=== PATIENT | male | born 1955 | race Caucasian/White ===

== ENCOUNTER 2022-02-17 10:23 | Outpatient (REF) | payer MEDICARE, MEDICAID, SELFPAY ==
[2022-02-17 15:24] LABS: MANUAL DIFF FLAG NO
[2022-02-17 15:28] LABS: Basophils Percent Auto 0.4 % (0-2); Eosinophils Percent Auto 0.4 % (0-4); Hematocrit 49.7 % (42.0-52.0); Hemoglobin 16.4 g/dl (14.0-18.0); Imm Gran Abs Auto 0.03 X10*3/uL (0.00-0.03); Imm Gran Pct Auto 0.3 % (0.0-0.4); Lymphocytes Absolute Auto 1.9 X10*3/uL (1.2-4.9); Lymphocytes Percent Auto 18.3 % (20-40); Mean Corpuscular Hemoglobin 30.4 pg (27.0-33.0); Mean Platelet Volume 10.6 fL (9.4-12.4); Monocytes Absolute Auto 0.6 X10*3/uL (0.1-1.2); Monocytes Percent Auto 5.9 % (2-11); Neutrophils Absolute Auto 7.9 x10*3/uL (2.0-8.3); Neutrophils Percent Auto 74.7 % (45-73); Platelet Count 329 X10*3/uL (160-400); Red Cell Distribution Width 13.2 % (11.0-16.0); White Blood Count 10.6 X10*3/uL (4.8-10.8)
[2022-02-17 15:39] LABS: Alanine Aminotransferase 29 U/L (0-40); Albumin Level 4.4 g/dL (3.5-5.0); Alkaline Phosphatase 87 U/L (39-117); Anion Gap 15 (12-20); Aspartate Amino Transferase 14 U/L (5-37); Bilirubin Total 0.6 mg/dL (0.0-1.0); Blood Urea Nitrogen 23 mg/dL (9-16); Calcium 10.1 mg/dL (8.4-10.2); Carbon Dioxide 23 mmol/L (22-29); Chloride 105 mmol/L (96-108); Cholesterol 212 mg/dL; Estimated Glomerular Filt Rate > 60; Glucose Fasting 103 mg/dL (60-99); HDL Cholesterol 40 mg/dL; LDL Cholesterol Calculated 149 mg/dl; Potassium 4.7 mmol/L (3.3-5.1); Sodium 138 mmol/L (135-145); Total Protein 7.7 g/dL (6.5-8.0); Triglycerides 116 mg/dL
[2022-02-17 16:15] LABS: TSH reflex Free T4 0.78 uIU/mL (0.32-4.0); Vitamin D 25-OH Total 54.1 ng/mL (>30)
[2022-02-17 17:00] LABS: Prostate Specific Antigen Scr 13.66 ng/mL (<0.05-4.0)
== END 2022-02-17 10:24 | disposition home or self-care (01) ==
LOC: HO.WFDLDS 10:23
PROVIDERS: Visit Provider Family Medicine
DX: Z00.00 Encounter for general adult medical examination without abnormal findings (principal); Z12.5 Encounter for screening for malignant neoplasm of prostate; E55.9 Vitamin D deficiency, unspecified
CPT/HCPCS: 36415; 80053; 80061; 82306; 84153; 84443; 85025

== ENCOUNTER 2023-05-01 15:45 | Outpatient (AMB) | payer MEDICARE, SELFPAY ==
--- NOTE | 2023-05-01 15:49 | MHC.PC.OV ---
Vital Signs 05/01/23 15:51 Height 5 ft 8 in Weight 175 lb BMI 26.6 BP 142/84 H Blood Pressure Location Lt brachial Position Sitting Pulse 90 Pulse Source Pulse Oximeter Pulse Oximetry (%) 95 Oxygen Delivery Method Room Air Intake Visit Reasons: CPE Intake Note: Patient is here for his physical today, needs a new placard form. Allergies No Known Allergies Allergy (Verified 05/01/23 15:55) Medication List - Last Reconciled 05/01/23 by Easton Jorge MD amlodipine 5 mg PO DAILY amoxicillin 500 mg PO Q12H 10 days cholecalciferol (vitamin D3) 125 mcg PO DAILY diclofenac sodium 1% 2 grams topical QID 30 days dutasteride 0.5 mg PO DAILY lisinopril 10 mg PO DAILY 30 days metoprolol succinate ER 25 mg PO DAILY 90 days omeprazole 40 mg PO DAILY 90 days policosanol mg PO selenium 50 mcg PO DAILY tamsulosin 0.4 mg PO DAILY trazodone 25 mg (1/2 x 50 mg) PO BEDTIME PRN 30 days Tobacco use date assessed: 05/01/23 Fall risk assessment: 2 + Falls in past year Last assessed Fall Risk: 05/01/23 Dental Screening Dental Screen Date: 05/01/23 Did you have a dental visit in the last 12 months?: Yes Did you have a dental problem in the last 6 months where you did not have access to dental care?: No Was dental information given to patient?: No HPI CPE HPI Details 67 y/o male presents for a CPE with f/u labs and health maintenance. No recent labs to review. Blood pressure today is 142/84. He is on amlodipine 5mg, lisinopril 10mg and metoprolol 25mg daily. Pt reports unsteady gait. Daughter reports that he had almost fallen. They also report anxiety and daughter notes he has been feeling more frustrated lately. They report GERD. [facility] Surgical History No pertinent past surgical history Social History Housing: House Patient Tobacco Use Status: Former Tobacco user Tobacco use type: Cigarette and Cigar e-Cigarette/Vaping Use: Never Used Second Hand Smoke Exposure: No service: No Current occupational status: retired Current occupational exposures/hazards: No Cognitive needs: No Hearing needs: No Vision needs: No Questionnaire PHQ-9 Over the last 2 weeks, how often have you been bothered by any of the following problems? 1. Little interest or pleasure in doing things: several days 2. Feeling down, depressed, or hopeless: not at all 3. Trouble falling or staying asleep, or sleeping too much: nearly every day 4. Feeling tired or having little energy: several days 5. Poor appetite or overeating: several days 6. Feeling bad about yourself - or that you are a failure or have let yourself or your family down: not at all 7. Trouble concentrating on things, such as reading the newspaper or watching television: not at all 8. Moving or speaking so slowly that other people could have noticed. Or the opposite - being so fidgety or restless that you have been moving around a lot more than usual: not at all 9. Thoughts that you would be better off or of hurting yourself in some way: not at all Total score: 6 Source: Developed by Drs. Conrad Palomino, Joan Shipman, Juan David Alcantara and colleagues, with an educational daly from [employer]. ITZEL-7 AMB Questionnaire ITZEL-7 Date ITZEL - 7 assessed: 04/03/22 Feeling nervous, anxious, or on edge: 3 = Nearly every day Not being able to stop or control worryin = Nearly every day Worrying too much about different things: 3 = Nearly every day Trouble relaxin = Nearly every day Being so restless that it is hard to sit still: 0 = Not at all Becoming easily annoyed or irritable: 3 = Nearly every day Feeling afraid as if something awful might happen: 0 = Not at all Total ITZEL-7 score (0-4 normal; 5-9 mild; 10-14 moderate; 15-21 severe): 15 Source: Developed by Drs. Conrad Palomino, Joan Shipman, Juan David Alcantara and colleagues, with an educational daly from [employer]. Review of Systems Const Denies chills, Denies fatigue, Denies fever(s), Denies headache(s) and Denies weakness Eyes Denies change in vision ENT Denies dizziness, Denies headache(s), Denies hearing loss, Denies nasal congestion, Denies sinus pain, Denies sinus pressure and Denies sore throat Card Denies chest pain, Denies lightheadedness, Denies dyspnea and Denies other (palpitations) Resp Denies cough, Denies dyspnea and Denies wheezing GI Denies abdominal pain, Denies melena, Denies hematochezia, Denies change in bowel habits, Denies dyspepsia and Denies nausea Denies hematuria and Denies dysuria Musc Denies abnormal gait, Denies myalgias, Denies arthralgias, Denies numbness and Denies tingling Skin/Breast Denies rash, Denies unusual bruising and Denies wounds Neuro Denies abnormal gait, Denies dizziness, Denies headache(s), Denies memory loss, Denies numbness, Denies Sensory deficit (Neuro), Denies tingling and Denies weakness Psych Denies anxiety, Denies depression and Denies memory loss Endo Denies cold intolerance, Denies fatigue, Denies heat intolerance, Denies polydipsia and Denies polyuria Eze/Lymph Denies easy bleeding and Denies easy bruising Aller/Immun Denies wheezing Physical exam (Primary Care) Vital Signs: Last Vital Signs Pulse 90 05/01/23 15:51 BP 142/84 H 05/01/23 15:51 Pulse Ox 95 05/01/23 15:51 Oxygen Delivery Method Room Air 05/01/23 15:51 BMI result Body Mass Index 26.6 Tobacco/Smoking Status: Tobacco use Status Tobacco use date assessed 05/01/23 05/01/23 16:04 Patient Tobacco Use Status Former Tobacco user 05/01/23 16:04 Tobacco use type Cigarette,Cigar 05/01/23 16:04 e-Cigarette/Vaping Use Never Used 05/01/23 16:04 PHQ-9: PHQ-9 Score PHQ-9: Total score 6 05/01/23 16:37 Const General: no acute distress, well developed, alert and awake Nutritional Appearance: well nourished Orientation/consciousness: patient oriented x3 HENMT Head: Yes normocephalic and Yes atraumatic Ears: hearing grossly normal bilaterally and TM's normal bilaterally General nose exam: Normal external nose present and Normal nares present Mouth: Normal oral and palatal mucosa present and moist mucous membranes Teeth and gingiva: dentition normal Throat: Yes posterior oropharynx normal Eyes General: appearance normal, both eyes and all related structures Pupils: Equal, round and reactive pupils present and Pupil accommodation reflex normal EOM: EOMs intact bilaterally Neck Neck: Yes normal visual inspection, Yes no lymphadenopathy and Yes trachea midline Thyroid: Thyroid normal Carotids: no bruits Lymphatic: no lymphadenopathy noted Chest Chest palpation & inspection: normal inspection of the chest Resp Effort & Inspection: normal respiratory effort Auscultation: clear to auscultation bilaterally Cardio Rate: regular rate Rhythm: regular rhythm Heart sounds: S1 normal heart sound present, S2 normal heart sound present, no gallops, no murmurs and no rubs Bruits: no abdominal aortic bruits and no carotid bruits GI Palpation (GI): No Abdominal aortic bruit present, Soft to palpation, nontender, No hepatosplenomegaly present and No Rebound tenderness present Auscultation: normal bowel sounds General: Yes no CVA tenderness Back/Spine/Pelvis Back: no CVA tenderness Cervical Spine: cervical ROM normal and No Cervical spine tenderness Thoracic/Lumbar Spine: thoraco-lumbar ROM normal, No pain with thoraco-lumbar ROM, No thoracic spinal tenderness and No lumbar spinal tenderness Skin Lesions: no lesions Rashes: no rashes Trauma: no lacerations or abrasions Wounds: no wounds Nails: normal Neuro General: patient oriented x3 Cranial nerves: Yes Equal, round and reactive pupils present Cognition (Neuro): normal cognition Gait exam (Neuro): gait abnormal Motor exam (neuro): 5/5 motor strength present throughout Sensory Exam: No Sensory deficit (Neuro) Deep tendon reflexes (DTR's): Right patellar reflex intensity grade: 2+ and Left patellar reflex intensity grade: 2+ Extrem General: Yes normal to inspection and No edema Psych Appearance: grossly normal Affect: Anxious affect present Attitude: cooperative Thought process: Normal thought process present Assessment and Plan Assessment & Plan (1) Adult general medical exam: Code(s): Z00.00 - Encounter for general adult medical examination without abnormal findings Plan: 67-year-old male presents for complete physical exam (2) Unsteady gait: Code(s): R26.81 - Unsteadiness on feet Plan: Unsteady gait which is likely due to multiple factors including bilateral hip and knee arthritis and injuries. Also patient has this some Behavioral Health and mental status changes which may be related to neurological changes. Will check MRI May need referral to neurology Resume physical therapy (3) Hip pain, bilateral: Code(s): M25.551 - Pain in right hip; M25.552 - Pain in left hip Plan: Using a cane and I am recommending a walker Needs physical therapy (4) Screening for prostate cancer: Code(s): Z12.5 - Encounter for screening for malignant neoplasm of prostate Plan: Check labs (5) GERD (gastroesophageal reflux disease): Code(s): K21.9 - Gastro-esophageal reflux disease without esophagitis Plan: Declines medication. His daughter says she has Pepcid at home and he can use this if he is willing (6) Screening for colon cancer: Code(s): Z12.11 - Encounter for screening for malignant neoplasm of colon Plan: Deferred - we can readdress this at a subsequent visit (7) Anxiety: Code(s): F41.9 - Anxiety disorder, unspecified Plan: Patient is irritable and gets angry easily. Also has apparent panic attacks Trial quetiapine Trial lorazepam Advised he only use these with family supervision (8) Lower extremity weakness: Code(s): R29.898 - Other symptoms and signs involving the musculoskeletal system Plan: Likely secondary to arthritis and injuries but also neurologic component. Checking MRI Brain (9) Altered mental status: Code(s): R41.82 - Altered mental status, unspecified Plan: As above check MRI of brain Trial medications as mentioned above and close family supervision (10) Imbalance: Code(s): R26.89 - Other abnormalities of gait and mobility Plan: As above Orders: Orders Comprehensive [place]. Panel Fast Today Z00.00 - Encounter for general adult medical examination without abnormal findings Lipid Panel Today Z00.00 - Encounter for general adult medical examination without abnormal findings Prostate Specific Antigen Scr Today Z12.5 - Encounter for screening for malignant neoplasm of prostate TSH reflex Free T4 Today Z00.00 - Encounter for general adult medical examination without abnormal findings Microalbumin, Random (w Creat) Today I10 - Essential (primary) hypertension Complete Blood Count Auto Diff Today Z00.00 - Encounter for general adult medical examination without abnormal findings UA and rflx microscopic Today Z00.00 - Encounter for general adult medical examination without abnormal findings MR head/brain wo/w con Today R26.89 - Other abnormalities of gait and mobility, R41.82 - Altered mental status, unspecified PT Evaluation and Treatment Today R26.81 - Unsteadiness on feet Referrals [facility] Referral R26.81 - Unsteadiness on feet, R29.898 - Other symptoms and signs involving the musculoskeletal system, R41.82 - Altered mental status, unspecified Medications: New walker (Ultra-Light Rollator misc) Daily As directed, 999 days 1 ea 0RF M25.551 - Pain in right hip, M25.552 - Pain in left hip, M25.561 - Pain in right knee, M25.562 - Pain in left knee, R26.81 - Unsteadiness on feet, R29.898 - Other symptoms and signs involving the musculoskeletal system quetiapine (Seroquel) 25 mg PO BEDTIME 30 days 30 tabs 1RF lorazepam [employer] verified. Partial refill upon request. 0.25 mg (1/2 x 0.5 mg) PO DAILY 30 days PRN 10 tabs 0RF anxiety walker (Ultra-Light Rollator misc) Daily As directed, 999 days 1 ea 0RF M25.551 - Pain in right hip, M25.552 - Pain in left hip, M25.561 - Pain in right knee, M25.562 - Pain in left knee, R26.81 - Unsteadiness on feet, R29.898 - Other symptoms and signs involving the musculoskeletal system Coding Level of Care Code Est Pt Level 4 (42810) Est Pt Prev Care >65y(97255) Diagnoses Adult general medical exam Z00.00 Unsteady gait R26.81 Hip pain, bilateral M25.551; M25.552 Screening for prostate cancer Z12.5 GERD (gastroesophageal reflux disease) K21.9 Screening for colon cancer Z12.11 Anxiety F41.9 Lower extremity weakness R29.898 Altered mental status R41.82 Imbalance R26.89
[2023-05-01 15:51] VITALS: BP 142/84; PULSE 90; O2SAT 95; BMI 26.6
== END 2023-05-01 17:15 | disposition home or self-care (01) ==
PROVIDERS: PCP Family Medicine; Visit Provider Family Medicine
DX: Z00.00 Encounter for general adult medical examination without abnormal findings (principal); K21.9 Gastro-esophageal reflux disease without esophagitis; F41.9 Anxiety disorder, unspecified; M25.552 Pain in left hip; R26.81 Unsteadiness on feet; M25.551 Pain in right hip; R29.898 Other symptoms and signs involving the musculoskeletal system; R41.82 Altered mental status, unspecified; R26.89 Other abnormalities of gait and mobility
CPT/HCPCS: 99397

== ENCOUNTER 2023-06-26 15:40 | Outpatient (AMB) | payer MEDICARE, SELFPAY ==
[2023-06-26 15:46] VITALS: BP 140/78; PULSE 113; O2SAT 94
--- NOTE | 2023-06-26 15:46 | A.OFFPC_ITS ---
Vital Signs 06/26/23 15:46 Height 5 ft 8 in BMI Reason not done Patient refused/unable BP 140/78 H Blood Pressure Location Lt brachial Position Sitting Pulse 113 H Pulse Source Pulse Oximeter Pulse Oximetry (%) 94 Oxygen Delivery Method Room Air Intake Visit Reasons: f/u unsteady gait/imbalance Intake Note: Patient is here for unsteady gait, and imbalance. Allergies No Known Allergies Allergy (Verified 06/26/23 15:50) Tobacco use date assessed: 06/26/23 Fall risk assessment: 2 + Falls in past year Last assessed Fall Risk: 06/26/23 Dental Screening Dental Screen Date: 06/26/23 Did you have a dental visit in the last 12 months?: Yes Did you have a dental problem in the last 6 months where you did not have access to dental care?: No Was dental information given to patient?: Patient has dentist HPI f/u unsteady gait/imbalance HPI Details 67 y/o male presents to f/u unsteady gai t and imbalance. Had resumed physical therapy for him. Blood pressure today 140/78, 113p. He is on lisinopril 10mg, amlodipine 5mg and metoprolol 25mg daily. They report motivation issues along with anxiety/depression. They report ongoing back pain. [facility] Surgical History No pertinent past surgical history Social History Housing: House Patient Tobacco Use Status: Former Tobacco user Tobacco use type: Cigarette and Cigar e-Cigarette/Vaping Use: Never Used Second Hand Smoke Exposure: No service: No Current occupational status: retired Current occupational exposures/hazards: No Cognitive needs: No Hearing needs: No Vision needs: No Questionnaire ITZEL-7 AMB Questionnaire ITZEL-7 Date ITZEL - 7 assessed: 04/03/22 Source: Developed by Drs. Conrad Palomino, Joan Shipman, Juan David Alcantara and colleagues, with an educational daly from [employer]. Review of Systems Const Denies chills, Denies fatigue, Denies fever(s), Denies headache(s) and Denies weakness ENT Denies dizziness and Denies headache(s) Card Denies chest pain, Denies lightheadedness, Denies dyspnea and Denies other (Palpitations) Resp Denies cough, Denies dyspnea, Denies wheezing and Denies other ( shortness of breath) Musc Denies numbness and Denies tingling Neuro Denies dizziness, Denies headache(s), Denies numbness, Denies tingling, Denies paresthesias and Denies weakness Psych Denies anxiety and Denies depression Endo Denies fatigue Aller/Immun Denies wheezing Physical exam (Primary Care) Vital Signs: Last Vital Signs Pulse 113 H 06/26/23 15:46 BP 140/78 H 06/26/23 15:46 Pulse Ox 94 06/26/23 15:46 Oxygen Delivery Method Room Air 06/26/23 15:46 Tobacco/Smoking Status: Tobacco use Status Tobacco use date assessed 06/26/23 06/26/23 15:58 Patient Tobacco Use Status Former Tobacco user 06/26/23 15:58 Tobacco use type Cigarette,Cigar 06/26/23 15:58 e-Cigarette/Vaping Use Never Used 06/26/23 15:58 Const General: no acute distress and well developed Nutritional Appearance: well nourished Orientation/consciousness: patient oriented x3 HENMT Head: Yes normocephalic and Yes atraumatic Eyes General: appearance normal, both eyes and all related structures Pupils: Equal, round and reactive pupils present EOM: EOMs intact bilaterally Resp Effort & Inspection: normal respiratory effort Auscultation: clear to auscultation bilaterally Cardio Rate: regular rate Rhythm: regular rhythm Heart sounds: S1 normal heart sound present, S2 normal heart sound present, no gallops, no murmurs and no rubs Neuro Other: LE weakness 4/5 strength on RLE, 3/5 strength LLE General: patient oriented x3 and No gait normal Cranial nerves: Yes Equal, round and reactive pupils present Gait exam (Neuro): gait abnormal and Assisted gait required Gait assisted method: wheelchair bound Psych Affect: normal affect Assessment and Plan Assessment & Plan (1) Unsteady gait: Code(s): R26.81 - Unsteadiness on feet Plan: Significantly?unsteady?gait.??Unclear?if?causes?due?to?low?back?injury? or?a?central?nervous?lesion/brain?lesion. He?is?had?changes?in?personality?as?well?as?a?shuffling?gait.??MRI?is?ordered?an d?I?have?given?the?phone?number?for?MRI?to?his?granddaughter?to?call?and?make? an?appointment?for?this He?is?had?several?falls?and?I?think?at?this?point?it?is?time?for?him?to?use?a?wh eelchair.??Printed?script?for?wheelchair. (2) Lower extremity weakness: Code(s): R29.898 - Other symptoms and signs involving the musculoskeletal system Plan: As?above (3) Hypertension: Code(s): I10 - Essential (primary) hypertension Plan: Increase?lisinopril?and?continue?amlodipine (4) Anxiety: Code(s): F41.9 - Anxiety disorder, unspecified Plan: Currently?does?not?seem?compliant?with?his?medications. Will?get?him?referred?to?[facility]?to?help?with?medication?compliance?and?organization . (5) Low back pain: Code(s): M54.50 - Low back pain, unspecified Plan: History?of?falls?and?compression?fractures. Ongoing?back?pain.??Checking?lumbar?spine?x-rays. Can?use?meloxicam?as?well?as?diclofenac?gel. (6) Cognitive decline: Code(s): R41.89 - Other symptoms and signs involving cognitive functions and awareness Plan: Cognitive?decline?as?well?as?worsening?mood?disorder. Unclear?if?mood?disorder?is?causing?cognitive?decline?or?otherwise. As?above,?an?MRI?is?ordered. Also?referring?him?to?Neurology?for?cognitive?decline?with?worsening?weakness?an d?unsteady?gait. Orders: Orders XR lumbar spine 2-3V Today M54.50 - Low back pain, unspecified Referrals Neurology Referral R26.81 - Unsteadiness on feet, R29.898 - Other symptoms and signs involving the musculoskeletal system, R41.89 - Other symptoms and signs involving cognitive functions and awareness Medications: New miscellaneous medical supply Wheelchair. Daily?As directed, 999 days 1 ea 0RF R26.81 - Unsteadiness on feet, R29.898 - Other symptoms and signs involving the musculoskeletal system, S32.009A - Unspecified fracture of unspecified lumbar vertebra, initial encounter for closed fracture meloxicam 15 mg PO DAILY 30 days 30 tabs 2RF Changed From lisinopril 10 mg PO DAILY 30 days 30 tabs 2RF To lisinopril 20 mg (2 x 10 mg) PO DAILY 30 days 60 tabs 2RF Refilled diclofenac sodium 1% 2 grams topical QID 30 days 100 grams 2RF M25.561 - Pain in right knee Coding Level of Care Code Est Pt Level 4 (06996) Diagnoses Unsteady gait R26.81 Lower extremity weakness R29.898 Hypertension I10 Anxiety F41.9 Low back pain M54.50 Cognitive decline R41.89
== END 2023-06-26 16:51 | disposition home or self-care (01) ==
PROVIDERS: PCP Family Medicine; Visit Provider Family Medicine
DX: R26.81 Unsteadiness on feet (principal); R29.898 Other symptoms and signs involving the musculoskeletal system; I10 Essential (primary) hypertension; F41.9 Anxiety disorder, unspecified; M54.50 Low back pain, unspecified; R41.89 Other symptoms and signs involving cognitive functions and awareness
CPT/HCPCS: 99214

== ENCOUNTER 2023-11-28 08:16 | Emergency (ER) | payer MEDICARE, OTHER, SELFPAY ==
[2023-11-28 08:27] VITALS: BP 142/84; BP 161/91; PULSE 62; PULSE 65; RESP 16; TEMP 36.8; O2SAT 96; O2SAT 98; BMI 27.0
--- NOTE | 2023-11-28 09:19 | ED.MALEGU ---
HPI - Male Genitourinary General Chief complaint: Urogenital-Male Stated complaint: ABD PAIN BLOOD IN CATHETER Source: patient and EMS Mode of arrival: EMS Limitations: no limitations History of Present Illness HPI Narrative: Patient presents for bloody catheter yesterday, today he states that it is clearing up. no pain no fever, no abdominal distention Onset (ago): day(s) Duration: intermittent Related Data Home Medications Medication Instructions Recorded Confirmed cholecalciferol (vitamin D3) 125 125 mcg PO DAILY 02/09/22 05/01/23 mcg (5,000 unit) capsule policosanol 10 mg tablet mg PO 02/09/22 05/01/23 selenium 50 mcg tablet 50 mcg PO DAILY 02/09/22 05/01/23 tamsulosin 0.4 mg capsule 0.4 mg PO DAILY 02/09/22 05/01/23 dutasteride 0.5 mg capsule 0.5 mg PO DAILY 02/17/22 05/01/23 Previous Rx's Medication Instructions Recorded metoprolol succinate 25 mg 25 mg PO DAILY 90 days #90 tabs 02/10/22 tablet,extended release 24 hr omeprazole 40 mg capsule,delayed 40 mg PO DAILY 90 days #90 caps 02/10/22 release trazodone 50 mg tablet 25 mg (1/2 x 50 mg) PO BEDTIME PRN 01/22/23 sleep 30 days #20 tabs lorazepam 0.5 mg tablet 0.25 mg (1/2 x 0.5 mg) PO DAILY 05/01/23 PRN anxiety 30 days #10 tabs quetiapine 25 mg tablet (Seroquel) 25 mg PO BEDTIME 30 days #30 tabs 05/01/23 walker (Ultra-Light Rollator misc) #1 ea 05/02/23 amlodipine 5 mg tablet 5 mg PO DAILY 90 days #90 tabs 05/22/23 diclofenac sodium 1 % topical gel 2 g topical QID 30 days #100 grams 06/26/23 lisinopril 10 mg tablet 20 mg (2 x 10 mg) PO DAILY 30 days 06/26/23 #60 tabs meloxicam 15 mg tablet 15 mg PO DAILY 30 days #30 tabs 06/26/23 miscellaneous medical supply #1 ea 06/26/23 Allergies Allergy/AdvReac Type Severity Reaction Status Date / Time No Known Allergies Allergy Verified 06/26/23 15:50 Review of Systems Review of Systems: Yes all other systems are reviewed and are negative Neurologic: Denies Sensory deficit (Neuro) [facility] Past Medical History Surgical History No pertinent past surgical history Social History Social History Housing: House Patient Tobacco Use Status: Former Tobacco user Tobacco use type: Cigarette and Cigar e-Cigarette/Vaping Use: Never Used Second Hand Smoke Exposure: No Advance Directives: No Advance Directives Information Provided: Yes service: No Current occupational status: retired Current occupational exposures/hazards: No Cognitive needs: No Hearing needs: No Vision needs: No Physical Exam Vital Signs: Vital Signs: Last Vital Signs Temp 98.2 F 11/28/23 08:27 Pulse 65 11/28/23 08:27 Resp 16 11/28/23 08:27 BP 161/91 H 11/28/23 08:27 Pulse Ox 96 11/28/23 08:27 O2 Del Method Room Air 11/28/23 08:27 BMI result Body Mass Index 27.0 Const: Other: frail elderly male looking chronically ill Nutritional Appearance: thin Orientation/consciousness: oriented to person and patient oriented x3 Limitations: no limitations HEENT: Head: Yes normal to inspection Ears: external ears normal General nose exam: Normal external nose present Mouth: Normal oral and palatal mucosa present and oropharynx normal Throat: Yes posterior oropharynx normal Eyes: General: appearance normal, both eyes and all related structures Neck: Other: supple Neck: Yes normal visual inspection Chest: Chest palpation & inspection: normal inspection of the chest Resp: Auscultation: clear to auscultation bilaterally Cardio: Jugular venous distension: no JVD Rate: regular rate Rhythm: regular rhythm Heart sounds: S1 normal heart sound present and S2 normal heart sound present GI: Inspection: Yes normal to inspection Palpation (GI): Soft to palpation, nontender and No hepatosplenomegaly present Auscultation: normal bowel sounds : Other: catheter in penis, no bleeding Skin: General skin exam: no rashes or lesions noted Neuro: General: oriented to person and patient oriented x3 Cranial nerves: Yes CN's II-XII intact bilaterally Motor exam (neuro): 5/5 motor strength present throughout Sensory Exam: No Sensory deficit (Neuro) Extrem: General: Yes normal to inspection Psych: Appearance: grossly normal Course Reevaluation(s) Reevaluation #1: bedside US show livingston balloon in good place with empty bladder Time: 09:31 Medical Decision Making Differential Diagnosis Differential Diagnoses: The differential diagnosis associated with the presentation includes (dislodged livingston, prostate bleeding, bladder bleeding) Admission/Observation Consideration of admission/observation: Escalation of care including admission/observation considered (upon arrival patient was considered for admission) Independent Interpretation Interpretation: Bedside US show livingston in good position Tests considered The following testing was considered but not selected: Official Us considered but bedside performed by [place] Discharge Plan Discharge Clinical Impression: Chronic indwelling Livingston catheter Patient Disposition: Home, Self-Care Prescriptions: No Action (DME) Ultra-Light Rollator Misc See Rx Instructions .Route Qty: 1 0RF Rx Instructions: Daily As directed, 999 days amlodipine 5 mg tablet 5 mg PO DAILY 90 Days Qty: 90 3RF dutasteride 0.5 mg capsule 0.5 mg PO DAILY trazodone 50 mg tablet 25 mg PO BEDTIME PRN (Reason: sleep) 30 Days Qty: 20 0RF quetiapine [Seroquel] 25 mg tablet 25 mg PO BEDTIME 30 Days Qty: 30 1RF lorazepam 0.5 mg tablet 0.25 mg PO DAILY PRN (Reason: anxiety) 30 Days Qty: 10 0RF Rx Instructions: [facility] verified. Partial refill upon request. (DME) miscellaneous medical supply Misc See Rx Instructions .ROUTE .MEDSUPPLY Qty: 1 0RF Rx Instructions: Wheelchair. Daily?As directed, 999 days lisinopril 10 mg tablet 20 mg PO DAILY 30 Days Qty: 60 2RF meloxicam 15 mg tablet 15 mg PO DAILY 30 Days Qty: 30 2RF diclofenac sodium 1 % gel 2 g topical QID 30 Days Qty: 100 2RF tamsulosin 0.4 mg capsule 0.4 mg PO DAILY cholecalciferol (vitamin D3) 125 mcg (5,000 unit) capsule 125 mcg PO DAILY selenium 50 mcg tablet 50 mcg PO DAILY policosanol 10 mg tablet PO metoprolol succinate 25 mg tablet extended release 24 hr 25 mg PO DAILY 90 Days Qty: 90 1RF omeprazole 40 mg capsule,delayed release(DR/EC) 40 mg PO DAILY 90 Days Qty: 90 2RF Referrals: Saman Pierre MD [Physician] - 1 week
--- NOTE | 2023-11-28 10:35 | MHC.EDTECH ---
Patient had small bowel movement. Patient is clean and dry at this time, emptied Zuniga bag, 900ml.
--- NOTE | 2023-11-28 12:46 | MHC.CM.ED ---
Received case management consult from Dr Burch. Patient came to the ER from [facility] via BLS d/t abd pain and blood in urinary catheter. Work up was negative and Dr Burch was going to transfer patient back to [facility]. Patient stated he didn't feel safe there. T/W spoke with Sheila of [facility]. Patient has not had any complains while at the facility. He does have moments of confusion but never complained. T/w attempted to speak with patient daughter/HCP, Nanci. Left a voicemail requesting a return call. Met with patient. Patient states he feels he can safely return to [facility]. [facility] booked by ER principal secretary. Continue to monitor for d/c needs.
== END 2023-11-28 10:42 | disposition home or self-care (01) ==
PROVIDERS: Emergency Provider Emergency Medicine; PCP Family Medicine
DX: Z46.6 Encounter for fitting and adjustment of urinary device (principal)
CPT/HCPCS: 99281

== ENCOUNTER 2024-05-01 13:47 | Inpatient (IN) | payer MEDICARE, SELFPAY ==
[2024-05-01] VITALS (13 sets, daily range): BP systolic 82–147; BP diastolic 6–88; PULSE 57–118; RESP 16–24; TEMP 36.9–40; O2SAT 91–99; BMI 24.7
--- NOTE | ~2024-05-01 | CT_ITS ---
EXAMINATION: CT HEAD WITHOUT CONTRAST CLINICAL INFORMATION: Altered mental status COMPARISON: None available. TECHNIQUE: Contiguous axial imaging was performed from the skull base to vertex without intravenous administration of contrast. This CT examination was performed using dose optimization techniques as appropriate, variously including the following: *Automated exposure control *Adjustment of mA and/or kV according to patient size (this includes techniques or standardized protocols for targeted exams where dose is matched to indication/reason for exam; i.e. extremities or head) *Use of iterative reconstruction technique DLP: 650 mGy-cm FINDINGS: There is no evidence of acute intracranial hemorrhage or edematous territorial infarction. Diffuse volume loss with prominence of the ventricles and cortical sulci. The ventricles are slightly out of proportion of the cortical sulci. No obstructive hydrocephalus. Patchy and confluent hypodensities within the periventricular and deep white matter likely representing moderate chronic microangiopathy. No mass effect or midline shift. No acute extra-axial collection. Multifocal regions of calvarial thinning along the parietal bones at the vertex with no acute osseous or soft tissue abnormality. The paranasal sinuses and mastoids are well-aerated. CT/CT head/brain wo IV con IMPRESSION: No acute intracranial pathology. Diffuse volume loss. Moderate chronic microangiopathy. The ventricles are slightly out of proportion to the cortical sulci. An underlying component of normal pressure hydrocephalus is not excluded. Clinical correlation is recommended.
--- NOTE | ~2024-05-01 | CT_ITS ---
EXAMINATION: CTA CHEST PE STUDY, CT ABDOMEN AND PELVIS CLINICAL INFORMATION: Hypoxic COMPARISON: No pertinent prior studies are available for comparison. TECHNIQUE: Prior to contrast administration, noncontrast localization images were obtained. After the administration of 85 mL of Omnipaque nonionic IV contrast, contiguous thin slice helical images were obtained through the thorax. Following this the examination was continued through the abdomen and then pelvis. Reformatted MIP images in the coronal and sagittal planes as well as thin slice reformatted images of coronal and sagittal planes were obtained at the acquisition workstation. This CT examination was performed using dose optimization techniques as appropriate, variously including the following: *Automated exposure control *Adjustment of mA and/or kV according to patient size (this includes techniques or standardized protocols for targeted exams where dose is matched to indication/reason for exam; i.e. extremities or head) *Use of iterative reconstruction technique DLP: 250 mGy-cm. FINDINGS: CHEST: The bolus timing on this study was acceptable for visualization of the pulmonary arterial tree. There are no intraluminal pulmonary arterial filling defects present to suggest pulmonary embolism. Bilateral dependent atelectasis. No abnormal pulmonary nodules or masses are appreciated. No significant hilar or mediastinal adenopathy. There is no evidence of pleural effusion or pneumothorax. The heart is normal in size. No evidence of ventricular septal bowing or right heart strain. The mediastinum and great vessels are normal. There is no pericardial effusion or pericardial thickening. ABDOMEN/PELVIS: Liver, Gallbladder and Biliary Tree: The liver is normal in size, shape, and attenuation. No focal hepatic lesion or biliary ductal dilatation is present. The gallbladder is unremarkable with no evidence of radiopaque gallstones, gallbladder wall thickening, or obvious pericholecystic inflammatory changes. Pancreas: Unremarkable. Spleen: Unremarkable. Adrenal Glands: Unremarkable. Kidneys and Ureters: The kidneys are normal in size, shape, and attenuation. Low-attenuation 2.5 cm cyst in the posterior upper pole of the right kidney No hydronephrosis, hydroureter, or calculi seen. No perinephric stranding. Bladder: Although decompressed there is concentric bladder wall thickening and underlying cystitis cannot be excluded. Clinical correlation with urinalysis would be helpful. There appears to be a bladder catheter with the tip ending in the region of the prostatic urethra and the balloon in the bulbous urethra. Gastrointestinal Tract: Few scattered colonic diverticula. No colonic wall thickening or pericolonic inflammatory change to suggest diverticulitis. Visualized small bowel unremarkable Abdominal Wall: No significant hernia is appreciated. Lymphovascular Structures: Mild vascular calcification within the aorta iliac system. No bulky adenopathy Pelvic Viscera: Prostate is markedly enlarged Osseous Structures: Multilevel degenerative changes in the spine with compression deformities more so at L3-L4 with mild compression deformities of L5, L2, and T12 CT/CT abdomen pelvis w IV con IMPRESSION: 1. No evidence for pulmonary emboli. Dependent airspace changes more likely due to atelectasis. 2. No acute abnormality within the abdomen or pelvis. 3. There is a bladder catheter with the tip ending in the region of the prostatic urethra and the balloon in the bulbous urethra. This can be repositioned. 4. Concentric bladder wall thickening likely reflects component of cystitis. Correlation with urinalysis recommended. 5. VTE: Negative. This critical result was discussed with Osiris Stevens MD at 05/01/2024 9:21 PM and it was ascertained that the content and urgency of the report was understood at the time of direct communication.
--- NOTE | ~2024-05-01 | XR_ITS ---
EXAMINATION: XR CHEST CLINICAL INFORMATION: Fever. COMPARISON: No prior images restored to the system at the time of this dictation. TECHNIQUE: AP upright portable view of the chest was obtained. FINDINGS: EKG leads overlie the chest. The cardiomediastinal silhouette is enlarged. Calcification and tortuosity of the aorta is seen. Low lung volumes are seen with mild bibasilar linear atelectasis. No focal dense consolidation, effusion or pneumothorax. No pulmonary edema. No acute bone findings. XR/XR chest 1V IMPRESSION: Low lung volumes with mild bibasilar subsegmental atelectasis. No focal pneumonia.
--- NOTE | 2024-05-01 14:24 | PC.NURSE ---
Pt. on awake overnight monitor at this time.
--- NOTE | 2024-05-01 14:52 | ED.GENADULT ---
HPI - General Adult General Chief complaint: Altered Mental Status Stated complaint: AMS Time Seen by Provider: 05/01/24 14:51 History of Present Illness ED Provider: Dr. 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 Patient is a poor historian at baseline but denies any complaints. He denies: abdominal pain, nausea/vomiting, diarrhea, chest pain, SOB, cough/congestion. Patient's daughter at bedside agrees patient has been in his usual state of health until today. She states when he did not call her she became concerned that something was wrong. Related Data Home Medications ?Medication ?Instructions ?Recorded ?Confirmed cholecalciferol (vitamin D3) 125 125 mcg PO DAILY 02/09/22 05/01/23 mcg (5,000 unit) capsule policosanol 10 mg tablet mg PO 02/09/22 05/01/23 selenium 50 mcg tablet 50 mcg PO DAILY 02/09/22 05/01/23 tamsulosin 0.4 mg capsule 0.4 mg PO DAILY 02/09/22 05/01/23 dutasteride 0.5 mg capsule 0.5 mg PO DAILY 02/17/22 05/01/23 Previous Rx's ?Medication ?Instructions ?Recorded metoprolol succinate 25 mg 25 mg PO DAILY 90 days #90 tabs 02/10/22 tablet,extended release 24 hr omeprazole 40 mg capsule,delayed 40 mg PO DAILY 90 days #90 caps 02/10/22 release trazodone 50 mg tablet 25 mg (1/2 x 50 mg) PO BEDTIME PRN 01/22/23 sleep 30 days #20 tabs lorazepam 0.5 mg tablet 0.25 mg (1/2 x 0.5 mg) PO DAILY 05/01/23 PRN anxiety 30 days #10 tabs quetiapine 25 mg tablet (Seroquel) 25 mg PO BEDTIME 30 days #30 tabs 05/01/23 walker (Ultra-Light Rollator misc) #1 ea 05/02/23 amlodipine 5 mg tablet 5 mg PO DAILY 90 days #90 tabs 05/22/23 diclofenac sodium 1 % topical gel 2 g topical QID 30 days #100 grams 06/26/23 lisinopril 10 mg tablet 20 mg (2 x 10 mg) PO DAILY 30 days 06/26/23 #60 tabs meloxicam 15 mg tablet 15 mg PO DAILY 30 days #30 tabs 06/26/23 miscellaneous medical supply #1 ea 06/26/23 Allergies Allergy/AdvReac Type Severity Reaction Status Date / Time No Known Allergies Allergy Verified 05/01/24 14:09 Review of Systems Review of Systems: Yes all other systems are reviewed and are negative Neurologic: Denies Abnormal speech present and Denies Sensory deficit (Neuro) [facility] Past Medical History Attestation statement: The following information was validated with the patient. Source: old records reviewed Surgical History No pertinent past surgical history Social History Social History Housing: House Patient Tobacco Use Status: Former Tobacco user Tobacco use type: Cigarette and Cigar e-Cigarette/Vaping Use: Never Used Second Hand Smoke Exposure: No Advance Directives: Yes Advance Directives on File: Yes Advance Directives Date on File: 12/19/23 service: No Current occupational status: retired Current occupational exposures/hazards: No Cognitive needs: No Hearing needs: No Vision needs: No Physical Exam ED Vital Signs: Vital Signs - 24 hr 05/01/24 14:07 05/01/24 16:00 05/01/24 17:22 Temperature 104 F H 99.9 F Pulse Rate 111 H 94 83 Respiratory Rate 24 H 20 19 Blood Pressure 147/88 H 114/70 114/70 Pulse Oximetry 94 96 94 Oxygen Delivery Method Nasal Cannula Nasal Cannula Room Air Oxygen Flow Rate 3 05/01/24 17:59 05/01/24 18:00 05/01/24 18:03 Temperature Pulse Rate 72 78 75 Respiratory Rate 19 19 20 Blood Pressure 92/55 L 92/55 L 88/56 L Pulse Oximetry 95 95 95 Oxygen Delivery Method Nasal Cannula Nasal Cannula Nasal Cannula Oxygen Flow Rate 3 3 3 05/01/24 18:07 05/01/24 18:43 05/01/24 18:44 Temperature 100.0 F 98.4 F Pulse Rate 74 71 71 Respiratory Rate 19 18 18 Blood Pressure 91/54 L 117/63 121/65 Pulse Oximetry 95 96 95 Oxygen Delivery Method Nasal Cannula Nasal Cannula Nasal Cannula Oxygen Flow Rate 3 2 2 05/01/24 19:41 Temperature 98.4 F Pulse Rate 57 Respiratory Rate 16 Blood Pressure 92/53 L Pulse Oximetry 96 Oxygen Delivery Method Nasal Cannula Oxygen Flow Rate 3 BMI result Body Mass Index 24.7 Patient is febrile, tachycardic, and mildly hypertensive. Const General: ill appearing Orientation/consciousness: patient oriented x3 HENMT Head: Yes normal to inspection and Yes atraumatic Eyes General: appearance normal, both eyes and all related structures Pupils: Equal, round and reactive pupils present EOM: EOMs intact bilaterally Neck Neck: Yes normal visual inspection, Yes full ROM, Yes supple and No tender Chest Chest palpation & inspection: normal inspection of the chest and normal palpation of entire chest wall Resp Effort & Inspection: normal respiratory effort, able to speak in complete sentences, no cough and no respiratory distress Auscultation: clear to auscultation bilaterally Cardio Rate: tachycardic Rhythm: regular rhythm Peripheral pulses: Peripheral pulses 2+ throughout GI Inspection: Yes normal to inspection, No Abdominal wall edema and No distended Palpation (GI): Soft to palpation, not firm, nontender, no guarding and not rigid Auscultation: normal bowel sounds Other: In-dwelling livingston in place Back/Spine/Pelvis Back: No back tenderness Neuro Other: General: patient oriented x3 Cranial nerves: Yes Equal, round and reactive pupils present Cognition (Neuro): normal cognition Speech: No Abnormal speech present Motor exam (neuro): 5/5 motor strength present throughout Sensory Exam: No Sensory deficit (Neuro) Course Course Course Narrative: Patient is febrile, tachycardic, and mildly hypertensive. Ordered for CXR, EKG, UA, and infectious labs. Ordered for COVID swab. Providing 1L IVF. Providing empiric Cefepime and Vancomycin for sepsis without known source. Labs reviewed. Leukocytosis noted 17. Bandemia 26%. TSH 0.24. COVID/Flu/RSV negative. CXR unremarkable. Reevaluation(s) Reevaluation #1: Called to patient's bedside at 1800 due to hypotension. Providing total 30cc/kg fluid bolus with improvement in low blood pressures. UA with evidence of infection. CT notable for chronic indwelling livingston with balloon in urethra. Plan for livingston removal and replacement. Otherwise CT scan with evidence of cystitis. Plan: Admit to hospitalist Condition: Stable Medications Administered Discontinued Medications Generic Name Dose Route Start Last Admin Trade Name Bennett PRN Reason Stop Dose Admin Acetaminophen 975 mg 05/01/24 16:22 05/01/24 16:36 Acetaminophen 325 Mg Tablet PO 05/01/24 16:23 975 mg ONCE ONE Administration Sodium Chloride 1,000 mls @ 999 mls/hr 05/01/24 15:00 05/01/24 17:37 Ns IV 05/01/24 16:00 Infused .Q1H1M GO Infusion Cefepime HCl 2 gm/ Sodium 50 mls @ 100 mls/hr 05/01/24 16:43 05/01/24 17:35 Chloride IV 05/01/24 17:12 Infused ONCE ONE Infusion Vancomycin HCl 1,000 mg/ 535 mls @ 267.5 mls/hr 05/01/24 18:00 05/01/24 20:42 Vancomycin HCl 750 mg/ Sodium IV 05/01/24 19:59 Infused Chloride ONCE ONE Infusion Iohexol 100 ml 05/01/24 19:02 05/01/24 19:02 Iohexol 350 Mg/Ml 100 Ml Infus..Btl IV 05/01/24 19:03 85 ml ONCE ONE Administration Medical Decision Making Lab Data 05/01/24 16:10 05/01/24 16:10 Labs: Lab Results 05/01/24 05/01/24 05/01/24 Range/Units 16:10 16:23 16:34 WBC 17.0 H (4.8-10.8) X10*3/uL RBC 4.53 L (4.60-5.80) X10*6/uL Hgb 14.0 (14.0-18.0) g/dl Hct 41.7 L (42.0-52.0) % MCV 92.1 (80.0-98.0) fL MCH 30.9 (27.0-33.0) pg MCHC 33.6 (31.0-36.0) g/dl RDW 13.6 (11.0-16.0) % Plt Count 281 (160-400) X10*3/uL MPV 9.4 (9.4-12.4) fL Immature Gran % (Auto) Cancelled Neut % (Auto) Cancelled Lymph % (Auto) Cancelled [place] % (Auto) Cancelled Eos % (Auto) Cancelled Baso % (Auto) Cancelled Lymph # (Auto) Cancelled [place] # (Auto) Cancelled Eos # (Auto) Cancelled Baso # (Auto) Cancelled Abs Immat Gran (auto) Cancelled Absolute Neuts (auto) Cancelled Absolute Nucleated RBC 0.000 (0.0-0.012) X10*3/uL Nucleated RBC % (auto) 0.0 (0.0-0.2) /100WBC Neutrophils % (Manual) 68 (45-73) % Band Neutrophils % 26 H (3-5) % Lymphocytes % (Manual) 1 L (20-40) % Monocytes % (Manual) 4 (2-11) % Metamyelocytes % 1 % Abs Neuts (Manual) 16.0 H (2.0-8.3) X10*3/uL Lymphocytes # (Manual) 0.2 L (1.2-4.9) X10*3/uL Monocytes # (Manual) 0.7 (0.1-1.2) X10*3/uL Metamyelocytes # 0.2 X10*3/uL Platelet Estimate NORMAL (NORMAL) Plt Morphology Comment NORMAL RBC Morphology NORMAL Smear Tech's Comments MANUAL DIFF VBG pH 7.45 H (7.32-7.43) VBG pCO2 35 mmHg VBG pO2 56 mmHg VBG HCO3 25 (22-26) mmol/L VBG O2 Saturation 87.0 % VBG Base Excess 1.5 mmol/L Sodium 141 (135-145) mmol/L Potassium 3.5 (3.3-5.1) mmol/L Chloride 107 (96-108) mmol/L Carbon Dioxide 25 (22-29) mmol/L Anion Gap 13 (12-20) BUN 10 (9-16) mg/dL Creatinine 0.67 (0.5-1.4) mg/dL Estim Creat Clear Calc 95.9 Estimated GFR > 60 Random Glucose 121 H (60-115) mg/dL Lactic Acid 1.4 (0.5-2.0) mmol/L Calcium 9.3 D (8.4-10.2) mg/dL Total Bilirubin 0.6 (0.0-1.0) mg/dL Direct Bilirubin 0.3 (0.0-0.5) mg/dL AST 11 (5-37) U/L ALT 9 (0-40) U/L Alkaline Phosphatase 105 (39-117) U/L Troponin I High Sens 3.0 (<3.5-35.0) ng/L Total Protein 7.1 (6.5-8.0) g/dL Albumin 3.7 (3.5-5.0) g/dL Lipase 19 (8-78) U/L TSH 0.24 L (0.32-4.0) uIU/mL Urine Color Urine Appearance Urine pH (5.0-9.0) Ur Specific [place] (1.005-1.025) Urine Protein (Neg-Trace) mg/dL Urine Glucose (UA) (Negative) mg/dL Urine Ketones (Negative) mg/dL Urine Blood (Negative) Urine Nitrite (Negative) Ur Leukocyte Esterase (Negative) Urine RBC (0-2) /HPF Urine WBC (0-5) /HPF Ur Squamous Epith Cells (0-2) /HPF Urine Bacteria (None Seen) Hyaline Casts (0-2) /LPF Influenza Type A (PCR) NEGATIVE (Negative) Influenza Type B (PCR) NEGATIVE (Negative) RSV RNA Qual (PCR) NEGATIVE (Negative) SARS-CoV-2 RNA (RT-PCR) NEGATIVE (Negative) 05/01/24 Range/Units 20:58 WBC (4.8-10.8) X10*3/uL RBC (4.60-5.80) X10*6/uL Hgb (14.0-18.0) g/dl Hct (42.0-52.0) % MCV (80.0-98.0) fL MCH (27.0-33.0) pg MCHC (31.0-36.0) g/dl RDW (11.0-16.0) % Plt Count (160-400) X10*3/uL MPV (9.4-12.4) fL Immature Gran % (Auto) Neut % (Auto) Lymph % (Auto) [place] % (Auto) Eos % (Auto) Baso % (Auto) Lymph # (Auto) [place] # (Auto) Eos # (Auto) Baso # (Auto) Abs Immat Gran (auto) Absolute Neuts (auto) Absolute Nucleated RBC (0.0-0.012) X10*3/uL Nucleated RBC % (auto) (0.0-0.2) /100WBC Neutrophils % (Manual) (45-73) % Band Neutrophils % (3-5) % Lymphocytes % (Manual) (20-40) % Monocytes % (Manual) (2-11) % Metamyelocytes % % Abs Neuts (Manual) (2.0-8.3) X10*3/uL Lymphocytes # (Manual) (1.2-4.9) X10*3/uL Monocytes # (Manual) (0.1-1.2) X10*3/uL Metamyelocytes # X10*3/uL Platelet Estimate (NORMAL) Plt Morphology Comment RBC Morphology Smear Tech's Comments VBG pH (7.32-7.43) VBG pCO2 mmHg VBG pO2 mmHg VBG HCO3 (22-26) mmol/L VBG O2 Saturation % VBG Base Excess mmol/L Sodium (135-145) mmol/L Potassium (3.3-5.1) mmol/L Chloride (96-108) mmol/L Carbon Dioxide (22-29) mmol/L Anion Gap (12-20) BUN (9-16) mg/dL Creatinine (0.5-1.4) mg/dL Estim Creat Clear Calc Estimated GFR Random Glucose (60-115) mg/dL Lactic Acid (0.5-2.0) mmol/L Calcium (8.4-10.2) mg/dL Total Bilirubin (0.0-1.0) mg/dL Direct Bilirubin (0.0-0.5) mg/dL AST (5-37) U/L ALT (0-40) U/L Alkaline Phosphatase (39-117) U/L Troponin I High Sens (<3.5-35.0) ng/L Total Protein (6.5-8.0) g/dL Albumin (3.5-5.0) g/dL Lipase (8-78) U/L TSH (0.32-4.0) uIU/mL Urine Color Yellow Urine Appearance Turbid Urine pH 7.5 (5.0-9.0) Ur Specific [place] 1.015 (1.005-1.025) Urine Protein 30 (1+) H (Neg-Trace) mg/dL Urine Glucose (UA) Negative (Negative) mg/dL Urine Ketones Negative (Negative) mg/dL Urine Blood Large (3+) H (Negative) Urine Nitrite Positive H (Negative) Ur Leukocyte Esterase Large (3+) H (Negative) Urine RBC 6-10 H (0-2) /HPF Urine WBC 21-50 (0-5) /HPF Ur Squamous Epith Cells 0-2 (0-2) /HPF Urine Bacteria 3+ (None Seen) Hyaline Casts 3-5 (0-2) /LPF Influenza Type A (PCR) (Negative) Influenza Type B (PCR) (Negative) RSV RNA Qual (PCR) (Negative) SARS-CoV-2 RNA (RT-PCR) (Negative) Radiology Impression Discussion of test interpretation with radiology: I have reviewed the radiologist's reading. Radiologist Impression: EXAMINATION: XR CHEST CLINICAL INFORMATION: Fever. COMPARISON: No prior images restored to the system at the time of this dictation. TECHNIQUE: AP upright portable view of the chest was obtained. FINDINGS: EKG leads overlie the chest. The cardiomediastinal silhouette is enlarged. Calcification and tortuosity of the aorta is seen. Low lung volumes are seen with mild bibasilar linear atelectasis. No focal dense consolidation, effusion or pneumothorax. No pulmonary edema. No acute bone findings. XR/XR chest 1V IMPRESSION: Low lung volumes with mild bibasilar subsegmental atelectasis. No focal pneumonia. EXAMINATION: CT HEAD WITHOUT CONTRAST CLINICAL INFORMATION: Altered mental status COMPARISON: None available. TECHNIQUE: Contiguous axial imaging was performed from the skull base to vertex without intravenous administration of contrast. This CT examination was performed using dose optimization techniques as appropriate, variously including the following: *Automated exposure control *Adjustment of mA and/or kV according to patient size (this includes techniques or standardized protocols for targeted exams where dose is matched to indication/reason for exam; i.e. extremities or head) *Use of iterative reconstruction technique DLP: 650 mGy-cm FINDINGS: There is no evidence of acute intracranial hemorrhage or edematous territorial infarction. Diffuse volume loss with prominence of the ventricles and cortical sulci. The ventricles are slightly out of proportion of the cortical sulci. No obstructive hydrocephalus. Patchy and confluent hypodensities within the periventricular and deep white matter likely representing moderate chronic microangiopathy. No mass effect or midline shift. No acute extra-axial collection. Multifocal regions of calvarial thinning along the parietal bones at the vertex with no acute osseous or soft tissue abnormality. The paranasal sinuses and mastoids are well-aerated. CT/CT head/brain wo IV con IMPRESSION: No acute intracranial pathology. Diffuse volume loss. Moderate chronic microangiopathy. The ventricles are slightly out of proportion to the cortical sulci. An underlying component of normal pressure hydrocephalus is not excluded. Clinical correlation is recommended. EXAMINATION: CTA CHEST PE STUDY, CT ABDOMEN AND PELVIS CLINICAL INFORMATION: Hypoxic COMPARISON: No pertinent prior studies are available for comparison. TECHNIQUE: Prior to contrast administration, noncontrast localization images were obtained. After the administration of 85 mL of Omnipaque nonionic IV contrast, contiguous thin slice helical images were obtained through the thorax. Following this the examination was continued through the abdomen and then pelvis. Reformatted MIP images in the coronal and sagittal planes as well as thin slice reformatted images of coronal and sagittal planes were obtained at the acquisition workstation. This CT examination was performed using dose optimization techniques as appropriate, variously including the following: *Automated exposure control *Adjustment of mA and/or kV according to patient size (this includes techniques or standardized protocols for targeted exams where dose is matched to indication/reason for exam; i.e. extremities or head) *Use of iterative reconstruction technique DLP: 250 mGy-cm. FINDINGS: CHEST: The bolus timing on this study was acceptable for visualization of the pulmonary arterial tree. There are no intraluminal pulmonary arterial filling defects present to suggest pulmonary embolism. Bilateral dependent atelectasis. No abnormal pulmonary nodules or masses are appreciated. No significant hilar or mediastinal adenopathy. There is no evidence of pleural effusion or pneumothorax. The heart is normal in size. No evidence of ventricular septal bowing or right heart strain. The mediastinum and great vessels are normal. There is no pericardial effusion or pericardial thickening. ABDOMEN/PELVIS: Liver, Gallbladder and Biliary Tree: The liver is normal in size, shape, and attenuation. No focal hepatic lesion or biliary ductal dilatation is present. The gallbladder is unremarkable with no evidence of radiopaque gallstones, gallbladder wall thickening, or obvious pericholecystic inflammatory changes. Pancreas: Unremarkable. Spleen: Unremarkable. Adrenal Glands: Unremarkable. Kidneys and Ureters: The kidneys are normal in size, shape, and attenuation. Low-attenuation 2.5 cm cyst in the posterior upper pole of the right kidney No hydronephrosis, hydroureter, or calculi seen. No perinephric stranding. Bladder: Although decompressed there is concentric bladder wall thickening and underlying cystitis cannot be excluded. Clinical correlation with urinalysis would be helpful. There appears to be a bladder catheter with the tip ending in the region of the prostatic urethra and the balloon in the bulbous urethra. Gastrointestinal Tract: Few scattered colonic diverticula. No colonic wall thickening or pericolonic inflammatory change to suggest diverticulitis. Visualized small bowel unremarkable Abdominal Wall: No significant hernia is appreciated. Lymphovascular Structures: Mild vascular calcification within the aorta iliac system. No bulky adenopathy Pelvic Viscera: Prostate is markedly enlarged Osseous Structures: Multilevel degenerative changes in the spine with compression deformities more so at L3-L4 with mild compression deformities of L5, L2, and T12 CT/CT angio chest PE protocol IMPRESSION: 1. No evidence for pulmonary emboli. Dependent airspace changes more likely due to atelectasis. 2. No acute abnormality within the abdomen or pelvis. 3. There is a bladder catheter with the tip ending in the region of the prostatic urethra and the balloon in the bulbous urethra. This can be repositioned. 4. Concentric bladder wall thickening likely reflects component of cystitis. Correlation with urinalysis recommended. 5. VTE: Negative. This critical result was discussed with Osiris Stevens MD at 05/01/2024 9:21 PM and it was ascertained that the content and urgency of the report was understood at the time of direct communication. Critical Care Time Critical Care Time Critical Care Time: Yes Total Critical Care Time: 35 Attestation: Due to a high probability of clinically significant, life threatening deterioration, the patient required my highest level of preparedness to intervene emergently and I personally spent this critical care time directly and personally managing the patient. This critical care time included obtaining a history; examining the patient; pulse oximetry; ordering and review of studies; arranging urgent treatment with development of a management plan; evaluation of patient's response to treatment; frequent reassessment; and, discussions with other providers (admission to hospitalist). This critical care time was performed to assess and manage the high probability of imminent, life-threatening deterioration that could result in multi-organ failure. It was exclusive of separately billable procedures and treating other patients and teaching time. Discharge Plan Discharge Prescriptions: No Action (DME) Ultra-Light Rollator [facility] See Rx Instructions .Route Qty: 1 0RF Rx Instructions: Daily As directed, 999 days amlodipine 5 mg tablet 5 mg PO DAILY 90 Days Qty: 90 3RF dutasteride 0.5 mg capsule 0.5 mg PO DAILY trazodone 50 mg tablet 25 mg PO BEDTIME PRN (Reason: sleep) 30 Days Qty: 20 0RF quetiapine [Seroquel] 25 mg tablet 25 mg PO BEDTIME 30 Days Qty: 30 1RF lorazepam 0.5 mg tablet 0.25 mg PO DAILY PRN (Reason: anxiety) 30 Days Qty: 10 0RF Rx Instructions: [employer] verified. Partial refill upon request. (DME) miscellaneous medical supply [facility] See Rx Instructions .ROUTE .MEDSUPPLY Qty: 1 0RF Rx Instructions: Wheelchair. Daily?As directed, 999 days lisinopril 10 mg tablet 20 mg PO DAILY 30 Days Qty: 60 2RF meloxicam 15 mg tablet 15 mg PO DAILY 30 Days Qty: 30 2RF diclofenac sodium 1 % gel 2 g topical QID 30 Days Qty: 100 2RF tamsulosin 0.4 mg capsule 0.4 mg PO DAILY cholecalciferol (vitamin D3) 125 mcg (5,000 unit) capsule 125 mcg PO DAILY selenium 50 mcg tablet 50 mcg PO DAILY policosanol 10 mg tablet PO metoprolol succinate 25 mg tablet extended release 24 hr 25 mg PO DAILY 90 Days Qty: 90 1RF omeprazole 40 mg capsule,delayed release(DR/EC) 40 mg PO DAILY 90 Days Qty: 90 2RF Print Language: Lithuanian
--- NOTE | 2024-05-01 14:54 | ECG_ITS ---
Test Reason : ams Blood Pressure : / mmHG Vent. Rate : 098 BPM Atrial Rate : 098 BPM P-R Int : 172 ms QRS Dur : 056 ms QT Int : 322 ms P-R-T Axes : 030 -23 -06 degrees QTc Int : 411 ms Poor data quality Normal sinus rhythm Minimal voltage criteria for LVH, may be normal variant ( R in aVL ) No previous ECGs available Repeat EKG Referred By: Osiris Stevens Electronically Signed By:ALLISON VIVAR MD
[2024-05-01] MEDS: 0.9 % Sodium Chloride 1,000 ML 999 ML IV (16:36)
[2024-05-01] MEDS: Acetaminophen 325 MG TABLET 975 MG PO (16:36)
[2024-05-01 16:37] LABS: Hematocrit 41.7 % (42.0-52.0); Mean Corpuscular HGB Conc 33.6 g/dl (31.0-36.0); Mean Corpuscular Hemoglobin 30.9 pg (27.0-33.0); Mean Corpuscular Volume 92.1 fL (80.0-98.0); Mean Platelet Volume 9.4 fL (9.4-12.4); Platelet Count 281 X10*3/uL (160-400); Red Blood Count 4.53 X10*6/uL (4.60-5.80); Red Cell Distribution Width 13.6 % (11.0-16.0)
[2024-05-01 16:40] LABS: VBG Base Excess 1.5 mmol/L; VBG HCO3 25 mmol/L (22-26); VBG pCO2 35 mmHg; VBG pH 7.45 (7.32-7.43); VBG pO2 56 mmHg
[2024-05-01 16:40] LABS: Venous Blood Gas Refer to POC result
[2024-05-01 16:48] LABS: Lactic Acid 1.4 mmol/L (0.5-2.0)
[2024-05-01] MEDS: cefEPime HCl 2 GM in 0.9 % Sodium Chloride 50 ML IV (16:54)
[2024-05-01 16:58] LABS: SLIDE REVIEW MANUAL DIFF
[2024-05-01 17:00] LABS: Alanine Aminotransferase 9 U/L (0-40); Albumin Level 3.7 g/dL (3.5-5.0); Alkaline Phosphatase 105 U/L (39-117); Anion Gap 13 (12-20); Aspartate Amino Transferase 11 U/L (5-37); Bilirubin Direct 0.3 mg/dL (0.0-0.5); Bilirubin Total 0.6 mg/dL (0.0-1.0); Blood Urea Nitrogen 10 mg/dL (9-16); Calcium 9.3 mg/dL (8.4-10.2); Carbon Dioxide 25 mmol/L (22-29); Chloride 107 mmol/L (96-108); Creatinine Clr Calc Pharmacy 95.9; Estimated Glomerular Filt Rate > 60; Glucose Random 121 mg/dL (60-115); Lipase 19 U/L (8-78); Potassium 3.5 mmol/L (3.3-5.1); Sodium 141 mmol/L (135-145); Total Protein 7.1 g/dL (6.5-8.0)
[2024-05-01 17:06] LABS: Neutrophils Percent Manual 68 % (45-73)
[2024-05-01 17:13] LABS: Band Neutrophils Percent 26 % (3-5); Lymphocytes Absolute Manual 0.2 X10*3/uL (1.2-4.9); Lymphocytes Percent Manual 1 % (20-40); Metamyelocytes Absolute 0.2 X10*3/uL; Metamyelocytes Percent 1 %; Monocytes Absolute Manual 0.7 X10*3/uL (0.1-1.2); Monocytes Percent Manual 4 % (2-11)
[2024-05-01 17:15] LABS: Influenza A PCR NEGATIVE (Negative); Influenza B PCR NEGATIVE (Negative); Resp Syncy Virus RNA Qual PCR NEGATIVE (Negative); SARS COV2 PCR INHOUSE NEGATIVE (Negative)
[2024-05-01 17:15] LABS: Platelet Estimate NORMAL (NORMAL); Platelet Morphology Comment NORMAL; RBC Morphology NORMAL; Thyroid Stimulating Hormone 0.24 uIU/mL (0.32-4.0)
--- NOTE | 2024-05-01 17:20 | ECG_ITS ---
Test Reason : ams Blood Pressure : / mmHG Vent. Rate : 077 BPM Atrial Rate : 077 BPM P-R Int : 174 ms QRS Dur : 074 ms QT Int : 390 ms P-R-T Axes : 036 -18 008 degrees QTc Int : 441 ms Normal sinus rhythm Minimal voltage criteria for LVH, may be normal variant ( R in aVL ) Borderline ECG When compared with ECG of 01-MAY-2024 16:15, ST no longer depressed in Anterior leads Referred By: Osiris Stevnes Electronically Signed By:ALLISON VIVAR MD
--- NOTE | 2024-05-01 18:03 | PC.NURSE ---
Pt.'s BP suddenly dropping, Rodney SPENCER notified
[2024-05-01] MEDS: vancomycin HCL 1,000 MG, vancomycin HCL 750 MG in 0.9 % Sodium Chloride 500 ML 267.5 MG IV (18:04)
--- NOTE | 2024-05-01 18:07 | PC.NURSE ---
Rodney SPENCER - wants additional fluids if two consecutive MAPs < 65
--- NOTE | 2024-05-01 18:15 | PC.NURSE ---
Reduction of temperature from 104.0F to 100.0F
[2024-05-01] MEDS: iohexoL 350 MG/ML 100 ML INFUS..BTL IV (19:02)
--- NOTE | 2024-05-01 19:46 | PC.NURSE ---
provider ordered 1 liter normal saline for MAP x2 <65. at this time patient has not met the criteria so fluids have been held. will continue to monitor.
[2024-05-01 21:04] LABS: Appearance Urine Turbid; Color Urine Yellow; Glucose Urine UA Negative (Negative); Leukocyte Esterase Urine Large (3+) (Negative); Nitrite Urine Positive (Negative); PH 7.5 (5.0-9.0); Specific Gravity - Urine 1.015 (1.005-1.025); UMIC TRIGGER UACC YES; Urine Blood Large (3+) (Negative); Urine Ketones Negative (Negative); Urine Protein 30 (1+) mg/dL (Neg-Trace)
[2024-05-01 21:15] LABS: Bacteria Urine 3+ (None Seen); Squamous Epithelial Cell Urine 0-2 /HPF (0-2); UACC Culture Trigger YES; WBC Urine 21-50 /HPF (0-5)
--- NOTE | 2024-05-01 21:58 | P.HPHOSP_ITS ---
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 [facility]. on day of presentation noted to be confused, lethargic, brought to ED. found to be septic with positive UA. given vanc zosyn and 30cc per kg. Review of Systems 2 Review of Systems: Yes all other systems are reviewed and are negative PMFSH Surgical History No pertinent past surgical history Social History Housing: House Patient Tobacco Use Status: Former Tobacco user Tobacco use type: Cigarette and Cigar e-Cigarette/Vaping Use: Never Used Second Hand Smoke Exposure: No Advance Directives: Yes Advance Directives on File: Yes Advance Directives Date on File: 12/19/23 service: No Current occupational status: retired Current occupational exposures/hazards: No Cognitive needs: No Hearing needs: No Vision needs: No Meds Allergies Allergy/AdvReac Type Severity Reaction Status Date / Time No Known Allergies Allergy Verified 05/01/24 14:09 Active Medications: Current Medications Acetaminophen (Acetaminophen 325 Mg Tablet) 650 mg PO Q6H PRN PRN Reason: Pain, Mild (Pain Scale 1-3), fever or headache Calcium Carbonate (Calcium Carbonate 750 Mg Tab.Chew) 750 mg PO Q4H PRN PRN Reason: Heartburn Enoxaparin Sodium (Enoxaparin Sodium 40 Mg/0.4 Ml Syringe) 40 mg SUBCUT Q24H GO Hydromorphone HCl (Hydromorphone Hcl 0.5 Mg/0.5 Ml Syringe) 0.5 mg IVPUSH Q3H PRN; Protocol PRN Reason: severe pain Lactated Ringer's (Lr) 1,000 mls @ 80 mls/hr IVCONT .[id number] GO Sodium Chloride (Ns) 1,000 mls @ 75 mls/hr IVCONT .[id number] GO Ceftriaxone Sodium 1 gm/ (Sodium Chloride) 50 mls @ 100 mls/hr IV Q24H [facility] Magnesium Hydroxide (Milk Of Magnesia 30 Ml Oral.Susp) 30 ml PO DAILY PRN PRN Reason: Constipation Melatonin (Melatonin 3 Mg Tablet) 6 mg PO BEDTIME PRN PRN Reason: Insomnia Sodium Chloride (0.9 % Sodium Chloride Flush 3 Ml Syringe) 3 ml IVFLUSH QSHIFT [facility] Home Medications ?Medication ?Instructions ?Recorded ?Confirmed ?Last Taken ?Type acetaminophen 325 mg capsule 975 mg PO Q8H 05/01/24 05/01/24 Unknown History acetaminophen 650 [address] Q4H PRN Fever Or Pain 05/01/24 05/01/24 Unknown History suppository apixaban 5 mg tablet (Eliquis) 5 mg PO BID 05/01/24 05/01/24 Unknown History bacitracin zinc 500 unit/gram 1 appl topical TID 05/01/24 05/01/24 Unknown History topical ointment bisacodyl 10 mg rectal suppository [address] DAILY PRN Constipation 05/01/24 05/01/24 Unknown History calcium carbonate 500 mg PO Q4H PRN Dyspepsia 05/01/24 05/01/24 Unknown History finasteride 5 mg tablet 5 mg PO DAILY 05/01/24 05/01/24 Unknown History gabapentin 300 mg capsule 300 mg PO TID 05/01/24 05/01/24 Unknown History lidocaine-prilocaine 2.5 %-2.5 % 1 appl topical Q8H PRN mild pain 05/01/24 05/01/24 Unknown History topical cream loperamide 2 mg tablet 2 mg PO Q4H PRN Loose Stool 05/01/24 05/01/24 Unknown History loperamide 2 mg tablet 4 mg PO DAILY PRN Loose Stool 05/01/24 05/01/24 Unknown History magnesium hydroxide 400 mg/5 mL 30 ml PO BEDTIME PRN Constipation 05/01/24 05/01/24 Unknown History oral suspension (Milk of Magnesia) melatonin 3 mg tablet 3 mg PO BEDTIME 05/01/24 05/01/24 Unknown History metoprolol succinate 25 mg 75 mg PO BID 05/01/24 05/01/24 Unknown History tablet,extended release 24 hr naloxone 4 mg/actuation nasal 4 mg intranasal Q3M PRN Opioid 05/01/24 05/01/24 Unknown History spray (Narcan) Overdose octreotide acetate 50 mcg/mL (1 50 mcg subcut BID 05/01/24 05/01/24 Unknown History mL) injection syringe omeprazole 20 mg capsule,delayed 20 mg PO DAILY@0630 05/01/24 05/01/24 Unknown History release simethicone 80 mg chewable tablet 80 mg PO Q8H PRN Gastric Reflux 05/01/24 05/01/24 Unknown History sodium phosphates 19 gram-[address] DAILY PRN Constipation 05/01/24 05/01/24 Unknown History gram/118 mL enema (Fleet Enema) Physical Exam 2 Vital Signs and Narrative: Vital Signs: Last Vital Signs Temp 98.4 F 05/01/24 19:41 Pulse 57 05/01/24 19:41 Resp 16 05/01/24 19:41 BP 92/53 L 05/01/24 19:41 Pulse Ox 96 05/01/24 19:41 O2 Del Method Nasal Cannula 05/01/24 19:41 O2 Flow Rate 3 05/01/24 19:41 Oxygen Flow Rate 3 05/01/24 14:07 BMI result Body Mass Index 24.7 General: lethargic O X 3, no acute distress, ill appearing Resp: diminished bilateral, no accessory muscles used CVS: S1,S2,RRR GI: soft, non tender, non distended Psych: appropriate affect, appropriate insight Results Labs 05/01/24 16:10 05/01/24 16:10 Labs: Laboratory Results - last 24 hr 05/01/24 05/01/24 05/01/24 16:10 16:23 16:34 MCV 92.1 MCH 30.9 MCHC 33.6 RDW 13.6 Plt Count 281 MPV 9.4 Immature Gran % (Auto) Cancelled Neut % (Auto) Cancelled Lymph % (Auto) Cancelled [place] % (Auto) Cancelled Eos % (Auto) Cancelled Baso % (Auto) Cancelled Lymph # (Auto) Cancelled [place] # (Auto) Cancelled Eos # (Auto) Cancelled Baso # (Auto) Cancelled Abs Immat Gran (auto) Cancelled Absolute Neuts (auto) Cancelled Absolute Nucleated RBC 0.000 Nucleated RBC % (auto) 0.0 Neutrophils % (Manual) 68 Band Neutrophils % 26 H Lymphocytes % (Manual) 1 L Monocytes % (Manual) 4 Metamyelocytes % 1 Abs Neuts (Manual) 16.0 H Lymphocytes # (Manual) 0.2 L Monocytes # (Manual) 0.7 Metamyelocytes # 0.2 Platelet Estimate NORMAL Plt Morphology Comment NORMAL RBC Morphology NORMAL Smear Tech's Comments MANUAL DIFF VBG pH 7.45 H VBG pCO2 35 VBG pO2 56 VBG HCO3 25 VBG O2 Saturation 87.0 VBG Base Excess 1.5 Anion Gap 13 Estim Creat Clear Calc 95.9 Estimated GFR > 60 Random Glucose 121 H Lactic Acid 1.4 Calcium 9.3 D Total Bilirubin 0.6 Direct Bilirubin 0.3 AST 11 ALT 9 Alkaline Phosphatase 105 Troponin I High Sens 3.0 Total Protein 7.1 Albumin 3.7 Lipase 19 TSH 0.24 L Urine Color Urine Appearance Urine pH Ur Specific [place] Urine Protein Urine Glucose (UA) Urine Ketones Urine Blood Urine Nitrite Ur Leukocyte Esterase Urine RBC Urine WBC Ur Squamous Epith Cells Urine Bacteria Hyaline Casts Influenza Type A (PCR) NEGATIVE Influenza Type B (PCR) NEGATIVE RSV RNA Qual (PCR) NEGATIVE SARS-CoV-2 RNA (RT-PCR) NEGATIVE 05/01/24 20:58 MCV MCH MCHC RDW Plt Count MPV Immature Gran % (Auto) Neut % (Auto) Lymph % (Auto) [place] % (Auto) Eos % (Auto) Baso % (Auto) Lymph # (Auto) [place] # (Auto) Eos # (Auto) Baso # (Auto) Abs Immat Gran (auto) Absolute Neuts (auto) Absolute Nucleated RBC Nucleated RBC % (auto) Neutrophils % (Manual) Band Neutrophils % Lymphocytes % (Manual) Monocytes % (Manual) Metamyelocytes % Abs Neuts (Manual) Lymphocytes # (Manual) Monocytes # (Manual) Metamyelocytes # Platelet Estimate Plt Morphology Comment RBC Morphology Smear Tech's Comments VBG pH VBG pCO2 VBG pO2 VBG HCO3 VBG O2 Saturation VBG Base Excess Anion Gap Estim Creat Clear Calc Estimated GFR Random Glucose Lactic Acid Calcium Total Bilirubin Direct Bilirubin AST ALT Alkaline Phosphatase Troponin I High Sens Total Protein Albumin Lipase TSH Urine Color Yellow Urine Appearance Turbid Urine pH 7.5 Ur Specific [place] 1.015 Urine Protein 30 (1+) H Urine Glucose (UA) Negative Urine Ketones Negative Urine Blood Large (3+) H Urine Nitrite Positive H Ur Leukocyte Esterase Large (3+) H Urine RBC 6-10 H Urine WBC 21-50 Ur Squamous Epith Cells 0-2 Urine Bacteria 3+ Hyaline Casts 3-5 Influenza Type A (PCR) Influenza Type B (PCR) RSV RNA Qual (PCR) SARS-CoV-2 RNA (RT-PCR) Imaging Radiologist's Impressions: Impressions Chest X-Ray 05/01/24 15:30 IMPRESSION: Low lung volumes with mild bibasilar subsegmental atelectasis. No focal pneumonia. Abdomen/Pelvis CT 05/01/24 19:00 IMPRESSION: 1. No evidence for pulmonary emboli. Dependent airspace changes more likely due to atelectasis. 2. No acute abnormality within the abdomen or pelvis. 3. There is a bladder catheter with the tip ending in the region of the prostatic urethra and the balloon in the bulbous urethra. This can be repositioned. 4. Concentric bladder wall thickening likely reflects component of cystitis. Correlation with urinalysis recommended. 5. VTE: Negative. This critical result was discussed with Osiris Stevens MD at 05/01/2024 9:21 PM and it was ascertained that the content and urgency of the report was understood at the time of direct communication. Chest CTA 05/01/24 19:01 IMPRESSION: 1. No evidence for pulmonary emboli. Dependent airspace changes more likely due to atelectasis. 2. No acute abnormality within the abdomen or pelvis. 3. There is a bladder catheter with the tip ending in the region of the prostatic urethra and the balloon in the bulbous urethra. This can be repositioned. 4. Concentric bladder wall thickening likely reflects component of cystitis. Correlation with urinalysis recommended. 5. VTE: Negative. This critical result was discussed with Osiris Stevens MD at 05/01/2024 9:21 PM and it was ascertained that the content and urgency of the report was understood at the time of direct communication. Head CT 05/01/24 19:01 IMPRESSION: No acute intracranial pathology. Diffuse volume loss. Moderate chronic microangiopathy. The ventricles are slightly out of proportion to the cortical sulci. An underlying component of normal pressure hydrocephalus is not excluded. Clinical correlation is recommended. 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, bph with chornic indwelling [place] and recurrent utis, history of cdif, ?pafib, unspecified dementia (minimally ambulatory, assistance in most ADLs, but oriented with decent insight), htn, presented with ams Severe sepsis and acute metabolic encephalopathy due to complicated urinary tract infection due to chronic indwelling [place] catheter from BPH IV ceftriaxone, follow-up cultures Neuroendocrine tumor Continue octreotide Hypertension BP meds held for hypotension in sepsis Unspecified dementia CT head mentioned the possibility of NPH, can follow up outpatient Acute hypoxic respiratory failure Likely increased demand from sepsis CT unremarkable, wean O2 as tolerated ?pafib in sinus, on toprol and eliquis at SNF, family unaware, cannot find reason in chart, suspect possible history of pafib will continue eliquis toprol on hold for hypotension DVT prophylaxis with eliquis DNR/DNI Patient with severe sepsis requiring at least 2 midnights inpatient Quality Stroke Does the patient have a stroke diagnosis?: No VTE Prior VTE?: No VTE Risk Level:: Medical - moderate - high VTE Device Contraindication: Treatment Not Indicated VTE Drug Contraindication: N/A - Med Ordered
[2024-05-01] MEDS: 0.9 % Sodium Chloride 1,000 ML 75 ML IVCONT (22:14)
[2024-05-01] MEDS: Octreotide Acetate 100 MCG/ML AMPUL 50 MCG SUBCUT (22:14)
--- NOTE | 2024-05-01 22:39 | PHA.MEDREC ---
Addendum entered by Yoko Rasmussen RPh 05/01/24 22:52: reviewed by [facility]. Original Note: Pharmacy Consult ? Medication Reconciliation Pharmacy has completed the medication reconciliation. Utilized list from [facility] to confirm med list.
[2024-05-01] MEDS: 0.9 % Sodium Chloride Flush 3 ML SYRINGE IVFLUSH (23:25)
[2024-05-01] MEDS: Albumin Human 25 % 100 ML IV (23:28)
[2024-05-02] VITALS (8 sets, daily range): BP systolic 81–144; BP diastolic 36–79; PULSE 48–79; RESP 14–17; TEMP 36.1–37.1; O2SAT 93–99
[2024-05-02] MEDS: Albumin Human 25 % 100 ML IV (00:03)
[2024-05-02 05:51] LABS: Hematocrit 30.7 % (42.0-52.0); Hemoglobin 10.1 g/dl (14.0-18.0); Mean Corpuscular HGB Conc 32.9 g/dl (31.0-36.0); Mean Corpuscular Hemoglobin 30.9 pg (27.0-33.0); Mean Corpuscular Volume 93.9 fL (80.0-98.0); Mean Platelet Volume 9.5 fL (9.4-12.4); Platelet Count 243 X10*3/uL (160-400); Red Blood Count 3.27 X10*6/uL (4.60-5.80); White Blood Count 15.5 X10*3/uL (4.8-10.8)
[2024-05-02 06:13] LABS: Anion Gap 11 (12-20); Blood Urea Nitrogen 9 mg/dL (9-16); Calcium 8.9 mg/dL (8.4-10.2); Carbon Dioxide 24 mmol/L (22-29); Chloride 111 mmol/L (96-108); Creatinine Clr Calc Pharmacy 112.7; Estimated Glomerular Filt Rate > 60; Glucose Fasting 120 mg/dL (60-99); Magnesium 1.8 mg/dL (1.6-2.6); Potassium 4.1 mmol/L (3.3-5.1); Sodium 142 mmol/L (135-145)
[2024-05-02] MEDS: Omeprazole 20 MG CAPSULE.DR PO (06:26)
[2024-05-02] MEDS: HYDROmorphone HCl 0.5 MG/0.5 ML SYRINGE IVPUSH ×3 (06:30→18:40)
--- NOTE | 2024-05-02 08:57 | HO.PM.IMPN ---
Subjective Subjective Date of Service: 05/02/24 Interval History: Follow-up with sepsis due to UTI. Clinically responding to treatment, hypertension resolved Physical Exam Vital Signs: Vital Signs: Last Vital Signs Temp 98.1 F 05/02/24 06:03 Pulse 55 05/02/24 06:03 Resp 17 05/02/24 06:03 BP 120/63 05/02/24 06:03 Pulse Ox 99 05/02/24 06:03 O2 Del Method Nasal Cannula 05/02/24 06:03 O2 Flow Rate 2 05/02/24 06:03 Oxygen Flow Rate 3 05/01/24 14:07 BMI result Body Mass Index 24.7 General: AO X 2, no acute distress Resp: CTA bilateral CVS: S1,S2,RRR GI: +BS, NT, no distention Gu: livingston inplace--dark orange urine Skin: No rash Neuro: motor grossly intact Psych: appropriate affect Objective Data Active Medications Acetaminophen (Acetaminophen 325 Mg Tablet) 650 mg PO Q6H PRN PRN Reason: Pain, Mild (Pain Scale 1-3), fever or headache Apixaban (Apixaban 5 Mg Tablet) 5 mg PO BID [facility] Bacitracin (Bacitracin Oint 0.9 Gm Packet) 1 appl TOPICAL QID [facility] Bisacodyl (Bisacodyl 10 Mg Supp.Rect) 10 mg [place] DAILY PRN PRN Reason: Constipation Calcium Carbonate (Calcium Carbonate 750 Mg Tab.Chew) 750 mg PO Q4H PRN PRN Reason: Heartburn Finasteride (Finasteride 5 Mg Tablet) 5 mg PO DAILY [facility] Gabapentin (Gabapentin 300 Mg Capsule) 300 mg PO TID [facility] Hydromorphone HCl (Hydromorphone Hcl 0.5 Mg/0.5 Ml Syringe) 0.5 mg IVPUSH Q3H PRN; Protocol PRN Reason: severe pain Last Admin: 05/02/24 06:30 Dose: 0.5 mg Documented By: CA Sodium Chloride (Ns) 1,000 mls @ 75 mls/hr IVCONT .[id number] GO Last Admin: 05/01/24 22:14 Dose: 75 mls/hr Documented By: CA Ceftriaxone Sodium 2 gm/ (Sodium Chloride) 50 mls @ 100 mls/hr IV Q24H [facility] Loperamide HCl (Loperamide Hcl 2 Mg Capsule) 2 mg PO Q4H PRN PRN Reason: Loose Stool Magnesium Hydroxide (Milk Of Magnesia 30 Ml Oral.Susp) 30 ml PO DAILY PRN PRN Reason: Constipation Melatonin (Melatonin 3 Mg Tablet) 6 mg PO BEDTIME PRN PRN Reason: Insomnia Octreotide Acetate (Octreotide Acetate 100 Mcg/Ml Ampul) 50 mcg SUBCUT Q12H [facility] Last Admin: 05/01/24 22:14 Dose: 50 mcg Documented By: CA Omeprazole (Omeprazole 20 Mg Capsule.Dr) 20 mg PO DAILY@0630 [facility] Last Admin: 05/02/24 06:26 Dose: 20 mg Documented By: CA Simethicone (Simethicone 80 Mg Tab.Chew) 80 mg PO Q8H PRN PRN Reason: Gastric Reflux Sodium Chloride (0.9 % Sodium Chloride Flush 3 Ml Syringe) 3 ml IVFLUSH QSHIFT [facility] Last Admin: 05/01/24 23:25 Dose: 3 ml Documented By: CA Labs 05/02/24 05:27 05/02/24 05:27 Labs: Laboratory Results - last 24 hr 05/01/24 05/01/24 05/01/24 16:10 16:23 16:34 MCV 92.1 MCH 30.9 MCHC 33.6 RDW 13.6 Plt Count 281 MPV 9.4 Immature Gran % (Auto) Cancelled Neut % (Auto) Cancelled Lymph % (Auto) Cancelled [place] % (Auto) Cancelled Eos % (Auto) Cancelled Baso % (Auto) Cancelled Lymph # (Auto) Cancelled [place] # (Auto) Cancelled Eos # (Auto) Cancelled Baso # (Auto) Cancelled Abs Immat Gran (auto) Cancelled Absolute Neuts (auto) Cancelled Absolute Nucleated RBC 0.000 Nucleated RBC % (auto) 0.0 Neutrophils % (Manual) 68 Band Neutrophils % 26 H Lymphocytes % (Manual) 1 L Monocytes % (Manual) 4 Metamyelocytes % 1 Abs Neuts (Manual) 16.0 H Lymphocytes # (Manual) 0.2 L Monocytes # (Manual) 0.7 Metamyelocytes # 0.2 Platelet Estimate NORMAL Plt Morphology Comment NORMAL RBC Morphology NORMAL Smear Tech's Comments MANUAL DIFF VBG pH 7.45 H VBG pCO2 35 VBG pO2 56 VBG HCO3 25 VBG O2 Saturation 87.0 VBG Base Excess 1.5 Anion Gap 13 Estim Creat Clear Calc 95.9 Estimated GFR > 60 Random Glucose 121 H Fasting Glucose Lactic Acid 1.4 Calcium 9.3 D Magnesium Total Bilirubin 0.6 Direct Bilirubin 0.3 AST 11 ALT 9 Alkaline Phosphatase 105 Troponin I High Sens 3.0 Total Protein 7.1 Albumin 3.7 Lipase 19 TSH 0.24 L Urine Color Urine Appearance Urine pH Ur Specific [place] Urine Protein Urine Glucose (UA) Urine Ketones Urine Blood Urine Nitrite Ur Leukocyte Esterase Urine RBC Urine WBC Ur Squamous Epith Cells Urine Bacteria Hyaline Casts Influenza Type A (PCR) NEGATIVE Influenza Type B (PCR) NEGATIVE RSV RNA Qual (PCR) NEGATIVE SARS-CoV-2 RNA (RT-PCR) NEGATIVE 05/01/24 05/02/24 20:58 05:27 MCV 93.9 MCH 30.9 MCHC 32.9 RDW 14.0 Plt Count 243 MPV 9.5 Immature Gran % (Auto) Neut % (Auto) Lymph % (Auto) [place] % (Auto) Eos % (Auto) Baso % (Auto) Lymph # (Auto) [place] # (Auto) Eos # (Auto) Baso # (Auto) Abs Immat Gran (auto) Absolute Neuts (auto) Absolute Nucleated RBC 0.000 Nucleated RBC % (auto) 0.0 Neutrophils % (Manual) Band Neutrophils % Lymphocytes % (Manual) Monocytes % (Manual) Metamyelocytes % Abs Neuts (Manual) Lymphocytes # (Manual) Monocytes # (Manual) Metamyelocytes # Platelet Estimate Plt Morphology Comment RBC Morphology Smear Tech's Comments VBG pH VBG pCO2 VBG pO2 VBG HCO3 VBG O2 Saturation VBG Base Excess Anion Gap 11 L Estim Creat Clear Calc 112.7 Estimated GFR > 60 Random Glucose Fasting Glucose 120 H Lactic Acid Calcium 8.9 Magnesium 1.8 Total Bilirubin Direct Bilirubin AST ALT Alkaline Phosphatase Troponin I High Sens Total Protein Albumin Lipase TSH Urine Color Yellow Urine Appearance Turbid Urine pH 7.5 Ur Specific [place] 1.015 Urine Protein 30 (1+) H Urine Glucose (UA) Negative Urine Ketones Negative Urine Blood Large (3+) H Urine Nitrite Positive H Ur Leukocyte Esterase Large (3+) H Urine RBC 6-10 H Urine WBC 21-50 Ur Squamous Epith Cells 0-2 Urine Bacteria 3+ Hyaline Casts 3-5 Influenza Type A (PCR) Influenza Type B (PCR) RSV RNA Qual (PCR) SARS-CoV-2 RNA (RT-PCR) Microbiology Microbiology Results: Microbiology 05/01/24 16:24 Blood Culture - Preliminary Blood - Venous Prelim: GNR Gram Stain only 05/01/24 16:10 Blood Culture - Preliminary Blood - Venous Prelim: GNR Gram Stain only Assessment and Plan (1) Encephalopathy: Status: Acute (2) Sepsis: Status: Acute (3) UTI (urinary tract infection): Status: Acute Plan 68M PMH 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, bph with chornic indwelling livingston and recurrent utis, history of cdif, ?pafib, unspecified dementia (minimally ambulatory, assistance in most ADLs, but oriented with decent insight), htn, presented with ams Severe sepsis and acute metabolic encephalopathy due to complicated urinary tract infection due to chronic indwelling Living[place] catheter from BPH blood cultures 10/26, gram negative IV ceftriaxone, follow-up cultures sensitivity Neuroendocrine tumor Continue octreotide Hypertension--hold meds given sepsis and hypotension Unspecified dementia CT head mentioned the possibility of NPH, can follow up outpatient Acute hypoxic respiratory failure Likely increased demand from sepsis CT unremarkable, wean O2 as tolerated ?pafib in sinus, on toprol and eliquis at SNF, family unaware, cannot find reason in chart, suspect possible history of pafib will continue eliquis toprol on hold for hypotension DVT prophylaxis with eliquis DNR/DNI Patient with severe sepsis requiring at least 2 midnights inpatient\ Quality Stroke Does the patient have a stroke diagnosis?: No VTE Prior VTE?: No VTE Risk Level:: Medical - moderate - high VTE Device Contraindication: Treatment Not Indicated VTE Drug Contraindication: N/A - Med Ordered
--- NOTE | 2024-05-02 11:03 | MHC.CM.PN ---
CM assessment completed w/ daughter/HCP Nanci via telephone. IMM verbally delivered. Patient comes from LTC @ [facility]. Daughter reports patient is not ambulatory, 1-2 assist from bed to w/c. PCP Mario Zendejas MD HCP on file and verified. DP: Return to LTC via BLS. CM will continue to follow.
[2024-05-02] MEDS: cefTRIAXone sodium 2 GM in 0.9 % Sodium Chloride 50 ML IV (11:22)
[2024-05-02] MEDS: Octreotide Acetate 100 MCG/ML AMPUL 50 MCG SUBCUT ×2 (11:25→22:12)
[2024-05-02] MEDS: Gabapentin 300 MG CAPSULE PO ×2 (11:26→20:40)
[2024-05-02] MEDS: Apixaban 5 MG TABLET PO ×2 (11:26→20:41)
[2024-05-02] MEDS: Finasteride 5 MG TABLET PO (11:26)
[2024-05-02] MEDS: 0.9 % Sodium Chloride 1,000 ML 75 ML IVCONT ×2 (11:41→23:09)
[2024-05-02] MEDS: Bacitracin Oint 0.9 GM PACKET 1 APPL TOPICAL ×3 (12:43→20:40)
[2024-05-02] MEDS: Acetaminophen 325 MG TABLET 650 MG PO (20:39)
[2024-05-03] MEDS: HYDROmorphone HCl 0.5 MG/0.5 ML SYRINGE IVPUSH ×3 (01:21→18:37)
[2024-05-03] MEDS: Melatonin 3 MG TABLET 6 MG PO (02:24)
[2024-05-03 04:00] VITALS: BP 168/77; PULSE 58; RESP 18; TEMP 36.1; O2SAT 95
[2024-05-03] MEDS: Omeprazole 20 MG CAPSULE.DR PO (05:34)
[2024-05-03 07:04] LABS: Hematocrit 33.4 % (42.0-52.0); Mean Corpuscular HGB Conc 32.9 g/dl (31.0-36.0); Mean Corpuscular Hemoglobin 30.6 pg (27.0-33.0); Mean Platelet Volume 9.8 fL (9.4-12.4); Platelet Count 240 X10*3/uL (160-400); Red Blood Count 3.59 X10*6/uL (4.60-5.80); Red Cell Distribution Width 13.6 % (11.0-16.0); White Blood Count 12.5 X10*3/uL (4.8-10.8)
[2024-05-03 07:26] LABS: Anion Gap 12 (12-20); Blood Urea Nitrogen 9 mg/dL (9-16); Calcium 8.9 mg/dL (8.4-10.2); Carbon Dioxide 24 mmol/L (22-29); Chloride 108 mmol/L (96-108); Creatinine Clr Calc Pharmacy 116.8; Estimated Glomerular Filt Rate > 60; Glucose Random 117 mg/dL (60-115); Potassium 3.5 mmol/L (3.3-5.1); Sodium 140 mmol/L (135-145)
--- NOTE | 2024-05-03 07:41 | P.PNIM_ITS ---
Subjective Subjective Date of Service: 05/03/24 Interval History: Follow-up with sepsis due to UTI. responding to treatment, no fever, hypotension resolved. Physical Exam 2 Vital Signs: Vital Signs: Last Vital Signs Temp 97.0 F 05/03/24 04:00 Pulse 58 05/03/24 04:00 Resp 18 05/03/24 04:00 BP 168/77 H 05/03/24 04:00 Pulse Ox 95 05/03/24 04:00 O2 Del Method Room Air 05/03/24 04:00 O2 Flow Rate 1 05/02/24 16:20 Oxygen Flow Rate 3 05/01/24 14:07 BMI result Body Mass Index 24.7 General: AO X 2, no acute distress Resp: CTA bilateral CVS: S1,S2,RRR GI: +BS, NT, no distention Gu: livingston inplace--dark orange urine Skin: No rash Neuro: motor grossly intact Psych: appropriate affect Objective Data Active Medications Acetaminophen (Acetaminophen 325 Mg Tablet) 650 mg PO Q6H PRN PRN Reason: Pain, Mild (Pain Scale 1-3), fever or headache Last Admin: 05/02/24 20:39 Dose: 650 mg Documented By: TULIO Apixaban (Apixaban 5 Mg Tablet) 5 mg PO BID [facility] Last Admin: 05/02/24 20:41 Dose: 5 mg Documented By: TULIO Bacitracin (Bacitracin Oint 0.9 Gm Packet) 1 appl TOPICAL QID [facility] Last Admin: 05/02/24 20:40 Dose: 1 appl Documented By: TULIO Bisacodyl (Bisacodyl 10 Mg Supp.Rect) 10 mg [place] DAILY PRN PRN Reason: Constipation Calcium Carbonate (Calcium Carbonate 750 Mg Tab.Chew) 750 mg PO Q4H PRN PRN Reason: Heartburn Finasteride (Finasteride 5 Mg Tablet) 5 mg PO DAILY [facility] Last Admin: 05/02/24 11:26 Dose: 5 mg Documented By: HERMAN Gabapentin (Gabapentin 300 Mg Capsule) 300 mg PO TID [facility] Last Admin: 05/02/24 20:40 Dose: 300 mg Documented By: TULIO Hydromorphone HCl (Hydromorphone Hcl 0.5 Mg/0.5 Ml Syringe) 0.5 mg IVPUSH Q3H PRN; Protocol PRN Reason: severe pain Last Admin: 05/03/24 05:38 Dose: 0.5 mg Documented By: TULIO Sodium Chloride (Ns) 1,000 mls @ 75 mls/hr IVCONT .[id number] [facility] Last Admin: 05/02/24 23:09 Dose: 75 mls/hr Documented By: TULIO Ceftriaxone Sodium 2 gm/ (Sodium Chloride) 50 mls @ 100 mls/hr IV Q24H [facility] Last Infusion: 05/02/24 12:24 Dose: Infused Documented By: HERMAN Loperamide HCl (Loperamide Hcl 2 Mg Capsule) 2 mg PO Q4H PRN PRN Reason: Loose Stool Magnesium Hydroxide (Milk Of Magnesia 30 Ml Oral.Susp) 30 ml PO DAILY PRN PRN Reason: Constipation Melatonin (Melatonin 3 Mg Tablet) 6 mg PO BEDTIME PRN PRN Reason: Insomnia Last Admin: 05/03/24 02:24 Dose: 6 mg Documented By: TULIO Octreotide Acetate (Octreotide Acetate 100 Mcg/Ml Ampul) 50 mcg SUBCUT Q12H [facility] Last Admin: 05/02/24 22:12 Dose: 50 mcg Documented By: TULIO Omeprazole (Omeprazole 20 Mg Capsule.Dr) 20 mg PO DAILY@0630 [facility] Last Admin: 05/03/24 05:34 Dose: 20 mg Documented By: TULIO Simethicone (Simethicone 80 Mg Tab.Chew) 80 mg PO Q8H PRN PRN Reason: Gastric Reflux Sodium Chloride (0.9 % Sodium Chloride Flush 3 Ml Syringe) 3 ml IVFLUSH QSHIFT [facility] Last Admin: 05/02/24 23:11 Dose: Not Given Documented By: TULIO Non-Admin Reason: IV Running Labs 05/03/24 06:39 05/03/24 06:39 Labs: Laboratory Results - last 24 hr 05/03/24 06:39 MCV 93.0 MCH 30.6 MCHC 32.9 RDW 13.6 Plt Count 240 MPV 9.8 Absolute Nucleated RBC 0.000 Nucleated RBC % (auto) 0.0 Anion Gap 12 Estim Creat Clear Calc 116.8 Estimated GFR > 60 Random Glucose 117 H Calcium 8.9 Microbiology Microbiology Results: Microbiology 05/01/24 16:24 Blood Culture - Preliminary Blood - Venous Prelim: GNR Gram Stain only 05/01/24 20:58 Urine Culture - Preliminary Urine clean catch - Clean Catch Midstream Culture in progress. 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 -ID consult Neuroendocrine tumor Continue octreotide Hypertension--hypotension resolved. -resume Norvasc 5. Hold Metoprolol xl 75 bid, HR in 40s/50s Unspecified dementia CT head mentioned the possibility of NPH, can follow up outpatient Acute hypoxic respiratory failure d/t sepsis, CT chest unremarkable. Likely d/t sepsis. Resolved. ?pafib in sinus, on toprol and eliquis at SNF, family unaware, cannot find reason in chart, suspect possible history of pafib will continue eliquis. Hold Metoprolol d/t bradycardia. DVT prophylaxis with eliquis DNR/DNI need for Inpt: IV Abx for sepsis/bacteremia, Quality Stroke Does the patient have a stroke diagnosis?: No VTE Prior VTE?: No VTE Risk Level:: Medical - moderate - high VTE Device Contraindication: Treatment Not Indicated VTE Drug Contraindication: N/A - Med Ordered
[2024-05-03 08:00] VITALS: BP 180/82; PULSE 60; RESP 18; TEMP 37.1; O2SAT 95
[2024-05-03] MEDS: 0.9 % Sodium Chloride Flush 3 ML SYRINGE IVFLUSH ×3 (08:57→21:16)
[2024-05-03] MEDS: Gabapentin 300 MG CAPSULE PO ×3 (08:58→21:14)
[2024-05-03] MEDS: Bacitracin Oint 0.9 GM PACKET 1 APPL TOPICAL ×4 (08:58→21:14)
[2024-05-03] MEDS: Apixaban 5 MG TABLET PO ×2 (08:58→21:14)
[2024-05-03] MEDS: amLODIPine Besylate 5 MG TABLET PO (08:58)
[2024-05-03] MEDS: Finasteride 5 MG TABLET PO (08:58)
[2024-05-03] MEDS: cefTRIAXone sodium 2 GM in 0.9 % Sodium Chloride 50 ML IV (08:59)
[2024-05-03] MEDS: Octreotide Acetate 100 MCG/ML AMPUL 50 MCG SUBCUT ×2 (09:09→21:14)
[2024-05-03] MEDS: 0.9 % Sodium Chloride 1,000 ML 75 ML IVCONT (13:18)
[2024-05-03 15:21] VITALS: BP 131/73; PULSE 51; RESP 18; TEMP 36.5; O2SAT 95
[2024-05-03 18:37] VITALS: RESP 18
[2024-05-03 19:43] VITALS: BP 139/85; PULSE 98; RESP 18; TEMP 36.3; O2SAT 94
[2024-05-03] MEDS: LORazepam 1 MG TABLET PO (21:14)
[2024-05-04 03:29] VITALS: BP 149/85; PULSE 66; RESP 18; TEMP 36.2; O2SAT 95
[2024-05-04] MEDS: Omeprazole 20 MG CAPSULE.DR PO (06:01)
[2024-05-04 07:19] VITALS: BP 153/81; PULSE 57; RESP 12; TEMP 36.2; O2SAT 94
[2024-05-04 09:13] VITALS: BP 153/81
[2024-05-04] MEDS: amLODIPine Besylate 5 MG TABLET PO (09:13)
[2024-05-04] MEDS: Gabapentin 300 MG CAPSULE PO ×3 (09:13→20:49)
[2024-05-04] MEDS: Apixaban 5 MG TABLET PO ×2 (09:13→20:49)
[2024-05-04] MEDS: Finasteride 5 MG TABLET PO (09:14)
[2024-05-04] MEDS: Bacitracin Oint 0.9 GM PACKET 1 APPL TOPICAL ×3 (09:14→20:59)
[2024-05-04] MEDS: Octreotide Acetate 100 MCG/ML AMPUL 50 MCG SUBCUT ×2 (09:14→20:50)
[2024-05-04] MEDS: 0.9 % Sodium Chloride Flush 3 ML SYRINGE IVFLUSH ×3 (09:14→20:49)
[2024-05-04] MEDS: cefTRIAXone sodium 2 GM in 0.9 % Sodium Chloride 50 ML IV (09:16)
[2024-05-04] MEDS: Acetaminophen 325 MG TABLET 650 MG PO (15:33)
--- NOTE | 2024-05-04 15:33 | P.PNIM_ITS ---
Subjective Subjective Date of Service: 05/04/24 Interval History: a little bleeding around Zuniga but urine is clear no fever anxious Review of Systems Review of Systems: Yes all other systems are reviewed and are negative Physical Exam 2 Vital Signs: Vital Signs: Last Vital Signs Temp 97.2 F 05/04/24 07:19 Pulse 57 05/04/24 07:19 Resp 12 05/04/24 07:19 BP 153/81 H 05/04/24 09:13 Pulse Ox 94 05/04/24 07:19 O2 Del Method Room Air 05/04/24 07:19 O2 Flow Rate 1 05/02/24 16:20 Oxygen Flow Rate 3 05/01/24 14:07 BMI result Body Mass Index 24.7 Gen: in no acute distress HEENT: sclera anicteric, moist mucus membranes Neck: supple Lungs: clear to auscultation bilaterally Heart: regular rate and rhythm, no murmurs Abd: soft, non-tender, non-distended : Zuniga with clear urine Ext: no edema Skin: warm/well-perfused Neuro: alert and oriented to self/place, moving all extremities Psych: appropriate affect Objective Data Active Medications Acetaminophen (Acetaminophen 325 Mg Tablet) 650 mg PO Q6H PRN PRN Reason: Pain, Mild (Pain Scale 1-3), fever or headache Last Admin: 05/02/24 20:39 Dose: 650 mg Documented By: TULIO Amlodipine Besylate (Amlodipine Besylate 5 Mg Tablet) 5 mg PO DAILY [facility]; Protocol Last Admin: 05/04/24 09:13 Dose: 5 mg Documented By: HILDA Apixaban (Apixaban 5 Mg Tablet) 5 mg PO BID [facility] Last Admin: 05/04/24 09:13 Dose: 5 mg Documented By: HILDA Bacitracin (Bacitracin Oint 0.9 Gm Packet) 1 appl TOPICAL QID [facility] Last Admin: 05/04/24 09:14 Dose: 1 appl Documented By: HILDA Bisacodyl (Bisacodyl 10 Mg Supp.Rect) 10 mg [place] DAILY PRN PRN Reason: Constipation Calcium Carbonate (Calcium Carbonate 750 Mg Tab.Chew) 750 mg PO Q4H PRN PRN Reason: Heartburn Calcium Carbonate (Calcium Carbonate 750 Mg Tab.Chew) 750 mg PO Q4H PRN PRN Reason: Dyspepsia Finasteride (Finasteride 5 Mg Tablet) 5 mg PO DAILY [facility] Last Admin: 05/04/24 09:14 Dose: 5 mg Documented By: HILDA Gabapentin (Gabapentin 300 Mg Capsule) 300 mg PO TID [facility] Last Admin: 05/04/24 09:13 Dose: 300 mg Documented By: HILDA Hydromorphone HCl (Hydromorphone Hcl 0.5 Mg/0.5 Ml Syringe) 0.5 mg IVPUSH Q3H PRN; Protocol PRN Reason: severe pain Last Admin: 05/03/24 18:37 Dose: 0.5 mg Documented By: HILDA Ceftriaxone Sodium 2 gm/ (Sodium Chloride) 50 mls @ 100 mls/hr IV Q24H [facility] Last Infusion: 05/04/24 10:33 Dose: Infused Documented By: HILDA Loperamide HCl (Loperamide Hcl 2 Mg Capsule) 2 mg PO Q4H PRN PRN Reason: Loose Stool Magnesium Hydroxide (Milk Of Magnesia 30 Ml Oral.Susp) 30 ml PO DAILY PRN PRN Reason: Constipation Magnesium Hydroxide (Milk Of Magnesia 30 Ml Oral.Susp) 30 ml PO BEDTIME PRN PRN Reason: Constipation Melatonin (Melatonin 3 Mg Tablet) 6 mg PO BEDTIME PRN PRN Reason: Insomnia Last Admin: 05/03/24 02:24 Dose: 6 mg Documented By: TULIO Octreotide Acetate (Octreotide Acetate 100 Mcg/Ml Ampul) 50 mcg SUBCUT Q12H [facility] Last Admin: 05/04/24 09:14 Dose: 50 mcg Documented By: HILDA Omeprazole (Omeprazole 20 Mg Rick.) 20 mg PO DAILY@0630 [facility] Last Admin: 05/04/24 06:01 Dose: 20 mg Documented By: BRAIN Simethicone (Simethicone 80 Mg Tab.Chew) 80 mg PO Q8H PRN PRN Reason: Gastric Reflux Sodium Biphosphate/Sodium Phosphate (Sodium Phosphate,Hitchcock-Dibasic 133 Ml Enema) 118 ml [place] DAILY PRN PRN Reason: Constipation Sodium Chloride (0.9 % Sodium Chloride Flush 3 Ml Syringe) 3 ml IVFLUSH QSHIFT [facility] Last Admin: 05/04/24 09:14 Dose: 3 ml Documented By: HILDA Labs 05/03/24 06:39 05/03/24 06:39 Labs: Organism 1 Proteus mirabilis Results of Blood Culture gram stain called to and read back by JEANINE at 0815 on 05/02/24 by FERNANDA. P mirabili [facility].I.[facility]. RX --------- --- Ampicillin >=32 R Cefazolin 8 S Ceftriaxone <=0.25 S Gentamicin 8 I Trimethoprim/Sulfamethoxazole >=320 R Urine Culture Final 05/04/24-0844 Organism 1 Serratia marcescens Quant > 100,000 cfu/mL Organism 2 Proteus mirabilis Quant > 100,000 cfu/mL S marcesc P mirabili [facility].I.[facility]. RX [facility].I.[facility]. RX --------- --- --------- --- Ampicillin >=32 R Ceftriaxone <=0.25 S <=0.25 S Gentamicin <=1 S 8 I Levofloxacin 1 I Nitrofurantoin 128 R Trimethoprim/Sulfamethoxazole <=20 S >=320 R Microbiology Microbiology Results: Microbiology 05/03/24 08:28 Blood Culture - Preliminary Blood - Venous No growth after 24 hours. 05/03/24 08:22 Blood Culture - Preliminary Blood - Venous No growth after 24 hours. 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, BPH with chronic indwelling Zuniga + hx recurrent UTIs, hx Cdiff, ?pAF, unspecified dementia, HTN sent in from [facility] @ [facility] with AMS severe sepsis due to UTI/bacteremia - Proteus in blood, Proteus + Serratia in urine - on ceftriaxone 05/02-, ID consult pending, repeat BCx from 05/03 pending acute encephalopathy due to infection - resolving with infection treatment AHRF - likely due to sepsis; resolved HTN - resumed amlodipine [had been held for hypotension] - continue to hold metoprolol succinate due to bradycardia urinary retention - continue chronic Zuniga, finasteride neuroendocrine tumor - continue octreotide dementia - suggestion of NPH on CT head; outpt Neuro consult ?pAF - on metoprolol succinate + apixaban at SNF but no documented hx pAF - continue apixaban for now VTE ppx - apixaban dispo - eventual return to LTC In my clinical judgment, the patient requires continued inpatient hospitalization for the following reasons: IV ABX, ID consultation Total time managing care of this patient today: 40 minutes. Quality Stroke Does the patient have a stroke diagnosis?: No VTE Prior VTE?: No VTE Risk Level:: Medical - moderate - high VTE Device Contraindication: Treatment Not Indicated VTE Drug Contraindication: N/A - Med Ordered
[2024-05-04 16:00] VITALS: BP 167/83; PULSE 53; RESP 12; TEMP 36.2; O2SAT 95
[2024-05-04 20:00] VITALS: BP 142/76; PULSE 65; RESP 16; TEMP 36.1; O2SAT 96
[2024-05-04] MEDS: LORazepam 0.5 MG TABLET PO (22:25)
[2024-05-04 23:25] VITALS: RESP 18
--- NOTE | 2024-05-05 | ECG_ITS ---
Test Reason : tacy Blood Pressure : / mmHG Vent. Rate : 124 BPM Atrial Rate : 124 BPM P-R Int : 146 ms QRS Dur : 058 ms QT Int : 290 ms P-R-T Axes : 039 -26 069 degrees QTc Int : 416 ms Sinus tachycardia with Premature atrial complexes in a pattern of bigeminy Left ventricular hypertrophy with repolarization abnormality ( R in aVL ) Inferior infarct , age undetermined Abnormal ECG When compared with ECG of 05-MAY-2024 13:20, Premature atrial complexes are now Present Nonspecific T wave abnormality, worse in Anterior leads Referred By: Santiago Longoria Electronically Signed By:GRACIA DEGROOT
[2024-05-05 04:00] VITALS: BP 157/85; PULSE 63; RESP 18; TEMP 36.5; O2SAT 94
[2024-05-05] MEDS: Omeprazole 20 MG CAPSULE.DR PO (06:12)
[2024-05-05 06:53] VITALS: BP 139/65; PULSE 73; RESP 17; TEMP 36.7; O2SAT 96
[2024-05-05] MEDS: Bacitracin Oint 0.9 GM PACKET 1 APPL TOPICAL ×4 (07:54→21:40)
[2024-05-05] MEDS: Apixaban 5 MG TABLET PO ×2 (07:54→19:34)
[2024-05-05] MEDS: cefTRIAXone sodium 2 GM in 0.9 % Sodium Chloride 50 ML IV (07:54)
[2024-05-05] MEDS: 0.9 % Sodium Chloride Flush 3 ML SYRINGE IVFLUSH (07:54)
[2024-05-05] MEDS: Finasteride 5 MG TABLET PO (07:54)
[2024-05-05] MEDS: Gabapentin 300 MG CAPSULE PO ×3 (07:54→19:34)
[2024-05-05] MEDS: amLODIPine Besylate 5 MG TABLET PO (07:54)
[2024-05-05] MEDS: Octreotide Acetate 100 MCG/ML AMPUL 50 MCG SUBCUT ×2 (09:31→21:11)
--- NOTE | 2024-05-05 12:06 | P.DS_ITS ---
DS: Providers Provider Date of Service: 05/05/24 Date of admission: 05/01/24 21:54 Date of discharge: 05/05/24 Primary care physician: Mario Zendejas MD Consults: 05/04/24 07:37 Consult to Infectious Diseases Routine Consulting Provider: [facility] [place] [facility] Reason for consultation: proteus bacteraemia DS: Diagnosis Discharge Diagnosis (1) UTI (urinary tract infection): Status: Acute (2) Septic encephalopathy: Status: Acute (3) Bacteremia: Status: Acute (4) Severe sepsis: Status: Acute (5) Acute respiratory failure with hypoxia: Status: Acute DS: Summary Hospital Course Hospital Course: From the history and physical by the admitting hospitalist, Justin Vasquez MD, 05/01/24: 68M PMH 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 patient was at [facility] day prior to presentation. on day of presentation noted to be confused, lethargic, brought to ED. found to be septic with positive UA. given vanc zosyn and 30cc per kg. 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 Hospital course by problem: severe sepsis due to UTI/bacteremia - Cultures grew Proteus mirabilis in blood, and Proteus mirabilis + Serratia marcescens in urine. He was treated with ceftriaxone IV and repeat cultures from 05/03 cleared. Per Infectious Disease consultation, discharged on cefuroxime for 12 days for a total of 14 days of antibiotic therapy starting on the negative culture date. acute encephalopathy due to infection - resolved with infection treatment acute hypoxic respiratory failure - initially on 3L O2 but quickly weaned off; hypoxia likely due to sepsis HTN - resumed amlodipine [had been held for hypotension]; metoprolol succinate discontinued due to bradycardia urinary retention - continue chronic Livingston, finasteride; should follow up with Urology in 2 weeks. He was discharged back to [facility] for resumption of long-term nursing care. Time Attestation Discharge Coordination Time (in mins): 35 Quality: Safe Use of Opioids Does Pt have an Active Cancer Diagnosis on the Problem List?: No Quality: Stroke Does the patient have a stroke diagnosis?: No Physical Exam Vital Signs: Vital Signs: Last Vital Signs Temp 98.1 F 05/05/24 06:53 Pulse 73 05/05/24 06:53 Resp 17 05/05/24 06:53 BP 139/65 05/05/24 06:53 Pulse Ox 96 05/05/24 06:53 O2 Del Method Room Air 05/05/24 06:53 O2 Flow Rate 1 05/02/24 16:20 Oxygen Flow Rate 3 05/01/24 14:07 BMI result Body Mass Index 24.7 Gen: in no acute distress HEENT: sclera anicteric, moist mucus membranes Neck: supple Lungs: clear to auscultation bilaterally Heart: regular rate and rhythm, no murmurs Abd: soft, non-tender, non-distended : Livingston with clear urine Ext: no edema Skin: warm/well-perfused Neuro: alert and oriented to self/place, moving all extremities Psych: appropriate affect DS: Data Data Completed and Pending Completed studies during hospitalization [Text1]: Laboratory Results WBC 12.5 X10*3/uL (4.8-10.8) H 05/03/24 06:39 RBC 3.59 X10*6/uL (4.60-5.80) L 05/03/24 06:39 Hgb 11.0 g/dl (14.0-18.0) L 05/03/24 06:39 Hct 33.4 % (42.0-52.0) L 05/03/24 06:39 MCV 93.0 fL (80.0-98.0) 05/03/24 06:39 MCH 30.6 pg (27.0-33.0) 05/03/24 06:39 MCHC 32.9 g/dl (31.0-36.0) 05/03/24 06:39 RDW 13.6 % (11.0-16.0) 05/03/24 06:39 Plt Count 240 X10*3/uL (160-400) 05/03/24 06:39 MPV 9.8 fL (9.4-12.4) 05/03/24 06:39 Immature Gran % (Auto) Cancelled 05/01/24 16:10 Neut % (Auto) Cancelled 05/01/24 16:10 Lymph % (Auto) Cancelled 05/01/24 16:10 [place] % (Auto) Cancelled 05/01/24 16:10 Eos % (Auto) Cancelled 05/01/24 16:10 Baso % (Auto) Cancelled 05/01/24 16:10 Lymph # (Auto) Cancelled 05/01/24 16:10 [place] # (Auto) Cancelled 05/01/24 16:10 Eos # (Auto) Cancelled 05/01/24 16:10 Baso # (Auto) Cancelled 05/01/24 16:10 Abs Immat Gran (auto) Cancelled 05/01/24 16:10 Absolute Neuts (auto) Cancelled 05/01/24 16:10 Absolute Nucleated RBC 0.000 X10*3/uL (0.0-0.012) 05/03/24 06:39 Nucleated RBC % (auto) 0.0 /100WBC (0.0-0.2) 05/03/24 06:39 Neutrophils % (Manual) 68 % (45-73) 05/01/24 16:10 Band Neutrophils % 26 % (3-5) H 05/01/24 16:10 Lymphocytes % (Manual) 1 % (20-40) L 05/01/24 16:10 Monocytes % (Manual) 4 % (2-11) 05/01/24 16:10 Metamyelocytes % 1 % 05/01/24 16:10 Abs Neuts (Manual) 16.0 X10*3/uL (2.0-8.3) H 05/01/24 16:10 Lymphocytes # (Manual) 0.2 X10*3/uL (1.2-4.9) L 05/01/24 16:10 Monocytes # (Manual) 0.7 X10*3/uL (0.1-1.2) 05/01/24 16:10 Metamyelocytes # 0.2 X10*3/uL 05/01/24 16:10 Platelet Estimate NORMAL (NORMAL) 05/01/24 16:10 Plt Morphology Comment NORMAL 05/01/24 16:10 RBC Morphology NORMAL 05/01/24 16:10 Smear Tech's Comments MANUAL DIFF 05/01/24 16:10 VBG pH 7.45 (7.32-7.43) H 05/01/24 16:34 VBG pCO2 35 mmHg 05/01/24 16:34 VBG pO2 56 mmHg 05/01/24 16:34 VBG HCO3 25 mmol/L (22-26) 05/01/24 16:34 VBG O2 Saturation 87.0 % 05/01/24 16:34 VBG Base Excess 1.5 mmol/L 05/01/24 16:34 Sodium 140 mmol/L (135-145) 05/03/24 06:39 Potassium 3.5 mmol/L (3.3-5.1) 05/03/24 06:39 Chloride 108 mmol/L (96-108) 05/03/24 06:39 Carbon Dioxide 24 mmol/L (22-29) 05/03/24 06:39 Anion Gap 12 (12-20) 05/03/24 06:39 BUN 9 mg/dL (9-16) 05/03/24 06:39 Creatinine 0.55 mg/dL (0.5-1.4) 05/03/24 06:39 Estim Creat Clear Calc 116.8 05/03/24 06:39 Estimated GFR > 60 05/03/24 06:39 Random Glucose 117 mg/dL (60-115) H 05/03/24 06:39 Fasting Glucose 120 mg/dL (60-99) H 05/02/24 05:27 Lactic Acid 1.4 mmol/L (0.5-2.0) 05/01/24 16:10 Calcium 8.9 mg/dL (8.4-10.2) 05/03/24 06:39 Magnesium 1.8 mg/dL (1.6-2.6) 05/02/24 05:27 Total Bilirubin 0.6 mg/dL (0.0-1.0) 05/01/24 16:10 Direct Bilirubin 0.3 mg/dL (0.0-0.5) 05/01/24 16:10 AST 11 U/L (5-37) 05/01/24 16:10 ALT 9 U/L (0-40) 05/01/24 16:10 Alkaline Phosphatase 105 U/L (39-117) 05/01/24 16:10 Troponin I High Sens 3.0 ng/L (<3.5-35.0) 05/01/24 16:10 Total Protein 7.1 g/dL (6.5-8.0) 05/01/24 16:10 Albumin 3.7 g/dL (3.5-5.0) 05/01/24 16:10 Lipase 19 U/L (8-78) 05/01/24 16:10 TSH 0.24 uIU/mL (0.32-4.0) L 05/01/24 16:10 Urine Color Yellow 05/01/24 20:58 Urine Appearance Turbid 05/01/24 20:58 Urine pH 7.5 (5.0-9.0) 05/01/24 20:58 Ur Specific [place] 1.015 (1.005-1.025) 05/01/24 20:58 Urine Protein 30 (1+) mg/dL (Neg-Trace) H 05/01/24 20:58 Urine Glucose (UA) Negative mg/dL (Negative) 05/01/24 20:58 Urine Ketones Negative mg/dL (Negative) 05/01/24 20:58 Urine Blood Large (3+) (Negative) H 05/01/24 20:58 Urine Nitrite Positive (Negative) H 05/01/24 20:58 Ur Leukocyte Esterase Large (3+) (Negative) H 05/01/24 20:58 Urine RBC 6-10 /HPF (0-2) H 05/01/24 20:58 Urine WBC 21-50 /HPF (0-5) 05/01/24 20:58 Ur Squamous Epith Cells 0-2 /HPF (0-2) 05/01/24 20:58 Urine Bacteria 3+ (None Seen) 05/01/24 20:58 Hyaline Casts 3-5 /LPF (0-2) 05/01/24 20:58 Influenza Type A (PCR) NEGATIVE (Negative) 05/01/24 16:23 Influenza Type B (PCR) NEGATIVE (Negative) 05/01/24 16:23 RSV RNA Qual (PCR) NEGATIVE (Negative) 05/01/24 16:23 SARS-CoV-2 RNA (RT-PCR) NEGATIVE (Negative) 05/01/24 16:23 Impressions Chest X-Ray 05/01/24 15:30 IMPRESSION: Low lung volumes with mild bibasilar subsegmental atelectasis. No focal pneumonia. Abdomen/Pelvis CT 05/01/24 19:00 IMPRESSION: 1. No evidence for pulmonary emboli. Dependent airspace changes more likely due to atelectasis. 2. No acute abnormality within the abdomen or pelvis. 3. There is a bladder catheter with the tip ending in the region of the prostatic urethra and the balloon in the bulbous urethra. This can be repositioned. 4. Concentric bladder wall thickening likely reflects component of cystitis. Correlation with urinalysis recommended. 5. VTE: Negative. This critical result was discussed with Osiris Stevens MD at 05/01/2024 9:21 PM and it was ascertained that the content and urgency of the report was understood at the time of direct communication. Chest CTA 05/01/24 19:01 IMPRESSION: 1. No evidence for pulmonary emboli. Dependent airspace changes more likely due to atelectasis. 2. No acute abnormality within the abdomen or pelvis. 3. There is a bladder catheter with the tip ending in the region of the prostatic urethra and the balloon in the bulbous urethra. This can be repositioned. 4. Concentric bladder wall thickening likely reflects component of cystitis. Correlation with urinalysis recommended. 5. VTE: Negative. This critical result was discussed with Osiris Stevens MD at 05/01/2024 9:21 PM and it was ascertained that the content and urgency of the report was understood at the time of direct communication. Head CT 05/01/24 19:01 IMPRESSION: No acute intracranial pathology. Diffuse volume loss. Moderate chronic microangiopathy. The ventricles are slightly out of proportion to the cortical sulci. An underlying component of normal pressure hydrocephalus is not excluded. Clinical correlation is recommended. Microbiology 05/01/24 16:24 Blood - Venous Blood Culture - Final Proteus mirabilis 05/03/24 08:28 Blood - Venous Blood Culture - Preliminary No growth after 48 hours. 05/03/24 08:22 Blood - Venous Blood Culture - Preliminary No growth after 48 hours. 05/01/24 20:58 Urine clean catch - Clean Catch Midstream Urine Culture - Final Serratia marcescens Proteus mirabilis 05/01/24 16:10 Blood - Venous Blood Culture - Final Proteus mirabilis Labs on day of discharge: Preliminary micro results at discharge 05/03/24 08:28 Blood Culture - Preliminary Blood - Venous No growth after 48 hours. 05/03/24 08:22 Blood Culture - Preliminary Blood - Venous No growth after 48 hours. Discharge Plan Discharge Patient Disposition: [facility] Discharge Diagnosis: sepsis due to UTI/bacteremia Referrals: Yuriy Mei MD [Physician] - 2 Weeks Mario Zendejas MD [Primary Care Provider] - 1 Week Discharge Medications: New cefuroxime axetil 500 mg tablet 500 mg PO BID Qty: 24 0RF Continued (DME[facility] See Rx Instructions .Route Qty: 1 0RF Rx Instructions: Daily As directed, 999 days amlodipine 5 mg tablet 5 mg PO DAILY 90 Days Qty: 90 3RF acetaminophen 650 mg Suppository 650 mg [place] Q4H MDD 3gm/day PRN (Reason: Fever Or Pain) loperamide 2 mg Tablet 2 mg PO Q4H PRN (Reason: Loose Stool) Rx Instructions: administer after each loose stool until symptoms controlled; do not exceed 8 mg per 24 hrs loperamide 2 mg Tablet 4 mg PO DAILY PRN (Reason: Loose Stool) Rx Instructions: administer after each loose stool until symptoms controlled; do not exceed 8 mg per 24 hrs melatonin 3 mg Tablet 3 mg PO BEDTIME bacitracin zinc 500 unit/gram Ointment 1 appl TOPICAL TID Rx Instructions: Apply to penis lidocaine-prilocaine 2.5-2.5 % cream 1 appl topical Q8H PRN (Reason: mild pain) Rx Instructions: APPLY TOPICALLY TO AFFECTED AREA OF PENIS THREE TIMES A DAY NEEDED FOR MILD PAIN PRIOR TO APPLYING BACITRACIN magnesium hydroxide [Milk of Magnesia] 400 mg/5 mL Suspension 30 ml PO BEDTIME PRN (Reason: Constipation) Rx Instructions: For no BM in 3 days bisacodyl 10 mg Suppository 10 mg [place] DAILY PRN (Reason: Constipation) Rx Instructions: If M.O.M ineffective. Fleet Enema 19-7 gram/118 mL Enema 118 ml [place] DAILY PRN (Reason: Constipation) Rx Instructions: For no BM if Bisacodyl supp. ineffective (DO NOT GIVE WITH DIALYSIS/RENAL FAILURE) gabapentin 300 mg capsule 300 mg PO TID omeprazole 20 mg capsule,delayed release(DR/EC) 20 mg PO DAILY@0630 calcium carbonate 500 mg calcium (1,250 mg) Tablet,Chewable 500 mg PO Q4H PRN (Reason: Dyspepsia) finasteride 5 mg tablet 5 mg PO DAILY simethicone 80 mg Tablet,Chewable 80 mg PO Q8H PRN (Reason: Gastric Reflux) octreotide acetate 50 mcg/mL (1 mL) Syringe 50 mcg SUBCUT BID Rx Instructions: administer 30 minutes before morning and evening meals Eliquis 5 mg tablet 5 mg PO BID naloxone [Narcan] 4 mg/actuation Helper,Non-Aerosol 4 mg INTRANASAL Q3M PRN (Reason: Opioid Overdose) Rx Instructions: spray 1 dose into ONE nostril; alternate nostrils w each dose until help arrives (DME) miscellaneous medical supply Misc See Rx Instructions .ROUTE .MEDSUPPLY Qty: 1 0RF Rx Instructions: Wheelchair. Daily?As directed, 999 days Discontinued acetaminophen 325 mg Capsule 975 mg PO Q8H metoprolol succinate 25 mg tablet extended release 24 hr 75 mg PO BID Discharge Orders: Discharge Order (Routine); Ordered 05/05/24 Ordered By: Rubio Conroy Diet: Advance to usual diet Activity on Discharge: As tolerated Stand Alone Forms: Patient Portal Discharge page Print Language: Croatian Care Plan Goals: cure of infection Health Concerns: sepsis due to UTI/bacteremia Plan of Treatment: Take antibiotics as prescribed: cefuroxime axetil 500 mg twice daily for 12 days Please follow up with your primary care doctor within 1 week. Return to the hospital if you experience recurrent or worsening symptoms. Follow up with urology in 2 weeks. Assessment: See Discharge Summary.
--- NOTE | 2024-05-05 13:29 | P.EN_ITS ---
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 Pt unable to bear down [Valsalva]. No carotid bruits; carotid massage attempted without conversion of SVT. Given 6 mg IV adenosine and converted to ST with frequent PACs, rate 120s-130s, BP 146/86. Will give 5 mg IV metoprolol and start 25 mg PO metoprolol bid. Check BMP/Mg. Consult Cardiology. Echocardiogram. Hold discharge. Time Spent With Patient Time: Total time managing care of this patient today ____ minutes.
--- NOTE | 2024-05-05 13:31 | CA_ITS ---
Transthoracic Echocardiogram Patient (Last, First, Middle): Alhaji Varner, Gender: Male Date of : 1955 Age: 68 Procedure Date: 05/05/2024 Procedure Type: Transthoracic Echocardiogram Location: [facility] [place] Height: 170.18 cm Weight: 71.22 kg BSA: 1.82 m2 Heart Rate: 85 bpm BP: 139 / 85 mmHg Receptionist Clerk: WALTER Referring MD: Rubio Conroy MD Symptoms: SVT Study Quality: Fair ECG Rhythm: Sinus Conclusions: - The left ventricular systolic function is normal. The calculated ejection fraction is 57% by biplane method. - There is mild calcification of the aortic valve. - There is mild anterior and posterior mitral leaflet thickening. Findings Left Ventricle Normal left ventricular cavity size. There is normal left ventricular wall thickness. The left ventricular systolic function is normal. The calculated ejection fraction is 57% by biplane method. There is no evidence of regional wall motion abnormalities. Evidence suggests grade I (mild) diastolic dysfunction. Right Ventricle Normal right ventricular cavity size. There is mildly decreased right ventricular systolic function. Atria Both atria are normal in size. Aortic Valve There is a normal trileaflet aortic valve. There is mild calcification of the aortic valve. There is no aortic valve stenosis. There is no aortic valve regurgitation. Mitral Valve There is mild anterior and posterior mitral leaflet thickening. There is no mitral valve regurgitation. There is no mitral valve stenosis. Pulmonic Valve The pulmonic valve is likely normal. Tricuspid Valve There is no tricuspid valve regurgitation. Tricuspid regurgitation envelope is inadequate for calculation of right ventricular systolic pressure. Great Vessels The asc aorta is normal in size. Venous The inferior vena cava was not well visualized. Pericardium/Pleural There is no evidence of pericardial effusion. Prior Study Comparison No prior study available for comparison. Measurements 2D Linear Measurements IVSd: 0.94 0.6-0.9/0.6-1.0 cm LVIDd: 4.08 3.9-5.3/4.2-5.9 cm LVIDd Index: 2.24 2.4-3.2/2.2-3.1 cm/m2 LVIDs: 2.90 2.0-3.6 cm LVPWd: 1.34 0.7-1.1 cm LA Diam: 3.60 2.7-3.8/3.0-4.0 cm LAIDs Index: 1.98 1.5-2.3 cm/m2 LV Mass: 196.79 67-162/88-224 g LV Mass Index: 108.13 43-95/49-115 g/m2 LVOT Diam: 1.90 3.0+(-)1.3 cm 2D Systolic Function EF 4C: 58.90 >55% EF 2C: 59.80 >55% EF BiP: 56.90 >55% Mitral Valve MV Pk E: 0.46 MV PK A: 0.93 MV Decel Time: 378.00 E/A: 0.50 E'Lateral: 7.94 E'Medial: 5.11 E/E' Med: 9.10 E/E' Lat: 5.80 PHT: 111.00 MVA PHT: 1.98 Decel [place]: 1.23 Aortic Valve AoV Pk Dinh: 1.08 AoV Mn Dinh: 0.80 AoV VTI: 0.18 AoV Pk Grad: 5.00 Aov Mn Grad: 3.00 PIERO Cont.VTI: 2.25 LVOT LVOT Pk Dinh: 0.80 LVOT Mn Dinh: 0.58 LVOT VTI: 0.14 LVOT Pk Grad: 3.00 LVOT Mn Grad: 1.00 LVOT Diam: 1.90 LVOT Area: 2.84 Diastolic Function MV Pk E: 0.46 MV Pk A: 0.93 E/A: 0.50 E'Medial: 5.11 E/E' Med: 9.10 E' Laterial: 7.94 E/E' Lat: 5.80 Right Ventricle TAPSE (mm): 14.30 TVS' Dinh: 11.20 Great Vessels Aorta Sinus of Valsalva: 3.50 2.0-3.5 cm Ao Asc: 3.70 2.1-3.4 cm Pulmonary Valve PV Pk Dinh: 1.06 Peak PV Grad: 4.00 Updated in Other Vendor System with Status of Final Robbin Santoyo MD electronically signed on 05/05/2024 4:15:09 PM with status of Final
--- NOTE | 2024-05-05 13:32 | HO.PM.IMPN ---
Subjective Subjective Date of Service: 05/05/24 Interval History: bleeding around Zuniga resolved pt was feeling well this AM and discharge back to LTC was planned but then pt suddenly l SVT; adenosine given and now pt in sinus tachycardia + frequent PACs during episode, pt c/o palpitations; currently improved no chest pain reference made to [employer] OPEN STACK ADMINISTRATOR note Review of Systems Review of Systems: Yes all other systems are reviewed and are negative Physical Exam Vital Signs: Vital Signs: Last Vital Signs Temp 98.1 F 05/05/24 06:53 Pulse 73 05/05/24 06:53 Resp 17 05/05/24 06:53 BP 139/65 05/05/24 06:53 Pulse Ox 96 05/05/24 06:53 O2 Del Method Room Air 05/05/24 06:53 O2 Flow Rate 1 05/02/24 16:20 Oxygen Flow Rate 3 05/01/24 14:07 BMI result Body Mass Index 24.7 Gen: anxious HEENT: sclera anicteric, moist mucus membranes Neck: supple Lungs: clear to auscultation bilaterally Heart: irregular, rapid, no murmurs Abd: soft, non-tender, non-distended : Zuniga with clear urine Ext: no edema Skin: warm/well-perfused Neuro: alert and oriented x3, no focal findings Psych: appropriate affect Objective Data Active Medications Acetaminophen (Acetaminophen 325 Mg Tablet) 650 mg PO Q6H PRN PRN Reason: Pain, Mild (Pain Scale 1-3), fever or headache Last Admin: 05/04/24 15:33 Dose: 650 mg Documented By: HILDA Adenosine (Adenosine 6 Mg/2 Ml Vial) 6 mg IVPUSH ONCE ONE Stop: 05/05/24 13:28 Amlodipine Besylate (Amlodipine Besylate 5 Mg Tablet) 5 mg PO DAILY [facility]; Protocol Last Admin: 05/05/24 07:54 Dose: 5 mg Documented By: LILLIAM Apixaban (Apixaban 5 Mg Tablet) 5 mg PO BID [facility] Last Admin: 05/05/24 07:54 Dose: 5 mg Documented By: LILLIAM Bacitracin (Bacitracin Oint 0.9 Gm Packet) 1 appl TOPICAL QID [facility] Last Admin: 05/05/24 07:54 Dose: 1 appl Documented By: LILLIAM Bisacodyl (Bisacodyl 10 Mg Supp.Rect) [address] DAILY PRN PRN Reason: Constipation Calcium Carbonate (Calcium Carbonate 750 Mg Tab.Chew) 750 mg PO Q4H PRN PRN Reason: Heartburn Calcium Carbonate (Calcium Carbonate 750 Mg Tab.Chew) 750 mg PO Q4H PRN PRN Reason: Dyspepsia Finasteride (Finasteride 5 Mg Tablet) 5 mg PO DAILY [facility] Last Admin: 05/05/24 07:54 Dose: 5 mg Documented By: LILLIAM Gabapentin (Gabapentin 300 Mg Capsule) 300 mg PO TID [facility] Last Admin: 05/05/24 07:54 Dose: 300 mg Documented By: LILLIAM Hydromorphone HCl (Hydromorphone Hcl 0.5 Mg/0.5 Ml Syringe) 0.5 mg IVPUSH Q3H PRN; Protocol PRN Reason: severe pain Last Admin: 05/03/24 18:37 Dose: 0.5 mg Documented By: GÓMEZAMER Ceftriaxone Sodium 2 gm/ (Sodium Chloride) 50 mls @ 100 mls/hr IV Q24H [facility] Last Infusion: 05/05/24 08:38 Dose: Infused Documented By: LILLIAM Sodium Chloride (Ns) 1,000 mls @ 50 mls/hr IVCONT .Q20H [facility] Loperamide HCl (Loperamide Hcl 2 Mg Capsule) 2 mg PO Q4H PRN PRN Reason: Loose Stool Lorazepam (Lorazepam 0.5 Mg Tablet) 0.5 mg PO Q8H PRN PRN Reason: Anxiety Last Admin: 05/04/24 22:25 Dose: 0.5 mg Documented By: BRAIN Magnesium Hydroxide (Milk Of Magnesia 30 Ml Oral.Susp) 30 ml PO DAILY PRN PRN Reason: Constipation Magnesium Hydroxide (Milk Of Magnesia 30 Ml Oral.Susp) 30 ml PO BEDTIME PRN PRN Reason: Constipation Melatonin (Melatonin 3 Mg Tablet) 6 mg PO BEDTIME PRN PRN Reason: Insomnia Last Admin: 05/03/24 02:24 Dose: 6 mg Documented By: TULIO Metoprolol Tartrate (Metoprolol Tartrate 5 Mg/5 Ml Vial) 5 mg IVPUSH ONCE ONE; Protocol Stop: 05/05/24 13:28 Metoprolol Tartrate (Metoprolol Tartrate 25 Mg Tablet) 25 mg PO BID [facility]; Protocol Octreotide Acetate (Octreotide Acetate 100 Mcg/Ml Ampul) 50 mcg SUBCUT Q12H [facility] Last Admin: 05/05/24 09:31 Dose: 50 mcg Documented By: LILLIAM Omeprazole (Omeprazole 20 Mg Capsule.Dr) 20 mg PO DAILY@0630 [facility] Last Admin: 05/05/24 06:12 Dose: 20 mg Documented By: BRAIN Simethicone (Simethicone 80 Mg Tab.Chew) 80 mg PO Q8H PRN PRN Reason: Gastric Reflux Sodium Biphosphate/Sodium Phosphate (Sodium Phosphate,[place]-Dibasic 133 Ml Enema) [address] DAILY PRN PRN Reason: Constipation Sodium Chloride (0.9 % Sodium Chloride Flush 3 Ml Syringe) 3 ml IVFLUSH QSHIFT [facility] Last Admin: 05/05/24 07:54 Dose: 3 ml Documented By: LILLIAM Labs 05/03/24 06:39 05/03/24 06:39 Microbiology Microbiology Results: Microbiology 05/01/24 16:24 Blood Culture - Final Blood - Venous Proteus mirabilis 05/03/24 08:28 Blood Culture - Preliminary Blood - Venous No growth after 48 hours. 05/03/24 08:22 Blood Culture - Preliminary Blood - Venous No growth after 48 hours. 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, BPH with chronic indwelling Zuniga + hx recurrent UTIs, hx Cdiff, ?pAF, unspecified dementia, HTN sent in from LTC @ [facility] with AMS found to have Proteus UTI/bacteremia developed SVT 05/05 SVT - broke with adenosine; check BMP/Mg; transfer to telemetry; consult Cardiology; obtain TTE; give metoprolol IV + PO ?pAF - was on metoprolol succinate + apixaban at [facility] but no documented hx pAF - continue apixaban for now; start metoprolol tartrate now [metoprolol succinate had been held for bradycardia] severe sepsis due to UTI/bacteremia - Proteus in blood, Proteus + Serratia in urine - on ceftriaxone 05/02-, repeat BCx from 05/03 cleared. Per ID, 14 days total cefuroxime from negative culture. acute encephalopathy due to infection - resolving with infection treatment AHRF - likely due to sepsis; resolved HTN - resumed amlodipine [had been held for hypotension] - resume metoprolol as tartrate urinary retention - continue chronic Zuniga, finasteride neuroendocrine tumor - continue octreotide dementia - suggestion of NPH on CT head; outpt Neuro consult VTE ppx - apixaban dispo - eventual return to LTC In my clinical judgment, the patient requires continued inpatient hospitalization for the following reasons: SVT Total time managing care of this patient today: 55 minutes. Quality Stroke Does the patient have a stroke diagnosis?: No VTE Prior VTE?: No VTE Risk Level:: Medical - moderate - high VTE Device Contraindication: Treatment Not Indicated VTE Drug Contraindication: N/A - Med Ordered
--- NOTE | 2024-05-05 13:32 | MHC.CM.PN ---
UPDATES SENT TO [facility] THEY ARE AWARE PT WAS GOING TO BE DISCHARGED TODAY, HOWEVER IT WAS HELD WILL UPDATE WHEN PT IS CLEARED TO DC
[2024-05-05 13:47] VITALS: PULSE 85
[2024-05-05] MEDS: Metoprolol Tartrate 25 MG TABLET PO ×2 (13:47→19:34)
[2024-05-05] MEDS: Metoprolol Tartrate 5 MG/5 ML VIAL IVPUSH (13:48)
[2024-05-05] MEDS: 0.9 % Sodium Chloride 1,000 ML 50 ML IVCONT (13:48)
[2024-05-05] MEDS: Adenosine 6 MG/2 ML VIAL IVPUSH (13:48)
[2024-05-05 14:05] LABS: Anion Gap 16 (12-20); Blood Urea Nitrogen 6 mg/dL (9-16); Calcium 9.7 mg/dL (8.4-10.2); Carbon Dioxide 27 mmol/L (22-29); Chloride 103 mmol/L (96-108); Creatinine Clr Calc Pharmacy 105.3; Estimated Glomerular Filt Rate > 60; Glucose Random 141 mg/dL (60-115); Magnesium 1.8 mg/dL (1.6-2.6); Potassium 3.1 mmol/L (3.3-5.1); Sodium 143 mmol/L (135-145)
[2024-05-05] MEDS: Potassium Chloride ER 20 MEQ TAB.ER.PRT PO (14:34)
[2024-05-05 14:54] VITALS: BP 137/87; PULSE 91; RESP 18; TEMP 36.1; O2SAT 94
[2024-05-05 19:11] VITALS: BP 141/89; PULSE 78; RESP 20; TEMP 36.6; O2SAT 96
[2024-05-05] MEDS: LORazepam 0.5 MG TABLET PO (21:11)
[2024-05-06] VITALS (7 sets, daily range): BP systolic 128–157; BP diastolic 79–89; PULSE 62–96; RESP 17–20; TEMP 36.2–36.4; O2SAT 94–98
[2024-05-06] MEDS: Omeprazole 20 MG CAPSULE.DR PO (05:53)
[2024-05-06 06:39] LABS: Anion Gap 13 (12-20); Blood Urea Nitrogen 10 mg/dL (9-16); Calcium 9.6 mg/dL (8.4-10.2); Carbon Dioxide 28 mmol/L (22-29); Chloride 103 mmol/L (96-108); Creatinine Clr Calc Pharmacy 103.6; Estimated Glomerular Filt Rate > 60; Glucose Random 97 mg/dL (60-115); Magnesium 1.9 mg/dL (1.6-2.6); Potassium 3.6 mmol/L (3.3-5.1); Sodium 140 mmol/L (135-145)
[2024-05-06] MEDS: Gabapentin 300 MG CAPSULE PO ×3 (09:26→22:53)
[2024-05-06] MEDS: cefTRIAXone sodium 2 GM in 0.9 % Sodium Chloride 50 ML IV (09:26)
[2024-05-06] MEDS: Metoprolol Tartrate 25 MG TABLET PO ×2 (09:26→22:53)
[2024-05-06] MEDS: Finasteride 5 MG TABLET PO (09:26)
[2024-05-06] MEDS: amLODIPine Besylate 5 MG TABLET PO (09:26)
[2024-05-06] MEDS: Apixaban 5 MG TABLET PO ×2 (09:26→22:54)
[2024-05-06] MEDS: Bacitracin Oint 0.9 GM PACKET 1 APPL TOPICAL ×4 (09:26→22:53)
[2024-05-06] MEDS: Octreotide Acetate 100 MCG/ML AMPUL 50 MCG SUBCUT ×2 (09:27→22:54)
[2024-05-06] MEDS: 0.9 % Sodium Chloride 1,000 ML 50 ML IVCONT (09:28)
--- NOTE | 2024-05-06 10:01 | P.CONCA_ITS ---
History of Present Illness History of Present Illness Date of Service: 05/06/24 Chief complaint: ams Narrative: This is a cardiology consultation regarding SVT. Per chart, documented issues include severe sepsis/UTI/bacteremia, acute encephalopathy. He was apparently going to get discharged today but at that time he was found to be NSVT and hence discharge was held. After that, he got adenosine and then converted to sinus rhythm. Patient himself does not recall that and he states he does not have any prior cardiac history. Not clear how reliable this is. Per chart again, there is mention of possible atrial fibrillation and that he takes Eliquis at home. Also was on beta-blockers but that was apparently held because of bradycardia. Currently, not having any active symptoms and he remains in sinus rhythm on telemetry. Patient states he cannot ambulate and essentially bed-bound. Review of Systems 2 Review of Systems: Yes all other systems are reviewed and are negative Constitutional: Constitutional: Reports as per HPI and Reports no additional constitutional complaints Eyes: Eyes: Reports as per HPI and Denies no additional eye complaints ENT: Denies system reviewed and no additional complaints, except as documented and Reports as per HPI Cardiovascular: Cardiovascular: Reports as per HPI, Reports no additional cardiovascular complaints, Denies acrocyanosis, Denies cool extremities, Denies chest pain, Denies leg edema, Denies lightheadedness, Denies palpitations and Denies dyspnea Respiratory: Respiratory: Reports as per HPI, Denies no additional respiratory complaints and Denies dyspnea Gastrointestinal: Gastrointestinal: Reports as per HPI and Denies no additional gastrointestinal complaints Genitourinary: Genitourinary: Reports no additional male genitourinary complaints and Reports as per HPI Musculoskeletal: Musculoskeletal: Reports no additional musculoskeletal complaints and Reports as per HPI Integumentary/Breasts: Skin/Breast: Reports system reviewed and no additional complaints, except as docu Neurologic: Reports system reviewed and no additional complaints, except as documented and Reports as per HPI Psychiatric: Psychiatric: Reports no additional psychiatric complaints and Reports as per HPI Endocrine: Endocrine: Reports no additional endocrine complaints, Reports as per HPI and Denies palpitations Hematologic/Lymphatic: Hematologic/Lymphatic: Reports no additional hematologic/lymphatic complaints and Reports as per HPI Allergic/Immunologic: Allergic/Immunologic: Reports no additional allergic/immunologic complaints and Reports as per HPI [facility] Surgical History Surgical History No pertinent past surgical history Social History Social History Household Members: Other Housing: Custodial Comment: wheelchair and bedbound Patient Tobacco Use Status: Former Tobacco user Tobacco use type: Cigarette and Cigar e-Cigarette/Vaping Use: Never Used Second Hand Smoke Exposure: No Advance Directives Date on File: 12/19/23 service: No Current occupational status: retired Current occupational exposures/hazards: No Cognitive needs: No Hearing needs: No Vision needs: No Meds Allergies Allergy/AdvReac Type Severity Reaction Status Date / Time No Known Allergies Allergy Verified 05/01/24 14:09 Active Medications: Current Medications Acetaminophen (Acetaminophen 325 Mg Tablet) 650 mg PO Q6H PRN PRN Reason: Pain, Mild (Pain Scale 1-3), fever or headache Last Admin: 05/04/24 15:33 Dose: 650 mg Amlodipine Besylate (Amlodipine Besylate 5 Mg Tablet) 5 mg PO DAILY [facility]; Protocol Last Admin: 05/06/24 09:26 Dose: 5 mg Apixaban (Apixaban 5 Mg Tablet) 5 mg PO BID [facility] Last Admin: 05/06/24 09:26 Dose: 5 mg Bacitracin (Bacitracin Oint 0.9 Gm Packet) 1 appl TOPICAL QID [facility] Last Admin: 05/06/24 09:26 Dose: 1 appl Bisacodyl (Bisacodyl 10 Mg Supp.Rect) 10 mg ND DAILY PRN PRN Reason: Constipation Calcium Carbonate (Calcium Carbonate 750 Mg Tab.Chew) 750 mg PO Q4H PRN PRN Reason: Heartburn Calcium Carbonate (Calcium Carbonate 750 Mg Tab.Chew) 750 mg PO Q4H PRN PRN Reason: Dyspepsia Finasteride (Finasteride 5 Mg Tablet) 5 mg PO DAILY [facility] Last Admin: 05/06/24 09:26 Dose: 5 mg Gabapentin (Gabapentin 300 Mg Capsule) 300 mg PO TID [facility] Last Admin: 05/06/24 09:26 Dose: 300 mg Hydromorphone HCl (Hydromorphone Hcl 0.5 Mg/0.5 Ml Syringe) 0.5 mg IVPUSH Q3H PRN; Protocol PRN Reason: severe pain Last Admin: 05/03/24 18:37 Dose: 0.5 mg Ceftriaxone Sodium 2 gm/ (Sodium Chloride) 50 mls @ 100 mls/hr IV Q24H [facility] Last Admin: 05/06/24 09:26 Dose: 100 mls/hr Sodium Chloride (Ns) 1,000 mls @ 50 mls/hr IVCONT .Q20H [facility] Last Admin: 05/06/24 09:28 Dose: 50 mls/hr Loperamide HCl (Loperamide Hcl 2 Mg Capsule) 2 mg PO Q4H PRN PRN Reason: Loose Stool Lorazepam (Lorazepam 0.5 Mg Tablet) 0.5 mg PO Q8H PRN PRN Reason: Anxiety Last Admin: 05/05/24 21:11 Dose: 0.5 mg Magnesium Hydroxide (Milk Of Magnesia 30 Ml Oral.Susp) 30 ml PO DAILY PRN PRN Reason: Constipation Magnesium Hydroxide (Milk Of Magnesia 30 Ml Oral.Susp) 30 ml PO BEDTIME PRN PRN Reason: Constipation Melatonin (Melatonin 3 Mg Tablet) 6 mg PO BEDTIME PRN PRN Reason: Insomnia Last Admin: 05/03/24 02:24 Dose: 6 mg Metoprolol Tartrate (Metoprolol Tartrate 25 Mg Tablet) 25 mg PO BID [facility]; Protocol Last Admin: 05/06/24 09:26 Dose: 25 mg Octreotide Acetate (Octreotide Acetate 100 Mcg/Ml Ampul) 50 mcg SUBCUT Q12H [facility] Last Admin: 05/06/24 09:27 Dose: 50 mcg Omeprazole (Omeprazole 20 Mg Capsule.Dr) 20 mg PO DAILY@0630 [facility] Last Admin: 05/06/24 05:53 Dose: 20 mg Simethicone (Simethicone 80 Mg Tab.Chew) 80 mg PO Q8H PRN PRN Reason: Gastric Reflux Sodium Biphosphate/Sodium Phosphate (Sodium Phosphate,[place]-Dibasic 133 Ml Enema) 118 ml ND DAILY PRN PRN Reason: Constipation Sodium Chloride (0.9 % Sodium Chloride Flush 3 Ml Syringe) 3 ml IVFLUSH QSHIFT [facility] Last Admin: 05/06/24 09:34 Dose: Not Given Home Medications ?Medication ?Instructions ?Recorded ?Confirmed ?Last Taken ?Type acetaminophen 650 mg rectal 650 mg ND Q4H PRN Fever Or Pain 05/01/24 05/01/24 Unknown History suppository apixaban 5 mg tablet (Eliquis) 5 mg PO BID 05/01/24 05/01/24 Unknown History bacitracin zinc 500 unit/gram 1 appl topical TID 05/01/24 05/01/24 Unknown History topical ointment bisacodyl 10 mg rectal suppository 10 mg ND DAILY PRN Constipation 05/01/24 05/01/24 Unknown History calcium carbonate 500 mg PO Q4H PRN Dyspepsia 05/01/24 05/01/24 Unknown History finasteride 5 mg tablet 5 mg PO DAILY 05/01/24 05/01/24 Unknown History gabapentin 300 mg capsule 300 mg PO TID 05/01/24 05/01/24 Unknown History lidocaine-prilocaine 2.5 %-2.5 % 1 appl topical Q8H PRN mild pain 05/01/24 05/01/24 Unknown History topical cream loperamide 2 mg tablet 2 mg PO Q4H PRN Loose Stool 05/01/24 05/01/24 Unknown History loperamide 2 mg tablet 4 mg PO DAILY PRN Loose Stool 05/01/24 05/01/24 Unknown History magnesium hydroxide 400 mg/5 mL 30 ml PO BEDTIME PRN Constipation 05/01/24 05/01/24 Unknown History oral suspension (Milk of Magnesia) melatonin 3 mg tablet 3 mg PO BEDTIME 05/01/24 05/01/24 Unknown History naloxone 4 mg/actuation nasal 4 mg intranasal Q3M PRN Opioid 05/01/24 05/01/24 Unknown History spray (Narcan) Overdose octreotide acetate 50 mcg/mL (1 50 mcg subcut BID 05/01/24 05/01/24 Unknown History mL) injection syringe omeprazole 20 mg capsule,delayed 20 mg PO DAILY@0630 05/01/24 05/01/24 Unknown History release simethicone 80 mg chewable tablet 80 mg PO Q8H PRN Gastric Reflux 05/01/24 05/01/24 Unknown History sodium phosphates 19 gram-7 118 ml ND DAILY PRN Constipation 05/01/24 05/01/24 Unknown History gram/118 mL enema (Fleet Enema) Physical Exam 2 Vital Signs: Vital Signs: Last Vital Signs Temp 97.6 F 05/06/24 07:55 Pulse 69 05/06/24 09:26 Resp 17 05/06/24 07:55 BP 154/86 H 05/06/24 09:26 Pulse Ox 96 05/06/24 07:55 O2 Del Method Room Air 05/06/24 07:55 O2 Flow Rate 1 05/02/24 16:20 Oxygen Flow Rate 3 05/01/24 14:07 BMI result Body Mass Index 24.7 Const: General: comfortable and no acute distress O rientation/consciousness: patient oriented x3 HEENT: Other: Unremarkable Head: Yes normal to inspection Neck: Neck: Yes normal visual inspection Chest: Chest palpation & inspection: normal inspection of the chest Resp: Auscultation: clear to auscultation bilaterally Cardio: Palpation: normal PMI Heart sounds: S1 normal heart sound present, S2 normal heart sound present, no gallops, no murmurs and no rubs GI: Palpation (GI): Soft to palpation Back/Spine/Pelvis: Other: unremarkable Skin: General skin exam: no rashes or lesions noted Neuro: General: patient oriented x3 Extrem: General: Yes normal to inspection Psych: Mental Status: mental status grossly normal Objective Labs and Meds 05/03/24 06:39 05/06/24 05:50 Lab results: Laboratory Results - last 24 hr 05/05/24 05/06/24 13:41 05:50 Hold Purple Top SEE NOTE Sodium 143 140 Potassium 3.1 L 3.6 Chloride 103 103 Carbon Dioxide 27 28 Anion Gap 16 13 BUN 6 L 10 Creatinine 0.61 0.62 Estim Creat Clear Calc 105.3 103.6 Estimated GFR > 60 > 60 Random Glucose 141 H 97 Calcium 9.7 D 9.6 Magnesium 1.8 1.9 ECG Interpretation: EKG from yesterday shows sinus tachycardia; PACs; can not exclude old inferior infarct; nonspecific ST-T changes. In the strip showing the tachycardia, narrow complex tachycardia at about 180/Min. There is also ST depression during those times. Assessment and Plan (1) Supraventricular tachycardia: Status: Acute Plan As mentioned above, narrow complex tachycardia that could be SVT as it responded to adenosine. Also, question of paroxysmal atrial fibrillation for which he has been on beta-blockers/Eliquis. But apparently beta-blockers were held in the hospital which might have led to recurrence of arrhythmia. Resume the beta-blockers. Echocardiogram with LVEF of 57%. Mild aortic calcification. Mild mitral valve thickening. If he is able to come to clinic, we can potentially seem in follow-up. Presence of ST depression during tachycardia may indicate underlying ischemic heart disease but patient is essentially bed-bound and doubt he can undergo any clear evaluation. Also does not have any angina type symptoms either. Can decide during follow-up. Procedures Date of Service Date of Service: 05/06/24
[2024-05-06] MEDS: LORazepam 0.5 MG TABLET PO (12:57)
--- NOTE | 2024-05-06 13:13 | HO.PM.IMPN ---
Subjective Subjective Date of Service: 05/06/24 Physical Exam Vital Signs: Vital Signs: Last Vital Signs Temp 97.3 F 05/06/24 11:58 Pulse 77 05/06/24 11:58 Resp 18 05/06/24 11:58 BP 132/83 05/06/24 11:58 Pulse Ox 98 05/06/24 11:58 O2 Del Method Room Air 05/06/24 11:58 O2 Flow Rate 1 05/02/24 16:20 Oxygen Flow Rate 3 05/01/24 14:07 BMI result Body Mass Index 24.7 Objective Data Active Medications Acetaminophen (Acetaminophen 325 Mg Tablet) 650 mg PO Q6H PRN PRN Reason: Pain, Mild (Pain Scale 1-3), fever or headache Last Admin: 05/04/24 15:33 Dose: 650 mg Documented By: HILDA Amlodipine Besylate (Amlodipine Besylate 5 Mg Tablet) 5 mg PO DAILY [facility]; Protocol Last Admin: 05/06/24 09:26 Dose: 5 mg Documented By: ESTER Apixaban (Apixaban 5 Mg Tablet) 5 mg PO BID [facility] Last Admin: 05/06/24 09:26 Dose: 5 mg Documented By: ESTER Bacitracin (Bacitracin Oint 0.9 Gm Packet) 1 appl TOPICAL QID [facility] Last Admin: 05/06/24 12:57 Dose: 1 appl Documented By: ESTER Bisacodyl (Bisacodyl 10 Mg Supp.Rect) 10 mg GA DAILY PRN PRN Reason: Constipation Calcium Carbonate (Calcium Carbonate 750 Mg Tab.Chew) 750 mg PO Q4H PRN PRN Reason: Heartburn Calcium Carbonate (Calcium Carbonate 750 Mg Tab.Chew) 750 mg PO Q4H PRN PRN Reason: Dyspepsia Finasteride (Finasteride 5 Mg Tablet) 5 mg PO DAILY [facility] Last Admin: 05/06/24 09:26 Dose: 5 mg Documented By: ESTER Gabapentin (Gabapentin 300 Mg Capsule) 300 mg PO TID [facility] Last Admin: 05/06/24 09:26 Dose: 300 mg Documented By: ESTER Hydromorphone HCl (Hydromorphone Hcl 0.5 Mg/0.5 Ml Syringe) 0.5 mg IVPUSH Q3H PRN; Protocol PRN Reason: severe pain Last Admin: 05/03/24 18:37 Dose: 0.5 mg Documented By: HILDA Ceftriaxone Sodium 2 gm/ (Sodium Chloride) 50 mls @ 100 mls/hr IV Q24H [facility] Last Infusion: 05/06/24 10:08 Dose: Infused Documented By: ESTER Sodium Chloride (Ns) 1,000 mls @ 50 mls/hr IVCONT .Q20H [facility] Last Admin: 05/06/24 09:28 Dose: 50 mls/hr Documented By: ESTER Loperamide HCl (Loperamide Hcl 2 Mg Capsule) 2 mg PO Q4H PRN PRN Reason: Loose Stool Lorazepam (Lorazepam 0.5 Mg Tablet) 0.5 mg PO Q8H PRN PRN Reason: Anxiety Last Admin: 05/06/24 12:57 Dose: 0.5 mg Documented By: ESTER Magnesium Hydroxide (Milk Of Magnesia 30 Ml Oral.Susp) 30 ml PO DAILY PRN PRN Reason: Constipation Magnesium Hydroxide (Milk Of Magnesia 30 Ml Oral.Susp) 30 ml PO BEDTIME PRN PRN Reason: Constipation Melatonin (Melatonin 3 Mg Tablet) 6 mg PO BEDTIME PRN PRN Reason: Insomnia Last Admin: 05/03/24 02:24 Dose: 6 mg Documented By: TULIO Metoprolol Tartrate (Metoprolol Tartrate 25 Mg Tablet) 25 mg PO BID [facility]; Protocol Last Admin: 05/06/24 09:26 Dose: 25 mg Documented By: ESTER Octreotide Acetate (Octreotide Acetate 100 Mcg/Ml Ampul) 50 mcg SUBCUT Q12H [facility] Last Admin: 05/06/24 09:27 Dose: 50 mcg Documented By: ESTER Omeprazole (Omeprazole 20 Mg Capsule.Dr) 20 mg PO DAILY@0630 [facility] Last Admin: 05/06/24 05:53 Dose: 20 mg Documented By: MARIAMA Simethicone (Simethicone 80 Mg Tab.Chew) 80 mg PO Q8H PRN PRN Reason: Gastric Reflux Sodium Biphosphate/Sodium Phosphate (Sodium Phosphate,[place]-Dibasic 133 Ml Enema) 118 ml GA DAILY PRN PRN Reason: Constipation Sodium Chloride (0.9 % Sodium Chloride Flush 3 Ml Syringe) 3 ml IVFLUSH QSHIFT [facility] Last Admin: 05/06/24 09:34 Dose: Not Given Documented By: ESTER Non-Admin Reason: IV Running Labs 05/03/24 06:39 05/06/24 05:50 Labs: Laboratory Results - last 24 hr 05/05/24 05/06/24 13:41 05:50 Hold Purple Top SEE NOTE Anion Gap 16 13 Estim Creat Clear Calc 105.3 103.6 Estimated GFR > 60 > 60 Random Glucose 141 H 97 Calcium 9.7 D 9.6 Magnesium 1.8 1.9 Microbiology Microbiology Results: Microbiology 05/01/24 16:24 Blood Culture - Final Blood - Venous Proteus mirabilis 05/03/24 08:28 Blood Culture - Preliminary Blood - Venous No growth after 48 hours. 05/03/24 08:22 Blood Culture - Preliminary Blood - Venous No growth after 48 hours. 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 but no documented hx pAF - continue apixaban for now; continue metoprolol which was initial on hold d/t price severe sepsis due to UTI/bacteremia - Proteus in blood, Proteus + Serratia in urine - on ceftriaxone 05/02-, repeat BCx from 05/03 cleared. Per ID, 14 days total cefuroxime from negative culture. acute encephalopathy due to infection - resolving with infection treatment AHRF - likely due to sepsis; resolved HTN - resumed amlodipine [had been held for hypotension] - resume metoprolol as tartrate urinary retention - continue chronic Zuniga, finasteride neuroendocrine tumor - continue octreotide dementia - suggestion of NPH on CT head; outpt Neuro consult VTE ppx - apixaban dispo - eventual return to LTC In my clinical judgment, the patient requires continued inpatient hospitalization for the following reasons: SVT possible dc later today Total time managing care of this patient today: 55 minutes. Quality Stroke Does the patient have a stroke diagnosis?: No VTE Prior VTE?: No VTE Risk Level:: Medical - moderate - high VTE Device Contraindication: Treatment Not Indicated VTE Drug Contraindication: N/A - Med Ordered
[2024-05-06] MEDS: 0.9 % Sodium Chloride Flush 3 ML SYRINGE IVFLUSH ×2 (15:36→22:55)
[2024-05-07 03:56] VITALS: BP 132/78; PULSE 72; RESP 18; TEMP 36.7; O2SAT 98
[2024-05-07] MEDS: 0.9 % Sodium Chloride 1,000 ML 50 ML IVCONT (05:52)
[2024-05-07] MEDS: Omeprazole 20 MG CAPSULE.DR PO (05:52)
[2024-05-07 07:32] VITALS: BP 153/80; PULSE 63; TEMP 36.4; O2SAT 97
--- NOTE | 2024-05-07 07:39 | P.DS_ITS ---
DS: Providers Provider Date of Service: 05/07/24 Date of admission: 05/01/24 21:54 Date of discharge: 05/07/24 Primary care physician: Mario Zendejas MD Consults: 05/04/24 07:37 Consult to Infectious Diseases Routine Consulting Provider: [facility] Reason for consultation: proteus bacteraemia 05/05/24 13:28 Consult to Cardiology Routine Consulting Provider: [facility] Reason for consultation: SVT/AF DS: Diagnosis Discharge Diagnosis (1) Encephalopathy: Status: Acute (2) UTI (urinary tract infection): Status: Acute DS: Summary Hospital Course Hospital Course: From the history and physical by the admitting hospitalist, Justin Vasquez MD, 05/01/24: 68M PMH 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 patient was at [facility] day prior to presentation. on day of presentation noted to be confused, lethargic, brought to ED. found to be septic with positive UA. given vanc zosyn and 30cc per kg. 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 hospial course complicated by an episode of SVT. Hospital course by problem: severe sepsis due to UTI/bacteremia - Cultures grew Proteus mirabilis in blood, and Proteus mirabilis + Serratia marcescens in urine. He was treated with ceftriaxone IV and repeat cultures from 05/03 cleared. Per Infectious Disease consultation, discharged on cefuroxime for a total of 14 days of antibiotic therapy starting on the negative culture date. acute encephalopathy due to infection - resolved with infection treatment SVT on 05/05/24 likely from betablocker being on hold from bradycardia. He was given adenosine and converted to sinus rhythm, Cardiology advises continuing metoprolol acute hypoxic respiratory failure - initially on 3L O2 but quickly weaned off; hypoxia likely due to sepsis HTN - resumed amlodipine [had been held for hypotension]; metoprolol succinate discontinued due to bradycardia urinary retention - continue chronic Livingston, finasteride; should follow up with Urology in 2 weeks. He was discharged back to [facility] for resumption of long-term nursing care. Time Attestation Discharge Coordination Time (in mins): 45 Quality: Safe Use of Opioids Does Pt have an Active Cancer Diagnosis on the Problem List?: No Quality: Stroke Does the patient have a stroke diagnosis?: No Physical Exam Vital Signs: Vital Signs: Last Vital Signs Temp 97.5 F 05/07/24 07:32 Pulse 63 05/07/24 07:32 Resp 18 05/07/24 03:56 BP 153/80 H 05/07/24 07:32 Pulse Ox 97 05/07/24 07:32 O2 Del Method Room Air 05/07/24 07:32 O2 Flow Rate 1 05/02/24 16:20 Oxygen Flow Rate 3 05/01/24 14:07 BMI result Body Mass Index 24.7 Gen: NAD HEENT: sclera anicteric, moist mucus membranes Neck: supple Lungs: clear to auscultation bilaterally Heart: irregular, rapid, no murmurs Abd: soft, non-tender, non-distended : Livingston with clear urine Ext: no edema Skin: warm/well-perfused Neuro: alert and oriented x3, no focal findings Psych: appropriate affect DS: Data Data Completed and Pending Labs on day of discharge: Preliminary micro results at discharge 05/03/24 08:28 Blood Culture - Preliminary Blood - Venous No growth after 48 hours. 05/03/24 08:22 Blood Culture - Preliminary Blood - Venous No growth after 48 hours. Discharge Plan Discharge Patient Disposition: er [facility] Discharge Diagnosis: sepsis due to UTI/bacteremia [facility]errals: [facility] [Outside] - 1 Week Yuriy Mei MD [Physician] - 2 Weeks Mario Zendejas MD [Primary Care Provider] - 1 Week Discharge Medications: New cefuroxime axetil 500 mg tablet 500 mg PO BID Qty: 24 0RF metoprolol tartrate 25 mg Tablet 25 mg PO BID Qty: 60 0RF Protocol: Hold for SBP/HR < HOLD for SBP < : 90 HOLD for HR < : 60 Continued (DME) Ultra-Light Rollator Misc See Rx Instructions .Route Qty: 1 0RF Rx Instructions: Daily As directed, 999 days amlodipine 5 mg tablet 5 mg PO DAILY 90 Days Qty: 90 3RF acetaminophen 650 mg Suppository 650 mg DC Q4H MDD 3gm/day PRN (Reason: Fever Or Pain) loperamide 2 mg Tablet 2 mg PO Q4H PRN (Reason: Loose Stool) Rx Instructions: administer after each loose stool until symptoms controlled; do not exceed 8 mg per 24 hrs loperamide 2 mg Tablet 4 mg PO DAILY PRN (Reason: Loose Stool) Rx Instructions: administer after each loose stool until symptoms controlled; do not exceed 8 mg per 24 hrs melatonin 3 mg Tablet 3 mg PO BEDTIME bacitracin zinc 500 unit/gram Ointment 1 appl TOPICAL TID Rx Instructions: Apply to penis lidocaine-prilocaine 2.5-2.5 % cream 1 appl topical Q8H PRN (Reason: mild pain) Rx Instructions: APPLY TOPICALLY TO AFFECTED AREA OF PENIS THREE TIMES A DAY NEEDED FOR MILD PAIN PRIOR TO APPLYING BACITRACIN magnesium hydroxide [Milk of Magnesia] 400 mg/5 mL Suspension 30 ml PO BEDTIME PRN (Reason: Constipation) Rx Instructions: For no BM in 3 days bisacodyl 10 mg Suppository 10 mg DC DAILY PRN (Reason: Constipation) Rx Instructions: If M.O.M ineffective. Fleet Enema 19-7 gram/118 mL Enema 118 ml DC DAILY PRN (Reason: Constipation) Rx Instructions: For no BM if Bisacodyl supp. ineffective (DO NOT GIVE WITH DIALYSIS/RENAL FAILURE) gabapentin 300 mg capsule 300 mg PO TID omeprazole 20 mg capsule,delayed release(DR/EC) 20 mg PO DAILY@0630 calcium carbonate 500 mg calcium (1,250 mg) Tablet,Chewable 500 mg PO Q4H PRN (Reason: Dyspepsia) finasteride 5 mg tablet 5 mg PO DAILY simethicone 80 mg Tablet,Chewable 80 mg PO Q8H PRN (Reason: Gastric Reflux) octreotide acetate 50 mcg/mL (1 mL) Syringe 50 mcg SUBCUT BID Rx Instructions: administer 30 minutes before morning and evening meals Eliquis 5 mg tablet 5 mg PO BID naloxone [Narcan] 4 mg/actuation [place],Non-Aerosol 4 mg INTRANASAL Q3M PRN (Reason: Opioid Overdose) Rx Instructions: spray 1 dose into ONE nostril; alternate nostrils w each dose until help arrives (DME) miscellaneous medical supply Misc See Rx Instructions .ROUTE .MEDSUPPLY Qty: 1 0RF Rx Instructions: Wheelchair. Daily?As directed, 999 days Discontinued acetaminophen 325 mg Capsule 975 mg PO Q8H metoprolol succinate 25 mg tablet extended release 24 hr 75 mg PO BID Discharge Orders: Discharge Order (Routine); Ordered 05/07/24 Ordered By: Santiago Longoria Diet: Advance to usual diet Activity on Discharge: As tolerated Stand Alone Forms: Patient Portal Discharge page Print Language: Colombian Care Plan Goals: cure of infection Health Concerns: sepsis due to UTI/bacteremia Plan of Treatment: Take antibiotics as prescribed: cefuroxime axetil 500 mg twice daily for 12 days Please follow up with your primary care doctor within 1 week. Return to the hospital if you experience recurrent or worsening symptoms. Follow up with urology in 2 weeks. Assessment: See Discharge Summary. Discharge Date/Time: 05/07/24 12:52
[2024-05-07 09:09] VITALS: BP 153/80; PULSE 82
[2024-05-07] MEDS: Octreotide Acetate 100 MCG/ML AMPUL 50 MCG SUBCUT (09:09)
[2024-05-07] MEDS: Gabapentin 300 MG CAPSULE PO (09:09)
[2024-05-07] MEDS: Metoprolol Tartrate 25 MG TABLET PO (09:09)
[2024-05-07] MEDS: Apixaban 5 MG TABLET PO (09:09)
[2024-05-07] MEDS: amLODIPine Besylate 5 MG TABLET PO (09:09)
[2024-05-07] MEDS: Bacitracin Oint 0.9 GM PACKET 1 APPL TOPICAL (09:09)
[2024-05-07] MEDS: Finasteride 5 MG TABLET PO (09:09)
[2024-05-07] MEDS: cefTRIAXone sodium 2 GM in 0.9 % Sodium Chloride 50 ML IV (09:10)
[2024-05-07] MEDS: 0.9 % Sodium Chloride Flush 3 ML SYRINGE IVFLUSH (09:18)
--- NOTE | 2024-05-07 10:40 | MHC.CM.PN ---
Per MD, Patient is medically cleared to return to LTC today. Patient will return to LTC @ [facility] today at 12:30 PM, via [facility]. Patient has Dementia; CM spoke with Daughter/HCP/Nanci @[phone] and informed her of the dc plan and addressed IMM with her(original will be mailed certified letter to Nanci and a copy has been placed on the chart).
--- NOTE | 2024-05-07 14:09 | P.CNID_ITS ---
History of Present Illness Data of Consult Service Date: 05/05/24 Requesting physician: Rubio Conroy Primary Care Provider: Mario Zendejas MD HPI Reason for consult: urinary infection,chronic indwelling Zuniga He presents with weakness and lethargy. He has no fever or chills. He has urine positive for proteus mirabilis and serratia marcescans. He was given IV Ceftriaxone and improved. He has neuroendocrine tumor. Review of Systems 2 Review of Systems: Yes Unobtainable due to mental status PMFSH Family History Family history: reviewed and not pertinent Surgical History Surgical History No pertinent past surgical history Social History Social History Household Members: Other Housing: Snf Comment: wheelchair and bedbound Patient Tobacco Use Status: Former Tobacco user Tobacco use type: Cigarette and Cigar e-Cigarette/Vaping Use: Never Used Second Hand Smoke Exposure: No Advance Directives Date on File: 12/19/23 service: No Current occupational status: retired Current occupational exposures/hazards: No Cognitive needs: No Hearing needs: No Vision needs: No Meds Allergies Allergy/AdvReac Type Severity Reaction Status Date / Time No Known Allergies Allergy Verified 05/01/24 14:09 Home Medications ?Medication ?Instructions ?Recorded ?Confirmed ?Last Taken ?Type acetaminophen 650 mg rectal 650 mg FL Q4H PRN Fever Or Pain 05/01/24 05/01/24 Unknown History suppository apixaban 5 mg tablet (Eliquis) 5 mg PO BID 05/01/24 05/01/24 Unknown History bacitracin zinc 500 unit/gram 1 appl topical TID 05/01/24 05/01/24 Unknown History topical ointment bisacodyl 10 mg rectal suppository 10 mg FL DAILY PRN Constipation 05/01/24 05/01/24 Unknown History calcium carbonate 500 mg PO Q4H PRN Dyspepsia 05/01/24 05/01/24 Unknown History finasteride 5 mg tablet 5 mg PO DAILY 05/01/24 05/01/24 Unknown History gabapentin 300 mg capsule 300 mg PO TID 05/01/24 05/01/24 Unknown History lidocaine-prilocaine 2.5 %-2.5 % 1 appl topical Q8H PRN mild pain 05/01/24 05/01/24 Unknown History topical cream loperamide 2 mg tablet 2 mg PO Q4H PRN Loose Stool 05/01/24 05/01/24 Unknown History loperamide 2 mg tablet 4 mg PO DAILY PRN Loose Stool 05/01/24 05/01/24 Unknown History magnesium hydroxide 400 mg/5 mL 30 ml PO BEDTIME PRN Constipation 05/01/24 05/01/24 Unknown History oral suspension (Milk of Magnesia) melatonin 3 mg tablet 3 mg PO BEDTIME 05/01/24 05/01/24 Unknown History naloxone 4 mg/actuation nasal 4 mg intranasal Q3M PRN Opioid 05/01/24 05/01/24 Unknown History spray (Narcan) Overdose octreotide acetate 50 mcg/mL (1 50 mcg subcut BID 05/01/24 05/01/24 Unknown History mL) injection syringe omeprazole 20 mg capsule,delayed 20 mg PO DAILY@0630 05/01/24 05/01/24 Unknown History release simethicone 80 mg chewable tablet 80 mg PO Q8H PRN Gastric Reflux 05/01/24 05/01/24 Unknown History sodium phosphates 19 gram-7 118 ml FL DAILY PRN Constipation 05/01/24 05/01/24 Unknown History gram/118 mL enema (Fleet Enema) Physical Exam 2 Vital Signs: Vital Signs: Last Vital Signs Temp 97.5 F 05/07/24 07:32 Pulse 82 05/07/24 09:09 Resp 18 05/07/24 03:56 BP 153/80 H 05/07/24 09:09 Pulse Ox 97 05/07/24 07:32 O2 Del Method Room Air 05/07/24 07:32 O2 Flow Rate 1 05/02/24 16:20 Oxygen Flow Rate 3 05/01/24 14:07 BMI result Body Mass Index 24.7 Const: General: cooperative HEENT: Head: Yes normal to inspection Face and sinus: Yes normal facial exam Mouth: Normal oral and palatal mucosa present Teeth and gingiva: d entition normal Eyes: General: appearance normal, both eyes and all related structures P upils: Equal, round and reactive pupils present Resp: Effort & Inspection: normal respiratory effort Cardio: Rate: regular rate Rhythm: regular rhythm GI: Palpation (GI): Soft to palpation and nontender : General: Yes no CVA tenderness Back/Spine/Pelvis: Back: no CVA tenderness Skin: General skin exam: no rashes or lesions noted Neuro: General: moves all extremities Cranial nerves: Yes Equal, round and reactive pupils present Extrem: General: Yes normal to inspection Psych: Other: not able to voice complaints Results Labs 05/03/24 06:39 05/06/24 05:50 Microbiology Microbiology Results: Microbiology 05/01/24 16:24 Blood - Venous Blood Culture - Final Proteus mirabilis 05/03/24 08:28 Blood - Venous Blood Culture - Preliminary No growth after 48 hours. 05/03/24 08:22 Blood - Venous Blood Culture - Preliminary No growth after 48 hours. 05/01/24 20:58 Urine clean catch - Clean Catch Midstream Urine Culture - Final Serratia marcescens Proteus mirabilis 05/01/24 16:10 Blood - Venous Blood Culture - Final Proteus mirabilis Assessment and Plan (1) Acute respiratory failure with hypoxia: Status: Acute (2) Supraventricular tachycardia: Status: Acute (3) Severe sepsis: Status: Acute (4) Bacteremia: Status: Acute (5) UTI (urinary tract infection): Status: Acute Plan Proteus mirabilis bacteremia He has urinary source from chronic indwelling Zuniga. No surgical intervention Would give po Cefuroxime to complete 14 d course antibiotics.
== END 2024-05-07 12:52 | DRG 698 ==
LOC: HO.ED 21:35 → HO.EDOVER 22:01 → HO.S3 05-02 07:53 → HO.IMC 05-05 14:03
PROVIDERS: Family Medicine; Admitting Provider Internal Medicine; Emergency Provider Emergency Medicine; PCP Family Medicine; Visit Provider Internal Medicine
DX: T83.511A Infection and inflammatory reaction due to indwelling urethral catheter, initial encounter (principal); A41.9 Sepsis, unspecified organism; R65.20 Severe sepsis without septic shock; G93.41 Metabolic encephalopathy; J96.01 Acute respiratory failure with hypoxia; G91.2 (Idiopathic) normal pressure hydrocephalus; I47.10 Supraventricular tachycardia, unspecified; N39.0 Urinary tract infection, site not specified; Z66 Do not resuscitate; I49.1 Atrial premature depolarization; D3A.8 Other benign neuroendocrine tumors; I48.0 Paroxysmal atrial fibrillation; N40.1 Benign prostatic hyperplasia with lower urinary tract symptoms; R33.8 Other retention of urine; B96.89 Other specified bacterial agents as the cause of diseases classified elsewhere; B96.4 Proteus (mirabilis) (morganii) as the cause of diseases classified elsewhere; F03.90 Unspecified dementia, unspecified severity, without behavioral disturbance, psychotic disturbance, mood disturbance, and anxiety; I10 Essential (primary) hypertension; Z20.822 Contact with and (suspected) exposure to COVID-19; Z87.440 Personal history of urinary (tract) infections; Z87.891 Personal history of nicotine dependence; Z79.01 Long term (current) use of anticoagulants; Z79.899 Other long term (current) drug therapy
CPT/HCPCS: 0241U; 36415; 70450; 71045; 71275; 74177; 80048; 80076; 81001; 82803; 83605; 83690; 83735; 84443; 84484; 85007; 85027; 87040; 87077; 87086; 87088; 87186; 87205; 93005; 93306; 99285; C1758; J0153; J0692; J0696; J1170; J2354; J3370; P9047; Q9957; Q9967

== ENCOUNTER → 2024-05-01 14:54 | Outpatient (BNV) | payer MEDICARE, SELFPAY | PROVIDERS: Admitting Provider Internal Medicine; Emergency Provider Emergency Medicine; PCP Family Medicine; Visit Provider Internal Medicine Cardiovascular Disease | DX: R41.82 Altered mental status, unspecified (principal) | CPT/HCPCS: 93010 ==

== ENCOUNTER 2024-05-01 21:54 | Outpatient (BNV) | payer MEDICARE, SELFPAY | END 2024-05-05 13:31 | PROVIDERS: Admitting Provider Internal Medicine; Emergency Provider Emergency Medicine; PCP Family Medicine; Visit Provider Internal Medicine | DX: I35.8 Other nonrheumatic aortic valve disorders (principal); I51.89 Other ill-defined heart diseases | CPT/HCPCS: 93010; 93306 ==

== ENCOUNTER → 2024-05-01 21:54 | Outpatient (BNV) | payer MEDICARE, SELFPAY | PROVIDERS: Admitting Provider Internal Medicine; Emergency Provider Emergency Medicine; PCP Family Medicine; Visit Provider Internal Medicine | DX: I47.10 Supraventricular tachycardia, unspecified (principal); T83.511A Infection and inflammatory reaction due to indwelling urethral catheter, initial encounter; G93.41 Metabolic encephalopathy | CPT/HCPCS: 99223; 99232; 99233; 99239 ==

== ENCOUNTER → 2024-05-01 21:54 | Outpatient (BNV) | payer MEDICARE, SELFPAY | PROVIDERS: Admitting Provider Internal Medicine; Emergency Provider Emergency Medicine; PCP Family Medicine; Visit Provider Internal Medicine | DX: I47.10 Supraventricular tachycardia, unspecified (principal) | CPT/HCPCS: 99223 ==

== ENCOUNTER → 2024-05-01 21:54 | Outpatient (BNV) | payer MEDICARE, SELFPAY | PROVIDERS: Admitting Provider Internal Medicine; Emergency Provider Emergency Medicine; PCP Family Medicine; Visit Provider Internal Medicine | DX: J96.01 Acute respiratory failure with hypoxia (principal); I47.10 Supraventricular tachycardia, unspecified; A41.9 Sepsis, unspecified organism; R65.20 Severe sepsis without septic shock; R78.81 Bacteremia; N39.0 Urinary tract infection, site not specified | CPT/HCPCS: 99222 ==

== ENCOUNTER 2024-10-31 19:50 | Inpatient (IN) | payer MEDICARE, MEDICAID, SELFPAY ==
--- NOTE | 2024-10-31 | ECG_ITS ---
Test Reason : AMS Blood Pressure : */* mmHG Vent. Rate : 76 BPM Atrial Rate : 76 BPM P-R Int : 174 ms QRS Dur : 68 ms QT Int : 366 ms P-R-T Axes : 38 -26 18 degrees QTcB Int : 411 ms Normal sinus rhythm Minimal voltage criteria for LVH, may be normal variant ( R in aVL ) Cannot rule out Anterior infarct , age undetermined Abnormal ECG When compared with ECG of 05-May-2024 13:21, Premature atrial complexes are no longer Present Vent. rate has decreased by [address] no longer depressed in Anterior leads T wave inversion less evident in Inferior leads T wave inversion no longer evident in Lateral leads Referred By: Generic ED Physician Electronically Signed By: Channing Figueroa
--- NOTE | ~2024-10-31 | CT_ITS ---
CLINICAL HISTORY: recheck psoas abscess phlegmon CT abdomen and pelvis with contrast Comparison: 10/31/2024 Findings: The lung bases are clear. The left ureter courses through a small abscess along the anterior margin of the left psoas muscle. Direct comparison somewhat limited based on lack of contrast on the prior study. Overall size of the region of phlegmon with tiny central abscess appears stable. Reference sagittal image 74, the Zuniga catheter is inflated at the base of the prostate gland and not within the bladder. The prostate gland is significantly enlarged and there is bilateral hydroureteronephrosis. This is increased from prior. The liver, gallbladder, spleen, adrenal glands and pancreas are stable. No bowel obstruction or free air. Chronic osseous findings with multiple compression fractures again noted. Impression: Note should be made that the Zuniga catheter balloon is inflated within the penile urethra at the base of the prostate gland. This is typically inflated within the bladder and may require repositioning. The bladder is distended and there is moderately severe bilateral hydroureteronephrosis likely related to bladder outlet obstruction secondary to extremely enlarged prostate gland. Overall size of the small region of phlegmon with tiny central abscess along the anterior margin of the left psoas muscle is similar to prior. Note should be made that the left ureter travels through this region of inflammation. This document has been electronically signed by: Pepe Green MD on 11/04/2024 10:36:00
--- NOTE | ~2024-10-31 | CT_ITS ---
CLINICAL HISTORY: bacteremia, kidney stone CT abdomen and pelvis without contrast Comparison: CT/SR - CT ABDOMEN PELVIS W IV CON - 05/01/24 18:21 EDT Findings: Motion and streak artifact limit evaluation. Atelectasis with ill-defined consolidations in the posterior left lower lobe. Cardiomegaly without significant pericardial effusion. Coronary artery calcifications. Hepatic steatosis noted. Distended gallbladder. Moderate to severe left hydroureteronephrosis with a 2 mm calculus in the lower pole kidney. Prominent left renal parenchymal edema with kstm-bonpfut-upyt-right perinephric stranding. Ill-defined stranding with soft tissue fullness along the medial distal left psoas, can not definitively exclude myositis/abscess series 8, image 40. Very mild right hydronephrosis with 4 mm calculus in the upper pole. No bowel obstruction, pneumoperitoneum, or pneumatosis. Fat containing inguinal hernias. Zuniga catheter in the prostate, recommend repositioning. Marked prostatomegaly. 2 mm bladder calculus with possible cystitis. Scattered colonic diverticulosis without diverticulitis or colitis. Mildly distended bladder with mural thickening and stranding, concerning for cystitis. 2 mm calculus in the right posterior bladder. Osteopenia with diffuse multilevel spondylosis. Redemonstrated multilevel thoracolumbar compression deformities, stable. IMPRESSION: 1. Zuniga catheter in the prostate, recommend repositioning. 2. 2 mm bladder calculus with possible cystitis. 3. Atelectasis with ill-defined consolidations in the posterior left lower lobe. Aspiration or pneumonia not excluded. 4. Moderate to severe left hydroureteronephrosis with a 2 mm calculus in the lower pole kidney. 5. Can not exclude left-sided pyelonephritis/ureteritis. Possible myositis/abscess in the distal left psoas, please see above. 6. Very mild right hydronephrosis with 4 mm calculus in the upper pole. This document has been electronically signed by: Zach Pham MD on 11/01/2024 00:46:57
--- NOTE | ~2024-10-31 | CT_ITS ---
CLINICAL HISTORY: fall CT cervical spine without contrast Comparison: None Findings: Reversal of the cervical lordosis. Osteopenia. Advanced multilevel spondylosis with osteophytosis, uncovertebral hypertrophy, facet arthropathy and degenerative disc disease. Ankylosis at C3-C4 and C6-C7. Nondisplaced subtle fracture along the right pedicle of C6. Diffuse spinal canal narrowing, for example [id number] at C4-C5 with severe bilateral foraminal stenoses. Acute appearing moderate compression fracture at T2 with mild posterior inferior retropulsion. 50% height loss noted. Chronic appearing superior endplate height loss at T4. Scattered prominent lymph nodes throughout the neck, may be reactive however are nonspecific. Mildly prominent mediastinal nodes. No consolidation or effusion at the lung apices. Diffuse esophageal mural thickening, nonspecific. IMPRESSION: 1. C6 fracture. 2. T2 compression fracture. 3. Additional findings as described. This document has been electronically signed by: Zach Pham MD on 11/01/2024 00:17:42
--- NOTE | ~2024-10-31 | XR_ITS ---
CLINICAL HISTORY: cough 1 view chest x-ray Comparison: CR/SR - XR CHEST 1V - 05/01/24 15:24 EDT Findings: Mild left lower lobe atelectasis. No significant pleural effusion or pneumothorax. Similar prominent/enlarged cardiac silhouette. No acute fracture. IMPRESSION: Mild left lower lobe atelectasis. This document has been electronically signed by: Zach Pham MD on 10/31/2024 21:07:51
--- NOTE | ~2024-10-31 | CT_ITS ---
CLINICAL HISTORY: fall CT head without contrast Comparison: CT/SR - CT HEAD/BRAIN WO IV CON - 05/01/24 18:21 EDT Findings: Scattered subcortical and periventricular hypoattenuation, likely in keeping with chronic small vessel ischemic disease. Global parenchymal volume loss with disproportionate prominence of the ventricles and CSF spaces, can be seen in the setting of normal pressure hydrocephalus and should be correlated clinically. No acute territorial infarction, intracranial hemorrhage or midline shift. Empty sella is demonstrated, nonspecific. There is no sinus or mastoid fluid. Tortuosity of the optic nerves, nonspecific. More pronounced appearing multifocal lucent lesions throughout the calvarium of the vertex, in the right anteriorly, concerning for myeloma or metastases. IMPRESSION: 1. No acute intracranial hemorrhage or territorial infarction. 2. Additional findings as described. This document has been electronically signed by: Zach Pham MD on 11/01/2024 00:38:34
[2024-10-31 19:58] VITALS: BP 154/62; PULSE 70; O2SAT 90
[2024-10-31 20:00] VITALS: BP 155/89; PULSE 74; RESP 22; TEMP 39.1; O2SAT 91
[2024-10-31 20:01] VITALS: BP 155/89; PULSE 85; RESP 14; TEMP 39.1; O2SAT 91; BMI 22.0
[2024-10-31 20:27] LABS: MANUAL DIFF FLAG NO
[2024-10-31 20:28] LABS: Appearance Urine Cloudy; Color Urine Yellow; Glucose Urine UA Negative (Negative); Leukocyte Esterase Urine Large (3+) (Negative); Nitrite Urine Negative (Negative); UMIC TRIGGER UACC YES; Urine Blood Large (3+) (Negative); Urine Ketones Negative (Negative); Urine Protein 30 (1+) mg/dL (Neg-Trace)
[2024-10-31 20:34] LABS: Basophils Percent Auto 0.1 % (0-2); Eosinophils Percent Auto 0.1 % (0-4); Hematocrit 35.2 % (42.0-52.0); Hemoglobin 11.8 g/dl (14.0-18.0); Imm Gran Abs Auto 0.05 X10*3/uL (0.00-0.03); Imm Gran Pct Auto 0.4 % (0.0-0.4); Lymphocytes Absolute Auto 2.5 X10*3/uL (1.2-4.9); Lymphocytes Percent Auto 19.7 % (20-40); Mean Corpuscular HGB Conc 33.5 g/dl (31.0-36.0); Mean Corpuscular Hemoglobin 28.9 pg (27.0-33.0); Mean Corpuscular Volume 86.1 fL (80.0-98.0); Mean Platelet Volume 8.4 fL (9.4-12.4); Monocytes Absolute Auto 1.2 X10*3/uL (0.1-1.2); Monocytes Percent Auto 9.7 % (2-11); Neutrophils Absolute Auto 8.8 x10*3/uL (2.0-8.3); Platelet Count 301 X10*3/uL (160-400); Red Blood Count 4.09 X10*6/uL (4.60-5.80); Red Cell Distribution Width 14.8 % (11.0-16.0); White Blood Count 12.6 X10*3/uL (4.8-10.8)
[2024-10-31 20:37] LABS: Bacteria Urine 4+ (None Seen); RBC Urine >20 /HPF (0-2); UACC Culture Trigger YES; WBC Urine >50 /HPF (0-5)
[2024-10-31 20:43] LABS: Lactic Acid 1.9 mmol/L (0.5-2.0)
[2024-10-31 20:44] LABS: Alanine Aminotransferase 35 U/L (0-40); Albumin Level 3.6 g/dL (3.5-5.0); Alkaline Phosphatase 88 U/L (39-117); Anion Gap 18 (12-20); Aspartate Amino Transferase 36 U/L (5-37); Bilirubin Total 0.3 mg/dL (0.0-1.0); Blood Urea Nitrogen 28 mg/dL (9-16); Calcium 9.3 mg/dL (8.4-10.2); Carbon Dioxide 24 mmol/L (22-29); Chloride 98 mmol/L (96-108); Creatinine Clr Calc Pharmacy 93.8; Estimated Glomerular Filt Rate > 60; Glucose Random 150 mg/dL (60-115); Potassium 4.6 mmol/L (3.3-5.1); Sodium 135 mmol/L (135-145); Total Protein 8.3 g/dL (6.5-8.0)
[2024-10-31 21:05] LABS: Influenza A PCR NEGATIVE (Negative); Influenza B PCR POSITIVE (Negative); Resp Syncy Virus RNA Qual PCR NEGATIVE (Negative); SARS COV2 PCR INHOUSE NEGATIVE (Negative)
--- OUTSIDE RECORDS SUMMARY | 2024-10-31 21:10 | XMS_ITS | Continuity of Care Document ---
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 Plan of Treatment Reminders Order Date Submit Date Provider Last Modified By Organization Details Last Modified Time Details Appointments None record ed. Lab None record ed. Referral None record ed. Procedures None record ed. Surgeries None record ed. Imaging None record ed. Medication Orders None record ed. Patient TargetsNo targets recorded. Patient InstructionsNo instructions recorded. Reason for Referral None Reported. Problems Name Problem SNOMED Code Status Onset Date Resolution Date Notes Provider Name and Address Organization Details Recorded Time Benign prostatic hyperplasia with outflow obstruction 848076057 Active 2022 Myriam Delgado NP [address] , [address], [place], [address], [facility] [employer] [facility] 3 08:53:31 Hypertensive disorder 45728736 Active 2022 Myriam Delgado NP [address], [address], [place], [address], [facility] [employer] [facility] 3 08:53:50 Acute cystitis 33519541 Active 2022 Myriam Delgado NP [address], [address], [place], [address], [facility] [employer] [facility] 3 08:54:01 Fall Active 2022 Myriam Delgado NP [address], [address], [place], [address], [facility] [employer] [facility] 3 08:54:09 Asthenia 04287540 Active 2022 Myriam Delgado NP [address], [address], [place], [address], [facility] 3 08:54:19 Fracture of multiple ribs 5644629 Active 2022 Myriam Delgado NP [address], [address], [place], [address], [facility] 3 08:55:37 Mass of pancreas 668713884 Active 2022 Myriam Delgado NP [address], [address], [place], [address], [facility] 3 08:56:17 Compression fracture Active 2022 Myriam Delgado NP [address], [address], [place], [address], [facility] 3 08:56:39 Hypoglycemia 644400713 Active 2022 Myriam Delgado NP [address], [place], [address], [facility] 3 09:22:18 Pleural effusion 57100151 Active 2022 Myriam Delgado NP [address], [address], [place], [address], [facility] 3 09:24:01 Insomnia 362985715 Active 2023 Myriam Delgado NP [address], [place], [address], [facility] 4 16:02:02 Colitis 09108823 Active 2023 Myriam Delgado NP [address], [address], [place], [address], [facility] 4 16:07:18 Supraventricul ar tachycardia 0050526 Active 2023 LANDEN PEREZ NP [address], [address], [place], [address], [facility] 4 15:56:36 Chronic pain 87248662 Active 2023 Myriam Delgado NP [address], [address], [place], [address], [facility] [employer] [facility] 4 09:45:55 Neuropathy 015394436 Active 2023 Myriam Delgado, FLIGHT OPERATIONS COORDINATOR [address] [facility], [address], [place], [address], [facility] [employer] [facility] 4 09:46:12 Ureteric stone 01124365 Active 2023 JEFF BARLOW, FLIGHT OPERATIONS COORDINATOR [address] [facility], [address], [place], [address], [facility] [employer] [facility] 4 12:47:06 Problem Notes None recorded. Medical Equipment None Reported. Allergies No known drug allergies Medications Name Sig Start Date Stop Date Status Note LastModified by Organization Details LastModified Time quetiapine 25 mg tablet TAKE ONE TABLET BY MOUTH AT BEDTIME 03/05 completed Not Available Not Available Not Available amoxicillin 500 mg capsule TAKE ONE CAPSULE BY MOUTH EVERY 8 HOURS FOR 7 DAYS 03/05 completed Not Available Not Available Not Available nitrofurant oin macrocrysta l 50 mg capsule active Not Available Not Available Not Available cefuroxime axetil 250 mg tablet active Not Available Not Available No t Available clindamycin HCl 300 mg capsule TAKE ONE CAPSULE BY MOUTH EVERY 6 HOURS 03/05 completed Not Available Not Available Not Available trazodone 50 mg tablet TAKE 1/2 TABLET BY MOUTH ONCE DAILY AT BEDTIME NEEDED FOR SLEEP 03/05 completed Not Available Not Available Not Available cefpodoxime 200 mg tablet active Not Available Not Available Not Available cefpodoxime 100 mg tablet active Not Available Not Available Not Available ibuprofen 800 mg tablet TAKE ONE TABLET BY MOUTH EVERY 6 HOURS WITH FOOD 03/05 completed Not Available Not Available Not Available meloxicam 15 mg tablet TAKE ONE TABLET BY MOUTH EVERY DAY 03/05 completed Not Available Not Available Not Available lisinopril 20 mg tablet 03/05 completed Not Available Not Available Not Available octreotide acetate 50 mcg/mL injection solution active Not Available Not Available Not Available amlodipine 2.5 mg tablet active Not Available Not Available Not Available potassium chloride ER 10 mEq tablet,exte nded release active Not Available Not Available Not Available levofloxaci n 250 mg tablet active Not Available Not Available Not Available amlodipine 5 mg tablet TAKE ONE TABLET BY MOUTH EVERY DAY active Not Available Not Available No t Available sulfamethox azole 800 mg-trimetho prim 160 mg tablet 03/05 completed Not Available Not Available Not Available tramadol 50 mg tablet 50 mg po BID scheduled and 50 mg po q 4 hrs prn x 3 days, then 50 mg po BID scheduled and 50 mg BID prn. 2023 active Not Available Not Available Not Avai lable acetaminoph en 500 mg tablet TAKE ONE TABLET BY MOUTH EVERY 4 TO 6 HOURS NEEDED 03/05 completed Not Available Not Available Not Available amoxicillin 500 mg tablet TAKE ONE TABLET BY MOUTH EVERY 12 HOURS FOR 10 DAYS 03/05 completed Not Available Not Available Not Available lidocaine-p rilocaine 2.5 %-2.5 % topical cream APPLY TOPICALLY TO AFFECTED AREA OF PENIS THREE TIMES A DAY NEEDED FOR MILD PAIN PRIOR TO APPLYING BACITRACI N active Not Available Not Available No t Available potassium chloride ER 20 mEq tablet,exte nded release(par t/cryst) active Not Available Not Available Not Available lorazepam 0.5 mg tablet TAKE ONE-HALF TABLET BY MOUTH EVERY DAY NEEDED FOR ANXIETY 03/05 completed Not Available Not Available Not Available tamsulosin 0.4 mg capsule TAKE ONE CAPSULE BY MOUTH ONCE DAILY AT BEDTIME 03/05 completed Not Available Not Available Not Available pantoprazol e 40 mg tablet,carlos yed release active Not Available Not Available Not Available erythromyci n 5 mg/gram (0.5 %) eye ointment active Not Available Not Available Not Available nitrofurant oin macrocrysta l 100 mg capsule active Not Available Not Available Not Available nystatin 100,000 unit/gram topical cream 03/05 completed Not Available Not Available Not Available lisinopril 10 mg tablet TAKE TWO TABLETS BY MOUTH EVERY DAY 03/05 completed Not Available Not Available Not Available metoprolol tartrate 50 mg tablet active Not Available Not Available No t Available gabapentin 300 mg capsule active Not Available Not Available Not Available omeprazole 20 mg capsule,del ayed release active Not Available Not Available Not Available gabapentin 100 mg capsule 03/05 completed Not Available Not Available Not Available cefuroxime axetil 500 mg tablet TAKE ONE TABLET BY MOUTH TWICE A DAY active Not Available Not Available No t Available levofloxaci n 750 mg tablet active Not Available Not Available Not Available finasteride 5 mg tablet active Not Available Not Available Not Available oxycodone 5 mg tablet TAKE ONE TABLET BY MOUTH EVERY 4 HOURS NEEDED FOR PAIN 03/05 completed Not Available Not Available Not Available enoxaparin 40 mg/0.4 mL subcutaneou s syringe 03/05 completed Not Available Not Available Not Available dutasteride 0.5 mg capsule TAKE ONE CAPSULE BY MOUTH EVERY DAY 03/05 completed Not Available Not Available Not Available metoprolol tartrate 25 mg tablet TAKE ONE TABLET BY MOUTH TWICE A DAY active Not Available Not Available No t Available nitrofurant oin monohydrate /macrocryst als 100 mg capsule TAKE 1 CAPSULE BY MOUTH TWO TIMES A DAY FOR 7 DAYS active Not Available Not Available No t Available chlorhexidi ne gluconate 0.12 % mouthwash RINSE MOUTH WITH 15ML 1 CAPFUL) FOR 30 SECONDS IN THE MORNING AND IN THE EVENING AFTER TOOTHBRUS BASSAM. EXPECTORA TE AFTER RINSING. DO NOT SWA 03/05 completed Not Available Not Available Not Available diclofenac 1 % topical gel APPLY 2GM TOPICALLY 4 TIMES DAILY 03/05 completed Not Available Not Available Not Available Eliquis 5 mg tablet active Not Available Not Available No t Available naloxone 4 mg/actuatio n nasal spray active Not Available Not Available Not Available metoprolol tartrate 75 mg tablet active Not Available Not Available No t Available Vitals Date Recorded Body weight Heart rate Respiratory rate Body temperature Oxygen saturation Oxygen saturation in Arterial blood by Pulse oximetry Systolic blood pressure Diastolic blood pressure Provider Name and Address Organization Details Last Updated DateTime 5 48709.4 5 g 88 /min 18 /min 98 [degF] 94 % 94 % 137 mm[Hg] 82 mm[Hg] Myriam Delgado NP [address] [facility], [address], [place], [address], [facility] [employer] [facility] 5 23:20:06 Social History Question Answer Notes LastModified by Organizat ion Details LastModified Time Tobacco Smoking Status Never Smoker Myriam Delgado NP [address] [facility], [address], [place], [address], [facility] [employer] [facility] 09/07/2023 09:42:53 Do You Have An Advance Directive? Yes Information not available 08/02/2024 What Is Your Level Of Alcohol Consumption? None Quit 30 Yrs Ago Information not available 09/07/2023 What Is Your Code Status? Full Code Information not available 08/02/2024 What Was The Date Of Your Most Recent Tobacco Screening? 08/02/2024 Information not available 08/02/2024 Has Tobacco Cessation Counseling Been Provided? No Information not available 09/07/2023 Do You Or Have You Ever Used Any Other Forms Of Tobacco Or Nicotine? No Information not available 09/07/2023 Sex: Male Functional Status None recorded. Mental Status None recorded. Family History Nothing Reported Notes:N/C Medical History No medical history recorded. Past Encounters Encounter ID Performer Location Encounter Start Date Encounter Closed Date Diagnosis/Indication Diagnosis SNOMED-CT Code Diagnosis ICD10 Code Diagnosis Note [id number] Myriam Delgado NP [address] [address] 09/03/2024 10:54:48 09/05/2024 14:17:28 Ureteric stone 65655594 N20.1 yellow urine and free flowingcon tCefpoxidi me 200 mg bid till 08/11monit or for any changes in urine output Also seen regarding his lithotrips y appt which was canceled on 09/01.Plan: reschedule d for 09/15/24. Hold eliquis for 3 days prior and urinalysis with c & s ordered and verified with urology office. Nursing entered ordered.jomar g calling for appt for stent removal and 09/08 appt needs to be canceled (Nursing aware on 09/03 and in computer to hold meds)monit or Mass of pancreas 6409231 00 K86.89 Currently maintained on Octreotide 50 mcg SC bidappt:Co ntinue to monitorOct reotide 1 ml SC bid07/25 Endocrine fu note recommends :cont09/03 check blood glucose q am and stable without low's, recheck if blood glucose low after snackoctre otide 50 mcg bid.Fu 10/25/[address] of abd fu of mass pending insurance approval, nspaulina aware and will check on timebandar gallardo has these appt and transporta tion booked except last one(martín gallardo) Fu 12/01/24 @ 1:40pm with Dr Herrera endocrine Benign pro static hyperplasia with outflow obstruction 980358122 N40.1 baseline bph with chronic livingston > 6yearscont inue current meds monitor for effectfu with urology for catheter changes monthly as he has had traumatic livingston exchanges and mulitple er visits in past and seems to have an obstructio n at times with difficulty changing catheter here ? related to this stone monitor for s/s of pain, burning, or bleeding, or not draining.n sg to irrigate catheter with 60 cc saline/tati er prn increased sediment per urology may apply lidocaine/ prilocaine gel q 8 hours prn pain of penissee chronic pain meds belowmonit or uses and effectfina steride 5 mg dailymonit or closely Chronic pain 80041956 G8 9.29 pain controlled Continue:t ramadol to 50 mg bid and q 12 hours prnAPAP 650 mg q4h prngabapen tin 300 mg tidcymbalt a 30 mg po daily (saran increase well)PT/OT prnmonitor Abnormalit y of nail of toe 994266247 L60.8 right 4th toenail fell off without any bleeding, infection or discolorat ionns wash, pat dry, apply bacitracin and bandaid daily until healedmoni tor for s/s of infection [id number] Myriam Delgado NP [address] [address] 10/02/2024 14:27:29 10/03/2024 10:55:10 Ureteric stone 84795082 N20.1 resolved with lithotrips y and stent removal on 10/01/23 with urology outptremai ns with chronic foleymonit or Mass of pancreas 5763610 00 K86.89 Currently maintained on Octreotide 50 mcg SC bidappt:Co ntinue to monitorOct reotide 1 ml SC bid07/25 Endocrine fu note recommends :cont09/03 check blood glucose q am and stable without low's, recheck if blood glucose low after snackoctre otide 50 mcg bid.Fu 10/25/[address] of abd fu of mass pending insurance approval, nsg aware and will check on zakiya gallardo has these appt and transporta tion booked except last one(martín gallardo) Fu 12/01/24 @ 1:40pm with Dr Herrera endocrine Benign pro static hyperplasia with outflow obstruction 829483449 N40.1 baseline bph with chronic livingston > 6yearscont inue current meds monitor for effectfu with urology for catheter changes monthly as he has had traumatic livingston exchanges and multiple er visits in past and seems to have an obstructio n at times with difficulty changing catheter here ? related to this stone monitor for s/s of pain, burning, or bleeding, or not draining.n sg to irrigate catheter with 60 cc saline/tati er prn increased sediment per urology may apply lidocaine/ prilocaine gel q 8 hours prn pain of penissee chronic pain meds belowmonit or uses and effectfina steride 5 mg dailymonit or closely Chronic pain 70026245 G8 9.29 pain controlled Continue:t ramadol to 50 mg bid and q 12 hours prnAPAP 650 mg q4h prngabapen tin 300 mg tidcymbalt a 30 mg po dailyPT/OT prnmonitor Abnormalit y of nail of toe 563919660 L60.8 right 4th toenail fell off without any bleeding, infection or discolorat ionns wash, pat dry, apply bacitracin and bandaid daily until healedmoni tor for s/s of infection Anxiety 20153936 F41.9 anxiety improved and feels better lately with trazodonec onttrazodo ne 100 mg po qhscymbalt a from 30 mg po qhs for anxietyhyp droxyzine 25 mg po q 8 hours prn anxietymon itor Neuropathy 442612670 G62 .9 see above for management Hypertensive disorder 38 576694 I10 bp stablecont amlodipine 5 mg dailymetop rolol 25 mg bidmonitor bp Asthenia 60193538 R53.1 PT OT eval and treat prnfall precaution sFrequent safety checks Supraventr icular tachycardia 4284429 I47.10 stablecont metoprolol 25 mg bideliquis 5 mg bidmonitor heart rate Health Concerns Section Related Observation LastModified by Organization Detai ls LastModified Time None Recorded Concern Status LastModified by Organization Details LastModified Time None Recorded Payers Encounter Date Sequence Insurance Name Policy Number Policy Morton Covered Member ID Morton Member ID Guarantor Name 10/02/2024 1 [facility] - DOS ON OR AFTER 2022 - MEDICARE ADVANTAGE [place] (MEDICARE REPLACEMENT/AD VANTAGE - PPO) Alhaji Varner [id number] Alhaji Varner 10/02/2024 2 [place] Alhaji Varner [id number] Alhaji Varner Notes Date Note Type Note Provider Name and Address Organization Details Recorded Time 10/02/2024 text/html Pt is seen for a n annual visit today. He is a 68 year old male, initially admitted to [facility] on 09/07/23 after a hospital stay for injuries related to a fall as well as MRSA UTI treated with IV abx. Incidental finding of pancreatic lesion on CT. MRI done, underwent EGD and EUS guided biopsy of pancreatic lesions. Pathology confirmed a neuroendocrine tumor. Tumor grade estimated as G1. Hepatobiliary surgery team evaluated and recommended outpatient evaluation to consider surgery. Endocrinology recommended octreotide 50 mcg SC bid until surgery.Sent back to [facility] a few weeks after admission due to catheter pain, treated for psuedomonas UTI. Tested positive for c-diff on 09/29/23, completed 14 days of oral vancomycin with improvement in sx. Due to increased leg swelling, BLE venous US ordered - positive for partially occlusive thrombus in both the right and left common femoral veins. The remainder of the lower extremities demonstrate normal flow. Started on apixaban 10 mg bid x 1 week, now on 5 mg bid. On 03/31 he went out to the ER for penial pain and a new catheter was placed and started on abx. Pt was sent to [facility] ER on 05/01-05/07/24 for alerted mental status with confusion, lethargy, and not responsive to voice, and low grade temp, found to have sepsis UTI. On 06/02/24 he was seen for readmission from [facility] after presenting with chest pain, heart pounding, tachycardia in the 160s, and lower ext swelling dx with palpation's and notable SVT in past. Workup consisted of telemetry monitoring showing sinus price, EKG showing sinus tach, cxr and d dimer neg for acute concerns, troponin elevated at 16, 24, and 26 then 19. probnp 181. He was discharged back to LTC facility without arrhythmia noted, no sepsis, and hemodynamically stable. His amlodipine was dc'd. On 08/02 is readmitted to [facility]. Alhaji is a 69 yom resident that was admitted to the hospital for septic shock from infected ureteral stone, he does have a chronic livingston, was placed in ICU and placed on pressors. 07/28 had a cystoscopy left stent placement, blood cultures positive and sensitive to Cefepime, was placed on Cefpodoxime 400 m,g bid for 10 days. On 07/28 had a cystoscopy left stent placement, blood cultures positive and sensitive to Cefepime, was placed on Cefpodoxime 400 m,g bid for 10 days. He had lithotripsy on 09/15/24. On 10/01/24 Alhaji had his lithotripsy stent removal. He has had some anxiety and meds titrated by psych for depression and anxiety. On exam, pt is lying in bed in NAD. No new concerns. Since he has been back he had some blood in his livingtson however it is clearing with yellow urine in tube. Nursing will flush the tube and monitor closely. Overall, remains with multiple ailments but seems to be doing better today and weight is improving to 151 lbs up approx 10 lbs from last month, but down from 169 lbs on admission last year. Fu with urology with procedure as planned.Fu 12/01/24 @ 1:40pm with Dr Herrera endocrine for massFu 10/25/[address] of abd fu of mass pending insurance approval Myriam Delgado NP [address] [place] [address], [address], [place], [address], [facility] [employer] 10/02/2024 23:38:45
--- OUTSIDE RECORDS SUMMARY | 2024-10-31 21:10 | XMS_ITS | Continuity of Care Document ---
Author Organization [facility], [facility] Address [address] [place] [address] Care Team Providers Care Report Specialist Name Role Phone MICKI ANGULO [facility] OTHER Assessment No assessment [...] Time Benign prostatic hyperplasia with outflow obstruction 425953889 Active 2022 Myriam Delgado NP [address] , [address], [place], [address], [facility] 3 08:53:31 Hypertensive disorder 03577905 Active 2022 Myriam Delgado NP [address], [address], [place], [address], [facility] 3 08:53:50 Acute cystitis 28944798 Active 2022 Myriam Delgado NP [address], [address], [place], [address], [facility] 3 08:54:01 Fall Active 2022 Myriam Delgado NP [address], [address], [place], [address], [facility] 3 08:54:09 Asthenia 11570779 Active 2022 Myriam Delgado NP [address], [address], [place], [address], [facility] 3 08:54:19 Fracture of multiple ribs 3385807 Active 2022 Myriam Delgado NP [address], [address], [place], [address], [facility] 3 08:55:37 Mass of pancreas 336198770 Active 2022 Myriam Delgado NP [address], [address], [place], [address], [facility] 3 08:56:17 Compression fracture Active 2022 Myriam Delgado NP [address], [address], [place], [address], [facility] 3 08:56:39 Hypoglycemia 102902398 Active 2022 Myriam Delgado NP [address], [place], [address], [facility] 3 09:22:18 Pleural effusion 57527382 Active 2022 Myriam Delgado NP [address], [address], [place], [address], [facility] 3 09:24:01 Insomnia 712303178 Active 2023 Myriam Delgado NP [address], [place], [address], [facility] 4 16:02:02 Colitis 23825917 Active 2023 Myriam Delgado NP [address], [address], [place], [address], [facility] 4 16:07:18 Supraventricul ar tachycardia 6658562 Active 2023 LANDEN PEREZ NP [address], [address], [place], [address], [facility] 4 15:56:36 Chronic pain 06575730 Active 2023 Myriam Delgado NP [address], [address], [place], [address], [facility] 4 09:45:55 Neuropathy 658958069 Active 2023 Myriam Delgado, OPERATIONS SUPERVISOR [address] [facility], [address], [place], [address], [facility] 4 09:46:12 Ureteric stone 30115726 Active 2023 JEFF BARLOW, OPERATIONS SUPERVISOR [address] [facility], [address], [place], [address], [facility] 4 12:47:06 Problem Notes None recorded. [...] Address Organization Details Last Updated DateTime 5 70905.4 5 g 71 /min 18 /min 97.8 [degF] 95 % 95 % 127 mm[Hg] 76 mm[Hg] Myriam Delgado NP [address] [facility], [address], [place], [address], [facility] 5 13:50:42 Social History Question Answer Notes LastModified by Organizat ion Details LastModified Time Tobacco Smoking Status Never Smoker Myriam Delgado NP [address] [facility], [address], [place], [address], [facility] 09/07/2023 09:42:53 Do You Have An [...] SNOMED-CT Code Diagnosis ICD10 Code Diagnosis Note [id number] Myriam Delgado NP [address] [address] 10/02/2024 14:27:29 10/03/2024 10:55:10 Ureteric stone 35982098 N20.1 resolved with lithotrips y and stent removal on 10/01/23 with urology outptremai ns with chronic foleymonit or Mass of pancreas 0768995 00 K86.89 Currently maintained on Octreotide 50 mcg SC bidappt:Co ntinue to monitorOct reotide 1 ml SC bid07/25 Endocrine fu note recommends :cont09/03 check blood glucose q am and stable without low's, recheck if blood glucose low after snackoctre otide 50 mcg bid.Fu 10/25/[address] of abd fu of mass pending insurance approval, nsg aware and will check on timebandar gallardo has these appt and transporta tion booked except last one(martín gallardo) Fu 12/01/24 @ 1:40pm with Dr Herrera endocrine Benign pro static hyperplasia with outflow obstruction 020477337 N40.1 baseline bph with chronic livingston > [...] 5 mg dailymonit or closely Chronic pain 08020002 G8 9.29 pain controlled Continue:t ramadol to 50 mg bid and q 12 hours prnAPAP 650 mg q4h prngabapen tin 300 mg tidcymbalt a 30 mg po dailyPT/OT prnmonitor Abnormalit y of nail of toe 719541010 L60.8 right 4th toenail fell off without any bleeding, infection or discolorat ionns wash, pat dry, apply bacitracin and bandaid daily until healedmoni tor for s/s of infection Anxiety 12120536 F41.9 anxiety improved and feels better lately with trazodonec onttrazodo ne 100 mg po qhscymbalt a from 30 mg po qhs for anxietyhyp droxyzine 25 mg po q 8 hours prn anxietymon itor Neuropathy 413254234 G62 .9 see above for management Hypertensive disorder 38 693774 I10 bp stablecont amlodipine 5 mg dailymetop rolol 25 mg bidmonitor bp Asthenia 29686246 R53.1 PT OT eval and treat prnfall precaution sFrequent safety checks Supraventr icular tachycardia 1325592 I47.10 stablecont metoprolol 25 mg bideliquis 5 mg bidmonitor heart rate [id number] [facility] [address] 10/08/2024 14:10:48 10/10/2024 15:04:17 Ureteric stone 80061024 N20.1 resolved with lithotrips y and stent removal on 10/01/23 with urology outptremai ns with chronic livingston replaced on 10/01/24need s fu with urology, nsg to [facility] u/s with left ureteral hydronephr osismonito r for bleeding/r eoccurence /infection Benign pro static hyperplasia with outflow obstruction 614723228 N40.1 baseline bph with chronic livingston > [...] 5 mg dailymonit or closely Chronic pain 86902685 G8 9.29 denies any pain todayConti nue:change tramadol from 50 mg tid and q 12 hours prn to 25 mg po tid and 50 prn q 12hrs prnAPAP 650 mg q4h prngabapen tin 300 mg tidcymbalt a 30 mg po dailyPT/OT prnmonitor Anxiety 45486215 F41.9 anxiety improved and feels better lately with trazodone, however ? more confusedco nt10/08 decrease trazodone from 100 mg to 50 mg po qhscontcym glendy from 30 mg po qhs for anxietyhyp droxyzine 25 mg po q 8 hours prn anxietymon itor Impaired cognition 38684 6002 R41.89 with increased confusion lately over time 5 adjust trazodone and tramadol today as reviewed with omar ramon cbc bmp and urinalysis to rule out infection/ electrolyt e derangemen t [id number] Myriam Delgado NP [facility] [place] [address] 10/13/2024 15:56:35 10/15/2024 10:55:49 Ureteric stone 59624448 N20.1 resolved with lithotrips y and stent removal on 10/01/23 with urology outptremai ns with chronic livingston replaced on 10/01/24rena l u/s with left ureteral hydronephr osis done and [facility] bleeding/r eoccurence /infection fu with urology Benign pro static hyperplasia with outflow obstruction 574409082 N40.1 baseline bph with chronic livingston > [...] effectfina steride 5 mg dailymonit or closely Anxiety 38992676 F41.9 due to confusion recently decreased trazadonec onttrazodo ne 50 mg po qhscymbalt a from 30 mg po qhs for anxietyhyp droxyzine 25 mg po q 8 hours prn anxietymon itor Impaired cognition 01732 6002 R41.89 with increased confusion lately over last few monthstraz odone and tramadol recently decreasedc bc bmp and urinalysis to rule out infection/ electrolyt e derangemen t pendinghas treatable UTI and will treat Recurrent urinary tract infection 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, also pseudomona s infection will treat with linezolid 600 mg po bid x 14 days for chronic UTIand probioticm onitor for changes in mental status [id number] Myriam Delgado NP [address] [address] 10/17/2024 13:50:27 10/21/2024 15:02:52 Anxiety 09448687 F41.9 10/17 hold trazodone and cymbalta, resume 24 hours after linezolid is finished start ativan 0.5 mg po q 8 hours prn for anxiety for 14 dayscont hydroxyzin e 25 mg po q 8 hours prn anxietymon itor Recurrent urinary tract infection 624818038 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, also pseudomona s infection will treat with linezolid 600 mg po bid x 14 days for chronic UTIand probiotic cont with above planmonito r for changes in mental status Ureteric stone 55859588 N20.1 resolved with lithotrips y and stent removal on 10/01/23 with urology outptremai ns with chronic livingston replaced on 10/01/24rena l u/s with left ureteral hydronephr osis done and sent to [facility]rologym[facility] for bleeding/r eoccurence /infection fu with urology [id number] Myriam Delgado NP [address] [address] 10/30/2024 13:45:38 10/31/2024 14:12:46 Anxiety 97768790 F41.9 10/17 hold trazodone and cymbalta, resume 24 hours after linezolid is finished start ativan 0.5 mg po q 8 hours prn for anxiety for 14 days10/30 dc ativan, other meds resumed trazodone and cymbaltaco nt hydroxyzin e 25 mg po q 8 hours prn anxietymon itor Recurrent urinary tract infection 748992437 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, also pseudomona s infectiont reated with linezolid 600 mg po bid x 14 days for chronic UTI started on 10/13/24and probioticm onitor for changes in mental statushe refused labs this am, will repeat yecenia cbc and bmp Ureteric stone 25060508 N20.1 resolved with lithotrips y and stent removal on 10/01/23 with urology outptremai ns with chronic livingston replaced on 10/01/24rena l u/s with left ureteral hydronephr osis done and sent to [facility]rolog[facility] for bleeding/r eoccurence /infection fu with urology 11/13 for fu of stones Recurrent falls 96652720 2 R29.6 2 pt rolled out of bed and seems gradually more confusedre cently treated for uti with chronic utisupport duong caremonito r fall risk and need for increased support in community Health Concerns Section Related Observation LastModified by Organization Detai ls LastModified Time None Recorded Concern Status LastModified by Organization Details LastModified Time None Recorded Payers Encounter Date Sequence Insurance Name Policy Number Policy Morton Covered Member ID Morton Member ID Guarantor Name 10/30/2024 1 [place] [employer] Alhaji Varner [id number] Alhaji Varner 10/30/2024 2 [place] [facility] Alhaji Varner [id number] Alhaji Varner Notes Date Note Type Note Provider Name and Address Organization Details Recorded Time 10/30/2024 text/html Pt is seen for a n acute visit today. He is seen for rolling out of bed and suffered a small abrasion to the top of his scalp approx 0.5 cm round. No interventions needed. No bleeding or hematoma or other injuries noted. Alhaji is lying in bed in [facility]. He is confused today and he is typically confused but seems more so lately on a steady decline despite UTI treatment recently. He is not able to provide details of rolling out of bed. He has baseline rom of arms and legs. Livingston with clear yellow urine. It is reasonable to dc scheduled tramadol as he denies any pain and question if this is adding to confusion. Will leave prn dose. He is taking meds, eating and drinking per nursing. Will get labs to ensure no overt infection or elyte imbalance. He refused labs this am and will retry. 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 He is colonized with chronic livingston for many years. Due to the increased confusion he was treated with linezolid which is sensitive on culture recently. Fu 10/25/[address] of abd fu of mass pending insurance approval, doesn't appear he had this. nsg awareFu with urology as planned 11/13 for fu with renal u/sFu 12/01/24 @ 1:40pm with Dr Herrera endocrine for mass Myriam Delgado, PATRICK [address] [facility], [address], [place], [address], [facility] - [facility] 10/30/2024 14:13:02
--- OUTSIDE RECORDS SUMMARY | 2024-10-31 21:10 | XMS_ITS | Continuity of Care Document ---
Author Organization [facility], [facility] Address [address] [place] [address] Care Team Providers Care I&C Technician Name Role Phone MICKI ANGULO Primary Care Provider [facility] - 4TH FLOOR OTHER Assessment No [...] Time Benign prostatic hyperplasia with outflow obstruction 077889680 Active 2022 Myriam Delgado NP [address] , [address], [place], [address], [facility] 3 08:53:31 Hypertensive disorder 08579393 Active 2022 Myriam Delgado NP [address], [address], [place], [address], [facility] [facility] 3 08:53:50 Acute cystitis 77426550 Active 2022 Myriam Delgado NP [address], [address], [place], [address], [facility] 3 08:54:01 Fall Active 2022 Myriam Delgado NP [address], [address], [place], [address], [facility] 3 08:54:09 Asthenia 20262944 Active 2022 Myriam Delgado NP [address], [address], [place], [address], [facility] 3 08:54:19 Fracture of multiple ribs 7975093 Active 2022 Myriam Delgado NP [address], [address], [place], [address], [facility] 3 08:55:37 Mass of pancreas 361234276 Active 2022 Myriam Delgado NP [address], [address], [place], [address], [facility] 3 08:56:17 Compression fracture Active 2022 Myriam Delgado NP [address], [address], [place], [address], [facility] 3 08:56:39 Hypoglycemia 230983758 Active 2022 Myriam Delgado NP [address], [place], [address], [facility] 3 09:22:18 Pleural effusion 11336388 Active 2022 Myriam Delgado NP [address], [address], [place], [address], [facility] 3 09:24:01 Insomnia 022001330 Active 2023 Myriam Delgado NP [address], [place], [address], [facility] 4 16:02:02 Colitis 18777712 Active 2023 Myriam Delgado NP [address], [address], [place], [address], [facility] 4 16:07:18 Supraventricul ar tachycardia 4785367 Active 2023 LANDEN PEREZ NP [address], [address], [place], [address], [facility] 4 15:56:36 Chronic pain 39600920 Active 2023 Myriam Delgado NP [address], [address], [place], [address], [facility] 4 09:45:55 Neuropathy 618932709 Active 2023 Myriam Delgado, INDEPENDENT MARKETING CONSULTANT [address] [facility], [address], [place], [address], [facility] 4 09:46:12 Ureteric stone 76687521 Active 2023 JEFF BARLOW, INDEPENDENT MARKETING CONSULTANT [address] [facility], [address], [place], [address], [facility] 4 12:47:06 Problem Notes None recorded. [...] Address Organization Details Last Updated DateTime 5 12780.4 5 g 88 /min 18 /min 98 [degF] 94 % 94 % 137 mm[Hg] 82 mm[Hg] Myriam Delgado NP [address] [facility], [address], [place], [address], [employer] [facility] 14:16:30 Social History Question Answer Notes LastModified by Organizat ion Details LastModified Time Tobacco Smoking Status Never Smoker Myriam Delgado NP [address] [facility], [address], [place], [address], [facility] 09/07/2023 09:42:53 Do You Have An [...] SNOMED-CT Code Diagnosis ICD10 Code Diagnosis Note [id number] Myriam Delgado NP [address] [address] 10/02/2024 14:27:29 10/03/2024 10:55:10 Ureteric stone 42339280 N20.1 resolved with lithotrips y and stent removal on 10/01/23 with urology outptremai ns with chronic foleymonit or Mass of pancreas 6361301 00 K86.89 Currently maintained on Octreotide 50 [...] Benign pro static hyperplasia with outflow obstruction 972206057 N40.1 baseline bph with chronic livingston > [...] 5 mg dailymonit or closely Chronic pain 96155691 G8 9.29 pain controlled Continue:t ramadol to 50 mg bid and q 12 hours prnAPAP 650 mg q4h prngabapen tin 300 mg tidcymbalt a 30 mg po dailyPT/OT prnmonitor Abnormalit y of nail of toe 625574681 L60.8 right 4th toenail fell off without any bleeding, infection or discolorat ionns wash, pat dry, apply bacitracin and bandaid daily until healedmoni tor for s/s of infection Anxiety 74072324 F41.9 anxiety improved and feels better lately with trazodonec onttrazodo ne 100 mg po qhscymbalt a from 30 mg po qhs for anxietyhyp droxyzine 25 mg po q 8 hours prn anxietymon itor Neuropathy 244255845 G62 .9 see above for management Hypertensive disorder 38 619694 I10 bp stablecont amlodipine 5 mg dailymetop rolol 25 mg bidmonitor bp Asthenia 42793525 R53.1 PT OT eval and treat prnfall precaution sFrequent safety checks Supraventr icular tachycardia 6989328 I47.10 stablecont metoprolol 25 mg bideliquis 5 mg bidmonitor heart rate [id number] Myriam Delgado NP [facility] [address] [address] 10/08/2024 14:10:48 10/10/2024 15:04:17 Ureteric stone 55477037 N20.1 resolved with lithotrips y and stent removal on 10/01/23 with urology outptremai ns with chronic livingston replaced on 10/01/24need s fu with urology, nsg to [facility] u/s with left ureteral hydronephr osismonito r for bleeding/r eoccurence /infection Benign pro static hyperplasia with outflow obstruction 038231256 N40.1 baseline bph with chronic livingston > [...] 5 mg dailymonit or closely Chronic pain 00238361 G8 9.29 denies any pain todayConti nue:change tramadol from 50 mg tid and q 12 hours prn to 25 mg po tid and 50 prn q 12hrs prnAPAP 650 mg q4h prngabapen tin 300 mg tidcymbalt a 30 mg po dailyPT/OT prnmonitor Anxiety 29289286 F41.9 anxiety improved and feels better lately with trazodone, however ? more confusedco nt10/08 decrease trazodone from 100 mg to 50 mg po qhscontcym glendy from 30 mg po qhs for anxietyhyp droxyzine 25 mg po q 8 hours prn anxietymon itor Impaired cognition 70084 6002 R41.89 with increased confusion lately over time 5 adjust trazodone and tramadol today as reviewed with omar ramon cbc bmp and urinalysis to rule out infection/ electrolyt e derangemen t Health Concerns Section Related Observation LastModified by Organization Detai ls LastModified Time None Recorded Concern Status LastModified by Organization Details LastModified Time None Recorded Payers Encounter Date Sequence Insurance Name Policy Number Policy Morton Covered Member ID Morton Member ID Guarantor Name 10/08/2024 1 [place] [employer] Alhaji Varner [id number] Alhaji Varner 10/08/2024 2 [place] [facility] Alhaji Varner [id number] Alhaji Varner Notes Date Note Type Note Provider Name and Address Organization Details Recorded Time 5 text/html Pt is seen for an acute visit today seen today for fu of confusion per daughter and nursing. Alhaji is a 68 year old male, [facility] resident, with recent lithotripsy on 09/15/24. On 10/01/24 Alhaji had his lithotripsy stent removal. He received cefpodoxime x 1 dose per urology as ordered. Renal u/s done and faxed to urology on 10/02/24 concluding Mild left hydronephrosis. Will need to fu with urology as prior u/s not available for comparison. He has had some anxiety and meds titrated by psych for depression and anxiety. He was recently seen by psych on 09/29 with rec to start hydroxyzine 25mg po Qh8rs prn for symptoms of anxiety. Monitor for effect/tolerance. Monitor for excessive anti cholinergicproperties (dry mouth, sedation, confusion, urinary retention). Over the last few months he was started on cymbalta titrated for depression, pain, mood, and anxiety. He was also increased to 100 mg po trazodone qhs. Nursing reports he has been getting the hydroxyzine regularly for anxiety and states anxiety and confusion worse yesterday but improved today. He was also seen by pain management recently who increased his tramadol to 50 mg po tid and 50 mg po q 12 hrs prn.On exam, pt is lying in bed in NAD. No new concerns.He does seem slightly more confused in general, but not acutely different. He denies any pain and is calm and cooperative. Spoke with daughter and pt for >30 minutes on phone per request. She feels he is definitely not the same over the last few months and more confused each month. She states he cannot dial his phone and talk with her as he had and he is able to talk with her on the phone with help today, but not as spry as before. Ativan discussed per daugther and will have psych reeval this week. Will use hydroxyzine for anxiety as prescribed and daughter on board with plan. Plan discussed and will decrease tramadol and trazadone. Will also get labs and ua to rule out other cause. Vitals stable and no fever or chills. Fu with urology as planned.Fu 12/01/24 @ 1:40pm with Dr Herrera endocrine for massFu 10/25/[address] of abd fu of mass pending insurance approval Myriam Delgado NP [address] [facility], [address], [place], [address], [facility] 10/08/2024 18:44:54
--- OUTSIDE RECORDS SUMMARY | 2024-10-31 21:11 | XMS_ITS | Data Portability ---
Author Organization [facility], Main Office Address [address], [address] [place] [address] Care Team Providers [employer] Supervisor Name Role Phone MICKI ANGULO Primary Care Provider [facility] - 4TH FLOOR OTHER Assessment No assessment [...] Time Benign prostatic hyperplasia with outflow obstruction 826940394 Active 2022 Myriam Delgado NP [address] , [address], [place], [address], [facility] 3 08:53:31 Hypertensive disorder 82184300 Active 2022 Myriam Delgado NP [address], [address], [place], [address], [facility] 3 08:53:50 Acute cystitis 97188054 Active 2022 Myriam Delgado NP [address] , [address], [place], [address], [facility] 3 08:54:01 Fall Active 2022 Myriam Delgado NP [address] , [address], [place], [address], [facility] 3 08:54:09 Asthenia 31933350 Active 2022 Myriam Delgado NP [address], [address], [place], [address], [facility] 3 08:54:19 Fracture of multiple ribs 5910788 Active 2022 Myriam Delgado NP [address], [address], [place], [address], [facility] 3 08:55:37 Mass of pancreas 828476095 Active 2022 Myriam Delgado NP [address], [address], [place], [address], [facility] 3 08:56:17 Compression fracture Active 2022 Myriam Delgado NP [address], [address], [place], [address], [facility] 3 08:56:39 Hypoglycemia 380383572 Active 2022 Myriam Delgado NP [address], [address], [place], [address], [facility] 3 09:22:18 Pleural effusion 20127813 Active 2022 Myriam Delgado NP [address], [address], [place], [address], [facility] 3 09:24:01 Insomnia 338831688 Active 2023 Myriam Delgado NP [address], [place], [address], [facility] 4 16:02:02 Colitis 87176902 Active 2023 Myriam Delgado NP [address], [address], [place], [address], [facility] 4 16:07:18 Supraventricul ar tachycardia 1628813 Active 2023 LANDEN PEREZ NP [address], [address], [place], [address], [facility] 4 15:56:36 Chronic pain 92877814 Active 2023 Myriam Delgado NP [address], [address], [place], [address], [facility] 4 09:45:55 Neuropathy 728165126 Active 2023 Myriam Delgado, [employer] [address], [address], [place], [address], [facility] 4 09:46:12 Ureteric stone 56520975 Active 2023 JEFF BARLOW, PATRICK [address], [address], [place], [address], [facility] 4 12:47:06 Problem Notes None recorded. [...] Address Organization Details Last Updated DateTime 5 10233.4 5 g 88 /min 18 /min 98 [degF] 94 % 94 % 137 mm[Hg] 82 mm[Hg] Myriam Delgado, PATRICK [address], [address], [place], [address] [place] - [facility] 5 23:20:06 Date Recorded Body weight Heart rate Respiratory rate Body temperature Oxygen saturation Oxygen saturation in Arterial blood by Pulse oximetry Systolic blood pressure Diastolic blood pressure Provider Name and Address Organization Details Last Updated DateTime 5 97893.4 5 g 88 /min 18 /min 98 [degF] 94 % 94 % 137 mm[Hg] 82 mm[Hg] Myriam Delgado NP [address], [address], [place], [address], [facility] 5 14:16:30 Date Recorded Heart rate Respiratory rate Body temperature Oxygen saturation Oxygen saturation in Arterial blood by Pulse oximetry Systolic blood pressure Diastolic blood pressure Provider Name and Address Organization Details Last Updated DateTime 5 88 /min 18 /min 98 [degF] 94 % 94 % 137 mm[Hg] 82 mm[Hg] Myriam Delgado NP [address], [address], [place], [address], [facility] 5 17:22:35 Date Recorded Body weight Heart rate Respiratory rate Body temperature Oxygen saturation Oxygen saturation in Arterial blood by Pulse oximetry Systolic blood pressure Diastolic blood pressure Provider Name and Address Organization Details Last Updated DateTime 5 81983.4 5 g 76 /min 18 /min 97.8 [degF] 93 % 93 % 117 mm[Hg] 67 mm[Hg] Myriam Delgado NP [address], [address], [place], [address], [facility] 5 13:50:59 Date Recorded Body weight Heart rate Respiratory rate Body temperature Oxygen saturation Oxygen saturation in Arterial blood by Pulse oximetry Systolic blood pressure Diastolic blood pressure Provider Name and Address Organization Details Last Updated DateTime 5 26449.4 5 g 71 /min 18 /min 97.8 [degF] 95 % 95 % 127 mm[Hg] 76 mm[Hg] Myriam Delgado NP [address], [facility] [address], [place], [address], [facility] 5 13:50:42 Social History Question Answer Notes LastModified by Organizat ion Details LastModified Time Tobacco Smoking Status Never Smoker Myriam Delgado NP [address], [facility] [address], [place], [address], [facility] 09/07/2023 09:42:53 Do You Have An [...] SNOMED-CT Code Diagnosis ICD10 Code Diagnosis Note [id number] Myriam Delgado NP [address] [address] 09/07/2023 08:11:35 09/11/2023 14:52:54 Fracture of multiple ribs 3518562 S22.42XA CT noted acute left nondisplac ed 6-8 rib fractures, Plan:tylen ol 975 mg po q 6 hours*angus pentin increased to 300 mg po tid in hosp*oxyco done 5mg po q 6 hours prn*ondans etron 4 mg po q 6 hours prn nausea*ibu profen 600 mg po q 8 hours*bisa codyl 10 mg pr daily prn 09/07 dc *docusate 100 mg po bid and *senna 1 tab 8.6 mg dailyas he is having copious diarrhea and decreased use of oxycodone monitor for pain, relief, vss, sequelaecb c and bmp weekly Follow up appt:Sep 13 appt at [address] Ashlee jimenez [address] [facility], needs chest xray prior in the [facility] building at 1200. Acute cystitis 18476322 N30.00 MRSA UTI seen by ID in hosp with chronic livingston*line zolid 600 mg po bid 09/10 completion monitor cbc and resolution of infection Asthenia 45544980 R53.1 weakness noted in hospital and global sp fallPT OT treat and evalmonito r Fall W19.XXXA with hx of many falls and rehab stays per ptweakness noted in hospital and global sp fallPT OT treat and evalorthos tatics x 1 doc in pccsupport duong care and redirectio nmonitor Benign pro static hyperplasia with outflow obstruction 417095191 N40.1 hx of chronic indwelling livingston catheterdu tasteride 0.5 mg po dailytamul osin 0.4 mg po dailychang e catheter q month and prn Hypertensive disorder 38 481432 I10 bp high, however upset about loos stool todayamlod ipine 5 mg po dailymonit or bp daily x 7 days Mass of pancreas 2535324 00 K86.89 incidental pancreatic mass found on CT scan felt could be worked up outpt with pcp. Compression fracture 219 46926 T14.8XXA acute T4 mild compressio n fracture, pre existing L3 and mod T12 severe pre existing compressio n fractures. see above rib fractures Hypoglycemia 369690873 E 16.2 per hosp dochx of hypoglycem ic episodes in prior admitsmoni tor BS bid x 5 days while in rehab and prnnot on insulin and has pancreatic mass notedfu with endocrinol ogy outpt Pleural effusion 5855896 8 J90 pleural effusion noted on ct, likely chronicmon itor vs, resp status Loose stool 865442607 R1 9.5 loose stool likely related to increased softnersdc sennadc docusateco nt bisacodyl prnmonitor [id number] Mario Zendejas MD [address] [address] 09/10/2023 11:14:10 09/12/2023 08:06:16 Recurrent falls 764809129 R29.6 PT OT eval and treatmonit or fall risk and need for increased support in community Sepsis 36380089 A41.89 see HPInow to complete course of linezolid bid x 1 weekadd probioticm onitor to resolution update ID with concerns Fracture o f multiple ribs 8839549 S22.42XA see HPImonitor for pain controlenc ourage incentive spirometer monitor respirator y status Asthenia 55450358 R53.1 see abovethera py to follow Benign pro static hyperplasia with outflow obstruction 819204644 N40.1 baseline bph with chronic foleyconti nued onflomax 0.4 mg qddutaster brody 0.5 mg qdmonitor for effectupda te urology with concerns Hypertensive disorder 38 558072 I10 norvasc 5 mg qdmonitor bp and need to titrate Mass of pancreas 3670423 00 K86.89 incidental pancreatic mass found on CT scanheads up to PCP for out patient work up Compression fracture 219 11898 T14.8XXA Imaging positive for spinal T4 new and prior L3 and T12 and rib fx 6-8monitor pain control and need for IR eval Hypoglycemia 039243091 E 16.1 noted pancreatic mass see aboveCompl icated by hypoglycem ia to follow up with endocrine out patient with concern for insulinoma refer to endocrinem onitor blood glucose Pleural effusion 0299517 8 J90 noted on imagingmon itor respirator y status and need for repeat Loose stool 481256319 R1 9.5 has been issue with bowel meds reducedmon itor for sx 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 Currently suffering from grief reactionwi ll have psych evalnursin g states by report this is not the case [id number] Myriam Delgado NP [facility] [address] 10/06/2023 15:33:22 10/09/2023 16:18:56 Recurrent falls 798789159 R29.6 PT OT eval and treatmonit or fall risk and need for increased support in community Sepsis 98135299 A41.89 septic shock felt from UTIalbuter ol neb q 4 hours prn sob (unclear if hypoxic in hosp)compl eted 7 days of cefipime, no po transition neededmoni tor to resolution update ID with concernscb c and bmp weekly x 3 Asthenia 01831283 R53.1 PT OT treat and evaltherap y to follow Benign pro static hyperplasia with outflow obstruction 320984101 N40.1 baseline bph with chronic livingston since 2019contin ued onflomax 0.4 mg qddutaster brody 0.5 mg qdmonitor for effectupda te urology with concerns Hypertensive disorder 38 805938 I10 norvasc dc'd in hospital and metoprolol tartate 50 mg bidmonitor bp and need to titrate Mass of pancreas 4071383 00 K86.89 incidental pancreatic mass found on CT scan with hx of hypoglycem iaNew pancreatic lesion since 2018 MRI done 09/24 with pancreatic mass protocol was not conclusive Insulin level and C peptide WNL Gastrin level normal S/p EGD and EUS guided biopsy of pancreatic lesion: well-circu mscribed solid lesion in the tail the pancreas. Path confirms neuroendoc rine tumor. Based on the Ki-67 index in this limited amount of tumor, the tumor grade appears to be G1. Hepatobili abdullahi surgery has seen the patient while in hosp.. Plandischa rge to rehab and get surgery outpatient .Outpatien t follow-up withEndo on board: continue octreotide 50mcg SQ twice daily till his surgery is done. Soft diet Pantoprazo le 40 mg PO daily.brynn thacone 80 mg po tid prn gascalcium carb 500mg po q 4 hours prn dypepsiafo llow-up with endocrinol ogy outpatient Hypoglycemia 767901209 E 16.1 noted pancreatic mass see above, see aboveCompl icated by hypoglycem ia to follow up with endocrine out patient with concern for insulinoma refer to endocrinem onitor blood glucose Pleural effusion 4257916 8 J90 noted on imagingmon itor respirator y status and need for repeat Insomnia 156130848 G47.0 0 melatonin 3 mg qhstrazodo ne 50 mg po qhsmonitor Colitis 33456964 K52.9 c diff colitis positive on 09/29 with formed stools nowvancomy martin 125 mg q 6 hours until 10/09isolat ion precaution s per faciltity x 14 days per protocolmo nitor for sequelaeco lace and senna prn bid for hard stools Fracture o f multiple ribs 6063562 S22.42XA rib fx from 09/06 admitCT noted acute left nondisplac ed 6-8 rib fractures, Plan:tylen ol 975 mg po q 6 hoursgabap entin increased to 300 mg po tidmonitor for pain and sequelae Acute cystitis 30471207 N30.00 pseudomona s UTI seen by ID in hosp with chronic foley09/23 no MRSA noted in urine culture from BMCtreated with cefepime for 7 days and no po abx rec CULTURE : >100,000 COL/ML PSEUDOMONA S AERUGINOSA This isolate was identified using Maldi-TOF system These AST results were performed on the Vitek 2 ID and AST system REPORT STATUS : FINAL 09/22/2023 ORGANISM >100,000 COL/ML PSEUDOMONA S AERUGINOSA This isolate was identified using Maldi-TOF system These AST results were performed on the Vitek 2 ID and AST system METHOD MIN. INHIB. CONC. (MCG/ML) CEFEPIME SUSCEPTIBL E CEFTAZIDIM E SUSCEPTIBL E CIPROFLOXA MARTIN SUSCEPTIBL E GENTAMICIN SUSCEPTIBL E LEVOFLOXAC IN SUSCEPTIBL E MEROPENEM SUSCEPTIBL E PIPERACILL IN/TAZOBAC SUSCEPTIBL E monitor cbc and resolution of infectionr epeat urine as he had been positive for mrsa in past and on precaution s for this [id number] LANDEN PEREZ NP [facility] [address] 10/11/2023 15:13:15 10/15/2023 16:15:51 Sepsis 71786669 A41.89 Improvedse ptic shock felt from UTIcomplet ed 7 days of cefipime, no po transition neededBC neg. x 2UA C&S checked here 10/07 to check for MRSA clearance - no MRSA, but >100K Pseudomona s, not treating at this time as clinically stable, wbc WNR, and c-diffMoni tor closelyupd ate ID with concernscb c and bmp weekly x 3 Asthenia 58231674 R53.1 PT OT treat and evaltherap y to follow Colitis 75959443 K52.9 c diff colitis positive on 09/29vancomy martin 125 mg q 6 hours completed 10/09, d/c papers mentioned 10/12 as end dateisolat ion precaution s per faciltity x 14 days per protocolPt . says he is still having loose stoolPlan - recheck for c-diff, if positive restart po vancoalso on octreotide 50 mcg bid, is agreeable to taking as he understand s it can help his bowels.Aviva thomas fluidsMoni tor Benign pro static hyperplasia with outflow obstruction 264101949 N40.1 baseline bph with chronic livingston since 2019contin ued onflomax 0.4 mg qddutaster brody 0.5 mg qdmonitor for effectupda te urology with concerns Acute cystitis 12773533 N30.00 pseudomona s UTI seen by ID in hosp with chronic foley09/23 no MRSA noted in urine culture from BMCtreated with cefepime for 7 days repeat urine done here 10/07 to recheck for MRSA clearance, no MRSA present, but UA positive, >100K Pseudomona s. As clinically asymptomat ic, wbcs WNR, and currently with c-diff, holding off on tx. at this time. Maintain fluidsTren d VSContinue to monitor closely, higher risk for infection due to chronic indwelling cath. Hypertensive disorder 38 198300 I10 norvasc dc'd in hospital as metoprolol tartate 50 mg bid added due to SVTmonitor bp and need to titrate Mass of pancreas 9045651 00 K86.89 incidental pancreatic mass found on CT scan with hx of hypoglycem iaNew pancreatic lesion since 2018 MRI done 09/24 with pancreatic mass protocol was not conclusive EGD and EUS guided biopsy done of pancreatic lesion: well-circu mscribed solid lesion in the tail the pancreas. Path confirms neuroendoc rine tumor. Based on the Ki-67 index in this limited amount of tumor, the tumor grade appears to be G1. Hepatobili abdullahi surgery has seen the patient while in hosp.; will be following up as outpt. for surgeryEnd o on board: continue octreotide 50mcg SQ twice daily till his surgery is done, outpr. follow up recommende d in 1-2 wks. Continue:s oft dietpantop razole 40 mg PO daily.brynn thacone 80 mg po tid prn gascalcium carb 500mg po q 4 hours prn dypepsiafo llow-up with endocrinol ogy outpatient Hypoglycemia 578969371 E 16.1 [place] related to pancreatic mass see above, see aboveFollo w up with endocrine out patientmon itor blood glucose Pleural effusion 0094169 8 J90 noted on imagingmon itor respirator y status and need for repeat Recurrent falls 39325447 2 R29.6 PT OT eval and treatmonit or fall risk and need for increased support in community Insomnia 441567408 G47.0 0 melatonin 3 mg qhstrazodo ne 50 mg po qhsmonitor Fracture o f multiple ribs 5446714 S22.42XA rib fx from 09/06 admitCT noted acute left nondisplac ed 6-8 rib fractures, Plan:tylen ol 975 mg po q 6 hoursgabap entin 300 mg po tidmonitor for pain and sequelae Supraventr icular tachycardia 3294753 I47.10 Problemati c in hosp.Seen by Cards, now on metoprolol 50 mg bidMonitor VS/HR [id number] LANDEN PEREZ NP [address] [address] 10/16/2023 11:50:07 10/19/2023 11:15:50 Sepsis 49843237 A41.89 Improvedse ptic shock felt from UTI - completed 7 days of cefipime, no po transition neededBC neg. x 2UA C&S checked here 10/07 to check for MRSA clearance - no MRSA, but >100K Pseudomona s, not treating at this time as clinically stable, wbc WNR, and active c-diff Labs yesterday with stable wbcNo fevers, no complaints other than itch/burn at tip of penisConti nue to monitor closelyupd ate ID with concernscb c and bmp weekly x 3 Colitis 93617131 K52.9 c diff colitis positive on 09/29vancomy martin 125 mg q 6 hours completed 10/09 (d/c papers mentioned 10/12 as end date)No further diarrhea, now constipate dCurrently on octreotide 50 mcg bid - will stopMonito r bowels closely at this time.Fleet s x 1 now to help clear remainder of stoolMaint ain fluidsMoni tor Mass of pancreas 4531676 00 K86.89 incidental pancreatic mass found on CT scan with hx of hypoglycem iaNew pancreatic lesion since 2018 MRI done 09/24 with pancreatic mass protocol was not conclusive EGD and EUS guided biopsy done of pancreatic lesion: well-circu mscribed solid lesion in the tail the pancreas. Path confirms neuroendoc rine tumor. Based on the Ki-67 index in this limited amount of tumor, the tumor grade appears to be G1. Hepatobili abdullahi surgery has seen the patient while in hosp.; will be following up as outpt. for surgeryEnd o on board: rec. to continue octreotide 50mcg SQ twice daily till his surgery is done but now with significan t constipati on will stop at this time. Outpt. follow up recommende d in 1-2 wks.No appts. sched. yet, discussed with nsg., to call and get appts. RAMANA Continue:s oft dietpantop razole 40 mg PO daily.brynn thicone 80 mg po tid prn gascalcium carb 500mg po q 4 hours prn dypepsiafo llow-up with endocrinol ogy outpatient Supraventr icular tachycardia 0172010 I47.10 Problemati c in hosp.Seen by Cards, now on metoprolol 50 mg bid, but due to elevated BP will increase to 75 mg bidMonitor VS/HR Hypoglycemia 220101753 E 16.1 [place] related to pancreatic mass see above, see aboveFollo w up with endocrine out patientmon itor blood glucose BID and prn Hypertensive disorder 38 527802 I10 BP still on the higher sidenorvas c dc'd in hospital as metoprolol tartate 50 mg bid added due to SVTPlan -Increase metoprolol to 75 mg bid monitor bp and need to titrate Acute cystitis 35460297 N30.00 pseudomona s UTI in hosp.Seen by ID, treated with cefepime x 7 daysNo MRSA noted in urine culture from [facility] repeat urine done here 10/07 to recheck for MRSA clearance, no MRSA present, but UA positive, >100K Pseudomona s.As clinically asymptomat ic, wbcs WNR, and currently with c-diff, holding off on tx. at this time.Maint ain fluidsTren d VSContinue to monitor closely, higher risk for infection due to chronic indwelling cath. Asthenia 09874317 R53.1 PT OT treat and evaltherap y to follow Fracture o f multiple ribs 3115918 S22.42XA Healinglef t nondisplac ed 6-8 rib fractures, Plan:tylen ol 975 mg po q 6 hr -> change to q 8 hrscontinu e gabapentin 300 mg po tidstop oxycodone due to non usemonitor for pain and sequelae Insomnia 788071682 G47.0 0 continue melatonin 3 mg qhstrazodo ne 50 mg po qhs entered as prn upon admit 10/05; has not usedWill continue to monitor, if not needed will stop.Add 14 day re-eval as med now prn - due for re-eval around 2/6monitor Benign pro static hyperplasia with outflow obstruction 918147864 N40.1 baseline bph with chronic livingston since 2018contin ued onflomax 0.4 mg qddutaster brody 0.5 mg qd? if these meds still needed due to livingston use, will defer to Urologymon itor for effectupda te urology with concerns Pleural effusion 6982956 8 J90 noted on imagingmon itor respirator y status and need for repeat Candidiasis of skin 4988 3006 B37.2 penile, groin, buttockssu spect this is the etiology of itching and burningDif lucan 200 mg x 1 dose, repeat in 7 daysTopica l antifungal cream or powder bid and prn.Needs better pericare - needs foreskin retracted and penis cleaned dailyUse fungal cream first on buttocks, then apply barrier cream.Turn on sides when in bed for better air circulatio n [id number] Myriam Delgado NP [facility] [address] [address] 10/25/2023 13:53:00 11/01/2023 13:24:59 Sepsis 32170917 A41.89 Improved, and no s/s of sepsissept ic shock felt from UTI - completed 7 days of cefipime, no po transition neededBC neg. x 2UA C&S checked here 10/07 to check for MRSA clearance - no MRSA, but >100K Pseudomona s, not treating at this time as clinically stable, wbc WNR, and active c-diff labs 10/22 show stable wbc 11.9No fevers, no complaints or urinary painContin ue to monitor closelyupd ate ID with concernscb c and bmp weekly Colitis 74107116 K52.9 c diff colitis positive on omplet ed vancomycin 125 mg q 6 hours on 10/09No further diarrhea, now constipate dCurrently on octreotide 50 mcg bid - will stop as he refuses and was constipate dMonitor bowels closely at this time.Maint ain fluidsMoni tor Mass of pancreas 6975153 00 K86.89 incidental pancreatic mass found on CT scan with hx of hypoglycem iaNew pancreatic lesion since 2018 MRI done 09/24 with pancreatic mass protocol was not conclusive EGD and EUS guided biopsy done of pancreatic lesion: well-circu mscribed solid lesion in the tail the pancreas. Path confirms neuroendoc rine tumor. Based on the Ki-67 index in this limited amount of tumor, the tumor grade appears to be G1. Hepatobili abdullahi surgery has seen the patient while in hosp.; will be following up as outpt. for surgeryEnd o on board: rec. to continue octreotide 50mcg SQ twice daily till his surgery is done but now with significan t constipati on he refuses and stopped and does not want to restart. Outpt. follow up recommende d in 1-2 wks. 2/1No appts. sched. yet, discussed with nsg., to call and get appts. RAMANA Continue:s oft dietpantop razole 40 mg PO daily.brynn thicone 80 mg po tid prn gascalcium carb 500mg po q 4 hours prn dypepsiafo llow-up with endocrinol ogy outpatient Supraventr icular tachycardia 0247543 I47.10 Problemati c in hosp.Seen by Cards, now on metoprolol 50 mg bid, but due to elevated BP will increase to 75 mg bidMonitor VS/HR Hypoglycemia 397010015 E 16.1 [place] related to pancreatic mass see above, see aboveFollo w up with endocrine out patientmon itor blood glucose BID and prn Hypertensive disorder 38 278032 I10 BP still on the higher sidenorvas c dc'd in hospital as metoprolol tartate 50 mg bid added due to SVTPlan -Increase metoprolol to 75 mg bid monitor bp and need to titrate Acute cystitis 33570228 N30.00 pseudomona s UTI in hosp.Seen by ID, treated with cefepime x 7 daysNo MRSA noted in urine culture from [facility] repeat urine done here 10/07 to recheck for MRSA clearance, no MRSA present, but UA positive, >100K Pseudomona s.As clinically asymptomat ic, wbcs WNR, cdiff recently resolved, holding off on tx. at this time.Maint ain fluidsTren d VSContinue to monitor closely, higher risk for infection due to chronic indwelling cath. Asthenia 59045198 R53.1 PT OT treat and evaltherap y to follow Fracture o f multiple ribs 0284835 S22.42XA Healing, resolvingl eft nondisplac ed 6-8 rib fractures, Plan:tylen ol 975 mg po q 8 hrsgabapen tin 300 mg po tidmonitor for pain and sequelae Insomnia 867903180 G47.0 0 continueme latonin 3 mg qhstrazodo ne 50 mg po qhs entered as prn due for re-eval around 2/6monitor Benign pro static hyperplasia with outflow obstruction 997354263 N40.1 baseline bph with chronic living[place] since 2018contin ued onflomax 0.4 mg qddutaster brody 0.5 mg qd? if these meds still needed due to [place] use, will defer to Urologymon itor for effectupda te urology with concerns Pleural effusion 6092698 8 J90 noted on imagingnot symptomati c on clinical evaluation monitor respirator y status and need for repeat [id number] Myriam Delgado NP [facility] [address] [address] 10/29/2023 15:00:47 11/01/2023 14:10:20 Colitis 45478632 K52.9 c diff colitis positive on omplet ed vancomycin 125 mg q 6 hours on 10/09now with occ loose stoolsCurr ently on octreotide 50 mcg bid, now restartedM onitor bowels closely at this time.Maint ain fluidsMoni tor Mass of pancreas 3175993 00 K86.89 incidental pancreatic mass found on CT scan with hx of hypoglycem iaNew pancreatic lesion since 2018 MRI done 09/24 with pancreatic mass protocol was not conclusive EGD and EUS guided biopsy done of pancreatic lesion: well-circu mscribed solid lesion in the tail the pancreas. Path confirms neuroendoc rine tumor. Based on the Ki-67 index in this limited amount of tumor, the tumor grade appears to be G1. Hepatobili abdullahi surgery has seen the patient while in hosp.; will be following up as outpt. for surgeryEnd o on board: rec. to continue octreotide 50mcg SQ twice daily till his surgery, now willing to take.Outpt . follow up recommende d in 1-2 wks. 2/1No appts. sched. yet, discussed with nsg., to call and get appts. RAMANA Continue:s oft dietpantop razole 40 mg PO daily.brynn thicone 80 mg po tid prn gascalcium carb 500mg po q 4 hours prn dypepsiafo llow-up with endocrinol ogy outpatient Supraventr icular tachycardia 1489621 I47.10 Problemati c in hosp.Seen by Cards, now on metoprolol 50 mg bid, but due to elevated BP will increase to 75 mg bidMonitor VS/HR Hypoglycemia 789729448 E 16.1 [place] related to pancreatic mass see above, see aboveFollo w up with endocrine out patientsta ble BS this weekmonito r blood glucose BID and prn Acute cystitis 24600323 N30.00 resolvedrp seudomonas UTI in hosp.Seen by ID, treated with cefepime x 7 daysNo MRSA noted in urine culture from [facility] repeat urine done here 10/07 to recheck for MRSA clearance, no MRSA present, but UA positive, >100K Pseudomona s.As clinically asymptomat ic, wbcs WNR, cdiff recently resolved, holding off on tx. at this time.Maint ain fluidsTren d VSContinue to monitor closely, higher risk for infection due to chronic indwelling cath. Sepsis 56263885 A41.89 resolvedIm proved, and no s/s of sepsissept ic shock felt from UTI - completed 7 days of cefipime, no po transition neededBC neg. x 2UA C&S checked here 10/07 to check for MRSA clearance - no MRSA, but >100K Pseudomona s, not treating at this time as clinically stable, wbc WNR, and active c-diff labs 10/22 show stable wbc 11.9No fevers, no complaints or urinary painContin ue to monitor closelyupd ate ID with concernscb c and bmp weekly Hypertensive disorder 38 766486 I10 BP still on the higher sidenorvas c dc'd in hospital as metoprolol tartate 50 mg bid added due to SVTPlan -metoprolo l increased recently to 75 mg bid with good effectmoni tor bp and need to titrate Asthenia 23842573 R53.1 PT OT treat and evaltherap y to follow Benign pro static hyperplasia with outflow obstruction 961911139 N40.1 baseline bph with chronic [place] since 2018contin ued onflomax 0.4 mg qddutaster brody 0.5 mg qd? if these meds still needed due to [place] use, will defer to Urologymon itor for effectupda te urology with concerns [id number] LANDEN PEREZ NP [facility] [place] [address] [place] [address] 10/30/2023 13:22:51 11/01/2023 14:23:18 Mass of pancreas 631015888 K86.89 incidental pancreatic mass found on CT scan with hx of hypoglycem iaNew pancreatic lesion since 2018 MRI done 09/24 with pancreatic mass protocol was not conclusive EGD and EUS guided biopsy done of pancreatic lesion: well-circu mscribed solid lesion in the tail the pancreas. Path confirms neuroendoc rine tumor. Based on the Ki-67 index in this limited amount of tumor, the tumor grade appears to be G1. Hepatobili abdullahi surgery has seen the patient while in hosp.; will be following up as outpt. for surgeryEnd o on board: rec. to continue octreotide 50mcg SQ twice daily till his surgery, now willing to take.Outpt . follow up recommende d in 1-2 wks. Not clear if appts. sched. yet, discussed with nsg. again, names and phone numbers provided, to call and get appts. RAMANA Continue:s oft dietpantop razole 40 mg PO daily.brynn thicone 80 mg po tid prn gascalcium carb 500mg po q 4 hours prn dypepsiafo llow-up with endocrinol oggino outpatient Hypertensive disorder 38 966786 I10 Last 3 BPs better.nor vasc dc'd in hospital as metoprolol tartate 50 mg bid added due to SVTPlan -metoprolo l increased recently to 75 mg bid - continuemo nitor bp and need to titrate Colitis 71721225 K52.9 c diff colitis positive on omplet ed vancomycin 125 mg q 6 hours on 10/09Octreo tide stopped due to constipati on, now with loose stool again so back on Octreotide 50 mcg bid with improvemen t in bowels.Con tinue to monitor bowels closely at this time.Maint ain fluids Supraventr icular tachycardia 4009896 I47.10 Problemati c in hosp.Seen by Cards, now on metoprolol 50 mg bid, but due to elevated BP will increase to 75 mg bidMonitor VS/HR Hypoglycemia 208867305 E 16.1 [place] related to pancreatic mass see above, see aboveFollo w up with endocrine out patientsta ble BS this weekmonito r blood glucose BID and prn Asthenia 03338140 R53.1 PT OT treat and evaltherap y to follow Peripheral edema 0639891 00 R60.9 newer issueuncle ar etiology, can be a side effect of octreotide Spending a lot of time in bed, not very activePlan -Check Venous US BLEs - rule out DVTConside r AC due to inactivity Continue elevationC onsider diuretic to try to offload fluidMonit or closely Hypokalemia 21107399 E87 .6 K 3.2? r/t diarrheaAd d KCl 20 meq daily x 3 daysRepeat BMP sundayMoni tor Leukocytosis 450198343 D 72.829 mild - 11.7monito r for s/s infectiont rend CBC [id number] Myriam Delgado NP [address] [address] 11/05/2023 10:29:02 11/06/2023 19:59:23 Leukocytosis 853527039 D72.829 mild - 11.7, ? related to dvt, labs pendingmon itor for s/s infectiont rend CBC Mass of pancreas 8188329 00 K86.89 incidental pancreatic mass found on CT scan with hx of hypoglycem iaNew pancreatic lesion since 2019 MRI done 09/24 with pancreatic mass protocol was not conclusive EGD and EUS guided biopsy done of pancreatic lesion: well-circu mscribed solid lesion in the tail the pancreas. Path confirms neuroendoc rine tumor. Based on the Ki-67 index in this limited amount of tumor, the tumor grade appears to be G1. Hepatobili abdullahi surgery has seen the patient while in hosp.; will be following up as outpt. for surgeryEnd o on board: rec. to continue octreotide 50mcg SQ twice daily till his surgery, now willing to take.Outpt . follow up recommende d in 1-2 wks. 11/05 Not clear if appts. sched. yet, discussed with nsg. again, names and phone numbers provided, to call and get appts. Continue:s oft dietpantop razole 40 mg PO daily.brynn thicone 80 mg po tid prn gascalcium carb 500mg po q 4 hours prn dypepsiafo llow-up with endocrinol [place] outpatient Hypertensive disorder 38 496517 I10 Last 3 BPs better.nor vasc dc'd in hospital as metoprolol tartate 50 mg bid added due to SVTPlan -metoprolo l 75 mg bid, hr and bp stablemoni tor bp and need to titrate Colitis 61945539 K52.9 resolvedc diff colitis positive on omplet ed vancomycin 125 mg q 6 hours on 10/09Octreo tide stopped due to constipati on, now with loose stool again so back on Octreotide 50 mcg bid with improvemen t in bowels.Con tinue to monitor bowels closely at this time.Maint ain fluids Hypoglycemia 406480804 E 16.1 [place] related to pancreatic mass see above, see aboveFollo w up with endocrine out patientsta ble BS this weekmonito r blood glucose BID and prn Asthenia 71741867 R53.1 PT OT treat and evaltherap y to follow Bilateral acute deep vein thrombosis of femoral veins [id number] 45374 I82.413 11/03/23: Focal partially occlusive thrombus in both the right and left common femoral veins. The remainder of the lower extremitie s demonstrat e normal flow. Spending a lot of time in bed, not very active and noted edema to bilateral legs which appears to have mostly resolved today call center team leader provider started pt on 11/04/23 eliquis 10 mg po bid x 7 days, then 5mg po bid( will cont treatment for 3 months and get u/s at that time) ( us approx 02/02) and reeval due to new dvtsPlan -eliquis 10 mg po bid x 7 days, then 5mg po bidu/s in 3 months approx 02/02 ordered for fu of bilateral fem DVTsContin ue elevation as neededno swelling noted todaymonit or closely for diff breathing, chest pain, light headedness or dizzinessw ill give pt 1-2 days off of PT/OT to left ac set in and then resume therapy and activity with getting upvitals daily with o2 satsMonito r closely [id number] Myriam Delgado NP [address] [place] [address] 11/07/2023 11:22:13 11/08/2023 20:03:30 Bilateral acute deep vein thrombosis of femoral veins [id number] 84380 I82.413 11/03/23: Focal partially occlusive thrombus in both the right and left common femoral veins. The remainder of the lower extremitie s demonstrat e normal flow. edema to bilateral legs which appears to have mostly resolved on 11/04/23 eliquis 10 mg po bid x 7 days, then 5mg po bid( will cont treatment for 3 months and get u/s at that time) ( us approx 02/02) and reeval due to recent dvtsPlan -eliquis 10 mg po bid x 7 days, then 5mg po bidu/s in 3 months approx 02/02 ordered for fu of bilateral fem DVTsContin ue elevation as neededno swelling noted todaymonit or closely for diff breathing, chest pain, light headedness or dizzinessm ay resume PT OT todayvital s daily with o2 satsMonito r closely Leukocytosis 616674899 D 72.829 mild - 11.7, ? related to dvt, now resolved at 8.6monitor for s/s infectiont rend CBC Mass of pancreas 2010625 00 K86.89 incidental pancreatic mass found on CT scan with hx of hypoglycem iaNew pancreatic lesion since 2019 MRI done 09/24 with pancreatic mass protocol was not conclusive EGD and EUS guided biopsy done of pancreatic lesion: well-circu mscribed solid lesion in the tail the pancreas. Path confirms neuroendoc rine tumor. Based on the Ki-67 index in this limited amount of tumor, the tumor grade appears to be G1. Hepatobili abdullahi surgery has seen the patient while in hosp.; will be following up as outpt. for surgeryEnd o on board: rec. to continue octreotide 50mcg SQ twice daily till his surgery, now willing to take.Outpt . follow up recommende d in 1-2 wks. 11/05Not clear if appts. sched. yet, discussed with nsg. again, names and phone numbers provided, to call and get appts. 11/07endocr ine appt next avail in december -could use sooner Continue:s oft dietpantop razole 40 mg PO daily.brynn thicone 80 mg po tid prn gascalcium carb 500mg po q 4 hours prn dypepsiafo llow-up with endocrinol ogy outpatient Hypertensive disorder 38 297396 I10 Last 3 BPs better.nor vasc dc'd in hospital as metoprolol tartate 50 mg bid added due to SVTPlan -metoprolo l 75 mg bid, hr and bp stablemoni tor bp and need to titrate Hypoglycemia 379023421 E 16.1 [place] related to pancreatic mass see above, see aboveFollo w up with endocrine out patientsta ble BS this weekmonito r blood glucose BID and prn Asthenia 92802702 R53.1 PT OT treat and evaltherap y to follow [id number] Annie Aviles MD [facility] [address] 11/14/2023 05:42:24 11/15/2023 19:47:38 Asthenia 12763505 R53.1 PT/OTwill monitor and support as needed Benign pro static hyperplasia with outflow obstruction 227420999 N40.1 [place] catheterfi nasteride 5 mg dailywill monitorfu urology Mass of pancreas 8387062 00 K86.89 fu surgeryOct reotide 50 mcg SC bidwill monitor Essential hypertension 47871716 I10 metoprolol 75 mg bidwill monitor Chronic pain 39657785 G8 9.29 APAP 650 mg q4h prngabapen tin 300 mg tid PT/OT prnwill monitor Deep venou s thrombosis of lower extremity 518023970 I82.413 apixaban 5 mg bidwill monitor Gastroesop hageal reflux disease without esophagitis 825725326 K21.9 omeprazole 20 mg dailywill monitor [id number] LANDEN PEREZ NP [facility] [address] [address] 11/22/2023 11:37:03 11/27/2023 13:24:56 Asthenia 52143701 R53.1 Continue PT/OTEnc. activity/O OBMonitor and support as needed Benign pro static hyperplasia with outflow obstruction 273558930 N40.1 [place] catheter in placeConti nue finasterid e 5 mg dailyMonit orfu urology - update with concerns Mass of pancreas 2242982 00 K86.89 Currently maintained on Octreotide 50 mcg SC bidHas Oncology appt. 3/7Has Endocrine appt. 12/30.Contin ue to monitorRed uce labs to CBC, BMP monthly - start next wk. Essential hypertension 84803218 I10 Running on the high side.Curre ntly on metoprolol 75 mg bid - dose increased in hosp. due to SVTNorvasc stopped due to med change above.Plan - restart norvasc 2.5 mg qdMonitor VS, continue to adjust meds prn Chronic pain 60749344 G8 9.29 Stable at presentCon tinue:APAP 650 mg q4h prngabapen tin 300 mg tid PT/OT prnmonitor Deep venou s thrombosis of lower extremity 416838885 I82.413 New dxNow on apixaban 5 mg bidVS, CBC stable.Arie moralesing improvedNo s/s active bleed.Raymond tor Gastroesop hageal reflux disease without esophagitis 912275407 K21.9 Stable on omeprazole 20 mg dailywill monitor GI sx. [id number] Myriam Delgado NP [address] [address] 11/28/2023 11:04:26 11/29/2023 16:30:06 Mass of pancreas 368284140 K86.89 Currently maintained on Octreotide 50 mcg SC bidappt:On cology appt. 3/7Endocri ne appt. 12/30.Contin ue to monitorlab s to CBC, BMP monthly Deep venou s thrombosis of lower extremity 109654526 I82.413 contapixab an 5 mg bid(starte d on 11/03/23)Blaine ying improvedNo s/s active bleed.Raymond tor Essential hypertension 66702014 I10 Running on the high side.contm etoprolol 75 mg bid - dose increased in hosp. due to SVTNorvasc stopped due to med change above.norv asc 2.5 mg qd restarted recentlyco ntinue to adjust meds prn and monitor vitals Asthenia 04945272 R53.1 Continue PT/OTEnc. activity/O OBMonitor and support as needed Benign pro static hyperplasia with outflow obstruction 850811911 N40.[address] [place] [address] with mild hematuria- mostly [id number] cc flushes to [place] prnContinu efinasteri de 5 mg dailyMonit orfu urology - update with concerns Chronic pain 44631208 G8 9.29 Stable at presentCon tinue:APAP 650 mg q4h prngabapen tin 300 mg tidPT/OT prnmonitor Gastroesop hageal reflux disease without esophagitis 970283121 K21.9 Stable onomeprazo le 20 mg dailywill monitor GI sx. Blood in urine 52007244 R31.9 hematuria noted in urinewas flushed mutliple times and ultimately sent to ER for discomfort and clotsnow appears clear with slight pink tinge to foleymonit or and cont flushes prn [id number] LANDEN PEREZ NP [address] [address] 12/06/2023 13:48:06 12/10/2023 10:56:50 Blood in urine 19340782 R31.9 hematuria noted in urinewas flushed mutliple times and ultimately sent to ER for discomfort and clotsnow appears clearsuspe ct AC contributi ng to this concernmon itor and cont flushes prn Benign pro static hyperplasia with outflow obstruction 866313416 N40.[address] [place] [address], qs yellow urine60 cc flushes to [place] prnContinu efinasteri de 5 mg dailyMonit orfu urology - update with concerns Mass of pancreas 5755303 00 K86.89 Currently maintained on Octreotide 50 mcg SC bidappt:On cology appt. 11/28 - no paperwork seen from appt., will request offic noteEndocr ine appt. 12/30.Contin ue to monitorlab s to CBC, BMP monthly Deep venou s thrombosis of lower extremity 778071956 I82.413 contapixab an 5 mg bid(starte d on 11/03/23)Blaine ying improvedMo nitor bleeding - recent issues with hematuriaM onitor Essential hypertension 29292183 I10 Still running on the higher side of nl.current ly on metoprolol 75 mg bid - dose increased in hosp. due to SVT - continueNo rvasc stopped due to med change above, but 2.5 mg restarted about 2 wks ago Plan - increase Norvasc to 5 mg qdcontinue to adjust meds prn and monitor vitals Asthenia 91924960 R53.1 Continue PT/OTEnc. activity/O OB - doing better, more activeMoni tor and support as needed Chronic pain 26392189 G8 9.29 Stable at presentCon tinue:APAP 650 mg q4h prngabapen tin 300 mg tidPT/OT prnmonitor Gastroesop hageal reflux disease without esophagitis 912137020 K21.9 Stable onomeprazo le 20 mg dailywill monitor GI sx. [id number] Myriam Delgado NP [address] [address] 12/18/2023 13:30:21 12/20/2023 16:09:46 Blood in urine 85091284 R31.9 no hematuria noted in urine, [place] cleardenie s pain todaysuspe ct AC contributi ng to this concern (hematuria at times)raymond tor and cont flushes prn Benign pro static hyperplasia with outflow obstruction 457125779 N40.[address] [place] [address], qs yellow urine60 cc flushes to [place] prnContinu efinasteri de 5 mg dailyMonit orfu urology - update with concerns Mass of pancreas 5419423 00 K86.89 Currently maintained on Octreotide 50 mcg SC bidappt:On cology appt. 11/28 - no paperwork seen from appt., will request offic noteEndocr ine appt. 12/30.Contin ue to monitorlab s to CBC, BMP monthly Deep venou s thrombosis of lower extremity 675504317 I82.413 contapixab an 5 mg bid(starte d on 11/03/23)Blaine ying improvedMo nitor bleeding - recent issues with hematuriaM onitor Essential hypertension 26440791 I10 bp stable 136/58curr ently on metoprolol 75 mg bid - dose increased in hosp. due to SVT - continueNo rvasc to 5 mg qdcontinue to adjust meds prn and monitor vitals Asthenia 56184620 R53.1 Continue PT/OTEnc. activity/O OB - doing better, more activeMoni tor and support as needed Chronic pain 58480701 G8 9.29 Stable at presentCon tinue:APAP 650 mg q4h prngabapen tin 300 mg tidPT/OT prnmonitor Gastroesop hageal reflux disease without esophagitis 308550349 K21.9 Stable onomeprazo le 20 mg dailywill monitor GI sx. Fall W19.XXXA with hx of many falls and rehab stays per ptunwitnes sed fall on 12/14weakne ss noted in hospital and global sp fallPT OT treat and evalsuppor tive care and redirectio nmonitor will get labs cbc and bmp and urinalysis due to fall and ? increased confusion [id number] Myriam Delgado NP [facility] [address] [address] 12/19/2023 13:20:51 12/24/2023 10:13:28 Asthenia 27308588 R53.1 Continue PT/OTEnc. activity/O OB - doing better, more activeMoni tor and support as needed Benign pro static hyperplasia with outflow obstruction 582545072 N40.[address] [place] [address], qs yellow urine60 cc flushes to [place] prnContinu efinasteri de 5 mg dailyMonit orfu urology - update with concernsaw aiting urinalysis with c & s Mass of pancreas 5195295 00 K86.89 Currently maintained on Octreotide 50 mcg SC bidappt:On cology appt. 11/28 - no paperwork seen from appt., will request offic noteEndocr ine appt. 12/30.Contin ue to monitorlab s to CBC, BMP monthly Leukocytosis 040761984 D 72.829 leukocytos is of 14.2 with unknown cause and increased confusion and recent fall without injuryothe rwise labs stable and denies viral symptomsmo nitor for s/s infectiont rend CBC, will repeat tomorrow [id number] Myriam Delgado, PATRICK [facility] [address] [facility] [place] [address] 12/20/2023 08:33:54 12/24/2023 11:49:06 Leukocytosis 617472062 D72.829 leukocytos is of 14.2 with unknown cause and increased confusion and recent fall without injuryothe rwise labs stable and denies viral symptomsmo nitor for s/s infectiont rend CBC, will repeat tomorrow Asthenia 08847030 R53.1 Continue PT/OTEnc. activity/O OB - doing better, more activeMoni tor and support as needed Benign pro static hyperplasia with outflow obstruction 135393413 N40.[address] [place] [address], qs yellow urine60 cc flushes to [place] prnContinu efinasteri de 5 mg dailyMonit orfu urology - update with concerns needed appt with Dr. Pierre ? if this was done noted on dc packet waitin g urinalysis with c & s Mass of pancreas 4047688 00 K86.89 Currently maintained on Octreotide 50 mcg SC bidappt:On cology appt. 11/28 - no paperwork seen from appt., will request offic noteEndocr ine appt. 12/30.Contin ue to monitorlab s to CBC, BMP monthly Phimosis 846310194 N47.1 has notable anterior phimosis foreskin retracted and phimosis slightly reduced todaynsg educated on care and reductionf u with urology Dr. Pierre for this and recent UTImonitor Acute cystitis 71659562 N30.00 acute UTI recently resolved with abx, now with confusionp seudomonas UTI in hosp.Seen by ID, treated with cefepime x 7 days in hospNo MRSA noted in urine culture from [facility] at that timeHas longstandi ng hx of recurrent UTI with resistance Maintain fluidsTren d VSContinue to monitor closely, higher risk for infection due to chronic indwelling cath.fu with urology for this and phimosis Intertrigo 93952776 L30. 4 pt with intertrigo to left groin foldlikely fungal and likely related to depend plastic on skin or skin on skin 4 start nystatin cream topically to left groin and anterior penis bid and prnmonitor closelycon supervisor cab antifungal oral diflucan if persistswi ll add lfts to labs on sunday cbc and cmp [id number] Myriam Delgado NP [facility] [address] 12/21/2023 09:29:11 12/25/2023 09:37:37 Phimosis 556290437 N47.1 has notable anterior phimosis foreskin retracted and phimosis slightly reducednsg educated on care and reduction 12/20 phimosis unable to be retracted after 10 minutes of attempting , cannot pull foreskin over area and pt in extreme pain and vomited x 2. send to ER for reduction with extreme pain fu with urology Dr. Pierre for this and recent UTImonitor Leukocytosis 571023420 D 72.829 leukocytos is of 14.2 with unknown cause and increased confusion and recent fall without injurylabs not back yethas positive urinalysis without culture resultssen d to ER Acute cystitis 04000170 N30.00 acute UTI recently resolved with abx, now with confusionp seudomonas UTI in hosp.Seen by ID, treated with cefepime x 7 days in hosp on prior hospitaliz ation No MRSA noted in urine culture from [facility] at that timeHas longstandi ng hx of recurrent UTI with resistance send to ER with UTI and Phimosis and extreme pain Continue to monitor closely, higher risk for infection due to chronic indwelling cath. [id number] Myriam Delgado NP [address] [address] 12/24/2023 08:44:46 12/27/2023 11:18:57 Phimosis 412995625 N47.1 resolved 12/19 foreskin retracted and phimosis slightly reducednsg educated on care and reduction 12/20 phimosis unable to be retracted after 10 minutes of attempting , cannot pull foreskin over area and pt in extreme pain and vomited x 2. 12/20 phimosis resolved in hosp fu with urology Dr. Pierre for this and recent UTI in one week monitor and cath secure device at all times Leukocytosis 380543440 D 72.829 leukocytos is of 14.2, likely due to UTI and increased confusion and recent fall without injurylabs not back yet from orders, cbc and bmp on mondays x 3see cystitismo nitor Acute cystitis 63551374 N30.00 acute UTI recently resolved with abx, now with confusionp seudomonas UTI in hosp. and now showing klebsiella pneumo on culture sensitive to cefpodoxim e No MRSA noted in urine culture from [facility] at that timeHas longstandi ng hx of recurrent UTI with resistance 12/23 started on cefpodoxim e 200 mg po bid 12/21 to 12/28with probiotic Continue to monitor closely, higher risk for infection due to chronic indwelling cath. fu Dr. Pierre in one week [id number] LANDEN PEREZ NP [facility] [address] [address] 01/03/2024 13:56:51 01/10/2024 12:29:40 Choking 519019675 R09.89 Choking episode 01/01 dinner time.Took a large bite of a sandwich, got stuck in throat, required Heimlich to clear airway.No residual concerns related to the event.Back to baseline, will take smaller bites from now onReferred to ST for eval and tx. just to be safeMonito r [id number] Myriam Delgado NP [facility] [address] 01/11/2024 13:47:53 01/16/2024 10:11:02 Choking 733611042 R09.89 Choking episode 01/09 dinner time.with eating too much food at onceNo residual concerns related to the event.Back to baseline, will take smaller bites from now onReferred to ST for eval and tx. just to be safe and fees test may be done if speech felt helpfullun gs clear and no xray todayMonit or Leukocytosis [id number] D 72.829 leukocytos is of 14.2, likely due to UTI and increased confusionl abs not back yet from orders01/10 will reoreder cbc and bmp on mondays x 2see cystitismo nitor [id number] Myriam Delgado NP [facility] [address] [address] 01/16/2024 13:13:57 01/23/2024 12:17:27 Hordeolum externum of upper eyelid of left eye [id number] 76069 H00.014 01/15warm compress tid for 15 minutes x 2 weekseryth romycin 0.5 % opthl oint 1/2 inch ribbon to left eye tid x 2 weeksmonit or for visual changes or spreadingg ood hand washing [id number] LANDEN PEREZ NP [facility] [address] [address] 01/17/2024 09:38:13 01/23/2024 12:28:59 Hypoglycemia [id number] E16.1 [place] related to pancreatic massFollow up with endocrine out patientBS BID currently stable, +/- 100.Will reduce BS to BID once a week and PRN s/s low BSAppetite goodMonito r [id number] Myriam Delgado NP [facility] [address] [address] 01/21/2024 15:24:25 01/23/2024 12:56:01 Loss of teeth due to extraction [id number] K08.409 left front tooth extracted on 01/20 by dentistno s/s of infectiona moxicillin 500 mg po tid x 7 days with probiotic bid x 9 days (pt has hx of cdiff and will need to monitor)sa lt water rinse as needed and gauze for bleedingmo nitor Hordeolum externum of upper eyelid of left eye [id number] 59831 H00.014 01/15warm compress tid for 15 minutes x 2 weekseryth romycin 0.5 % opthl oint 1/2 inch ribbon to left eye tid x 2 weeksmonit or for visual changes or spreading resolving with some slight swelling, will cont as planned till 01/30good hand washing [id number] Myriam Delgado NP [facility] [address] [address] 01/30/2024 14:57:35 02/01/2024 10:28:09 Phimosis 165110581 N47.1 01/29 foreskin retracted and phimosis reduced todaynsg educated on care and reductionw ill add foreskin care q shift as this is reoccurrin g fu with urology Dr. Pierre outpt prn monitor and cath secure device at all times [id number] Myriam Delgado NP [facility] [address] [address] 02/13/2024 08:37:31 02/26/2024 13:09:48 Pain in penis [id number] N48.89 Pt with pain to his penis reporting possible UTIHis livingston securer is reposition ed to allow more room and slack to catheter likely causing pressure to penis without other symptoms- he reports a decrease in pain at this visit with interventi on , no phimosis noted *he is offerred a urinalysis , treatment, and pain medication here but refuses and states he wants to go to [facility] send to ER for penial pain and possible UTI [id number] Myriam Delgado NP [facility] [address] [address] 02/14/2024 11:18:54 02/26/2024 13:31:39 Pain in penis 127989239 N48.89 livingston replaced in er and pain resolving- see hpicath secure device in placestaff to assess q shift for phimosis with hx ofmonitor for changes Acute cystitis 94771606 N30.00 Has longstandi ng hx of recurrent UTI with resistance and started on abx for UTI in hospital levofloxac in 250 mg po daily x 4 daysnitrof urantoin 100 mg po bid for 7 daysadd probiotic bid Continue to monitor closely, higher risk for infection due to chronic indwelling cath. fu Dr. Pierre as needed if symptoms not improved Recent weight loss 33128 7000 R63.4 pt with recent weight loss approx 20 lbs over last few monthsposs ibily related to recent dental extraction s and change of dietdietic leda to followsupp lements added todaymonit or weights weeklyif no improvemen t may consider remeron in near future [id number] Myriam Delgado NP [facility] [address] [address] 02/22/2024 13:50:50 02/26/2024 15:42:01 Acute cystitis 98481488 N30.00 resolvingH as longstandi ng hx of recurrent UTI with resistance and started on abx for UTI in hospital levofloxac in 250 mg po daily x 4 daysnitrof urantoin 100 mg po bid for 7 daysprobio tic bid Continue to monitor closely, higher risk for infection due to chronic indwelling cath. fu Dr. Pierre as needed if symptoms not improved Loose stool 087921214 R1 9.5 loose stool likely related to abx course now finishingo n probioticc ont bisacodyl prn start 02/21lopera mide 2 tabs with first loose stool, 1 tab each stool, up to 5 tabs per 24 hoursmonit or [id number] Mario Zendejas MD [facility] [address] 03/05/2024 12:01:25 03/07/2024 12:13:54 Impetigo 08235430 L01.09 appears secondary to razorneosp david bid x 1 week then reassess Benign pro static hyperplasia with outflow obstruction 762336106 N40.1 baseline bph with chronic foleypatie nt wishes to have livingston removedexp lained possibilit y of suprapubic cath or alt surgery however [facility] current medsmonito r for effectupda te urology with concerns Hypertensive disorder 38 552795 I10 norvasc 5 mg qdmonitor bp and need to titrate Deep venou s thrombosis of lower extremity 702128267 I82.413 eliquis 5 mg bidcontinu emonitor for bleedingco nsider repeat imaging if provoked [id number] Myriam Delgado NP [facility] [address] [address] 03/31/2024 13:32:36 04/03/2024 14:45:09 Benign prostatic hyperplasia with outflow obstruction 768479393 N40.1 baseline bph with chronic foleyconti nue current medsmonito r for effectupda te urology with concerns Pain in penis 454851877 N48.[address] and draining clear yellow urinept requests to go to the ER and refuses assessment or livingston replacemen tsend to ER [id number] Myriam Delgado NP [facility] [address] [address] 04/21/2024 15:24:32 04/23/2024 12:57:05 Benign prostatic hyperplasia with outflow obstruction 893131476 N40.1 baseline bph with chronic foleyfoley with sediment today in [facility] fluidscont inue current medsmonito r for effectupda te urology with concerns irrigate catheter with 60 cc saline/tati er prn increased sedimenton e time order to irrigate with 120cc of water to help with sediment with results and free flowingmon itor for s/s of pain, burning, or not draining. [id number] Myriam Delgado NP [facility] [address] [address] 04/28/2024 08:47:14 04/29/2024 14:47:21 Benign prostatic hyperplasia with outflow obstruction 805195314 N40.1 baseline bph with chronic foleyfoley with sediment [facility] current medsmonito r for effectupda te urology with concerns8/ 5 nsg to irrigate catheter with 60 cc saline/ttai er prn increased sediment8/ 5 fu with urology for catheter changes monthly as he has had traumatic livingston exchanges and mulitple er visits in past and seems to have an obstructio n at times.raymond tor for s/s of pain, burning, or not draining. Hypertensive disorder 38 505827 I10 norvasc 5 mg qdmonitor bp and need to titrate Deep venou s thrombosis of lower extremity 050579351 I82.413 eliquis 5 mg bidcontinu emonitor for bleedingco nsider repeat imaging if provoked, seems resolved [id number] Myriam Delgado NP [facility] [address] [address] 05/01/2024 13:23:06 05/06/2024 15:44:18 Altered mental status 889439639 R41.82 ams today with unresponsi ve episodesee hpi for detailsDDX ? TIA/STROKE /Sepsiscal l 911 transfer to ER [facility] for emergent change of condition [id number] Myriam Delgado NP [facility] [address] [address] 05/08/2024 10:05:58 05/12/2024 16:09:35 Altered mental status 114649409 R41.82 resolved with sepsis treatmentb ack to baselinemo nitor closely Benign pro static hyperplasia with outflow obstruction 055895455 N40.1 baseline bph with chronic foleyconti nue current medsmonito r for effectupda te urology with concernsns g to irrigate catheter with 60 cc saline/tati er prn increased sedimentfu with urology for catheter changes monthly as he has had traumatic livingston exchanges and mulitple er visits in past and seems to have an obstructio n at times.raymond tor for s/s of pain, burning, or not draining. Hypertensive disorder 38 349271 I10 norvasc 5 mg qdmetoprol ol 25 mg po bidmonitor bp and need to titrate Acute cystitis 17158779 N30.00 with sepsis UTInote: Has longstandi ng hx of recurrent UTI with resistance and has chronic livingston (has been rec to have superpubic cath in past and has refused)re ceived IV vanco and ceftriaxon e in hospcont cefuoxime 500mg po bid x 12 days end 05/19 See BPH aboveConti nue to monitor closely, higher risk for infection due to chronic indwelling cath.bacit racin oint topically to penis q shift fu Dr. Pierre as needed if symptoms not improved ([facility] urology or Dr Pierre)raymond tor cbc and bmp weekly x 2 weeks on mondays Supraventr icular tachycardia 2983543 I47.10 Problemati c in hosp. resolved with adenosine in hosp and sepsis txSeen by Cards, now on metoprolol 25 mg bid (decreased from 75 mg po bid in hosp)Monit or VS/HR [id number] Myriam Delgado NP [facility] [address] [address] 05/15/2024 10:36:06 05/19/2024 10:24:41 Altered mental status 301011545 R41.82 resolved with sepsis treatmentb ack to baselinemo nitor closely for changes Benign pro static hyperplasia with outflow obstruction 390001428 N40.1 baseline bph with chronic foleyconti nue current meds monitor for effectnsg to irrigate catheter with 60 cc saline/tati er prn increased sedimentfu with urology for catheter changes monthly as he has had traumatic livingston exchanges and mulitple er visits in past and seems to have an obstructio n at times.raymond tor for s/s of pain, burning, or not draining. Hypertensive disorder 38 008542 I10 contnorvas c 5 mg qdmetoprol ol 25 mg po bidmonitor bp and need to titrate Acute cystitis 61368632 N30.00 with sepsis UTInote: Has longstandi ng hx of recurrent UTI with resistance and has chronic livingston (has been rec to have superpubic cath in past and has refused)re ceived IV vanco and ceftriaxon e in hospcontce furoxime 500mg po bid x 12 days end 05/19 See BPH aboveConti nue to monitor closely, higher risk for infection due to chronic indwelling cath.bacit racin oint topically to penis q shift fu Dr. Pierre as needed if symptoms not improved ([facility] urology or Dr Pierre)raymond tor cbc and bmp weekly x 2 weeks on mondays Supraventr icular tachycardia 5145069 I47.10 hr stableProb lematic in hosp. resolved with adenosine in hosp and sepsis txSeen by Cards, now on metoprolol 25 mg bid (decreased from 75 mg po bid in hosp)Monit or cardiac status Deep venou s thrombosis of lower extremity 842590579 I82.413 eliquis 5 mg bidcontinu emonitor for bleedingco nsider repeat imaging if provoked, seems resolved [id number] LANDEN PEREZ NP [facility] [address] [address] 05/20/2024 08:45:56 05/21/2024 16:01:59 Altered mental status 119320477 R41.82 resolved with sepsis treatmentb ack to baselinemo nitor closely for changes Acute cystitis 88080675 N30.00 with sepsis UTInote: Has longstandi ng hx of recurrent UTI with resistance and has chronic livingston (has been rec to have superpubic cath in past and has refused)re ceived IV vanco and ceftriaxon e in hosp., completed cefuroxime 500mg po bid x 12 days on 05/19 Continue to monitor closely, higher risk for infection due to chronic indwelling cath.bacit racin oint topically to penis q shift Has follow up with Dr. Pierre 05/22 Benign pro static hyperplasia with outflow obstruction 712379701 N40.1 baseline bph with chronic foleyconti nue current meds monitor for effectnsg to irrigate catheter with 60 cc saline/tati er prn increased sedimentfu with urology for catheter changes monthly as he has had traumatic livingston exchanges and mulitple er visits in past and seems to have an obstructio n at times.raymond tor for s/s of pain, burning, or not draining.A dd ultram 50 mg bid prn to help with pain per pt. request - monitor uses and effect Hypertensive disorder 38 228103 I10 BP high yesterdayc ontinue:no rvasc 5 mg qdmetoprol ol 25 mg po bidmonitor bp and need to titrate Supraventr icular tachycardia 3623624 I47.10 hr stableProb lematic in hosp. resolved with adenosine in hosp and sepsis txSeen by Cards, now on metoprolol 25 mg bid (decreased from 75 mg po bid in hosp. due to issues with bradycardi a)Monitor cardiac status Deep venou s thrombosis of lower extremity 130140863 I82.413 eliquis 5 mg bidcontinu emonitor for bleedingco nsider repeat imaging if provoked, seems resolved [id number] [facility] [address] 05/28/2024 15:51:34 05/30/2024 13:45:57 Altered mental status 382461395 R41.82 resolved with sepsis treatmentb ack to baselinemo nitor closely for changes Acute cystitis 23826862 N30.00 with sepsis UTInote: Has longstandi ng hx of recurrent UTI with resistance and has chronic livingston (has been rec to have superpubic cath in past and has refused)re ceived IV vanco and ceftriaxon e in hosp., completed cefuroxime 500mg po bid x 12 days completed 05/19 Continue to monitor closely, higher risk for infection due to chronic indwelling cath. /cath to change out at urologybac itracin oint topically to penis q shift Has follow up with Dr. Pierre 05/22 Benign pro static hyperplasia with outflow obstruction 863632848 N40.1 baseline bph with chronic foleyconti nue current meds monitor for effectnsg to irrigate catheter with 60 cc saline/tati er prn increased sedimentfu with urology for catheter changes monthly as he has had traumatic livingston exchanges and mulitple er visits in past and seems to have an obstructio n at times.raymond tor for s/s of pain, burning, or not draining.u ltram 50 mg bid prn to help with pain per pt. request - monitor uses and effect Hypertensive disorder 38 463703 I10 BP high today, mostly controlled continue:n orvasc 5 mg qdmetoprol ol 25 mg po bidmonitor bp and need to titrate Supraventr icular tachycardia 3880687 I47.10 hr stableProb lematic in hosp. resolved with adenosine in hosp and sepsis txSeen by Cards, now on metoprolol 25 mg bid (decreased from 75 mg po bid in hosp. due to issues with bradycardi a)Monitor cardiac status Deep venou s thrombosis of lower extremity 554527120 I82.413 eliquis 5 mg bidcontinu emonitor for bleedingco nsider repeat imaging if provoked, seems resolved Intertrigo 01684728 L30. 4 pt with intertrigo to abd foldlikely fungal and likely related to depend plastic on skin or skin on skin05/28 start nystatin cream topically to abd fold bid and prnmonitor closelycon supervisor cab antifungal oral diflucan if persists [id number] Myriam Delgado NP [facility] [address] [address] 05/30/2024 10:32:42 06/03/2024 09:55:17 Acute chest pain 616698928 R07.9 acute chest pain with tachycardi a 160sapply 2 liters o2send to ER, call 911 Tachycardia 3462869 R00. 0 acute chest pain with tachycardi a 160ssend to ER, call 911 [id number] Myriam Delgado NP [facility] [address] [address] 06/02/2024 10:07:28 06/04/2024 10:04:51 Acute cystitis 31462272 N30.00 with sepsis UTI recently now resolved note: Has longstandi ng hx of recurrent UTI with resistance and has chronic livingston (has been rec to have superpubic cath in past and has refused)re ceived IV vanco and ceftriaxon e in hosp., completed cefuroxime 500mg po bid x 12 days completed 05/19 Continue to monitor closely, higher risk for infection due to chronic indwelling cath. /cath to change out at urologybac itracin oint topically to penis q shift Has follow up with Dr. Pierre 05/22 Benign pro static hyperplasia with outflow obstruction 862979380 N40.1 baseline bph with chronic foleyconti nue current meds monitor for effectnsg to irrigate catheter with 60 cc saline/tati er prn increased sedimentfu with urology for catheter changes monthly as he has had traumatic livingston exchanges and mulitple er visits in past and seems to have an obstructio n at times.raymond tor for s/s of pain, burning, or not draining.u ltram 50 mg bid prn to help with pain per pt. request - monitor uses and effect Hypertensive disorder 38 201610 I10 BP high today, mostly controlled continue:n orvasc 5 mg qdmetoprol ol 25 mg po bidmonitor bp and need to titrate Supraventr icular tachycardia 3461613 I47.10 resolvedfe lt with hx of and resolved in hospital, no mention of adenosine this admitProbl ematic in hosp. in past also resolved with adenosine in hosp and sepsis tx on prior admit hr stable here now 60s Seen by Cards no prior admit, plan to cont metoprolol 25 mg bid (decreased from 75 mg po bid in hosp. 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 9 resolved as above in tachycardi a during hosp admissionh ad elevated trops in hosp as abovemonit or for reoccurenc e [id number] [facility] [address] [place] [address] 06/05/2024 09:59:51 06/06/2024 13:43:38 Supraventricular tachycardia 8740559 I47.10 resolvedfe lt with hx of and resolved in hospital, no mention of adenosine this admitProbl ematic in hosp. in past also resolved with adenosine in hosp and sepsis tx on prior admit hr stable here now 60s, bp slightly high with amlodipine dc;d today, however mostly controlled and will monitor Seen by Cards no prior admit, plan to cont metoprolol 25 mg bid (decreased from 75 mg po bid in hosp. due to issues with bradycardi a)hosp rec dc amlodipine Monitor cardiac status Chest pain 78707308 R07. 9 resolved as above in tachycardi a during hosp admissionh ad elevated trops in hosp as abovemonit or for reoccurenc e Hypertensive disorder 38 504433 I10 BP high today, mostly controlled continue:m etoprolol 25 mg po bidmonitor bp and need to titrate Anxiety 74259131 F41.9 states his daughter mentions and he feels anxious lately06/05 start cymbalta 20 mg po qhs for anxiety depression rec by psychmonit or Acute cystitis 23709721 N30.00 with sepsis UTI recently now resolved note: Has longstandi ng hx of recurrent UTI with resistance and has chronic livingston (has been rec to have superpubic cath in past and has refused)re ceived IV vanco and ceftriaxon e in hosp., completed cefuroxime 500mg po bid x 12 days completed 05/19 Continue to monitor closely, higher risk for infection due to chronic indwelling cath. /cath to change out at urologybac itracin oint topically to penis q shift Had follow up with Dr. Pierre 05/22 and fu thereafter nsg scheduling Benign pro static hyperplasia with outflow obstruction 119168703 N40.1 baseline bph with chronic foleyconti nue current meds monitor for effectnsg to irrigate catheter with 60 cc saline/tati er prn increased sedimentfu with urology for catheter changes monthly as he has had traumatic livingston exchanges and mulitple er visits in past and seems to have an obstructio n at times.raymond tor for s/s of pain, burning, or not draining.u ltram 50 mg bid prn to help with pain per pt. request - monitor uses and effect Deep venou s thrombosis of lower extremity 888558071 I82.413 eliquis 5 mg bidcontinu emonitor for bleedingco nsider repeat imaging if provoked, seems resolved [id number] Myriam Delgado NP [address] [address] 06/13/2024 09:22:02 06/16/2024 15:20:15 Anxiety 70207703 F41.9 anxiety seems decreased today06/05 started on cymbalta 20 mg po qhs for anxiety depression rec by psychmonit or for full effect of med change Supraventr icular tachycardia 9899646 I47.10 resolved and hr stable todayfelt with hx of and resolved in hospital, no mention of adenosine this admitProbl ematic in hosp. in past also resolved with adenosine in hosp and sepsis tx on prior admit hr stable here now 60s, bp slightly high with amlodipine dc;d today, however mostly controlled and will monitor Seen by Cards no prior admit, plan to cont metoprolol 25 mg bid (decreased from 75 mg po bid in hosp. due to issues with bradycardi a)hosp rec dc amlodipine Monitor cardiac status Hypertensive disorder 38 078181 I10 BP high today, mostly controlled occ labile with normal pressures after medicated latleycont inue:metop rolol 25 mg po bidmonitor bp and need to titrate Acute cystitis 91219095 N30.00 with sepsis UTI recently now resolved note: Has longstandi ng hx of recurrent UTI with resistance and has chronic livingston (has been rec to have superpubic cath in past and has refused)re ceived IV vanco and ceftriaxon e in hosp., completed cefuroxime 500mg po bid x 12 days completed 05/19 Continue to monitor closely, higher risk for infection due to chronic indwelling cath. /cath to change out at urologyneo sporin oint topically to penis q shift for comfort Had follow up with Dr. Pierre 05/22 and fu thereafter nsg scheduling Benign pro static hyperplasia with outflow obstruction 482509770 N40.1 baseline bph with chronic foleyconti nue current meds monitor for effectnsg to irrigate catheter with 60 cc saline/tati er prn increased sedimentfu with urology for catheter changes monthly as he has had traumatic livingston exchanges and mulitple er visits in past and seems to have an obstructio n at times.raymond tor for s/s of pain, burning, or not draining.u ltram 50 mg bid prn to help with pain per pt. request - monitor uses and effect Deep venou s thrombosis of lower extremity 685844761 I82.413 eliquis 5 mg bidcontinu emonitor for bleedingco nsider repeat imaging if provoked, seems resolved [id number] [facility] Del[facility] [address] [place] [address] 06/27/2024 08:32:00 06/30/2024 12:07:13 Benign prostatic hyperplasia with outflow obstruction 722449095 N40.1 baseline bph with chronic livingston > 6yearscont inue current meds monitor for effect fu with urology for catheter changes monthly as he has had traumatic livingston exchanges and mulitple er visits in past and seems to have an obstructio n at times with difficulty changing catheter here monitor for s/s of pain, burning, or not draining.n sg to irrigate catheter with 60 cc saline/tati er prn increased sediment per urology may apply lidocaine/ prilocaine gel q 8 hours prn pain of penissee chronic pain meds belowmonit or uses and effect Anxiety 91267807 F41.9 anxiety seems decreased today06/05 started on cymbalta 20 mg po qhs for anxiety depression rec by psychmonit or for full effect of med change Chronic pain 79810776 G8 9.29 with increased pain recentlyCo ntinue:06/27 increase tramadol to 50 mg bid and q 12 hours prn to help with pain per pt. requestAPA P 650 mg q4h prngabapen tin 300 mg tidcymbalt a 20 mg po dailyPT/OT prnmonitor Neuropathy 369771699 G62 .9 see above for management [id number] JEFF BARLOW NP [facility] [address] [place] [address] 08/02/2024 12:31:57 08/04/2024 11:36:09 Ureteric stone 82623703 N20.1 Cefpoxidim e 200 mg bid to 08/11Octre otide 1 ml SC bidmonitor for any changes in urine output Benign pro static hyperplasia with outflow obstruction 097341591 N40.1 baseline bph with chronic livingston > 6yearscont inue current meds monitor for effect fu with urology for catheter changes monthly as he has had traumatic livingston exchanges and mulitple er visits in past and seems to have an obstructio n at times with difficulty changing catheter here monitor for s/s of pain, burning, or not draining.n sg to irrigate catheter with 60 cc saline/tati er prn increased sediment per urology may apply lidocaine/ prilocaine gel q 8 hours prn pain of penissee chronic pain meds belowmonit or uses and effectfina steride 5 mg daily Anxiety 85762884 F41.9 anxiety seems decreased today06/05 started on cymbalta 20 mg po qhs for anxiety depression rec by psychmonit or for full effect of med change Chronic pain 98776768 G8 9.29 with increased pain recentlyCo ntinue:06/27 increase tramadol to 50 mg bid and q 12 hours prn to help with pain per pt. requestAPA P 650 mg q4h prngabapen tin 300 mg tidcymbalt a 20 mg po dailyPT/OT prnmonitor Neuropathy 992537997 G62 .9 see above for management Hypertensive disorder 38 223838 I10 amlodipine 5 mg dailymetop rolol 25 mg bidmonitor bp Asthenia 36862098 R53.1 PT OT eval and treatfall precaution sFrequent safety checks Supraventr icular tachycardia [id number] I47.10 metoprolol 25 mg bideliquis 5 mg bidmonitor heart rate [id number] Myriam Delgado NP [address] [address] 08/06/2024 15:06:50 08/11/2024 10:46:13 Ureteric stone [id number] N20.1 contCefpox idime 200 mg bid to 08/11Octre otide 1 ml SC bidmonitor for any changes in urine output On 09/01/2024 at 8:45 am, arrival at 7:15am he will go to [facility] for lithotrips y with stent placement. Day of surgery : NPO, and will need to have eliquis held for 2-3 days prior. Will hold for 08/29-09/01. Nursing aware.- 08/18/2024 a urinalysis will need to be done and sent to [facility], no other labs ordered- 09/08/24 at 10:15 am will have fu at [facility], [address] for stent removal Benign pro static hyperplasia with outflow obstruction [id number] N40.1 baseline bph with chronic livingston > 6yearscont inue current meds monitor for effectfu with urology for catheter changes monthly as he has had traumatic livingston exchanges and mulitple er visits in past and seems to have an obstructio n at times with difficulty changing catheter here monitor for s/s of pain, burning, or not draining.n sg to irrigate catheter with 60 cc saline/tati er prn increased sediment per urology may apply lidocaine/ prilocaine gel q 8 hours prn pain of penissee chronic pain meds belowmonit or uses and effectfina steride 5 mg dailymonit or closely Anxiety 18601552 F41.9 anxiety seems decreased todaycontc ymbalta 20 mg po qhs for anxiety with improvemen tmonitor for full effect of med change Chronic pain 19408837 G8 9.29 Continue:t ramadol to 50 mg bid and q 12 hours prnAPAP 650 mg q4h prngabapen tin 300 mg tidcymbalt a 20 mg po dailyPT/OT prnmonitor Neuropathy 993859002 G62 .9 see above for management Hypertensive disorder 38 693324 I10 amlodipine 5 mg dailymetop rolol 25 mg bidmonitor bp Asthenia 40288239 R53.1 PT OT eval and treatfall precaution sFrequent safety checks Supraventr icular tachycardia 9424191 I47.10 stablecont metoprolol 25 mg bideliquis 5 mg bidmonitor heart rate Mass of pancreas 4832627 00 K86.89 Currently maintained on Octreotide 50 mcg SC bidappt:se e hpi with details for fu Continue to monitorlab s to CBC, BMP weekly x 2 weeks Endocrine fu note recommends : 07/25 notecontch jacquie blood glucose q am, recheck if blood glucose low after snackoctre otide 50 mcg bid. Fu 12/01/24 @ 1:40pm with Dr Sharon Smith u 10/25/[address] of abd fu of mass pending insurance approval [id number] Myriam Delgado NP [address] [place] [address] 08/08/2024 11:09:19 08/11/2024 12:25:05 Ureteric stone 43401087 N20.1 yellow urine and free flowingcon tCefpoxidi me 200 mg bid to 08/11Octre otide 1 ml SC bidmonitor for any changes in urine output planOn 09/01/2024 at 8:45 am, arrival at 7:15am he will go to [facility] for lithotrips y with stent placement. Day of surgery : NPO, and will need to haveeliqui s held for 2-3 days prior. Will hold for 08/29-09/01. Nursing aware on 08/06- 08/18/2024 a urinalysis will need to be done and sent to [facility], no other labs ordered for them- 09/08/24 at 10:15 am will have fu at [facility], [address] for stent removalnjayne henderson has these appt and tranportat ion booked except last one(martín gallardo) Benign pro static hyperplasia with outflow obstruction [id number] N40.1 baseline bph with chronic livingston > [...] steride 5 mg dailymonit or closely Anxiety 93296653 F41.9 anxiety seems decreased todaycontc ymbalta 20 mg po qhs for anxiety with improvemen tmonitor for full effect of med change Chronic pain 15733425 G8 9.29 pain controlled Continue:t ramadol to 50 mg bid and q 12 hours prnAPAP 650 mg q4h prngabapen tin 300 mg tidcymbalt a 20 mg po dailyPT/OT prnmonitor Neuropathy 407141178 G62 .9 see above for management Hypertensive disorder 38 459849 I10 contamlodi pine 5 mg dailymetop rolol 25 mg bidmonitor bp Asthenia 04338283 R53.1 PT OT eval and treatfall precaution sFrequent safety checks Supraventr icular tachycardia 3381247 I47.10 stablecont metoprolol 25 mg bideliquis 5 mg bidmonitor heart rate Mass of pancreas 6378781 00 K86.89 Currently maintained on Octreotide 50 mcg SC bidappt:se e hpi with details for fu Continue to monitorlab s to CBC, BMP weekly x 2 weeks Endocrine fu note recommends : 07/25 notecontch jacquie blood glucose q am, recheck if blood glucose low after snackoctre otide 50 mcg bid. Fu 12/01/24 @ 1:40pm with Dr Herrera endocrineF u 10/25/[address] [facility] abd fu [facility] and tranportat ion booked except last one(martín gallardo) [id number] Myriam Delgado NP [address] [address] 08/14/2024 13:34:38 08/15/2024 10:17:59 Ureteric stone 03015972 N20.1 yellow urine and free flowingcon tCefpoxidi me 200 mg bid till 08/11monit or for any changes in urine output plan 024 at 8:45 am, arrival at 7:15amhe will go to [facility]ps y with stent placement. Day of surgery : NPO, and will need to haveeliqui s held for 2-3 days prior. Will hold for 08/29-09/01. (Nursing aware on 08/06 and in computer to hold meds)- 08/18/2024 a urinalysis will need to be done and sent to [facility], no other labs ordered for them or needed when called- 09/08/24 at 10:15 am will have fu at [address], [address] for stent removalnjayne henderson has these appt and tranportat ion booked except last one(pendjonathan g) Mass of pancreas 8721832 00 K86.89 Currently maintained on Octreotide 50 mcg SC bidappt:Co ntinue to monitorlab s to CBC, BMP weekly x 2 weeks total and prnOctreot brody 1 ml SC bid07/25 Endocrine fu note recommends :contcheck blood glucose q am, recheck if blood glucose low after snackoctre otide 50 mcg bid. Fu 12/01/24 @ 1:40pm with Dr Herrera endocrineF u 10/25/[address] of abd fu of mass pending insurance approvalnu betty has these appt and tranportat ion booked except last one(pendin g) Benign pro static hyperplasia with outflow obstruction 693194034 N40.1 baseline bph with chronic livingston > [...] steride 5 mg dailymonit or closely Anxiety 94706572 F41.9 anxiety seems decreased todayconta dd trazodone 50 mg po qhs recently per psych reccymbalt a 20 mg po qhs for anxiety with improvemen tmonitor for full effect of med change Chronic pain 13978061 G8 9.29 pain controlled Continue:t ramadol to 50 mg bid and q 12 hours prnAPAP 650 mg q4h prngabapen tin 300 mg tidcymbalt a 20 mg po dailyPT/OT prnmonitor Neuropathy 328028589 G62 .9 see above for management Hypertensive disorder 38 228854 I10 contamlodi pine 5 mg dailymetop rolol 25 mg bidmonitor bp Asthenia 55040707 R53.1 PT OT eval and treatfall precaution sFrequent safety checks Supraventr icular tachycardia 4062991 I47.10 stablecont metoprolol 25 mg bideliquis 5 mg bidmonitor heart rate [id number] Myriam Delgado NP [facility] [address] [place] [address] 08/27/2024 15:18:13 08/28/2024 11:59:50 Ureteric stone 29902862 N20.1 yellow urine and free flowingcon tCefpoxidi me 200 mg bid till or for any changes in urine output cont 024 at 8:45 am, arrival at 7:15amhe will go to [facility] with stent placement. Day of surgery : NPO, and will need to haveeliqui s held for 2-3 days prior. Will hold for 08/29-09/01. (Nursing aware on 08/06 and in computer to hold meds)08/20 urinalysis sent to [facility], no other labs ordered for them or needed when hxqrux83/1 03/17 at 10:15 am will have fu at [facility], [address] for stent removalnjayne henderson has these appt and transporta tion booked except last one(pendjonathan ) Mass of pancreas 9380258 00 K86.89 Currently maintained on Octreotide 50 mcg SC bidappt:Co ntinue to monitorlab s to CBC, BMP weekly x 2 weeks total and prnOctreot brody 1 ml SC bid07/25 Endocrine fu note recommends :contcheck blood glucose q am, recheck if blood glucose low after snackoctre otide 50 mcg bid. Fu 10/25/[address] of abd fu of mass pending insurance approval, nsg aware and will check on timebandar paulina has these appt and tranportat ion booked except last one(pendin g) Fu 12/01/24 @ 1:40pm with Dr Herrera endocrine Benign pro static hyperplasia with outflow obstruction 146606145 N40.1 baseline bph with chronic livingston > [...] steride 5 mg dailymonit or closely Anxiety 24383229 F41.9 anxiety improved and feels better lately with trazodonec onttrazodo ne 50 mg po qhs recently per psych reccymbalt a 20 mg po qhs for anxiety with improvemen tmonitor for full effect of med change Chronic pain 22723830 G8 9.29 pain controlled Continue:t ramadol to 50 mg bid and q 12 hours prnAPAP 650 mg q4h prngabapen tin 300 mg tidcymbalt a 20 mg po dailyPT/OT prnmonitor [id number] Myriam Delgado, [facility]ICK [facility] [address] 08/29/2024 13:51:48 09/01/2024 13:27:19 Ureteric stone 46374212 N20.1 yellow urine and free flowingcon tCefpoxidi me 200 mg bid till 18monit or for any changes in urine output cont 024 at 8:45 am, arrival at 7:15amhe will go to [facility]ps y with stent placement. Day of surgery : NPO, and will need to haveeliqui s held for 2-3 days prior. Will hold for 08/29-09/01. (Nursing aware on 08/06 and in computer to hold meds)08/20 urinalysis sent to [facility], no other labs ordered for them or needed when aeztiv61/1 03/17 at 10:15 am will have fu at [address], [address] for stent removalnjayne henderson has these appt and transporta tion booked except last one(martín gallardo) Mass of pancreas 5953627 00 K86.89 Currently maintained on Octreotide 50 mcg SC bidappt:Co ntinue to monitorlab s to CBC, BMP weekly x 2 weeks total and prnOctreot brody 1 ml SC bid07/25 Endocrine fu note recommends :contcheck blood glucose q am, recheck if blood glucose low after snackoctre otide 50 mcg bid.Fu 10/25/[address] of abd fu of mass pending insurance approval, nsg aware and will check on timebandar gallardo has these appt and tranportat ion booked except last one(martín gallardo) Fu 12/01/24 @ 1:40pm with Dr Herrera endocrine Benign pro static hyperplasia with outflow obstruction 905667165 N40.1 baseline bph with chronic livingston > [...] steride 5 mg dailymonit or closely Anxiety 18924776 F41.9 anxiety improved and feels better lately with trazodonec onttrazodo ne 50 mg po qhs recently per psych rec08/29 increase cymbalta from 20 mg to 30 mg po qhs for anxiety with improvemen tmonitor for full effect of med change Chronic pain 06816611 G8 9.29 pain controlled Continue:t ramadol to 50 mg bid and q 12 hours prnAPAP 650 mg q4h prngabapen tin 300 mg tid16 increase cymbalta 30 mg po dailyPT/OT prnmonitor [id number] Myriam Delgado NP [address] [address] 09/03/2024 10:54:48 09/05/2024 14:17:28 Ureteric stone 40477329 N20.1 yellow urine and free flowingcon tCefpoxidi me 200 mg bid till 08/11monit or for any changes in urine output Also seen regarding his lithotrips y appt which was canceled on 09/01.Plan: reschedule d for 09/15/24. Hold eliquis for 3 days prior and urinalysis with c & s ordered and verified with urology office. Nursing entered ordered.ns g calling for appt for stent removal and 09/08 appt needs to be canceled (Nursing aware on 09/03 and in computer to hold meds)monit or Mass of pancreas 2863773 00 K86.89 Currently maintained on Octreotide 50 [...] Benign pro static hyperplasia with outflow obstruction 482136597 N40.1 baseline bph with chronic livingston > [...] 5 mg dailymonit or closely Chronic pain 55359935 G8 9.29 pain controlled Continue:t ramadol to 50 mg bid and q 12 hours prnAPAP 650 mg q4h prngabapen tin 300 mg tidcymbalt a 30 mg po daily (saran increase well)PT/OT prnmonitor Abnormalit y of nail of toe 132237486 L60.8 right 4th toenail fell off without any bleeding, infection or discolorat ionns wash, pat dry, apply bacitracin and bandaid daily until healedmoni tor for s/s of infection [id number] Myriam Delgado NP [address] [place] [address] 10/02/2024 14:27:29 10/03/2024 10:55:10 Ureteric stone 03307078 N20.1 resolved with lithotrips y and stent removal on 10/01/23 with urology outptremai ns with chronic foleymonit or Mass of pancreas 9009150 00 K86.89 Currently maintained on Octreotide 50 mcg SC bidappt:Co ntinue to monitorOct reotide 1 ml SC bid07/25 Endocrine fu note recommends :cont09/03 check blood glucose q am and stable without low's, recheck if blood glucose low after snackoctre otide 50 mcg bid.Fu 10/25/[address] of abd fu of mass pending insurance approval, nsg aware and will check on timensteph gallardo has these appt and transporta tion booked except last one(pendin paulina) Fu 12/01/24 @ 1:40pm with Dr Herrera endocrine Benign pro static hyperplasia with outflow obstruction 360213674 N40.1 baseline bph with chronic livingston > [...] 5 mg dailymonit or closely Chronic pain 73618725 G8 9.29 pain controlled Continue:t ramadol to 50 mg bid and q 12 hours prnAPAP 650 mg q4h prngabapen tin 300 mg tidcymbalt a 30 mg po dailyPT/OT prnmonitor Abnormalit y of nail of toe 886289149 L60.8 right 4th toenail fell off without any bleeding, infection or discolorat ionns wash, pat dry, apply bacitracin and bandaid daily until healedmoni tor for s/s of infection Anxiety 39227007 F41.9 anxiety improved and feels better lately with trazodonec onttrazodo ne 100 mg po qhscymbalt a from 30 mg po qhs for anxietyhyp droxyzine 25 mg po q 8 hours prn anxietymon itor Neuropathy 086403595 G62 .9 see above for management Hypertensive disorder 38 019825 I10 bp stablecont amlodipine 5 mg dailymetop rolol 25 mg bidmonitor bp Asthenia 13833775 R53.1 PT OT eval and treat prnfall precaution sFrequent safety checks Supraventr icular tachycardia 3205728 I47.10 stablecont metoprolol 25 mg bideliquis 5 mg bidmonitor heart rate [id number] Myriam Delgado NP [facility] [address] [address] 10/08/2024 14:10:48 10/10/2024 15:04:17 Ureteric stone 86523973 N20.1 resolved with lithotrips y and stent removal on 10/01/23 with urology outptremai ns with chronic livingston replaced on 10/01/24need s fu with urology, nsg to [facility] u/s with left ureteral hydronephr osismonito r for bleeding/r eoccurence /infection Benign pro static hyperplasia with outflow obstruction 901277576 N40.1 baseline bph with chronic livingston > [...] 5 mg dailymonit or closely Chronic pain 67469696 G8 9.29 denies any pain todayConti nue:change tramadol from 50 mg tid and q 12 hours prn to 25 mg po tid and 50 prn q 12hrs prnAPAP 650 mg q4h prngabapen tin 300 mg tidcymbalt a 30 mg po dailyPT/OT prnmonitor Anxiety 82854838 F41.9 anxiety improved and feels better lately with trazodone, however ? more confusedco nt10/08 decrease trazodone from 100 mg to 50 mg po qhscontcym glendy from 30 mg po qhs for anxietyhyp droxyzine 25 mg po q 8 hours prn anxietymon itor Impaired cognition 78705 6002 R41.89 with increased confusion lately over time 5 adjust trazodone and tramadol today as reviewed with omar ramon cbc bmp and urinalysis to rule out infection/ electrolyt e derjason t [id number] Myriam Delgado NP [facility] [address] [address] 10/13/2024 15:56:35 10/15/2024 10:55:49 Ureteric stone 17216798 N20.1 resolved with lithotrips y and stent removal on 10/01/23 with urology outptremai ns with chronic livingston replaced on 10/01/24rena l u/s with left ureteral hydronephr osis done [facility] fu with urology Benign pro static hyperplasia with outflow obstruction 192318581 N40.1 baseline bph with chronic livingston > [...] steride 5 mg dailymonit or closely Anxiety 10990788 F41.9 due to confusion recently decreased trazadonec onttrazodo ne 50 mg po qhscymbalt a from 30 mg po qhs for anxietyhyp droxyzine 25 mg po q 8 hours prn anxietymon itor Impaired cognition 19071 6002 R41.89 with increased confusion lately over last few monthstraz odone and tramadol recently decreasedc bc bmp and urinalysis to rule out infection/ electrolyt e derangemen t pendinghas treatable UTI and will treat Recurrent urinary tract infection 216392447 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, also pseudomona s infection will treat with linezolid 600 mg po bid x 14 days for chronic UTIand probioticm onitor for changes in mental status [id number] Myriam Delgado NP [address] [address] 10/17/2024 13:50:27 10/21/2024 15:02:52 Anxiety 79032121 F41.9 10/17 hold trazodone and cymbalta, resume 24 hours after linezolid is finished start ativan 0.5 mg po q 8 hours prn for anxiety for 14 dayscont hydroxyzin e 25 mg po q 8 hours prn anxietymon itor Recurrent urinary tract infection 086425539 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, also pseudomona s infection will treat with linezolid 600 mg po bid x 14 days for chronic UTIand probiotic cont with above planmonito r for changes in mental status Ureteric stone 63395797 N20.1 resolved with lithotrips y and stent removal on 10/01/23 with urology outptremai ns with chronic livingston replaced on 10/01/24rena l u/s with left ureteral hydronephr osis done and sent to [facility] for bleeding/r eoccurence /infection fu with urology [id number] Myriam Delgado NP [address] [address] 10/30/2024 13:45:38 10/31/2024 14:12:46 Anxiety 49739401 F41.9 10/17 hold trazodone and cymbalta, resume 24 hours after linezolid is finished start ativan 0.5 mg po q 8 hours prn for anxiety for 14 days/ dc ativan, other meds resumed trazodone and cymbaltaco nt hydroxyzin e 25 mg po q 8 hours prn anxietymon itor Recurrent urinary tract infection 919899415 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, also pseudomona s infectiont reated with linezolid 600 mg po bid x 14 days for chronic UTI started on 10/13/24and probioticm onitor for changes in mental statushe refused labs this am, will repeat yecenia cbc and bmp Ureteric stone 78998581 N20.1 resolved with lithotrips y and stent removal on 10/01/23 with urology outptremai ns with chronic livingston replaced on 10/01/24rena l u/s with left ureteral hydronephr osis done and sent [facility] for bleeding/r eoccurence /infection fu with urology 11/13 for fu of stones Recurrent falls 93277244 2 R29.6 10/30 pt rolled out of bed and seems gradually more confusedre cently treated for uti with chronic utisupport duong caremonito r fall risk and need for increased support in community Health Concerns Section Related Observation LastModified by Organization Detai ls LastModified Time None Recorded Concern Status LastModified by Organization Details LastModified Time None Recorded Advance Directives Directive Y: Payers Encounter Date Sequence Insurance Name Policy Number Policy Morton Covered Member ID Morton Member ID Guarantor Name 10/02/2024 1 [facility] - DOS ON OR AFTER 2022 - MEDICARE [place]VANTAGE [place]MEDICARE REPLACEMENT/AD VANTAGE - PPO) Alhaji Varner [id number] Alhaji Varner 10/02/2024 2 [place] [facility] Varner [id number] Alhaji Varner 10/08/2024 1 [place] B[place] [employer] Alhaji Varner [id number] Alhaji Varner 10/08/2024 2 [place] [facility] Alhaji Tritscher [id number] [facility] 10/13/2024 1 [place] [employer] Alhaji Tritscher [id number] [place] [facility] 10/13/2024 2 [place] [facility] Alhaji Tritscher [id number] [place] [facility] 10/17/2024 1 [place] [employer] Alhaji Tritscher [id number] [place] [facility] 10/17/2024 2 [place] [facility] Alhaji Tritscher [id number] [facility] 10/30/2024 1 [place] [employer] Alhaji Tritscher [id number] [place] [facility] 10/30/2024 2 [place] [facility] Alhaji Trigarimacher [id number] [facility] Notes Date Note Type Note Provider Name and Address Organization Details Recorded Time 5 text/html Pt is seen for an annual visit today. He is a 68 year old male, initially admitted to [facility] on 09/07/23 after a hospital stay for [...] mcg SC bid until surgery.Sent back to [facility] a few weeks after admission due to [...] started on abx. Pt was sent to [facility] on 05/01-05/07/24 for alerted mental status with confusion, lethargy, and not responsive to voice, and low grade temp, found to have sepsis UTI. On 06/02/24 he was seen for readmission from [facility] after presenting with chest pain, heart pounding, [...] was dc'd. On 08/02 is readmitted to [facility]. Alhaji is a 69 yom resident that [...] back he had some blood in his livingston however it is clearing with yellow urine [...] fu of mass pending insurance approval Myriam Delgado, PATRICK [address], [address], [place], [address], [facility] [employer] 10/02/2024 23:38:45 5 text/html Pt is seen for an [...] as spry as before. Ativan discussed per ron and will have psych reeval this week. [...] pending insurance approval Myriam Delgado NP [address], [address], [place], [address], [facility] [employer] 10/08/2024 18:44:54 5 text/html Pt is seen for an acute visit today seen in fu to increased confusion. 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 He is colonized with chronic livingston for many years. Due to the increased confusion will treat today. On exam, Alhaji is lying in bed in NAD. No new concerns. He remains with confusion and yelling out hello frequently per nursing. He denies any concerns today. of note;He is a 68 year old male, [facility] resident, with recent lithotripsy on 09/15/24. On 10/01/24 Alhaji had his lithotripsy stent removal. He received cefpodoxime x 1 dose per urology as ordered. Renal u/s done and faxed to urology on 10/02/24 concluding Mild left hydronephrosis. Will need to fu with urology as prior u/s not available for comparison. Fu with urology as planned.Fu 12/01/24 @ 1:40pm with Dr Sharon norton for massFu 10/25/[address] of abd fu of mass pending insurance approval Myriam Delgado NP [address], [address], [place], [address], [facility] [employer] 10/13/2024 17:35:16 5 text/html Pt is seen for an acute visit today. 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 He is colonized with chronic livingston for many years. Due to the increased confusion he was treated with linezolid which is sensitive on culture. Upon speaking with psychologist educational linezolid can increase levels and put him at risk for serotonin syndrome. After consulting decided to hold cymbalta and trazodone and start ativan 0.5 mg po q 8 hours prn for anxiety. On exam, pt is sitting up in a chair in NAD in the dining room. He is agreeable to the change and urine yellow in livingston. Fu with urology as planned.Fu 12/01/24 @ 1:40pm with Dr Herrera endocrine for massFu 10/25/[address] of abd fu of mass pending insurance approval Myriam Delgado NP [address], [address], [place], [address], [employer] 10/17/2024 13:58:37 5 text/html Pt is seen for an acute visit today. He is seen for rolling out of bed and suffered a small abrasion to the top of his scalp approx 0.5 cm round. No interventions needed. No bleeding or hematoma or other injuries noted. Alhaji is lying in bed in [facility]. He is confused today [...] with Dr Herrera endocrine for mass Myriam Delgado NP [address], [address], [place], [address], [employer] 10/30/2024 14:13:02
[2024-10-31] MEDS: Acetaminophen Supp 650 MG SUPP.RECT PR (21:13)
[2024-10-31 22:25] VITALS: BP 151/85; PULSE 75; RESP 18; TEMP 38.3; O2SAT 93
--- NOTE | 2024-10-31 22:43 | ED_ITS ---
HPI - Altered Mental Status General Chief Complaint: Altered Mental Status Stated Complaint: sepsis alert Time Seen by Provider: 10/31/24 22:40 Source: family and EMS Mode of arrival: EMS Limitations: altered mental status History of Present Illness ED Provider: HPI narrative: Patient's home [facility] senior living with history of pancreatic insulin normal deconditioning nonambulatory after COVID last year with severe anxiety and depression recently had lithotripsy and a stent placement in 09/16 [facility] brought from senior living for change in mental status increased lethargy and unresponsiveness noted to have temperature of 102.4 also patient has apparently fell earlier today was found between the 2 beds patient is unable to get up off his own likely was trying to do it rolled down no signs of significant injuries noticed no vomiting no diarrhea patient does have slight cough per daughter patient was communicating before this texting and face time but has not done this in last few days Related Data Home Medications ?Medication ?Instructions ?Recorded ?Confirmed acetaminophen 650 mg rectal 650 mg MN Q4H PRN Fever Or Pain 05/01/24 05/01/24 suppository apixaban 5 mg tablet (Eliquis) 5 mg PO BID 05/01/24 05/01/24 bacitracin zinc 500 unit/gram 1 appl topical TID 05/01/24 05/01/24 topical ointment bisacodyl 10 mg rectal suppository 10 mg MN DAILY PRN Constipation 05/01/24 05/01/24 calcium carbonate 500 mg PO Q4H PRN Dyspepsia 05/01/24 05/01/24 finasteride 5 mg tablet 5 mg PO DAILY 05/01/24 05/01/24 gabapentin 300 mg capsule 300 mg PO TID 05/01/24 05/01/24 lidocaine-prilocaine 2.5 %-2.5 % 1 appl topical Q8H PRN mild pain 05/01/24 05/01/24 topical cream loperamide 2 mg tablet 2 mg PO Q4H PRN Loose Stool 05/01/24 05/01/24 loperamide 2 mg tablet 4 mg PO DAILY PRN Loose Stool 05/01/24 05/01/24 magnesium hydroxide 400 mg/5 mL 30 ml PO BEDTIME PRN Constipation 05/01/24 05/01/24 oral suspension (Milk of Magnesia) melatonin 3 mg tablet 3 mg PO BEDTIME 05/01/24 05/01/24 naloxone 4 mg/actuation nasal 4 mg intranasal Q3M PRN Opioid 05/01/24 05/01/24 spray (Narcan) Overdose octreotide acetate 50 mcg/mL (1 50 mcg subcut BID 05/01/24 05/01/24 mL) injection syringe omeprazole 20 mg capsule,delayed 20 mg PO DAILY@0630 05/01/24 05/01/24 release simethicone 80 mg chewable tablet 80 mg PO Q8H PRN Gastric Reflux 05/01/24 05/01/24 sodium phosphates 19 gram-7 118 ml MN DAILY PRN Constipation 05/01/24 05/01/24 gram/118 mL enema (Fleet Enema) Previous Rx's ?Medication ?Instructions ?Recorded walker (Ultra-Light Rollator misc) #1 ea 05/02/23 amlodipine 5 mg tablet 5 mg PO DAILY 90 days #90 tabs 05/22/23 miscellaneous medical supply #1 ea 06/26/23 cefuroxime axetil 500 mg tablet 500 mg PO BID #24 tabs 05/05/24 metoprolol tartrate 25 mg tablet 25 mg PO BID #60 tabs 05/07/24 Allergies Allergy/AdvReac Type Severity Reaction Status Date / Time No Known Allergies Allergy Verified 10/31/24 20:09 Review of Systems 2 Review of Systems: Yes Unobtainable due to mental status PMFSH Past Medical History Medical History BPH (benign prostatic hyperplasia) Surgical History No pertinent past surgical history Social History Social History Household Members: Other Housing: Residential Unable to assess alcohol history related to: Unable to respond Comment: wheelchair and bedbound Patient Tobacco Use Status: Former Tobacco user Tobacco use type: Cigarette and Cigar e-Cigarette/Vaping Use: Never Used Second Hand Smoke Exposure: No Use of substances other than those prescribed or required for medical reasons: Unable to respond Advance Directives: Yes Advance Directives on File: Yes Advance Directives Date on File: 12/19/23 service: No Current occupational status: retired Current occupational exposures/hazards: No Cognitive needs: No Hearing needs: No Vision needs: No Physical Exam ED Vital Signs: Vital Signs - 24 hr 10/31/24 20:00 10/31/24 20:01 10/31/24 22:25 Temperature 102.4 F H 102.4 F H 101.0 F H Pulse Rate 74 85 75 Respiratory Rate 22 H 14 18 Blood Pressure 155/89 H 155/89 H 151/85 H Pulse Oximetry 91 L 91 L 93 Oxygen Delivery Method Room Air Room Air Room Air 10/31/24 23:16 11/01/24 02:17 11/01/24 03:58 Temperature 100.0 F 99.6 F 99.2 F Pulse Rate 70 66 61 Respiratory Rate 20 18 16 Blood Pressure 147/81 H 116/67 136/87 Pulse Oximetry 95 94 95 Oxygen Delivery Method Room Air Room Air Room Air BMI result Body Mass Index 22.0 Appearance: Alert. And awake No acute distress. Answering with few words Eyes: PERRLA, No Nystagmus ENT: Pharynx normal. Oral Mucosa moist atraumatic normocephalic Neck: Normal inspection. Neck supple. CVS: Normal heart rate and rhythm. Pulses normal. Respiratory: No respiratory distress. Equal air entry bilateral, no wheezing/rales/rhonchi Abdomen: Soft and nontender. Bowel sounds are present, no mass palpable, no CVA tenderness Skin: Skin warm and dry. Normal skin color. Normal skin turgor. Extremities: No lower extremity edema. No calf tenderness Neuro: Alert and awake. Moving all 4 extremities to painful stimuli Medications Administered Generic Name Dose Route Start Last Admin Trade Name Freq PRN Reason Stop Dose Admin Dextrose/Sodium Chloride 1,000 mls @ 100 mls/hr 11/01/24 04:52 11/01/24 06:07 D5ns IVCONT 11/01/24 14:51 100 mls/hr .Q10H ONE Administration Discontinued Medications Generic Name Dose Route Start Last Admin Trade Name Freq PRN Reason Stop Dose Admin Acetaminophen 650 mg 10/31/24 21:06 10/31/24 21:13 Acetaminophen Supp 650 Mg Supp.Rect MN 10/31/24 21:07 650 mg ONCE ONE Administration Ceftriaxone Sodium 1 gm 10/31/24 22:44 10/31/24 22:52 Ceftriaxone Sodium 1 Gm Vial IVPUSH 10/31/24 22:45 1 gm ONCE ONE Administration Sodium Chloride 1,000 mls @ 999 mls/hr 10/31/24 22:44 11/01/24 00:45 Ns IV 10/31/24 23:44 Infused .Q1H1M ONE Infusion Piperacillin Sod/Tazobactam 50 mls @ 100 mls/hr 11/01/24 00:59 11/01/24 02:59 Sod 3.375 gm/ Sodium Chloride IV 11/01/24 01:28 Infused ONCE ONE Infusion Oseltamivir Phosphate 75 mg 10/31/24 23:13 10/31/24 23:47 Oseltamivir Phosphate 75 Mg Capsule PO 10/31/24 23:14 75 mg ONCE ONE Administration Medical Decision Making Medical Decision Making [facility] Narrative: Patient with increased large in change in mental status from UTI influenza A noted to have Zuniga catheter bulb in prostate which was inside and small amount of pus came out from the penis tip patient is started on Zosyn admit patient for take mental status secondary to metabolic encephalopathy from influenza a and UTI possible prostatitis patient's became more alert during stay in the ER after IV hydration Patient's cervical C-spine showed nondisplaced right pedicle fracture of C6 and compression fracture of T2 . Patient is nonambulatory moving all 4 extremity at this time case discussed with neurosurgery at [facility] advised High View collar for cervical fracture neurosurgeon will call in the a.m. after removing the CT scan and most likely patient does not need High View collar after this Differential Diagnosis Differential Diagnoses: The differential diagnosis associated with the presentation includes Admission/Observation Consideration of admission/observation: Escalation of care including admission/observation considered Consult Healthcare Provider Management of the patient was discussed with: Hospitalist Lab Data [facility] Lab Attestation statement: I reviewed the patient's lab results. 11/01/24 06:45 10/31/24 20:21 Labs: Lab Results 10/31/24 10/31/24 Range/Units 20:18 20:21 WBC 12.6 H (4.8-10.8) X10*3/uL RBC 4.09 L (4.60-5.80) X10*6/uL Hgb 11.8 L (14.0-18.0) g/dl Hct 35.2 L (42.0-52.0) % MCV 86.1 (80.0-98.0) fL MCH 28.9 (27.0-33.0) pg MCHC 33.5 (31.0-36.0) g/dl RDW 14.8 (11.0-16.0) % Plt Count 301 D (160-400) X10*3/uL MPV 8.4 L (9.4-12.4) fL Immature Gran % (Auto) 0.4 (0.0-0.4) % Neut % (Auto) 70.0 (45-73) % Lymph % (Auto) 19.7 L (20-40) % Roosevelt % (Auto) 9.7 (2-11) % Eos % (Auto) 0.1 (0-4) % Baso % (Auto) 0.1 (0-2) % Lymph # (Auto) 2.5 (1.2-4.9) X10*3/uL Roosevelt # (Auto) 1.2 (0.1-1.2) X10*3/uL Eos # (Auto) 0.0 (0.0-0.4) X10*3/uL Baso # (Auto) 0.0 (0.0-0.2) X10*3/uL Abs Immat Gran (auto) 0.05 H (0.00-0.03) X10*3/uL Absolute Neuts (auto) 8.8 H (2.0-8.3) x10*3/uL Absolute Nucleated RBC 0.000 (0.0-0.012) X10*3/uL Nucleated RBC % (auto) 0.0 (0.0-0.2) /100WBC Sodium 135 (135-145) mmol/L Potassium 4.6 D (3.3-5.1) mmol/L Chloride 98 (96-108) mmol/L Carbon Dioxide 24 (22-29) mmol/L Anion Gap 18 (12-20) BUN 28 H (9-16) mg/dL Creatinine 0.69 (0.5-1.4) mg/dL Estim Creat Clear Calc 93.8 Estimated GFR > 60 Random Glucose 150 H (60-115) mg/dL Lactic Acid 1.9 (0.5-2.0) mmol/L Calcium 9.3 (8.4-10.2) mg/dL Total Bilirubin 0.3 (0.0-1.0) mg/dL AST 36 (5-37) U/L ALT 35 (0-40) U/L Alkaline Phosphatase 88 (39-117) U/L Total Protein 8.3 H (6.5-8.0) g/dL Albumin 3.6 (3.5-5.0) g/dL Urine Color Yellow Urine Appearance Cloudy Urine pH 6.0 (5.0-9.0) Ur Specific [place] 1.020 (1.005-1.025) Urine Protein 30 (1+) H (Neg-Trace) mg/dL Urine Glucose (UA) Negative (Negative) mg/dL Urine Ketones Negative (Negative) mg/dL Urine Blood Large (3+) H (Negative) Urine Nitrite Negative (Negative) Ur Leukocyte Esterase Large (3+) H (Negative) Urine RBC >20 H (0-2) /HPF Urine WBC >50 H (0-5) /HPF Ur Squamous Epith Cells 3-5 (0-2) /HPF Urine Bacteria 4+ (None Seen) Hyaline Casts 3-5 (0-2) /LPF Influenza Type A (PCR) NEGATIVE (Negative) Influenza Type B (PCR) POSITIVE A (Negative) RSV RNA Qual (PCR) NEGATIVE (Negative) SARS-CoV-2 RNA (RT-PCR) NEGATIVE (Negative) Independent Interpretation I performed an independent interpretation of an: EKG, Plain X-Ray and CT Scan Interpretation: Normal sinus rhythm heart rate 76 beats per minute LVH no acute STT wave changes no acute ischemia Radiology Impression Discussion of test interpretation with radiology: I have reviewed the radiologist's reading. Radiologist Impression: [address] [address] [address] Scan Report Signed with Rox Patient: Alhaji Varner MR#: [id number] : 1955 Acct:[id number] Age/Sex: 69 / M ADM Date: 10/31/24 Loc: .ED Attending Dr: Ordering Physician: Aaron Tavares MD Date of Service: 10/31/24 Procedure(s): CT abdomen pelvis wo IV con Accession Number(s): [id number] cc: Physician,Unknown ; Aaron Tavares MD~ Report Number: [id number]: Total DLP = 774.00 mGy-cm ADDENDUMThis document has been electronically signed by: Zach Pham MD on 11/01/2024 00:46:57 ADDENDUM: This report was discussed with Dr. Chaitanya Galvan on Nov 01, 2024 00:52:00 EST. This document has been electronically signed by: Bonny Fisher on 11/01/2024 00:52:23 Addendum Dictated By: Zach Pham MD Addendum Signed By: <Electronically signed by Zach Pham MD in OV> 11/01/2452 Addendum Cosigned By: DD/ /18/46 TD/TT: 11/01/2405/18/52 CLINICAL HISTORY: bacteremia, kidney stone CT abdomen and pelvis without contrast Comparison: CT/SR - CT ABDOMEN PELVIS W IV CON - 05/01/24 18:21 EDT Findings: Motion and streak artifact limit evaluation. Atelectasis with ill-defined consolidations in the posterior left lower lobe. Cardiomegaly without significant pericardial effusion. Coronary artery calcifications. Hepatic steatosis noted. Distended gallbladder. Moderate to severe left hydroureteronephrosis with a 2 mm calculus in the lower pole kidney. Prominent left renal parenchymal edema with [id number]-znbcofv-czhz-right perinephric stranding. Ill-defined stranding with soft tissue fullness along the medial distal left psoas, can not definitively exclude myositis/abscess series 8, image 40. Very mild right hydronephrosis with 4 mm calculus in the upper pole. No bowel obstruction, pneumoperitoneum, or pneumatosis. Fat containing inguinal hernias. Zuniga catheter in the prostate, recommend repositioning. Marked prostatomegaly. 2 mm bladder calculus with possible cystitis. Scattered colonic diverticulosis without diverticulitis or colitis. Mildly distended bladder with mural thickening and stranding, concerning for cystitis. 2 mm calculus in the right posterior bladder. Osteopenia with diffuse multilevel spondylosis. Redemonstrated multilevel thoracolumbar compression deformities, stable. IMPRESSION: 1. Zuniga catheter in the prostate, recommend repositioning. 2. 2 mm bladder calculus with possible cystitis. 3. Atelectasis with ill-defined consolidations in the posterior left lower lobe. Aspiration or pneumonia not excluded. 4. Moderate to severe left hydroureteronephrosis with a 2 mm calculus in the lower pole kidney. 5. Can not exclude left-sided pyelonephritis/ureteritis. Possible myositis/abscess in the distal left psoas, please see above. 6. Very mild right hydronephrosis with 4 mm calculus in the upper pole. This document has been electronically signed by: Zach Pham MD on 11/01/2024 00:46:57 Dictated By: Zach Pham MD Signed By: <Electronically signed by Zach Pham MD in OV> 11/01/2446 DD/ TD/TT: 11/01/2445 [employer]: [place] [id number] CT Scan Report Signed with Addenda Patient: Alhaji Varner MR#: [id number] : 1955 Acct:[id number] Age/Sex: 69 / M ADM Date: 10/31/24 Loc: HO.ED Attending Dr: Ordering Physician: Aaron Tavares MD Date of Service: 10/31/24 Procedure(s): CT cervical spine wo IV con Accession Number(s): [id number] cc: Physician,Unknown ; Aaron Tavares MD~ Report Number: [id number]: Total DLP = 316.00 mGy-cm ADDENDUMThis document has been electronically signed by: Zach Pham MD on 11/01/2024 00:17:42 ADDENDUM: This report was discussed with Chaitanya Galvan on Nov 01, 2024 00:22:00 EST. This document has been electronically signed by: Madeline Aranda on 11/01/2024 00:22:44 Addendum Dictated By: Zach Pham MD Addendum Signed By: <Electronically signed by Zach Pham MD in OV> 11/01/2422 Addendum Cosigned By: DD/ /18/17 TD/TT: 11/01/2405/18/22 CLINICAL HISTORY: fall CT cervical spine without contrast Comparison: None Findings: Reversal of the cervical lordosis. Osteopenia. Advanced multilevel spondylosis with osteophytosis, uncovertebral hypertrophy, facet arthropathy and degenerative disc disease. Ankylosis at C3-C4 and C6-C7. Nondisplaced subtle fracture along the right pedicle of C6. Diffuse spinal canal narrowing, for example [id number] at C4-C5 with severe bilateral foraminal stenoses. Acute appearing moderate compression fracture at T2 with mild posterior inferior retropulsion. 50% height loss noted. Chronic appearing superior endplate height loss at T4. Scattered prominent lymph nodes throughout the neck, may be reactive however are nonspecific. Mildly prominent mediastinal nodes. No consolidation or effusion at the lung apices. Diffuse esophageal mural thickening, nonspecific. IMPRESSION: 1. C6 fracture. 2. T2 compression fracture. 3. Additional findings as described. This document has been electronically signed by: Zach Pham MD on 11/01/2024 00:17:42 Dictated By: Zach Pham MD Critical Care Time Critical Care Time Critical Care Time: Yes Total Critical Care Time: 70 Attestation: The patient was critically ill with a high probability of imminent or life threatening deterioration. I spent greater than 75???minutes of discontinuous time evaluating the patient,delivering critical care at the bedside, discussing and evaluating pertinent data with consultants. Critical care time does not include time spent performing separately billable procedures or teaching. Total time spent performing critical care was ?70??minutes. Discharge Plan Discharge Clinical Impression: Altered mental status, Acute UTI, Closed fracture of sixth cervical vertebra without spinal cord injury, Compression fracture of thoracic vertebra Patient Disposition: Admitted As Inpatient
[2024-10-31] MEDS: 0.9 % Sodium Chloride 1,000 ML 999 ML IV (22:51)
[2024-10-31] MEDS: cefTRIAXone sodium 1 GM VIAL IVPUSH (22:52)
[2024-10-31 23:16] VITALS: BP 147/81; PULSE 70; RESP 20; TEMP 37.8; O2SAT 95
--- NOTE | 2024-10-31 23:25 | MHC.EDTECH ---
This tech took over care of patient at 2300,rounded and introduced self to pt,vitals taken,rectal temp of 100.0,RN aware,pt appears comfortable,call ellison in reach
[2024-10-31] MEDS: Oseltamivir Phosphate 75 MG CAPSULE PO (23:47)
[2024-11-01] VITALS (14 sets, daily range): BP systolic 115–176; BP diastolic 67–95; PULSE 61–118; RESP 15–21; TEMP 36.3–38.3; O2SAT 93–97; BMI 22.0
[2024-11-01] MEDS: Piperacillin Sodium/Tazobactam 3.375 GM in 0.9 % Sodium Chloride 50 ML IV (01:33)
--- NOTE | 2024-11-01 04:57 | P.HPHOSP_ITS ---
History of Present Illness Date of Service: 11/01/24 Attending physician on admission: Gokul Caballero Chief Complaint: Altered mental status since this evening Patient is a 69 year old white male who is currently a resident at [facility] and who has past medical history of hypertension, chronic low back pain, 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, BPH with chronic indwelling Zuniga catheter, recurrent UTI's, history of c.diff, paroxysmal atrial fibrillation, physical deconditioning following COVID-19 infection, unspecified dementia (at baseline, he is minimally ambulatory, assistance in most ADLs, but oriented with decent insight and able to converse well with family), who is brought to the ED from his SNF for evaluation of altered mental status and unwitnessed fall. He was found on the floor by his bedside this evening and was unresponsive to stimuli. No obvious injuries were noted at the time. On arrival to the ED, he was found to be febrile with a temperature of 102.4 F. Initial blood work done revealed a leukocytosis of 12.6 K while urinalysis had 3+ leukocyte esterase, > 50 WBC/HPF, and 4+ bacteria. Imaging studies done included a CT scan of the cervical spine that revealed fracture of the C6 pedicle and T2 compression fracture. A CT scan of the abdomen and pelvis revealed left lower lobe consolidation concerning for aspiration pneumonia, moderate to severe left hydroureteronephrosis with concern for left-sided pyelonephritis with possible myositis/abscess in the distal left psoas muscle. He also has a mild right hydronephrosis with a 4 mm calculi in the right upper renal pole. An assessment of sepsis due to left-sided pyelonephritis with possible myositis / left psoas abscess was made and he was started on IV Ceftriaxone and admission requested. Of note, he has had a normal lactic acid and blood pressures so did not receive IV fluids for resuscitation. When I saw him, he was still lethargic and difficult to awaken and so I did not obtain any additional information from him. Review of Systems 2 Review of Systems: Yes Unobtainable due to mental status [facility] Medical History BPH (benign prostatic hyperplasia) Surgical History No pertinent past surgical history Social History Household Members: Other Housing: Half-Way Unable to assess alcohol history related to: Unable to respond Comment: wheelchair and bedbound Patient Tobacco Use Status: Former Tobacco user Tobacco use type: Cigarette and Cigar e-Cigarette/Vaping Use: Never Used Second Hand Smoke Exposure: No Use of substances other than those prescribed or required for medical reasons: Unable to respond Advance Directives: Yes Advance Directives on File: Yes Advance Directives Date on File: 12/19/23 service: No Current occupational status: retired Current occupational exposures/hazards: No Cognitive needs: No Hearing needs: No Vision needs: No Meds Allergies Allergy/AdvReac Type Severity Reaction Status Date / Time No Known Allergies Allergy Verified 10/31/24 20:09 Home Medications ?Medication ?Instructions ?Recorded ?Confirmed ?Last Taken ?Type acetaminophen 650 mg rectal 650 mg WV Q4H PRN Fever Or Pain 05/01/24 05/01/24 Unknown History suppository apixaban 5 mg tablet (Eliquis) 5 mg PO BID 05/01/24 05/01/24 Unknown History bacitracin zinc 500 unit/gram 1 appl topical TID 05/01/24 05/01/24 Unknown History topical ointment bisacodyl 10 mg rectal suppository 10 mg W[place] DAILY PRN Constipation 05/01/24 05/01/24 Unknown History calcium carbonate 500 mg PO Q4H PRN Dyspepsia 05/01/24 05/01/24 Unknown History finasteride 5 mg tablet 5 mg PO DAILY 05/01/24 05/01/24 Unknown History gabapentin 300 mg capsule 300 mg PO TID 05/01/24 05/01/24 Unknown History lidocaine-prilocaine 2.5 %-2.5 % 1 appl topical Q8H PRN mild pain 05/01/24 05/01/24 Unknown History topical cream loperamide 2 mg tablet 2 mg PO Q4H PRN Loose Stool 05/01/24 05/01/24 Unknown History loperamide 2 mg tablet 4 mg PO DAILY PRN Loose Stool 05/01/24 05/01/24 Unknown History magnesium hydroxide 400 mg/5 mL 30 ml PO BEDTIME PRN Constipation 05/01/24 05/01/24 Unknown History oral suspension (Milk of Magnesia) melatonin 3 mg tablet 3 mg PO BEDTIME 05/01/24 05/01/24 Unknown History naloxone 4 mg/actuation nasal 4 mg intranasal Q3M PRN Opioid 05/01/24 05/01/24 Unknown History spray (Narcan) Overdose octreotide acetate 50 mcg/mL (1 50 mcg subcut BID 05/01/24 05/01/24 Unknown History mL) injection syringe omeprazole 20 mg capsule,delayed 20 mg PO DAILY@0630 05/01/24 05/01/24 Unknown History release simethicone 80 mg chewable tablet 80 mg PO Q8H PRN Gastric Reflux 05/01/24 05/01/24 Unknown History sodium phosphates 19 gram-7 118 ml W[place] DAILY PRN Constipation 05/01/24 05/01/24 Unknown History gram/118 mL enema (Fleet Enema) Physical Exam 2 Vital Signs and Narrative: Vital Signs: Last Vital Signs Temp 99.2 F 11/01/24 03:58 Pulse 61 11/01/24 03:58 Resp 16 11/01/24 03:58 BP 136/87 11/01/24 03:58 Pulse Ox 95 11/01/24 03:58 O2 Del Method Room Air 11/01/24 03:58 BMI result Body Mass Index 22.0 General: Ill appearing elderly male in bed. Very difficult to arouse. In no obvious respiratory distress. Psychiatric: Not assessed due to AMS HEENT: Normocephalic, atraumatic. No pallor or jaundice. Dry oral mucus membranes. Neck: Supple. No JVD Lungs: Good breath sounds in the anterolateral lung cardenas. No wheezes Heart: RRR. Normal s1/s2. No murmurs, rubs or gallops. No peripheral edema. Abdomen: Scaphoid, Soft, non-tender. Normoactive bowel sounds. No visceromegaly. Genitourinary: Has Zuniga Catheter in place Back/Spine/Pelvis: Deferred Skin: Warm, dry, well perfused. Normal turgor. No mottling. Normal capillary refill (< 2 seconds). Neurologic: Sleepy and difficult to awaken. Moans to painful sternal rub then goes back to sleep. Further neurological exam not undertaken Extremities: No peripheral edema. Normal muscle bulk. Tone & power not tested. No obvious deformities. Good peripheral pulses. Results Labs 10/31/24 20:21 10/31/24 20:21 Labs: Laboratory Results - last 24 hr 10/31/24 10/31/24 20:18 20:21 MCV 86.1 MCH 28.9 MCHC 33.5 RDW 14.8 Plt Count 301 D MPV 8.4 L Immature Gran % (Auto) 0.4 Neut % (Auto) 70.0 Lymph % (Auto) 19.7 L [place] % (Auto) 9.7 Eos % (Auto) 0.1 Baso % (Auto) 0.1 Lymph # (Auto) 2.5 [place] # (Auto) 1.2 Eos # (Auto) 0.0 Baso # (Auto) 0.0 Abs Immat Gran (auto) 0.05 H Absolute Neuts (auto) 8.8 H Absolute Nucleated RBC 0.000 Nucleated RBC % (auto) 0.0 Anion Gap 18 Estim Creat Clear Calc 93.8 Estimated GFR > 60 Random Glucose 150 H Lactic Acid 1.9 Calcium 9.3 Total Bilirubin 0.3 AST 36 ALT 35 Alkaline Phosphatase 88 Total Protein 8.3 H Albumin 3.6 Urine Color Yellow Urine Appearance Cloudy Urine pH 6.0 Ur Specific [place] 1.020 Urine Protein 30 (1+) H Urine Glucose (UA) Negative Urine Ketones Negative Urine Blood Large (3+) H Urine Nitrite Negative Ur Leukocyte Esterase Large (3+) H Urine RBC >20 H Urine WBC >50 H Ur Squamous Epith Cells 3-5 Urine Bacteria 4+ Hyaline Casts 3-5 Influenza Type A (PCR) NEGATIVE Influenza Type B (PCR) POSITIVE A RSV RNA Qual (PCR) NEGATIVE SARS-CoV-2 RNA (RT-PCR) NEGATIVE Imaging Radiologist's Impressions: Cervical Spine CT 1. Reversal of the cervical lordosis. 2. Osteopenia. Advanced multilevel spondylosis with osteophytosis, uncovertebral hypertrophy, facet arthropathy and degenerative disc disease. Ankylosis at C3-C4 and C6-C7. 3. Nondisplaced subtle fracture along the right pedicle of C6. 4. Diffuse spinal canal narrowing, for example [id number] at C4-C5 with severe bilateral foraminal stenoses. 5. Acute appearing moderate compression fracture at T2 with mild posterior inferior retropulsion. 50% height loss noted. 6. Chronic appearing superior endplate height loss at T4. Scattered prominent lymph nodes throughout the neck, may be reactive however are nonspecific. Mildly prominent mediastinal nodes. No consolidation or effusion at the lung apices. CT Scan of the Abdomen and Pelvis 1. Zuniga catheter in the prostate, recommend repositioning. 2. 2 mm bladder calculus with possible cystitis. 3. Atelectasis with ill-defined consolidations in the posterior left lower lobe. Aspiration or pneumonia not excluded. 4. Moderate to severe left hydroureteronephrosis with a 2 mm calculus in the lower pole kidney. 5. Can not exclude left-sided pyelonephritis/ureteritis. Possible myositis/abscess in the distal left psoas, please see above. 6. Very mild right hydronephrosis with 4 mm calculus in the upper pole. CT Head 1. No acute intracranial hemorrhage or territorial infarction. Assessment and Plan (1) Sepsis: Qualifiers: Sepsis type: sepsis due to unspecified organism Sepsis acute organ dysfunction status: without acute organ dysfunction Qualified Code(s): A41.9 - Sepsis, unspecified organism Status: Resolved (2) Pyelonephritis of left kidney: Status: Acute (3) Hydroureteronephrosis: Status: Acute (4) Fx C6 vertebra-closed: Qualifiers: Encounter type: initial encounter Fracture morphology: other fracture Fracture alignment: nondisplaced Qualified Code(s): S12.591A - Other nondisplaced fracture of sixth cervical vertebra, initial encounter for closed fracture Status: Acute (5) LLL pneumonia: Qualifiers: Pneumonia type: aspiration pneumonia Aspiration pneumonia type: u nspecified Qualified Code(s): J69.0 - Pneumonitis due to inhalation of food and vomit Status: Acute (6) Influenza A: Status: Acute Plan 69 year old white male who with past medical history of hypertension, chronic low back pain, 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 Sepsis - due to UTI / Left pyelonephritis - admit and continue with IV Ceftriaxone - follow up Urine cultures and adjust medications as appropriate 2. Metabolic encephalopathy - presents with altered metal status characterized with unresponsiveness - likely due to infection causing high fever - continue IV antibiotics - place on IF fluids while still altered to keep well hydrated 3. Left pyelonephritis - abdominal CT with findings concerning for pyelonephritis of the left kidney with a possible myositis/abscess in the distal left psoas - treat with the IV ceftriaxone as noted above - follow up on urine cultures - consider ID consult 3. Fracture of C6 - pedicle fracture - ED provide consulted with the neurosurgical service at [facility] will recommend soft [place] collar - this will be applied while the patient is still in the emergency room - await for the neurosurgical input during the course of the day 4. LLL Pneumonia - likely with aspiration pneumonia noted on CT scan - continue IV Ceftriaxone - add Vancomycin given concurrent Influenza A infection 5. Influenza A infection - likely contributing to current presentation including high fevers - start on Tamiflu once he is more awake and able to safely swallow Total time managing care of this patient today: 75 minutes. Quality Stroke Does the patient have a stroke diagnosis?: No VTE Prior VTE?: No VTE Risk Level:: Medical - moderate - high VTE Device Contraindication: N/A - Device Ordered VTE Drug Contraindication: N/A - Med Ordered
[2024-11-01] MEDS: Dextrose 5 % and 0.9 % NaCl 1,000 ML 100 ML IVCONT (06:07)
[2024-11-01 07:02] LABS: Basophils Percent Auto 0.2 % (0-2); Eosinophils Percent Auto 0.1 % (0-4); Hematocrit 33.1 % (42.0-52.0); Hemoglobin 10.7 g/dl (14.0-18.0); Imm Gran Abs Auto 0.04 X10*3/uL (0.00-0.03); Imm Gran Pct Auto 0.4 % (0.0-0.4); Lymphocytes Absolute Auto 2.7 X10*3/uL (1.2-4.9); Lymphocytes Percent Auto 23.8 % (20-40); MANUAL DIFF FLAG NO; Mean Corpuscular HGB Conc 32.3 g/dl (31.0-36.0); Mean Corpuscular Hemoglobin 28.9 pg (27.0-33.0); Mean Corpuscular Volume 89.5 fL (80.0-98.0); Mean Platelet Volume 8.6 fL (9.4-12.4); Monocytes Absolute Auto 1.4 X10*3/uL (0.1-1.2); Monocytes Percent Auto 12.7 % (2-11); Neutrophils Absolute Auto 7.1 x10*3/uL (2.0-8.3); Neutrophils Percent Auto 62.8 % (45-73); Platelet Count 261 X10*3/uL (160-400); Red Cell Distribution Width 14.9 % (11.0-16.0); White Blood Count 11.3 X10*3/uL (4.8-10.8)
[2024-11-01 08:13] LABS: Anion Gap 17 (12-20); Blood Urea Nitrogen 28 mg/dL (9-16); Carbon Dioxide 25 mmol/L (22-29); Chloride 103 mmol/L (96-108); Creatinine Clr Calc Pharmacy 85.2; Estimated Glomerular Filt Rate > 60; Glucose Random 133 mg/dL (60-115); Magnesium 1.7 mg/dL (1.6-2.6); Potassium 4.7 mmol/L (3.3-5.1); Sodium 140 mmol/L (135-145)
--- NOTE | 2024-11-01 08:21 | PC.NURSE ---
Assumed care of pt at 0700. Pt resting in bed quietly, respirations even and unlabored, no increased wob/sob noted, nsr on potline monitor, HR- 60s, C-collar in place, pt denies pain at this time. Call ellison within reach, all needs met at this time.
[2024-11-01] MEDS: metroNIDAZOLE/NS 500 MG/100 ML PIGGYBACK 100 MG IV ×3 (08:43→23:09)
[2024-11-01 09:14] LABS: C Reactive Protein 4.91 mg/dL (< or = 0.50)
[2024-11-01 09:30] LABS: Procalcitonin 0.07 ng/mL
--- NOTE | 2024-11-01 09:33 | PC.NURSE ---
Med administration delayed d/t medication not in pyxis. Pharmacy made aware
--- NOTE | 2024-11-01 10:46 | MHC.SL.SWA ---
Speech Pathologist Impression: Mild to moderate oral dysphagia d/t presence of C-collar and missing dentition, pharyngeal swallow WNL but pt considered elevated risk for aspiration d/t limited tolerance for upright positioning with PO Risk of Aspiration Due to: Reduced Cognition Limited tolerance for upright positioning Dysphasia Diet Status: NDD1 with thins Liquid Consistency and Strategies for Safe Swallow: Liquid Intake Recommendation: Thin Liquid Intake Strategies: Small Sips Solid Food Consistency: Dietary Recommendations: Pureed (NDD1) Additional Modifications to Solid Foods: Oral Medication Intake: Crushed with Puree Please contact the pharmacy regarding appropriate crushable or liquid drug formulations that are available whenever modified delivery is recommended. Compensatory Strategies and Precautions to be Taken for Safe Swallow: Sitting Upright (90 deg) Liquids from Straw Small Bites and Sips Rate of Ingestion Change Supervision While Eating and Drinking for Safe Swallow: Total Assistance (1:1) Foods to Avoid: Swallowing Recommended Treatments: Compens. Strategy Educat. Recommendation for Speech: Inpatient Speech Therapy Comment: [employer] following closely Frequency/Duration: Daily M-F Date Range for Service Req: Timeline to reassess: Feed Research Aide Clinican/Clinical Fellow: No Supervisory Statement: I have reviewed and agree with the student/clinical fellow's documentation: N/A Speech Language Pathologist: Suad Fall M.S., CCC-[employer]
--- NOTE | 2024-11-01 11:27 | PM.UROCN ---
History of Present Illness Consult details Consult date: 11/01/24 Narrative: 69 year old white male resident at [facility] and who has past medical history of hypertension, chronic low back pain, 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, BPH with chronic indwelling [place] catheter, recurrent UTI's, history of c.diff, paroxysmal atrial fibrillation, physical deconditioning following COVID-19 infection, unspecified dementia brought to the ED from his SNF for evaluation of altered mental status and unwitnessed fall. He was found on the floor by his bedside this evening and was unresponsive to stimuli. On arrival to the ED, he was found to be febrile with a temperature of 102.4 F. Initial blood work done revealed a leukocytosis of 12.6 K, UA 3+ leukocyte esterase, > 50 WBC/HPF, and 4+ bacteria. Imaging studies CT scan of the abdomen and pelvis moderate to severe left hydroureteronephrosis with concern for left-sided pyelonephritis with possible myositis/abscess in the distal left psoas muscle. mild right hydronephrosis with a 4 mm calculi in the right upper renal pole. Review of Systems Review of Systems: Yes Unobtainable due to mental status PMFSH Past Medical History Medical History BPH (benign prostatic hyperplasia) Surgical History Surgical History No pertinent past surgical history Social History Social History Household Members: Other Housing: Custodial Unable to assess alcohol history related to: Unable to respond Comment: wheelchair and bedbound Patient Tobacco Use Status: Former Tobacco user Tobacco use type: Cigarette and Cigar e-Cigarette/Vaping Use: Never Used Second Hand Smoke Exposure: No Use of substances other than those prescribed or required for medical reasons: Unable to respond Advance Directives: Yes Advance Directives on File: Yes Advance Directives Date on File: 12/19/23 Nutrition Risks: No Nutritional Risk service: No Current occupational status: retired Current occupational exposures/hazards: No Cognitive needs: No Hearing needs: No Vision needs: No Meds Allergies Allergy/AdvReac Type Severity Reaction Status Date / Time No Known Allergies Allergy Verified 10/31/24 20:09 Active Medications: Current Medications Acetaminophen (Acetaminophen Supp 650 Mg Supp.Rect) 650 mg NE Q6H PRN PRN Reason: Pain, Mild 1-3,fever,headache Calcium Carbonate (Calcium Carbonate 750 Mg Tab.Chew) 750 mg PO Q4H PRN PRN Reason: Heartburn Ceftriaxone Sodium (Ceftriaxone Sodium 2 Gm Vial) 2 gm IVPUSH Q24H [facility] Dextrose/Sodium Chloride (D5ns) 1,000 mls @ 100 mls/hr IVCONT .Q10H ONE Stop: 11/01/24 14:51 Last Admin: 11/01/24 06:07 Dose: 100 mls/hr Metronidazole (Flagyl) 500 mg in 100 mls @ 100 mls/hr IV Q8H [facility] Last Infusion: 11/01/24 09:57 Dose: Infused Magnesium Hydroxide (Milk Of Magnesia 30 Ml Oral.Susp) 30 ml PO DAILY PRN PRN Reason: Constipation Melatonin (Melatonin 3 Mg Tablet) 6 mg PO BEDTIME PRN PRN Reason: Insomnia Ondansetron HCl (Ondansetron Hcl 4 Mg/2 Ml Vial) 4 mg IVPUSH Q8H PRN PRN Reason: Nausea and Vomiting Oseltamivir Phosphate (Oseltamivir Phosphate 75 Mg Capsule) 75 mg PO Q12H [facility] Stop: 11/05/24 21:31 Sodium Chloride (0.9 % Sodium Chloride Flush 3 Ml Syringe) 3 ml IVFLUSH QSHIFT [facility] Last Admin: 11/01/24 08:44 Dose: Not Given Home Medications ?Medication ?Instructions ?Recorded ?Confirmed ?Last Taken ?Type apixaban 5 mg tablet (Eliquis) 5 mg PO BID 05/01/24 11/01/24 Unknown History bisacodyl 10 mg rectal suppository 10 mg NE DAILY PRN Constipation 05/01/24 11/01/24 Unknown History calcium carbonate 500 mg PO Q4H PRN Dyspepsia 05/01/24 11/01/24 Unknown History finasteride 5 mg tablet 5 mg PO DAILY 05/01/24 11/01/24 Unknown History gabapentin 300 mg capsule 300 mg PO TID 05/01/24 11/01/24 Unknown History lidocaine-prilocaine 2.5 %-2.5 % 1 appl topical Q8H PRN mild pain 05/01/24 11/01/24 Unknown History topical cream loperamide 2 mg tablet 2 mg PO Q4H PRN Loose Stool 05/01/24 11/01/24 Unknown History magnesium hydroxide 400 mg/5 mL 30 ml PO DAILY PRN Constipation 05/01/24 11/01/24 Unknown History oral suspension (Milk of Magnesia) melatonin 3 mg tablet 3 mg PO BEDTIME 05/01/24 11/01/24 Unknown History naloxone 4 mg/actuation nasal 4 mg intranasal Q3M PRN Opioid 05/01/24 11/01/24 Unknown History spray (Narcan) Overdose octreotide acetate 50 mcg/mL (1 50 mcg subcut BID 05/01/24 11/01/24 Unknown History mL) injection syringe omeprazole 20 mg capsule,delayed 20 mg PO DAILY@0630 05/01/24 11/01/24 Unknown History release simethicone 80 mg chewable tablet 80 mg PO Q8H PRN Gastric Reflux 05/01/24 11/01/24 Unknown History sodium phosphates 19 gram-7 118 ml NE DAILY PRN Constipation 05/01/24 11/01/24 Unknown History gram/118 mL enema (Fleet Enema) acetaminophen 325 mg tablet 650 mg PO Q4H PRN Fever Or Pain 11/01/24 11/01/24 Unknown History (Tylenol) duloxetine 30 mg capsule,delayed 30 mg PO BEDTIME 11/01/24 11/01/24 Unknown History release tramadol 50 mg tablet 50 mg PO Q12H PRN Pain 11/01/24 11/01/24 Unknown History trazodone 50 mg tablet 50 mg PO BEDTIME 11/01/24 11/01/24 Unknown History Physical Exam Vital Signs: Vital Signs: Last Vital Signs Temp 99.0 F 11/01/24 08:20 Pulse 64 11/01/24 08:20 Resp 16 11/01/24 08:20 BP 120/81 11/01/24 08:20 Pulse Ox 93 11/01/24 08:20 O2 Del Method Room Air 11/01/24 08:20 BMI result Body Mass Index 22.0 Const: General: no acute distress and well developed HEENT: Head: Yes normocephalic and Yes atraumatic Eyes: Conjunctivae: conjunctivae normal Neck: Neck: Yes normal visual inspection Chest: Chest palpation & inspection: normal inspection of the chest Resp: Effort & Inspection: normal respiratory effort Cardio: Rate: regular rate GI: Inspection: Yes normal to inspection Palpation (GI): Soft to palpation : Other: Livingston is in place. Iatrogenic hypospadias below penile dee Psych: Appearance: grossly normal Affect: normal affect Results Labs 11/01/24 06:45 11/01/24 06:45 Labs: Abnormal lab results 10/31/24 10/31/24 11/01/24 Range/Units 20:18 20:21 06:45 WBC 12.6 H 11.3 H (4.8-10.8) X10*3/uL RBC 4.09 L 3.70 L (4.60-5.80) X10*6/uL Hgb 11.8 L 10.7 L (14.0-18.0) g/dl Hct 35.2 L 33.1 L (42.0-52.0) % MPV 8.4 L 8.6 L (9.4-12.4) fL Lymph % (Auto) 19.7 L (20-40) % [place] % (Auto) 12.7 H (2-11) % [place] # (Auto) 1.4 H (0.1-1.2) X10*3/uL Abs Immat Gran (auto) 0.05 H 0.04 H (0.00-0.03) X10*3/uL Absolute Neuts (auto) 8.8 H (2.0-8.3) x10*3/uL BUN 28 H 28 H (9-16) mg/dL Random Glucose 150 H 133 H (60-115) mg/dL C-Reactive Protein 4.91 H (< or = 0.50) mg/dL Total Protein 8.3 H (6.5-8.0) g/dL Urine Protein 30 (1+) H (Neg-Trace) mg/dL Urine Blood Large (3+) H (Negative) Ur Leukocyte Esterase Large (3+) H (Negative) Urine RBC >20 H (0-2) /HPF Urine WBC >50 H (0-5) /HPF Influenza Type B (PCR) POSITIVE A (Negative) Short CBC 10/31/24 11/01/24 Range/Units 20:21 06:45 WBC 12.6 H 11.3 H (4.8-10.8) X10*3/uL Hgb 11.8 L 10.7 L (14.0-18.0) g/dl Hct 35.2 L 33.1 L (42.0-52.0) % Plt Count 301 D 261 (160-400) X10*3/uL BMP 10/31/24 11/01/24 20:21 06:45 Sodium 135 140 Potassium 4.6 D 4.7 Chloride 98 103 Carbon Dioxide 24 25 BUN 28 H 28 H Creatinine 0.69 0.76 Calcium 9.3 9.0 Liver Function 10/31/24 Range/Units 20:21 Total Bilirubin 0.3 (0.0-1.0) mg/dL AST 36 (5-37) U/L ALT 35 (0-40) U/L Alkaline Phosphatase 88 (39-117) U/L Albumin 3.6 (3.5-5.0) g/dL Urine 10/31/24 Range/Units 20:18 Urine Color Yellow Urine Appearance Cloudy Urine pH 6.0 (5.0-9.0) Ur Specific [place] 1.020 (1.005-1.025) Urine Protein 30 (1+) H (Neg-Trace) mg/dL Urine Glucose (UA) Negative (Negative) mg/dL Imaging Abdomen CT scan report/results: report reviewed and image reviewed CT scan - pelvis: report reviewed and image reviewed Additional studies: Date of Service: 10/31/24 CLINICAL HISTORY: bacteremia, kidney stone CT abdomen and pelvis without contrast Comparison: CT/SR - CT ABDOMEN PELVIS W IV CON - 05/01/24 18:21 EDT Findings: Motion and streak artifact limit evaluation. Atelectasis with ill-defined consolidations in the posterior left lower lobe. Cardiomegaly without significant pericardial effusion. Coronary artery calcifications. Hepatic steatosis noted. Distended gallbladder. Moderate to severe left hydroureteronephrosis with a 2 mm calculus in the lower pole kidney. Prominent left renal parenchymal edema with [id number]-cast-right perinephric stranding. Ill-defined stranding with soft tissue fullness along the medial distal left psoas, can not definitively exclude myositis/abscess series 8, image 40. Very mild right hydronephrosis with 4 mm calculus in the upper pole. No bowel obstruction, pneumoperitoneum, or pneumatosis. Fat containing inguinal hernias. [place] catheter in the prostate, recommend repositioning. Marked prostatomegaly. 2 mm bladder calculus with possible cystitis. Scattered colonic diverticulosis without diverticulitis or colitis. Mildly distended bladder with mural thickening and stranding, concerning for cystitis. 2 mm calculus in the right posterior bladder. Osteopenia with diffuse multilevel spondylosis. Redemonstrated multilevel thoracolumbar compression deformities, stable. IMPRESSION: 1. [place] catheter in the prostate, recommend repositioning. 2. 2 mm bladder calculus with possible cystitis. 3. Atelectasis with ill-defined consolidations in the posterior left lower lobe. Aspiration or pneumonia not excluded. 4. Moderate to severe left hydroureteronephrosis with a 2 mm calculus in the lower pole kidney. 5. Can not exclude left-sided pyelonephritis/ureteritis. Possible myositis/abscess in the distal left psoas, please see above. 6. Very mild right hydronephrosis with 4 mm calculus in the upper pole. Assessment and Plan (1) Pyelonephritis of left kidney: Status: Acute (2) Hydroureteronephrosis: Status: Acute (3) Acute UTI: Status: Acute (4) Chronic indwelling [place] catheter: Status: Inactive (5) BPH loc w urin obs/LUTS: Status: Acute (6) Obstructive uropathy: Status: Acute Plan livingston repositioned per nursing staff No surgical intervention at this time, Urine and blood c/s pending Cont broad spectum IV abx Procedures Date of Service Date of Service: 11/01/24
--- NOTE | 2024-11-01 12:30 | PHA.MEDREC ---
Addendum entered by Hari Briones RPh 11/01/24 12:44: Med rec was reviewed by [facility]. Original Note: Pharmacy Consult ? Medication Reconciliation Pharmacy has completed the medication reconciliation. Utilized [facility] medlist to confirm meds.
[2024-11-01] MEDS: Acetaminophen Supp 650 MG SUPP.RECT PR ×2 (12:47→17:52)
--- NOTE | 2024-11-01 13:43 | PC.NURSE ---
Pt repositioned and changed by koffi and this RN. Pt incontinent of small, soft BM. Rectal temp 100.7, Tylenol TN given. Resting quietly in bed, C-collar in place for safety.
--- NOTE | 2024-11-01 13:55 | PM.EVENT ---
Event Note Date of Service: 11/01/24 Event Note: Day hospitalist update S: awake, alert cleared for puree diet febrile to 100.7 O: Temp Pulse Resp BP Pulse Ox O2 Del Method 100.7 F H 110 H 21 H 146/83 H 93 Room Air 11/01/24 12:48 11/01/24 12:48 11/01/24 12:48 11/01/24 12:48 11/01/24 12:48 11/01/24 12:48 Gen: in no acute distress HEENT: sclera anicteric, moist mucus membranes Neck: supple Lungs: clear to auscultation bilaterally Heart: regular rate and rhythm, no murmurs Abd: soft, non-tender, non-distended Ext: no edema Skin: warm/well-perfused Neuro: alert and oriented x3, no focal findings Psych: appropriate affect A/P: d1 for 69yo M LTC resident of [facility] with HTN, 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, BPH with chronic Zuniga, recurrent UTIs with hx of Cdiff, pAF, and dementia brought in with AMS and unwitnessed fall; found to be septic [febrile/leukocytosis] with influenza B, LLL PNA, pyelonephritis with psoas myositis/abscess, moderate-severe left hydrouereteronephrosis; also C6 pedicle and T2 compression fractures. sepsis - multiple possible sources including influenza, PNA, pyelonephritis with possible psoas myositis/abscess L pyelonephritis L psoas myositis/abscess? - discussed with Gen Surg + Urology. does not appear drainable at this time and likely secondary to kidney infection. plan is to re-image on 11/[address] A/P. continue ceftriaxone, follow UCx L hydroureteronephrosis nephrolithiasis - stones not obstructing per Urology; hydronephrosis could have been due to misplaced Zuniga [in prostate/replaced]; re-image on 11/03 as above LLL pneumonia, ?aspiration vs post-influenza - ceftriaxone + metronidazole + vancomycin 11/01-, trend PCT, follow BCx, MRSA swab POSITIVE, urinary antigens for Legionella and pneumococcus - given hx Cdiff will give PO vancomycin as well for prevention infuenza B - oseltamivir 11/01-11/06, droplet precautions acute encephalopathy due to infection/fever - appears to be resolving C6 pedicle fracture T2 compression fracture - ED Dr Tavares contacted neurosurgeon on-call at [facility] [place] and recommended soft [place] collar, which is applied; awaiting the promised call back after [facility] Neurosurgery reviews the imaging to see if this is still needed; pain control with oxycodcone/morphine neuroendocrine tumor - octreotide BPH - finasteride, Zuniga ?AF - continue apixaban, metoprolol tartrate neuropathy - duloxetine, gabapentin mood disorder - trazodone HTN - amlodipine, metoprolol tartrate VTE ppx - apixaban dispo - eventual return to LTC In my clinical judgment, the patient requires continued hospitalization for the following reasons: IV ABX Time Spent With Patient Time: Total time managing care of this patient today ____ minutes.
--- NOTE | 2024-11-01 14:31 | PC.NURSE ---
Pt noted to be sinus tach 120s. MD Conroy aware. Pt denies cp/sob at this time.
[2024-11-01 14:49] LABS: MRSA Nasal PCR POSITIVE (Negative); SA Nasal PCR POSITIVE (Negative)
[2024-11-01] MEDS: Gabapentin 300 MG CAPSULE PO ×2 (14:50→21:11)
[2024-11-01] MEDS: vancomycin HCL 1,500 MG in 0.9 % Sodium Chloride 500 ML 333.33 MG IV (14:52)
--- NOTE | 2024-11-01 17:17 | PM.CNGS ---
History of Present Illness Consult details Consult date: 11/01/24 Requesting physician: Rubio Conroy Narrative: The patient is a 69-year-old male comes in with some abdominal pain and imaging carry out shows left hydronephrosis Zuniga catheter in place but stuck in the prostate area moderate hydronephrosis on the left side some small kidney stones. He has a inflammatory changes around the left kidney and potential small so as abscess. Patient afebrile Review of Systems Review of Systems: Yes Unobtainable due to mental status PMFSH Past Medical History Medical History BPH (benign prostatic hyperplasia) Surgical History Surgical History No pertinent past surgical history Social History Social History Household Members: None Housing: Care Home Do you presently have visiting nurse or other home services: No Unable to assess alcohol history related to: Unable to respond Comment: wheelchair and bedbound Patient Tobacco Use Status: Former Tobacco user Tobacco use type: Cigarette and Cigar e-Cigarette/Vaping Use: Never Used Second Hand Smoke Exposure: No Advance Directives Date on File: 12/19/23 service: No Current occupational status: retired Current occupational exposures/hazards: No Cognitive needs: No Hearing needs: No Vision needs: No Meds Allergies Allergy/AdvReac Type Severity Reaction Status Date / Time No Known Allergies Allergy Verified 10/31/24 20:09 Active Medications: Current Medications Acetaminophen (Acetaminophen Supp 650 Mg Supp.Rect) 650 mg IN Q6H PRN PRN Reason: Pain, Mild 1-3,fever,headache Last Admin: 11/01/24 12:47 Dose: 650 mg Amlodipine Besylate (Amlodipine Besylate 5 Mg Tablet) 5 mg PO DAILY GO; Protocol Apixaban (Apixaban 5 Mg Tablet) 5 mg PO BID GO Bisacodyl (Bisacodyl 10 Mg Supp.Rect) 10 mg IN DAILY PRN PRN Reason: Constipation Calcium Carbonate (Calcium Carbonate 750 Mg Tab.Chew) 750 mg PO Q4H PRN PRN Reason: Heartburn Ceftriaxone Sodium (Ceftriaxone Sodium 2 Gm Vial) 2 gm IVPUSH Q24H GO Duloxetine HCl (Duloxetine Hcl 30 Mg Capsule.) 30 mg PO BEDTIME [facility] Finasteride (Finasteride 5 Mg Tablet) 5 mg PO DAILY [facility] Gabapentin (Gabapentin 300 Mg Capsule) 300 mg PO TID [facility] Last Admin: 11/01/24 14:50 Dose: 300 mg Metronidazole (Flagyl) 500 mg in 100 mls @ 100 mls/hr IV Q8H [facility] Last Admin: 11/01/24 16:37 Dose: 100 mls/hr Vancomycin HCl 750 mg/ Sodium (Chloride) 265 mls @ 265 mls/hr IV Q12H [facility] Loperamide HCl (Loperamide Hcl 2 Mg Capsule) 2 mg PO Q4H PRN PRN Reason: Loose Stool Magnesium Hydroxide (Milk Of Magnesia 30 Ml Oral.Susp) 30 ml PO DAILY PRN PRN Reason: Constipation Melatonin (Melatonin 3 Mg Tablet) 6 mg PO BEDTIME PRN PRN Reason: Insomnia Metoprolol Tartrate (Metoprolol Tartrate 25 Mg Tablet) 25 mg PO BID [facility]; Protocol Octreotide Acetate (Octreotide Acetate 100 Mcg/Ml Ampul) 50 mcg SUBCUT BID [facility] Omeprazole (Omeprazole 20 Mg Capsule.) 20 mg PO DAILY@0630 [facility] Ondansetron HCl (Ondansetron Hcl 4 Mg/2 Ml Vial) 4 mg IVPUSH Q8H PRN PRN Reason: Nausea and Vomiting Oseltamivir Phosphate (Oseltamivir Phosphate 75 Mg Capsule) 75 mg PO Q12H [facility] Stop: 11/05/24 21:31 Pharmacy Consult (Consult Rx Vancomycin Dosing) 1 each MISCELLANE DAILY PRN PRN Reason: Consult order Simethicone (Simethicone 80 Mg Tab.Chew) 80 mg PO Q8H PRN PRN Reason: Gastric Reflux Sodium Biphosphate/Sodium Phosphate (Sodium Phosphate,[place]-Dibasic 133 Ml Enema) 118 ml IN DAILY PRN PRN Reason: Constipation Sodium Chloride (0.9 % Sodium Chloride Flush 3 Ml Syringe) 3 ml IVFLUSH QSHIFT [facility] Last Admin: 11/01/24 16:38 Dose: Not Given Tramadol HCl (Tramadol Hcl 50 Mg Tablet) 50 mg PO Q12H PRN PRN Reason: Pain, Severe (Pain Scale 7-10) Trazodone HCl (Trazodone Hcl 50 Mg Tablet) 50 mg PO BEDTIME [facility] Vancomycin HCl (Vancomycin Hcl 125 Mg Capsule) 125 mg PO Q6H [facility] Home Medications ?Medication ?Instructions ?Recorded ?Confirmed ?Last Taken ?Type apixaban 5 mg tablet (Eliquis) 5 mg PO BID 05/01/24 11/01/24 Unknown History bisacodyl 10 mg rectal suppository 10 mg IN DAILY PRN Constipation 05/01/24 11/01/24 Unknown History calcium carbonate 500 mg PO Q4H PRN Dyspepsia 05/01/24 11/01/24 Unknown History finasteride 5 mg tablet 5 mg PO DAILY 05/01/24 11/01/24 Unknown History gabapentin 300 mg capsule 300 mg PO TID 05/01/24 11/01/24 Unknown History lidocaine-prilocaine 2.5 %-2.5 % 1 appl topical Q8H PRN mild pain 05/01/24 11/01/24 Unknown History topical cream loperamide 2 mg tablet 2 mg PO Q4H PRN Loose Stool 05/01/24 11/01/24 Unknown History magnesium hydroxide 400 mg/5 mL 30 ml PO DAILY PRN Constipation 05/01/24 11/01/24 Unknown History oral suspension (Milk of Magnesia) melatonin 3 mg tablet 3 mg PO BEDTIME 05/01/24 11/01/24 Unknown History naloxone 4 mg/actuation nasal 4 mg intranasal Q3M PRN Opioid 05/01/24 11/01/24 Unknown History spray (Narcan) Overdose octreotide acetate 50 mcg/mL (1 50 mcg subcut BID 05/01/24 11/01/24 Unknown History mL) injection syringe omeprazole 20 mg capsule,delayed 20 mg PO DAILY@0630 05/01/24 11/01/24 Unknown History release simethicone 80 mg chewable tablet 80 mg PO Q8H PRN Gastric Reflux 05/01/24 11/01/24 Unknown History sodium phosphates 19 gram-7 118 ml IN DAILY PRN Constipation 05/01/24 11/01/24 Unknown History gram/118 mL enema (Fleet Enema) acetaminophen 325 mg tablet 650 mg PO Q4H PRN Fever Or Pain 11/01/24 11/01/24 Unknown History (Tylenol) duloxetine 30 mg capsule,delayed 30 mg PO BEDTIME 11/01/24 11/01/24 Unknown History release tramadol 50 mg tablet 50 mg PO Q12H PRN Pain 11/01/24 11/01/24 Unknown History trazodone 50 mg tablet 50 mg PO BEDTIME 11/01/24 11/01/24 Unknown History Physical Exam Vital Signs: Vital Signs: Last Vital Signs Temp 98.6 F 11/01/24 16:39 Pulse 100 11/01/24 16:39 Resp 20 11/01/24 16:39 BP 115/71 11/01/24 16:39 Pulse Ox 94 11/01/24 16:39 O2 Del Method Room Air 11/01/24 16:39 BMI result Body Mass Index 22.0 GI: Other: Abdomen is soft he has tenderness on both CVA areas left as well as right Results Labs 11/01/24 06:45 11/01/24 06:45 Labs: Abnormal lab results 10/31/24 10/31/24 11/01/24 Range/Units 20:18 20:21 06:45 WBC 12.6 H 11.3 H (4.8-10.8) X10*3/uL RBC 4.09 L 3.70 L (4.60-5.80) X10*6/uL Hgb 11.8 L 10.7 L (14.0-18.0) g/dl Hct 35.2 L 33.1 L (42.0-52.0) % MPV 8.4 L 8.6 L (9.4-12.4) fL Lymph % (Auto) 19.7 L (20-40) % [place] % (Auto) 12.7 H (2-11) % [place] # (Auto) 1.4 H (0.1-1.2) X10*3/uL Abs Immat Gran (auto) 0.05 H 0.04 H (0.00-0.03) X10*3/uL Absolute Neuts (auto) 8.8 H (2.0-8.3) x10*3/uL BUN 28 H 28 H (9-16) mg/dL Random Glucose 150 H 133 H (60-115) mg/dL C-Reactive Protein 4.91 H (< or = 0.50) mg/dL Total Protein 8.3 H (6.5-8.0) g/dL Urine Protein 30 (1+) H (Neg-Trace) mg/dL Urine Blood Large (3+) H (Negative) Ur Leukocyte Esterase Large (3+) H (Negative) Urine RBC >20 H (0-2) /HPF Urine WBC >50 H (0-5) /HPF Nasal Screen MRSA (PCR) (Negative) Nasal S. aureus Screen (Negative) Influenza Type B (PCR) POSITIVE A (Negative) 11/01/24 Range/Units 13:27 WBC (4.8-10.8) X10*3/uL RBC (4.60-5.80) X10*6/uL Hgb (14.0-18.0) g/dl Hct (42.0-52.0) % MPV (9.4-12.4) fL Lymph % (Auto) (20-40) % [place] % (Auto) (2-11) % [place] # (Auto) (0.1-1.2) X10*3/uL Abs Immat Gran (auto) (0.00-0.03) X10*3/uL Absolute Neuts (auto) (2.0-8.3) x10*3/uL BUN (9-16) mg/dL Random Glucose (60-115) mg/dL C-Reactive Protein (< or = 0.50) mg/dL Total Protein (6.5-8.0) g/dL Urine Protein (Neg-Trace) mg/dL Urine Blood (Negative) Ur Leukocyte Esterase (Negative) Urine RBC (0-2) /HPF Urine WBC (0-5) /HPF Nasal Screen MRSA (PCR) POSITIVE A (Negative) Nasal S. aureus Screen POSITIVE A (Negative) Influenza Type B (PCR) (Negative) Short CBC 10/31/24 11/01/24 Range/Units 20:21 06:45 WBC 12.6 H 11.3 H (4.8-10.8) X10*3/uL Hgb 11.8 L 10.7 L (14.0-18.0) g/dl Hct 35.2 L 33.1 L (42.0-52.0) % Plt Count 301 D 261 (160-400) X10*3/uL BMP 10/31/24 11/01/24 20:21 06:45 Sodium 135 140 Potassium 4.6 D 4.7 Chloride 98 103 Carbon Dioxide 24 25 BUN 28 H 28 H Creatinine 0.69 0.76 Calcium 9.3 9.0 Liver Function 10/31/24 Range/Units 20:21 Total Bilirubin 0.3 (0.0-1.0) mg/dL AST 36 (5-37) U/L ALT 35 (0-40) U/L Alkaline Phosphatase 88 (39-117) U/L Albumin 3.6 (3.5-5.0) g/dL Urine 10/31/24 Range/Units 20:18 Urine Color Yellow Urine Appearance Cloudy Urine pH 6.0 (5.0-9.0) Ur Specific [place] 1.020 (1.005-1.025) Urine Protein 30 (1+) H (Neg-Trace) mg/dL Urine Glucose (UA) Negative (Negative) mg/dL All other labs normal. Imaging CT scan - chest: report reviewed CT scan - pelvis: report reviewed and image reviewed Additional studies: [address] [address] [address] Scan Report Signed with Addenda Patient: Alhaji Varner MR#: [id number] : 1955 Acct:[id number] Age/Sex: 69 / M ADM Date: 10/31/24 Loc: HO.ED Attending Dr: Ordering Physician: Aaron Tavares MD Date of Service: 10/31/24 Procedure(s): CT abdomen pelvis wo IV con Accession Number(s): [id number] cc: Physician,Unknown ; Aaron Tavares MD~ Report Number: [id number]: Total DLP = 774.00 mGy-cm ADDENDUMThis document has been electronically signed by: Zach Pham MD on 11/01/2024 00:46:57 ADDENDUM: This report was discussed with Dr. Chaitanya Galvan on Nov 01, 2024 00:52:00 EST. This document has been electronically signed by: Bonny Fisher on 11/01/2024 00:52:23 Addendum Dictated By: Zach Pham MD Addendum Signed By: <Electronically signed by Zach Pham MD in OV> 11/01/2452 Addendum Cosigned By: DD/ /18/46 TD/TT: 11/01/2405/18/52 CLINICAL HISTORY: bacteremia, kidney stone CT abdomen and pelvis without contrast Comparison: CT/SR - CT ABDOMEN PELVIS W IV CON - 05/01/24 18:21 EDT Findings: Motion and streak artifact limit evaluation. Atelectasis with ill-defined consolidations in the posterior left lower lobe. Cardiomegaly without significant pericardial effusion. Coronary artery calcifications. Hepatic steatosis noted. Distended gallbladder. Moderate to severe left hydroureteronephrosis with a 2 mm calculus in the lower pole kidney. Prominent left renal parenchymal edema with [id number]-[id number]-right perinephric stranding. Ill-defined stranding with soft tissue fullness along the medial distal left psoas, can not definitively exclude myositis/abscess series 8, image 40. Very mild right hydronephrosis with 4 mm calculus in the upper pole. No bowel obstruction, pneumoperitoneum, or pneumatosis. Fat containing inguinal hernias. Zuniga catheter in the prostate, recommend repositioning. Marked prostatomegaly. 2 mm bladder calculus with possible cystitis. Scattered colonic diverticulosis without diverticulitis or colitis. Mildly distended bladder with mural thickening and stranding, concerning for cystitis. 2 mm calculus in the right posterior bladder. Osteopenia with diffuse multilevel spondylosis. Redemonstrated multilevel thoracolumbar compression deformities, stable. IMPRESSION: 1. Zuniga catheter in the prostate, recommend repositioning. 2. 2 mm bladder calculus with possible cystitis. 3. Atelectasis with ill-defined consolidations in the posterior left lower lobe. Aspiration or pneumonia not excluded. 4. Moderate to severe left hydroureteronephrosis with a 2 mm calculus in the lower pole kidney. 5. Can not exclude left-sided pyelonephritis/ureteritis. Possible myositis/abscess in the distal left psoas, please see above. 6. Very mild right hydronephrosis with 4 mm calculus in the upper pole. This document has been electronically signed by: Zach Pham MD on 11/01/2024 00:46:57 Dictated By: Zach Pham MD Signed By: <Electronically signed by Zach Pham MD in OV> 11/01/2446 DD/ TD/TT: 11/01/2445 Electrotyper: Assessment and Plan (1) Pyelonephritis of left kidney: Status: Acute Plan 69-year-old male with pyelonephritis of the left kidney with inflammatory changes of the surrounding tissue and so as area possible early abscess versus phlegmon material. Plan to continue with just IV antibiotics no need for any interventional drainage at this point treat the urinary obstruction improve the hydronephrosis and hopefully this should improve. Urology consult as well. Procedures Date of Service Date of Service: 11/01/24
--- NOTE | 2024-11-01 17:58 | PC.NURSE ---
Pt rectal temp back up to 100.9. Per MD Conroy, ok to give Rectal GA early. Pt medicated per NOV. Call ellison within reach, repositioned to right side, all needs met at this time.
[2024-11-01] MEDS: vancomycin HCL 125 MG CAPSULE PO ×2 (17:59→23:11)
[2024-11-01] MEDS: cefTRIAXone sodium 2 GM VIAL IVPUSH (20:53)
[2024-11-01] MEDS: Octreotide Acetate 100 MCG/ML AMPUL 50 MCG SUBCUT (20:53)
[2024-11-01] MEDS: traZODone HCL 50 MG TABLET PO (21:11)
[2024-11-01] MEDS: DULoxetine HCl 30 MG CAPSULE.DR PO (21:11)
[2024-11-01] MEDS: Apixaban 5 MG TABLET PO (21:11)
[2024-11-01] MEDS: Metoprolol Tartrate 25 MG TABLET PO (21:11)
[2024-11-01] MEDS: 0.9 % Sodium Chloride Flush 3 ML SYRINGE IVFLUSH (21:12)
[2024-11-01] MEDS: Oseltamivir Phosphate 75 MG CAPSULE PO (21:15)
[2024-11-02] VITALS (8 sets, daily range): BP systolic 109–150; BP diastolic 61–87; PULSE 58–81; RESP 16–18; TEMP 36–36.4; O2SAT 92–95
[2024-11-02] MEDS: vancomycin HCL 750 MG in 0.9 % Sodium Chloride 250 ML 265 MG IV ×2 (05:52→17:28)
[2024-11-02] MEDS: traMADoL HCL 50 MG TABLET PO (05:53)
[2024-11-02] MEDS: Omeprazole 20 MG CAPSULE.DR PO (05:53)
[2024-11-02 07:02] LABS: Hematocrit 34.4 % (42.0-52.0); Hemoglobin 11.1 g/dl (14.0-18.0); Mean Corpuscular HGB Conc 32.3 g/dl (31.0-36.0); Mean Corpuscular Hemoglobin 28.9 pg (27.0-33.0); Mean Corpuscular Volume 89.6 fL (80.0-98.0); Mean Platelet Volume 9.3 fL (9.4-12.4); Platelet Count 235 X10*3/uL (160-400); Red Blood Count 3.84 X10*6/uL (4.60-5.80); Red Cell Distribution Width 15.1 % (11.0-16.0); White Blood Count 8.4 X10*3/uL (4.8-10.8)
[2024-11-02 07:56] LABS: Blood Urea Nitrogen 21 mg/dL (9-16); Calcium 8.8 mg/dL (8.4-10.2); Creatinine Clr Calc Pharmacy 92.5; Estimated Glomerular Filt Rate > 60; Glucose Random 100 mg/dL (60-115)
[2024-11-02] MEDS: Gabapentin 300 MG CAPSULE PO ×3 (08:10→21:24)
[2024-11-02] MEDS: Apixaban 5 MG TABLET PO ×2 (08:10→21:25)
[2024-11-02] MEDS: vancomycin HCL Oral Solution 125 MG/5 ML SOLN.RECON PO ×3 (08:10→18:19)
[2024-11-02] MEDS: 0.9 % Sodium Chloride Flush 3 ML SYRINGE IVFLUSH ×2 (08:10→14:31)
[2024-11-02] MEDS: amLODIPine Besylate 5 MG TABLET PO (08:10)
[2024-11-02] MEDS: Octreotide Acetate 100 MCG/ML AMPUL 50 MCG SUBCUT ×2 (08:11→21:24)
[2024-11-02] MEDS: Metoprolol Tartrate 25 MG TABLET PO ×2 (08:11→21:25)
[2024-11-02] MEDS: metroNIDAZOLE/NS 500 MG/100 ML PIGGYBACK 100 MG IV (08:11)
[2024-11-02 08:12] LABS: Anion Gap 14 (12-20); Carbon Dioxide 25 mmol/L (22-29); Chloride 106 mmol/L (96-108); Potassium 3.6 mmol/L (3.3-5.1); Sodium 141 mmol/L (135-145)
[2024-11-02] MEDS: Finasteride 5 MG TABLET PO (08:20)
[2024-11-02] MEDS: Piperacillin Sodium/Tazobactam 4.5 GM in 0.9 % Sodium Chloride 100 ML IV ×3 (09:58→21:25)
[2024-11-02] MEDS: Oseltamivir Phosphate 75 MG CAPSULE PO ×2 (09:58→21:31)
--- NOTE | 2024-11-02 11:30 | MHC.CM.PN ---
CM assessment completed w/ daughter/HCP Nanci via telephone. IMM delivered. Patient is LTC resident @ [facility]. Staff assists w/ all care. Non-ambulatory at baseline, 1-2 assist from bed to w/c. PCP Mario Zendejas MD HCP on file and verified. DP: Return to LTC via BLS. CM will continue to follow.
--- NOTE | 2024-11-02 14:13 | HO.PM.IMPN ---
Subjective Subjective Date of Service: 11/02/24 Interval History: more awake fever resolved minimal cough denies pain Review of Systems Review of Systems: Yes all other systems are reviewed and are negative Physical Exam Vital Signs: Vital Signs: Last Vital Signs Temp 97.3 F 11/02/24 12:51 Pulse 60 11/02/24 12:51 Resp 16 11/02/24 12:51 BP 130/87 11/02/24 12:51 Pulse Ox 93 11/02/24 12:51 O2 Del Method Room Air 11/02/24 12:51 BMI result Body Mass Index 22.0 Gen: in no acute distress HEENT: sclera anicteric, moist mucus membranes Neck: supple Lungs: clear to auscultation bilaterally Heart: regular rate and rhythm, no murmurs Abd: soft, non-tender, non-distended Ext: no edema Skin: warm/well-perfused Neuro: alert and oriented x3, no focal findings Psych: appropriate affect Objective Data Active Medications Acetaminophen (Acetaminophen Supp 650 Mg Supp.Rect) 650 mg ME Q6H PRN PRN Reason: Pain, Mild 1-3,fever,headache Last Admin: 11/01/24 17:52 Dose: 650 mg Documented By: MEMO Amlodipine Besylate (Amlodipine Besylate 5 Mg Tablet) 5 mg PO DAILY [facility]; Protocol Last Admin: 11/02/24 08:10 Dose: 5 mg Documented By: THOMAS Apixaban (Apixaban 5 Mg Tablet) 5 mg PO BID [facility] Last Admin: 11/02/24 08:10 Dose: 5 mg Documented By: THOMAS Bisacodyl (Bisacodyl 10 Mg Supp.Rect) 10 mg ME DAILY PRN PRN Reason: Constipation Calcium Carbonate (Calcium Carbonate 750 Mg Tab.Chew) 750 mg PO Q4H PRN PRN Reason: Heartburn Duloxetine HCl (Duloxetine Hcl 30 Mg Capsule.Dr) 30 mg PO BEDTIME [facility] Last Admin: 11/01/24 21:11 Dose: 30 mg Documented By: CHARITO Finasteride (Finasteride 5 Mg Tablet) 5 mg PO DAILY [facility] Last Admin: 11/02/24 08:20 Dose: 5 mg Documented By: THOMAS Gabapentin (Gabapentin 300 Mg Capsule) 300 mg PO TID [facility] Last Admin: 11/02/24 08:10 Dose: 300 mg Documented By: THOMAS Vancomycin HCl 750 mg/ Sodium (Chloride) 265 mls @ 265 mls/hr IV Q12H [facility] Last Infusion: 11/02/24 07:04 Dose: Infused Documented By: THOMAS Piperacillin Sod/Tazobactam (Sod 4.5 gm/ Sodium Chloride) 100 mls @ 200 mls/hr IV Q6H [facility] Last Infusion: 11/02/24 10:40 Dose: Infused Documented By: THOMAS Loperamide HCl (Loperamide Hcl 2 Mg Capsule) 2 mg PO Q4H PRN PRN Reason: Loose Stool Magnesium Hydroxide (Milk Of Magnesia 30 Ml Oral.Susp) 30 ml PO DAILY PRN PRN Reason: Constipation Melatonin (Melatonin 3 Mg Tablet) 6 mg PO BEDTIME PRN PRN Reason: Insomnia Metoprolol Tartrate (Metoprolol Tartrate 25 Mg Tablet) 25 mg PO BID [facility]; Protocol Last Admin: 11/02/24 08:11 Dose: 25 mg Documented By: THOMAS Octreotide Acetate (Octreotide Acetate 100 Mcg/Ml Ampul) 50 mcg SUBCUT BID [facility] Last Admin: 11/02/24 08:11 Dose: 50 mcg Documented By: THOMAS Omeprazole (Omeprazole 20 Mg Capsule.) 20 mg PO DAILY@0630 [facility] Last Admin: 11/02/24 05:53 Dose: 20 mg Documented By: CHARITO Ondansetron HCl (Ondansetron Hcl 4 Mg/2 Ml Vial) 4 mg IVPUSH Q8H PRN PRN Reason: Nausea and Vomiting Oseltamivir Phosphate (Oseltamivir Phosphate 75 Mg Capsule) 75 mg PO Q12H [facility] Stop: 11/05/24 21:31 Last Admin: 11/02/24 09:58 Dose: 75 mg Documented By: THOMAS Pharmacy Consult (Consult Rx Vancomycin Dosing) 1 each MISCELLANE DAILY PRN PRN Reason: Consult order Simethicone (Simethicone 80 Mg Tab.Chew) 80 mg PO Q8H PRN PRN Reason: Gastric Reflux Sodium Biphosphate/Sodium Phosphate (Sodium Phosphate,[place]-Dibasic 133 Ml Enema) 118 ml ME DAILY PRN PRN Reason: Constipation Sodium Chloride (0.9 % Sodium Chloride Flush 3 Ml Syringe) 3 ml IVFLUSH QSHIFT [facility] Last Admin: 11/02/24 08:10 Dose: 3 ml Documented By: THOMAS Tramadol HCl (Tramadol Hcl 50 Mg Tablet) 50 mg PO Q12H PRN PRN Reason: Pain, Severe (Pain Scale 7-10) Last Admin: 11/02/24 05:53 Dose: 50 mg Documented By: CHARITO Trazodone HCl (Trazodone Hcl 50 Mg Tablet) 50 mg PO BEDTIME [facility] Last Admin: 11/01/24 21:11 Dose: 50 mg Documented By: CHARITO Vancomycin HCl (Vancomycin Hcl Oral Solution 125 Mg/5 Ml Soln.Recon) 125 mg PO Q6H [facility] Last Admin: 11/02/24 12:33 Dose: 125 mg Documented By: THOMAS Labs 11/02/24 06:03 11/02/24 06:03 Labs: Laboratory Results - last 24 hr 11/01/24 11/02/24 13:27 06:03 MCV 89.6 MCH 28.9 MCHC 32.3 RDW 15.1 Plt Count 235 MPV 9.3 L Absolute Nucleated RBC 0.000 Nucleated RBC % (auto) 0.0 Anion Gap 14 Estim Creat Clear Calc 92.5 Estimated GFR > 60 Random Glucose 100 Calcium 8.8 Nasal Screen MRSA (PCR) POSITIVE A Nasal S. aureus Screen POSITIVE A Nasal MRSA/S.aureus Interp SEE NOTE Microbiology Microbiology Results: Microbiology 10/31/24 20:37 Urine Culture - Preliminary Urine Catheterized - Zuniga Catheter Gram negative gary 10/31/24 20:29 Blood Culture - Preliminary Blood - Venous No growth after 24 hours. 10/31/24 20:21 Blood Culture - Preliminary Blood - Venous No growth after 24 hours. Assessment and Plan (1) Acute UTI: Status: Acute Plan d2 for 69yo M LTC resident of [facility] with HTN, 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, BPH with chronic Zuniga, recurrent UTIs with hx of Cdiff, pAF, and dementia brought in with AMS and unwitnessed fall; found to be septic [febrile/leukocytosis] with influenza B, LLL PNA, pyelonephritis with psoas myositis/abscess, moderate-severe left hydrouereteronephrosis; also C6 pedicle and T2 compression fractures sepsis - multiple possible sources including influenza, PNA, pyelonephritis with possible psoas myositis/abscess L pyelonephritis L psoas myositis/abscess? - discussed with Gen Surg + Urology. does not appear drainable at this time and likely secondary to kidney infection. plan is to re-image on 11/[address] A/P. on piperacillin-tazobactam; follow UCx [growing GNRs] L hydroureteronephrosis nephrolithiasis - stones not obstructing per Urology; hydronephrosis could have been due to misplaced Zuniga [in prostate/replaced]; re-image on 11/03 as above LLL pneumonia, ?aspiration vs post-influenza - was on ceftriaxone + metronidazole 11/01-11/02; change to piperacillin-tazobactam 11/02-; also on vancomycin 11/01-, trend PCT, follow BCx, MRSA swab POSITIVE, urinary antigens for Legionella and pneumococcus pending - given hx Cdiff will give PO vancomycin as well for prevention infuenza B - oseltamivir 11/01-11/06, droplet precautions acute encephalopathy due to infection/fever - appears to have resolved C6 pedicle fracture T2 compression fracture - ED Dr Tavares contacted neurosurgeon on-call at [facility] and recommended soft [place] collar, which is applied; per callback from [facility], continue [place] collar for 6 wk then follow up in clinic neuroendocrine tumor - continue octreotide BPH - finasteride, Zuniga ?AF - continue apixaban, metoprolol tartrate neuropathy - duloxetine, gabapentin mood disorder - trazodone HTN - amlodipine, metoprolol tartrate VTE ppx - apixaban dispo - eventual return to LTC In my clinical judgment, the patient requires continued inpatient hospitalization for the following reasons: IV ABX Total time managing care of this patient today: 45 minutes. Quality Stroke Does the patient have a stroke diagnosis?: No VTE Prior VTE?: No VTE Risk Level:: Medical - moderate - high VTE Device Contraindication: N/A - Device Ordered VTE Drug Contraindication: N/A - Med Ordered
[2024-11-02] MEDS: Morphine Sulfate 2 MG/ML CARTRIDGE IVPUSH (14:35)
--- NOTE | 2024-11-02 15:42 | PM.PNGS ---
Subjective Subjective Date of Service: 11/02/24 Interval history: Still complains about not feeling well Physical Exam Vital Signs: Vital Signs: Last Vital Signs Temp 97.3 F 11/02/24 12:51 Pulse 60 11/02/24 12:51 Resp 16 11/02/24 12:51 BP 130/87 11/02/24 12:51 Pulse Ox 93 11/02/24 12:51 O2 Del Method Room Air 11/02/24 12:51 BMI result Body Mass Index 22.0 GI: Other: Abdomen and flank is little subjectively tender but patient looks comfortable Objective Data Active Medications Acetaminophen (Acetaminophen Supp 650 Mg Supp.Rect) 650 mg [place] Q6H PRN PRN Reason: Pain, Mild 1-3,fever,headache Last Admin: 11/01/24 17:52 Dose: 650 mg Documented By: MEMO Amlodipine Besylate (Amlodipine Besylate 5 Mg Tablet) 5 mg PO DAILY [facility]; Protocol Last Admin: 11/02/24 08:10 Dose: 5 mg Documented By: THOMAS Apixaban (Apixaban 5 Mg Tablet) 5 mg PO BID [facility] Last Admin: 11/02/24 08:10 Dose: 5 mg Documented By: THOMAS Bisacodyl (Bisacodyl 10 Mg Supp.Rect) 10 mg [place] DAILY PRN PRN Reason: Constipation Calcium Carbonate (Calcium Carbonate 750 Mg Tab.Chew) 750 mg PO Q4H PRN PRN Reason: Heartburn Duloxetine HCl (Duloxetine Hcl 30 Mg Capsule.Dr) 30 mg PO BEDTIME [facility] Last Admin: 11/01/24 21:11 Dose: 30 mg Documented By: CHARITO Finasteride (Finasteride 5 Mg Tablet) 5 mg PO DAILY [facility] Last Admin: 11/02/24 08:20 Dose: 5 mg Documented By: THOMAS Gabapentin (Gabapentin 300 Mg Capsule) 300 mg PO TID [facility] Last Admin: 11/02/24 14:31 Dose: 300 mg Documented By: THOMAS Vancomycin HCl 750 mg/ Sodium (Chloride) 265 mls @ 265 mls/hr IV Q12H [facility] Last Infusion: 11/02/24 07:04 Dose: Infused Documented By: THOMAS Piperacillin Sod/Tazobactam (Sod 4.5 gm/ Sodium Chloride) 100 mls @ 200 mls/hr IV Q6H [facility] Last Infusion: 11/02/24 10:40 Dose: Infused Documented By: THOMAS Loperamide HCl (Loperamide Hcl 2 Mg Capsule) 2 mg PO Q4H PRN PRN Reason: Loose Stool Magnesium Hydroxide (Milk Of Magnesia 30 Ml Oral.Susp) 30 ml PO DAILY PRN PRN Reason: Constipation Melatonin (Melatonin 3 Mg Tablet) 6 mg PO BEDTIME PRN PRN Reason: Insomnia Metoprolol Tartrate (Metoprolol Tartrate 25 Mg Tablet) 25 mg PO BID [facility]; Protocol Last Admin: 11/02/24 08:11 Dose: 25 mg Documented By: THOMAS Morphine Sulfate (Morphine Sulfate 2 Mg/Ml Cartridge) 2 mg IVPUSH Q4H PRN; Protocol PRN Reason: Pain, Severe (Pain Scale 7-10) Last Admin: 11/02/24 14:35 Dose: 2 mg Documented By: THOMAS Octreotide Acetate (Octreotide Acetate 100 Mcg/Ml Ampul) 50 mcg SUBCUT BID [facility] Last Admin: 11/02/24 08:11 Dose: 50 mcg Documented By: THOMAS Omeprazole (Omeprazole 20 Mg Capsule.) 20 mg PO DAILY@0630 [facility] Last Admin: 11/02/24 05:53 Dose: 20 mg Documented By: CHARITO Ondansetron HCl (Ondansetron Hcl 4 Mg/2 Ml Vial) 4 mg IVPUSH Q8H PRN PRN Reason: Nausea and Vomiting Oseltamivir Phosphate (Oseltamivir Phosphate 75 Mg Capsule) 75 mg PO Q12H [facility] Stop: 11/05/24 21:31 Last Admin: 11/02/24 09:58 Dose: 75 mg Documented By: THOMAS Pharmacy Consult (Consult Rx Vancomycin Dosing) 1 each MISCELLANE DAILY PRN PRN Reason: Consult order Simethicone (Simethicone 80 Mg Tab.Chew) 80 mg PO Q8H PRN PRN Reason: Gastric Reflux Sodium Biphosphate/Sodium Phosphate (Sodium Phosphate,[place]-Dibasic 133 Ml Enema) 118 ml [place] DAILY PRN PRN Reason: Constipation Sodium Chloride (0.9 % Sodium Chloride Flush 3 Ml Syringe) 3 ml IVFLUSH QSHIFT [facility] Last Admin: 11/02/24 14:31 Dose: 3 ml Documented By: THOMAS Tramadol HCl (Tramadol Hcl 50 Mg Tablet) 50 mg PO Q12H PRN PRN Reason: Pain, Severe (Pain Scale 7-10) Last Admin: 11/02/24 05:53 Dose: 50 mg Documented By: CHARITO Trazodone HCl (Trazodone Hcl 50 Mg Tablet) 50 mg PO BEDTIME [facility] Last Admin: 11/01/24 21:11 Dose: 50 mg Documented By: CHARITO Vancomycin HCl (Vancomycin Hcl Oral Solution 125 Mg/5 Ml Soln.Recon) 125 mg PO Q6H [facility] Last Admin: 11/02/24 12:33 Dose: 125 mg Documented By: THOMAS Labs 11/02/24 06:03 11/02/24 06:03 Labs: Laboratory Results - last 24 hr 11/02/24 06:03 MCV 89.6 MCH 28.9 MCHC 32.3 RDW 15.1 Plt Count 235 MPV 9.3 L Absolute Nucleated RBC 0.000 Nucleated RBC % (auto) 0.0 Anion Gap 14 Estim Creat Clear Calc 92.5 Estimated GFR > 60 Random Glucose 100 Calcium 8.8 Microbiology Microbiology Results: Microbiology 10/31/24 20:37 Urine Culture - Preliminary Urine Catheterized - Zuniga Catheter Gram negative gary 10/31/24 20:29 Blood Culture - Preliminary Blood - Venous No growth after 24 hours. 10/31/24 20:21 Blood Culture - Preliminary Blood - Venous No growth after 24 hours. Procedures Date of Service Date of Service: 11/02/24 Progress Note: A&P Assessment and plan (1) Psoas abscess: Status: Acute Assessment and Plan: Patient with improving so as abscess clinically plan to continue with IV antibiotics no surgical intervention is needed. May need to continue with the IV antibiotics and switch to p.o. antibiotics. Urinary decompression with the bladder and Zuniga in correct position. Time Spent With Patient Time: Total time managing care of this patient today ____ minutes. Quality Stroke Does the patient have a stroke diagnosis?: No VTE Prior VTE?: No VTE Risk Level:: Medical - moderate - high VTE Device Contraindication: N/A - Device Ordered VTE Drug Contraindication: N/A - Med Ordered
[2024-11-02 16:42] LABS: Vancomycin Random 13.4 mcg/mL (15-20)
[2024-11-02] MEDS: traZODone HCL 50 MG TABLET PO (21:25)
[2024-11-02] MEDS: DULoxetine HCl 30 MG CAPSULE.DR PO (21:40)
[2024-11-03] VITALS (7 sets, daily range): BP systolic 125–165; BP diastolic 70–97; PULSE 66–84; RESP 17–20; TEMP 36.1–36.7; O2SAT 93–97
[2024-11-03] MEDS: vancomycin HCL Oral Solution 125 MG/5 ML SOLN.RECON PO ×5 (00:06→23:49)
[2024-11-03] MEDS: 0.9 % Sodium Chloride Flush 3 ML SYRINGE IVFLUSH ×2 (00:08→08:22)
[2024-11-03] MEDS: Piperacillin Sodium/Tazobactam 4.5 GM in 0.9 % Sodium Chloride 100 ML IV ×4 (03:47→20:54)
[2024-11-03 06:01] LABS: Anion Gap 14 (12-20); Blood Urea Nitrogen 18 mg/dL (9-16); C Reactive Protein 5.32 mg/dL (< or = 0.50); Calcium 8.6 mg/dL (8.4-10.2); Carbon Dioxide 25 mmol/L (22-29); Chloride 105 mmol/L (96-108); Creatinine Clr Calc Pharmacy 86.3; Estimated Glomerular Filt Rate > 60; Glucose Random 86 mg/dL (60-115); Potassium 3.4 mmol/L (3.3-5.1); Sodium 141 mmol/L (135-145)
[2024-11-03] MEDS: vancomycin HCL 750 MG in 0.9 % Sodium Chloride 250 ML 265 MG IV (06:21)
[2024-11-03 06:25] LABS: Procalcitonin 0.05 ng/mL
[2024-11-03] MEDS: Omeprazole 20 MG CAPSULE.DR PO (06:41)
[2024-11-03] MEDS: Morphine Sulfate 2 MG/ML CARTRIDGE IVPUSH (08:21)
[2024-11-03] MEDS: Octreotide Acetate 100 MCG/ML AMPUL 50 MCG SUBCUT ×2 (08:21→20:12)
[2024-11-03] MEDS: amLODIPine Besylate 5 MG TABLET PO (08:22)
[2024-11-03] MEDS: Finasteride 5 MG TABLET PO (08:22)
[2024-11-03] MEDS: Metoprolol Tartrate 25 MG TABLET PO ×2 (08:22→20:19)
[2024-11-03] MEDS: Apixaban 5 MG TABLET PO ×2 (08:22→20:19)
[2024-11-03] MEDS: Gabapentin 300 MG CAPSULE PO ×3 (08:22→20:19)
[2024-11-03] MEDS: Oseltamivir Phosphate 75 MG CAPSULE PO ×2 (10:23→20:19)
[2024-11-03] MEDS: iohexoL 350 MG/ML 100 ML INFUS..BTL IV (11:44)
--- NOTE | 2024-11-03 11:50 | P.PNIM_ITS ---
Subjective Subjective Date of Service: 11/04/24 Interval History: Complaining of being tired due to be in bed Noted to have intermittent cough, no recurrent fevers, offers no other acute complaints, tolerating pureed diet. Review of Systems All other system reviewed and are negative Physical Exam 2 Vital Signs: Vital Signs: Last Vital Signs Temp 98.0 F 11/03/24 08:14 Pulse 84 11/03/24 08:14 Resp 18 11/03/24 08:14 BP 165/90 H 11/03/24 08:14 Pulse Ox 97 11/03/24 08:14 O2 Del Method Room Air 11/03/24 08:14 BMI result Body Mass Index 22.0 Const: Other: Gen: in no acute distress HEENT: sclera anicteric, moist mucus membranes Neck: Henderson collar in place Lungs: clear to auscultation bilaterally Heart: regular rate and rhythm, no murmurs Abd: soft, non-tender, non-distended Ext: no edema Skin: warm/well-perfused Neuro: alert and oriented x3, no focal findings Psych: appropriate affect Zuniga catheter clear urine Objective Data Active Medications Acetaminophen (Acetaminophen Supp 650 Mg Supp.Rect) 650 mg [place] Q6H PRN PRN Reason: Pain, Mild 1-3,fever,headache Last Admin: 11/01/24 17:52 Dose: 650 mg Documented By: MEMO Amlodipine Besylate (Amlodipine Besylate 5 Mg Tablet) 5 mg PO DAILY [facility]; Protocol Last Admin: 11/03/24 08:22 Dose: 5 mg Documented By: ZO Apixaban (Apixaban 5 Mg Tablet) 5 mg PO BID [facility] Last Admin: 11/03/24 08:22 Dose: 5 mg Documented By: ZO Bisacodyl (Bisacodyl 10 Mg Supp.Rect) 10 mg [place] DAILY PRN PRN Reason: Constipation Calcium Carbonate (Calcium Carbonate 750 Mg Tab.Chew) 750 mg PO Q4H PRN PRN Reason: Heartburn Duloxetine HCl (Duloxetine Hcl 30 Mg Capsule.Dr) 30 mg PO BEDTIME [facility] Last Admin: 11/02/24 21:40 Dose: 30 mg Documented By: GAMA Finasteride (Finasteride 5 Mg Tablet) 5 mg PO DAILY [facility] Last Admin: 11/03/24 08:22 Dose: 5 mg Documented By: ZO Gabapentin (Gabapentin 300 Mg Capsule) 300 mg PO TID [facility] Last Admin: 11/03/24 08:22 Dose: 300 mg Documented By: ZO Vancomycin HCl 750 mg/ Sodium (Chloride) 265 mls @ 265 mls/hr IV Q12H [facility] Last Infusion: 11/03/24 07:31 Dose: Infused Documented By: ZO Piperacillin Sod/Tazobactam (Sod 4.5 gm/ Sodium Chloride) 100 mls @ 200 mls/hr IV Q6H [facility] Last Infusion: 11/03/24 10:45 Dose: 0 mls/hr Documented By: ZO Iohexol (Iohexol 350 Mg/Ml 100 Ml Infus..Btl) 100 ml IV ONCE ONE Stop: 11/03/24 11:45 Last Admin: 11/03/24 11:44 Dose: 85 ml Documented By: RENETTA Loperamide HCl (Loperamide Hcl 2 Mg Capsule) 2 mg PO Q4H PRN PRN Reason: Loose Stool Magnesium Hydroxide (Milk Of Magnesia 30 Ml Oral.Susp) 30 ml PO DAILY PRN PRN Reason: Constipation Melatonin (Melatonin 3 Mg Tablet) 6 mg PO BEDTIME PRN PRN Reason: Insomnia Metoprolol Tartrate (Metoprolol Tartrate 25 Mg Tablet) 25 mg PO BID [facility]; Protocol Last Admin: 11/03/24 08:22 Dose: 25 mg Documented By: ZO Morphine Sulfate (Morphine Sulfate 2 Mg/Ml Cartridge) 2 mg IVPUSH Q4H PRN; Protocol PRN Reason: Pain, Severe (Pain Scale 7-10) Last Admin: 11/03/24 08:21 Dose: 2 mg Documented By: ZO Octreotide Acetate (Octreotide Acetate 100 Mcg/Ml Ampul) 50 mcg SUBCUT BID [facility] Last Admin: 11/03/24 08:21 Dose: 50 mcg Documented By: ZO Omeprazole (Omeprazole 20 Mg Capsule.) 20 mg PO DAILY@0630 [facility] Last Admin: 11/03/24 06:41 Dose: 20 mg Documented By: BRAIN Ondansetron HCl (Ondansetron Hcl 4 Mg/2 Ml Vial) 4 mg IVPUSH Q8H PRN PRN Reason: Nausea and Vomiting Oseltamivir Phosphate (Oseltamivir Phosphate 75 Mg Capsule) 75 mg PO Q12H [facility] Stop: 11/05/24 21:31 Last Admin: 11/03/24 10:23 Dose: 75 mg Documented By: ZO Pharmacy Consult (Consult Rx Vancomycin Dosing) 1 each MISCELLANE DAILY PRN PRN Reason: Consult order Simethicone (Simethicone 80 Mg Tab.Chew) 80 mg PO Q8H PRN PRN Reason: Gastric Reflux Sodium Biphosphate/Sodium Phosphate (Sodium Phosphate,[place]-Dibasic 133 Ml Enema) 118 ml [place] DAILY PRN PRN Reason: Constipation Sodium Chloride (0.9 % Sodium Chloride Flush 3 Ml Syringe) 3 ml IVFLUSH QSHIFT [facility] Last Admin: 11/03/24 08:22 Dose: 3 ml Documented By: ZO Tramadol HCl (Tramadol Hcl 50 Mg Tablet) 50 mg PO Q12H PRN PRN Reason: Pain, Severe (Pain Scale 7-10) Last Admin: 11/02/24 05:53 Dose: 50 mg Documented By: CHARITO Trazodone HCl (Trazodone Hcl 50 Mg Tablet) 50 mg PO BEDTIME [facility] Last Admin: 11/02/24 21:25 Dose: 50 mg Documented By: GAMA Vancomycin HCl (Vancomycin Hcl Oral Solution 125 Mg/5 Ml Soln.Recon) 125 mg PO Q6H [facility] Last Admin: 11/03/24 06:41 Dose: 125 mg Documented By: BRAIN Labs 11/02/24 06:03 11/04/24 05:21 Labs: Laboratory Results - last 24 hr 11/02/24 11/03/24 15:52 05:31 Hold Purple Top SEE NOTE Anion Gap 14 Estim Creat Clear Calc 86.3 Estimated GFR > 60 Random Glucose 86 Calcium 8.6 C-Reactive Protein 5.32 H Procalcitonin 0.05 Random Vancomycin 13.4 L Microbiology Microbiology Results: Microbiology 10/31/24 20:37 Urine Culture - Preliminary Urine Catheterized - Zuniga Catheter Citrobacter freundii 10/31/24 20:29 Blood Culture - Preliminary Blood - Venous No growth after 48 hours. 10/31/24 20:21 Blood Culture - Preliminary Blood - Venous No growth after 48 hours. 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, BPH with chronic Zuniga, recurrent UTIs with hx of Cdiff, pAF, and dementia brought in with AMS and unwitnessed fall; found to be septic [febrile/leukocytosis] with influenza B, LLL PNA, pyelonephritis with psoas myositis/abscess, moderate-severe left hydrouereteronephrosis; also C6 pedicle and T2 compression fractures sepsis - resolved, WBC normalized, multiple possible sources including influenza B, pyelonephritis with possible psoas myositis/abscess, pneumonia Blood culture showed no growth, urine culture grew Citrobacter freundii treat as below L pyelonephritis due to chronic indwelling Zuniga catheter L psoas myositis/abscess? - being followed by Gen Surg + Urology initially felt that myositis/abscess does not appear drainable at this time and likely secondary to kidney infection. Repeat CT abdomen and pelvis report pending on piperacillin-tazobactam L hydroureteronephrosis nephrolithiasis - stones not obstructing per Urology; hydronephrosis could have been due to misplaced Zuniga [in prostate/replaced] Repeat CT abdomen and pelvis pending LLL pneumonia, ?aspiration vs post-influenza - was on ceftriaxone + metronidazole 11/01-11/02; change to piperacillin-tazobactam 11/02-; also on vancomycin 11/01-, PCT 0.05, MRSA swab POSITIVE, urinary antigens for Legionella and pneumococcus pending - given hx Cdiff on PO vancomycin as well for prevention infuenza B - oseltamivir 11/01-11/06, droplet precautions acute encephalopathy due to infection/fever - appears to have resolved C6 pedicle fracture T2 compression fracture - ED Dr Tavares contacted neurosurgeon on-call at [facility] and recommended soft Henderson collar, which is applied, continue Henderson collar for 6 wk then follow up in clinic neuroendocrine tumor - continue octreotide BPH - finasteride, Zuniga ?AF - continue apixaban, metoprolol tartrate neuropathy - duloxetine, gabapentin mood disorder - trazodone HTN - amlodipine, metoprolol tartrate Dysphagia tolerating pureed diet being followed by speech therapy VTE ppx - apixaban dispo - eventual return to LTC In my clinical judgment, the patient requires continued inpatient hospitalization for the following reasons: IV ABX Quality Stroke Does the patient have a stroke diagnosis?: No VTE Prior VTE?: No VTE Risk Level:: Medical - moderate - high VTE Device Contraindication: N/A - Device Ordered VTE Drug Contraindication: N/A - Med Ordered
--- NOTE | 2024-11-03 11:56 | MHC.SL.SWA ---
Speech Pathologist Impression: Mild/moderate oral phase dysphagia d/t physical limitations with Romance collar Risk of Aspiration Due to: Reduced Cognition Physical condition Dysphasia Diet Status: Liquid Consistency and Strategies for Safe Swallow: Liquid Intake Recommendation: Thin Liquid Intake Strategies: Small Sips Solid Food Consistency: Dietary Recommendations: Pureed (NDD1) Additional Modifications to Solid Foods: Oral Medication Intake: Crushed with Puree Please contact the pharmacy regarding appropriate crushable or liquid drug formulations that are available whenever modified delivery is recommended. Compensatory Strategies and Precautions to be Taken for Safe Swallow: Sitting Upright (90 deg) Liquids from Straw Small Bites and Sips Alternate Liquids/Solids Rate of Ingestion Change Supervision While Eating and Drinking for Safe Swallow: Total Supervision (1:1) Foods to Avoid: Swallowing Recommended Treatments: Compensatory strategies, ? need for pharyngeal strengthening exercises upon more stable physical recovery Recommendation for Speech: Inpatient Speech Therapy Comment: Frequency/Duration: Daily M-F Date Range for Service Req: Timeline to reassess: Cpc Coder Clinican/Clinical Fellow: No Supervisory Statement: I have reviewed and agree with the student/clinical fellow's documentation: No Speech Language Pathologist: Suad Fall M.S., CCC-EVENT PLANNING MANAGER
--- NOTE | 2024-11-03 14:12 | MHC.CM.PN ---
EMR REVIEWED AND PER MD ROUNDS, PT IS NOT MEDICALLY CLEARED FOR DC BACK TO [facility]. (SEPSIS, IV ABT, FOLLOWING CULTURES) [facility] UPDATED VIA [facility]. CM WILL CONTINUE TO FOLLOW FOR ANY CHANGE TO PLAN.
[2024-11-03 16:35] LABS: Vancomycin Random 18.3 mcg/mL (15-20)
--- NOTE | 2024-11-03 17:22 | HO.WOUND ---
Wound Consult: Initial 69yr old?[place] [facility] [place] - See progress notes and H&P for detailed history.? Wound consult placed for buttock wound.? Patient agreeable to assessment and photo documentation.? Indwelling cath noted to be leaking - discussed with direct care nurse noted earlier today as well. TT to provider Dr. Escoto to make aware. Sacrum Left Sacrum Etiology: ?Stage 1 Pressure Injury ?Present on Admission Wound Bed: left sacrum / buttock with scattered areas of red maroon intact nonblanchable tissue Drainage / Odor: None Edges: irregular and attached ? Andria wound: MASD - red pink blanchable tissue - ? No Induration, Fluctuance or Warmth noted Pain: denies Goals of Treatment: ? barrier cream to protect from moisture and friciton Recommendations: 1. Turn and Reposition every 2 hours and as needed for patient comfort.? Use pillows or wedges to support off loading positions. 2. Off Load all bony prominences with use of pillows and heel boots if needed.? Apply Preventative foams where needed. ? 3. Monitor for incontinence and moisture control, use barrier creams when needed for prevention and treatment. 4. Provide adequate and supplemental nutrition.? 5. Order or Continue low air loss mattress. 6. When applicable maintain blood glucose levels per Providers order. 7. Sacrum and buttock - Off Load Pressure with Q2 hr turns and use of pillows Cleanse with Ph balanced wipes, pat dry. Apply barrier cream twice daily - and PRN after episodes of incontinence. Re-consult wound care Nurse for wound deterioration or wound changes.
--- NOTE | 2024-11-03 17:23 | HE.PHANOTE ---
VANCO DOSE ADJUSTMENT BASED ON SCR AND TROUGH OF 18.3 DOSE CHANGED TO 1250 Q 24H. NEXT LEVEL 11/05 @ 1700
[2024-11-03] MEDS: vancomycin HCL 1,250 MG in 0.9 % Sodium Chloride 250 ML 166.67 MG IV (18:01)
[2024-11-03] MEDS: Melatonin 3 MG TABLET 6 MG PO (20:18)
[2024-11-03] MEDS: DULoxetine HCl 30 MG CAPSULE.DR PO (20:19)
[2024-11-03] MEDS: traZODone HCL 50 MG TABLET PO (20:19)
[2024-11-04 02:21] VITALS: BP 169/84; PULSE 75; RESP 17; TEMP 37.1; O2SAT 96
[2024-11-04] MEDS: Piperacillin Sodium/Tazobactam 4.5 GM in 0.9 % Sodium Chloride 100 ML IV ×4 (03:16→21:11)
[2024-11-04] MEDS: vancomycin HCL Oral Solution 125 MG/5 ML SOLN.RECON PO ×3 (05:35→18:09)
[2024-11-04] MEDS: Omeprazole 20 MG CAPSULE.DR PO (05:35)
[2024-11-04 06:53] LABS: Creatinine Clr Calc Pharmacy 86.3; Estimated Glomerular Filt Rate > 60
[2024-11-04 07:50] VITALS: BP 169/94; PULSE 76; RESP 17; TEMP 36.5; O2SAT 96
[2024-11-04] MEDS: Octreotide Acetate 100 MCG/ML AMPUL 50 MCG SUBCUT ×2 (09:27→21:11)
[2024-11-04] MEDS: amLODIPine Besylate 5 MG TABLET PO (09:27)
[2024-11-04] MEDS: Finasteride 5 MG TABLET PO (09:27)
[2024-11-04] MEDS: Oseltamivir Phosphate 75 MG CAPSULE PO ×2 (09:27→21:10)
[2024-11-04] MEDS: Gabapentin 300 MG CAPSULE PO ×3 (09:27→21:10)
[2024-11-04] MEDS: Apixaban 5 MG TABLET PO ×2 (09:28→21:11)
[2024-11-04] MEDS: Metoprolol Tartrate 25 MG TABLET PO ×2 (09:28→21:10)
[2024-11-04] MEDS: 0.9 % Sodium Chloride Flush 3 ML SYRINGE IVFLUSH ×3 (09:40→19:43)
--- NOTE | 2024-11-04 10:44 | MHC.SL.SWA ---
Speech Pathologist Impression: Mild oral phase dysphagia w/ missing dentition Risk of Aspiration Due to: Reduced Cognition Dysphasia Diet Status: UPGRADE to NDD2 Liquid Consistency and Strategies for Safe Swallow: Liquid Intake Recommendation: Thin Liquid Intake Strategies: Small Sips Solid Food Consistency: Dietary Recommendations: Grnd/Mech Altered (NDD2) Additional Modifications to Solid Foods: Moisten w/ sauces and gravies Oral Medication Intake: Crushed with Puree Please contact the pharmacy regarding appropriate crushable or liquid drug formulations that are available whenever modified delivery is recommended. Compensatory Strategies and Precautions to be Taken for Safe Swallow: Sitting Upright (90 deg) Small Bites and Sips Alternate Liquids/Solids Rate of Ingestion Change Avoid Specific Foods Supervision While Eating and Drinking for Safe Swallow: Total Supervision (1:1) Foods to Avoid: [place] hard or tough to chew solids Swallowing Recommended Treatments: Compens. Strategy Educat. Recommendation for Speech: Inpatient Speech Therapy Comment: Frequency/Duration: Daily M-F Date Range for Service Req: Timeline to reassess: Candle Wrapper Clinican/Clinical Fellow: No Supervisory Statement: I have reviewed and agree with the student/clinical fellow's documentation: No Speech Language Pathologist: Brianda Brenner M.A., CCC-GUEST RELATIONS REPRESENTATIVE
[2024-11-04 11:52] VITALS: BP 158/86; PULSE 63; RESP 17; TEMP 36.6; O2SAT 95
--- NOTE | 2024-11-04 12:27 | PC.NURSE ---
Assist w/ Bedside F/C replacement with Dr. Lucas Dye. Pt tolerated well, will order ABD US to confirm placement per MD.
--- NOTE | 2024-11-04 12:28 | P.PNUR_ITS ---
Subjective Subjective Date of Service: 11/04/24 Physical Exam 2 Vital Signs: Vital Signs: Last Vital Signs Temp 97.8 F 11/04/24 11:52 Pulse 63 11/04/24 11:52 Resp 17 11/04/24 11:52 BP 158/86 H 11/04/24 11:52 Pulse Ox 95 11/04/24 11:52 O2 Del Method Room Air 11/04/24 11:52 BMI result Body Mass Index 22.0 Urology Results Labs 11/02/24 06:03 11/04/24 05:21 Labs: Laboratory Results - last 24 hr 10/31/24 10/31/24 11/03/24 20:18 20:21 16:11 WBC 12.6 H RBC 4.09 L Hgb 11.8 L Hct 35.2 L MCV 86.1 MCH 28.9 MCHC 33.5 RDW 14.8 Plt Count 301 D MPV 8.4 L Immature Gran % (Auto) 0.4 Neut % (Auto) 70.0 Lymph % (Auto) 19.7 L [place] % (Auto) 9.7 Eos % (Auto) 0.1 Baso % (Auto) 0.1 Lymph # (Auto) 2.5 [place] # (Auto) 1.2 Eos # (Auto) 0.0 Baso # (Auto) 0.0 Abs Immat Gran (auto) 0.05 H Absolute Neuts (auto) 8.8 H Absolute Nucleated RBC 0.000 Nucleated RBC % (auto) 0.0 Sodium 135 Potassium 4.6 D Chloride 98 Carbon Dioxide 24 Anion Gap 18 BUN 28 H Creatinine 0.69 Estim Creat Clear Calc 93.8 Estimated GFR > 60 Random Glucose 150 H Lactic Acid 1.9 Calcium 9.3 Total Bilirubin 0.3 AST 36 ALT 35 Alkaline Phosphatase 88 Total Protein 8.3 H Albumin 3.6 Urine Color Yellow Urine Appearance Cloudy Urine pH 6.0 Ur Specific [place] 1.020 Urine Protein 30 (1+) H Urine Glucose (UA) Negative Urine Ketones Negative Urine Blood Large (3+) H Urine Nitrite Negative Ur Leukocyte Esterase Large (3+) H Urine RBC >20 H Urine WBC >50 H Ur Squamous Epith Cells 3-5 Urine Bacteria 4+ Hyaline Casts 3-5 Random Vancomycin 18.3 Influenza Type A (PCR) NEGATIVE Influenza Type B (PCR) POSITIVE A RSV RNA Qual (PCR) NEGATIVE SARS-CoV-2 RNA (RT-PCR) NEGATIVE 11/04/24 05:21 WBC RBC Hgb Hct MCV MCH MCHC RDW Plt Count MPV Immature Gran % (Auto) Neut % (Auto) Lymph % (Auto) [place] % (Auto) Eos % (Auto) Baso % (Auto) Lymph # (Auto) [place] # (Auto) Eos # (Auto) Baso # (Auto) Abs Immat Gran (auto) Absolute Neuts (auto) Absolute Nucleated RBC Nucleated RBC % (auto) Sodium Potassium Chloride Carbon Dioxide Anion Gap BUN Creatinine 0.75 Estim Creat Clear Calc 86.3 Estimated GFR > 60 Random Glucose Lactic Acid Calcium Total Bilirubin AST ALT Alkaline Phosphatase Total Protein Albumin Urine Color Urine Appearance Urine pH Ur Specific [place] Urine Protein Urine Glucose (UA) Urine Ketones Urine Blood Urine Nitrite Ur Leukocyte Esterase Urine RBC Urine WBC Ur Squamous Epith Cells Urine Bacteria Hyaline Casts Random Vancomycin Influenza Type A (PCR) Influenza Type B (PCR) RSV RNA Qual (PCR) SARS-CoV-2 RNA (RT-PCR) Urology Procedures Catheter Insertion (Urinary) Date of insertion: 11/04/24 Time of insertion: 12:28 Replacement of catheter present on admission: Yes Reason for placing: Acute urinary retention Bladder scan/ultrasound used before catheterization: No Antiseptic solution prep: Povidone-Iodine Topical anesthesia used: No Catheter type/location: 2-way Urethral Size (German): 16 Catheter balloon size (mL): 10 Catheter balloon amount: 15 Results: consulted Procedure performed: without complications Comment: cystoscopy performed, [place] tip catheter passed over guide wire Additional comments: CT scan Abd/pelvis noted that the previous catheter balloon was in the urethra, with enlarged prostate Progress Note: A&P Time Spent With Patient Time: Total time managing care of this patient today ____ minutes. Progress Note: Quality Stroke Does the patient have a stroke diagnosis?: No
[2024-11-04 15:35] VITALS: BP 138/82; PULSE 72; RESP 17; TEMP 36.6; O2SAT 95
--- NOTE | 2024-11-04 16:30 | HO.PM.IMPN ---
Subjective Subjective Date of Service: 11/05/24 Interval History: Resting comfortably eating breakfast pureed diet, offers no acute complaints of pain. Review of Systems All other system reviewed and are negative Physical Exam Vital Signs: Vital Signs: Last Vital Signs Temp 98 F 11/04/24 15:35 Pulse 72 11/04/24 15:35 Resp 17 11/04/24 15:35 BP 138/82 11/04/24 15:35 Pulse Ox 95 11/04/24 15:35 O2 Del Method Room Air 11/04/24 15:35 BMI result Body Mass Index 22.0 Const: Other: Gen: in no acute distress HEENT: sclera anicteric, moist mucus membranes Neck: Raymond collar in place Lungs: clear to auscultation bilaterally Heart: regular rate and rhythm, no murmurs Abd: soft, non-tender, non-distended Ext: no edema Skin: warm/well-perfused Neuro: alert and oriented x3, no focal findings Psych: appropriate affect Zuniga catheter clear urine Objective Data Active Medications Acetaminophen (Acetaminophen Supp 650 Mg Supp.Rect) 650 mg HI Q6H PRN PRN Reason: Pain, Mild 1-3,fever,headache Last Admin: 11/01/24 17:52 Dose: 650 mg Documented By: MEMO Amlodipine Besylate (Amlodipine Besylate 5 Mg Tablet) 5 mg PO DAILY [facility]; Protocol Last Admin: 11/04/24 09:27 Dose: 5 mg Documented By: ZO Apixaban (Apixaban 5 Mg Tablet) 5 mg PO BID [facility] Last Admin: 11/04/24 09:28 Dose: 5 mg Documented By: ZO Bisacodyl (Bisacodyl 10 Mg Supp.Rect) 10 mg HI DAILY PRN PRN Reason: Constipation Calcium Carbonate (Calcium Carbonate 750 Mg Tab.Chew) 750 mg PO Q4H PRN PRN Reason: Heartburn Duloxetine HCl (Duloxetine Hcl 30 Mg Capsule.) 30 mg PO BEDTIME [facility] Last Admin: 11/03/24 20:19 Dose: 30 mg Documented By: CLAUDIA Finasteride (Finasteride 5 Mg Tablet) 5 mg PO DAILY [facility] Last Admin: 11/04/24 09:27 Dose: 5 mg Documented By: ZO Gabapentin (Gabapentin 300 Mg Capsule) 300 mg PO TID [facility] Last Admin: 11/04/24 14:23 Dose: 300 mg Documented By: ZO Piperacillin Sod/Tazobactam (Sod 4.5 gm/ Sodium Chloride) 100 mls @ 200 mls/hr IV Q6H [facility] Last Infusion: 11/04/24 16:05 Dose: Infused Documented By: ZO Vancomycin HCl 1,250 mg/ (Sodium Chloride) 250 mls @ 166.667 mls/hr IV Q24H [facility] Last Infusion: 11/03/24 19:35 Dose: Infused Documented By: CLAUDIA Loperamide HCl (Loperamide Hcl 2 Mg Capsule) 2 mg PO Q4H PRN PRN Reason: Loose Stool Magnesium Hydroxide (Milk Of Magnesia 30 Ml Oral.Susp) 30 ml PO DAILY PRN PRN Reason: Constipation Melatonin (Melatonin 3 Mg Tablet) 6 mg PO BEDTIME PRN PRN Reason: Insomnia Last Admin: 11/03/24 20:18 Dose: 6 mg Documented By: CLAUDIA Metoprolol Tartrate (Metoprolol Tartrate 25 Mg Tablet) 25 mg PO BID [facility]; Protocol Last Admin: 11/04/24 09:28 Dose: 25 mg Documented By: ZO Morphine Sulfate (Morphine Sulfate 2 Mg/Ml Cartridge) 2 mg IVPUSH Q4H PRN; Protocol PRN Reason: Pain, Severe (Pain Scale 7-10) Last Admin: 11/03/24 08:21 Dose: 2 mg Documented By: ZO Octreotide Acetate (Octreotide Acetate 100 Mcg/Ml Ampul) 50 mcg SUBCUT BID [facility] Last Admin: 11/04/24 09:27 Dose: 50 mcg Documented By: ZO Omeprazole (Omeprazole 20 Mg Capsule.) 20 mg PO DAILY@0630 [facility] Last Admin: 11/04/24 05:35 Dose: 20 mg Documented By: CLAUDIA Ondansetron HCl (Ondansetron Hcl 4 Mg/2 Ml Vial) 4 mg IVPUSH Q8H PRN PRN Reason: Nausea and Vomiting Oseltamivir Phosphate (Oseltamivir Phosphate 75 Mg Capsule) 75 mg PO Q12H [facility] Stop: 11/05/24 21:31 Last Admin: 11/04/24 09:27 Dose: 75 mg Documented By: ZO Pharmacy Consult (Consult Rx Vancomycin Dosing) 1 each MISCELLANE DAILY PRN PRN Reason: Consult order Simethicone (Simethicone 80 Mg Tab.Chew) 80 mg PO Q8H PRN PRN Reason: Gastric Reflux Sodium Biphosphate/Sodium Phosphate (Sodium Phosphate,[place]-Dibasic 133 Ml Enema) 118 ml HI DAILY PRN PRN Reason: Constipation Sodium Chloride (0.9 % Sodium Chloride Flush 3 Ml Syringe) 3 ml IVFLUSH QSHIFT [facility] Last Admin: 11/04/24 15:28 Dose: 3 ml Documented By: ZO Tramadol HCl (Tramadol Hcl 50 Mg Tablet) 50 mg PO Q12H PRN PRN Reason: Pain, Severe (Pain Scale 7-10) Last Admin: 11/02/24 05:53 Dose: 50 mg Documented By: CHARITO Trazodone HCl (Trazodone Hcl 50 Mg Tablet) 50 mg PO BEDTIME [facility] Last Admin: 11/03/24 20:19 Dose: 50 mg Documented By: CLAUDIA Vancomycin HCl (Vancomycin Hcl Oral Solution 125 Mg/5 Ml Soln.Recon) 125 mg PO Q6H [facility] Last Admin: 11/04/24 14:23 Dose: 125 mg Documented By: ZO Labs 11/02/24 06:03 11/05/24 05:21 Labs: Laboratory Results - last 24 hr 11/03/24 11/04/24 16:11 05:21 Estim Creat Clear Calc 86.3 Estimated GFR > 60 Random Vancomycin 18.3 Microbiology Microbiology Results: Microbiology 10/31/24 20:37 Urine Culture - Preliminary Urine Catheterized - Zuniga Catheter Citrobacter freundii Gram negative gary Assessment and Plan (1) Psoas abscess: Status: Acute (2) Obstructive uropathy: Status: Acute (3) BPH loc w urin obs/LUTS: Status: Acute (4) Influenza A: Status: Acute (5) LLL pneumonia: Status: Acute (6) Fx C6 vertebra-closed: Status: Acute Plan 69yo M LTC resident of [facility] with HTN, 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, BPH with chronic Zuniga, recurrent UTIs with hx of Cdiff, pAF, and dementia brought in with AMS and unwitnessed fall; found to be septic [febrile/leukocytosis] with influenza B, LLL PNA, pyelonephritis with psoas myositis/abscess, moderate-severe left hydrouereteronephrosis; also C6 pedicle and T2 compression fractures sepsis - resolved, WBC normalized, multiple possible sources including influenza B, pyelonephritis with possible psoas myositis/abscess, pneumonia Blood culture showed no growth, urine culture grew Citrobacter freundii treat as below L pyelonephritis due to chronic indwelling Zuniga catheter L psoas myositis/abscess? - being followed by Gen Surg + Urology initially felt that myositis/abscess does not appear drainable at this time and likely secondary to kidney infection. Repeat CT abdomen and pelvis showed overall size of small region of phlegmon with tiny central abscess along the anterior margin of the left psoas muscle is similar to prior, the left ureter travels through this region of inflammation Spoke with Urology they recommended IR drainage of phlegmon, continue piperacillin-tazobactam L hydroureteronephrosis nephrolithiasis - stones not obstructing per Urology; hydronephrosis could have been due to misplaced Zuniga [in prostate/replaced] Repeat CT abdomen and pelvis showed Zuniga catheter balloon is inflated within the penile urethra at the base of the prostate gland, bladder is distended with persistent moderate severe bilateral hydroureteronephrosis likely related to bladder outlet obstruction secondary to enlarged prostate gland Zuniga catheter repositioned. LLL pneumonia, ?aspiration vs post-influenza - was on ceftriaxone + metronidazole 11/01-11/02; change to piperacillin-tazobactam 11/02-; also on vancomycin 11/01-, PCT 0.05, MRSA swab POSITIVE, urinary antigens for Legionella and pneumococcus pending - given hx Cdiff on PO vancomycin as well for prevention infuenza B - oseltamivir 11/01-11/06, droplet precautions acute encephalopathy due to infection/fever - appears to have resolved C6 pedicle fracture T2 compression fracture - ED Dr Tavares contacted neurosurgeon on-call at [facility] and recommended soft Raymond collar, which is applied, continue Raymond collar for 6 wk then follow up in clinic neuroendocrine tumor - continue octreotide BPH - finasteride, Zuniga ?AF - continue apixaban, metoprolol tartrate neuropathy - duloxetine, gabapentin mood disorder - trazodone HTN - amlodipine, metoprolol tartrate Dysphagia tolerating pureed diet , seen by speech therapy diet upgraded to ground mechanical and clear liquids. VTE ppx - apixaban dispo - eventual return to LTC In my clinical judgment, the patient requires continued inpatient hospitalization for the following reasons: IV ABX/IR drainage Quality Stroke Does the patient have a stroke diagnosis?: No VTE Prior VTE?: No VTE Risk Level:: Medical - moderate - high VTE Device Contraindication: N/A - Device Ordered VTE Drug Contraindication: N/A - Med Ordered
[2024-11-04] MEDS: vancomycin HCL 1,250 MG in 0.9 % Sodium Chloride 250 ML 166.67 MG IV (18:09)
[2024-11-04 19:27] VITALS: BP 140/86; PULSE 86; RESP 17; TEMP 36.4; O2SAT 96
[2024-11-04] MEDS: DULoxetine HCl 30 MG CAPSULE.DR PO (21:10)
[2024-11-04] MEDS: traZODone HCL 50 MG TABLET PO (21:11)
[2024-11-04 23:25] VITALS: BP 150/82; PULSE 66; RESP 16; TEMP 36.6; O2SAT 95
[2024-11-05] MEDS: vancomycin HCL Oral Solution 125 MG/5 ML SOLN.RECON PO ×4 (00:39→18:25)
[2024-11-05 03:49] VITALS: BP 161/71; PULSE 65; RESP 16; TEMP 36.4; O2SAT 94
[2024-11-05] MEDS: Piperacillin Sodium/Tazobactam 4.5 GM in 0.9 % Sodium Chloride 100 ML IV ×4 (03:50→21:02)
[2024-11-05] MEDS: Omeprazole 20 MG CAPSULE.DR PO (06:37)
[2024-11-05 06:39] LABS: Creatinine Clr Calc Pharmacy 80.9; Estimated Glomerular Filt Rate > 60
[2024-11-05 08:20] VITALS: BP 170/97; PULSE 62; RESP 12; TEMP 36.6; O2SAT 96
[2024-11-05] MEDS: Octreotide Acetate 100 MCG/ML AMPUL 50 MCG SUBCUT ×2 (08:58→21:06)
[2024-11-05] MEDS: Oseltamivir Phosphate 75 MG CAPSULE PO ×2 (08:59→21:03)
[2024-11-05] MEDS: Metoprolol Tartrate 25 MG TABLET PO ×2 (08:59→21:04)
[2024-11-05] MEDS: amLODIPine Besylate 5 MG TABLET PO (08:59)
[2024-11-05] MEDS: Apixaban 5 MG TABLET PO ×2 (08:59→21:04)
[2024-11-05] MEDS: Finasteride 5 MG TABLET PO (08:59)
[2024-11-05] MEDS: Gabapentin 300 MG CAPSULE PO ×3 (08:59→21:04)
[2024-11-05] MEDS: 0.9 % Sodium Chloride Flush 3 ML SYRINGE IVFLUSH ×2 (09:06→21:06)
--- NOTE | 2024-11-05 10:35 | MHC.CM.PN ---
Per MD rounds patient not medically cleared for dc. Updates sent to [facility]. CM will continue to follow.
--- NOTE | 2024-11-05 11:30 | P.PNIM_ITS ---
Subjective Subjective Date of Service: 11/05/24 Interval History: Complaining of discomfort due to neck collar, difficulty sleeping and cough. Tolerating modified diet able to feed himself, no other acute events. Review of Systems All other system reviewed and are negative. Physical Exam 2 Vital Signs: Vital Signs: Last Vital Signs Temp 97.8 F 11/05/24 08:20 Pulse 62 11/05/24 08:20 Resp 12 11/05/24 08:20 BP 170/97 H 11/05/24 08:20 Pulse Ox 96 11/05/24 08:20 O2 Del Method Room Air 11/05/24 08:20 BMI result Body Mass Index 22.0 Const: Other: Gen: in no acute distress, intermittent coughing to clear throat HEENT: sclera anicteric, moist mucus membranes Neck: [place] collar in place Lungs: clear to auscultation bilaterally Heart: regular rate and rhythm, no murmurs Abd: soft, non-tender, non-distended, no guarding, no rigidity Ext: no edema Skin: warm/well-perfused Neuro: alert and oriented x3, no focal findings Psych: appropriate affect Zuniga catheter clear urine Objective Data Active Medications Acetaminophen (Acetaminophen Supp 650 Mg Supp.Rect) 650 mg [place] Q6H PRN PRN Reason: Pain, Mild 1-3,fever,headache Last Admin: 11/01/24 17:52 Dose: 650 mg Documented By: MEMO Amlodipine Besylate (Amlodipine Besylate 5 Mg Tablet) 5 mg PO DAILY [facility]; Protocol Last Admin: 11/05/24 08:59 Dose: 5 mg Documented By: ZO Apixaban (Apixaban 5 Mg Tablet) 5 mg PO BID [facility] Last Admin: 11/05/24 08:59 Dose: 5 mg Documented By: ZO Bisacodyl (Bisacodyl 10 Mg Supp.Rect) 10 mg [place] DAILY PRN PRN Reason: Constipation Calcium Carbonate (Calcium Carbonate 750 Mg Tab.Chew) 750 mg PO Q4H PRN PRN Reason: Heartburn Duloxetine HCl (Duloxetine Hcl 30 Mg Capsule.Dr) 30 mg PO BEDTIME [facility] Last Admin: 11/04/24 21:10 Dose: 30 mg Documented By: KIP Finasteride (Finasteride 5 Mg Tablet) 5 mg PO DAILY [facility] Last Admin: 11/05/24 08:59 Dose: 5 mg Documented By: ZO Gabapentin (Gabapentin 300 Mg Capsule) 300 mg PO TID [facility] Last Admin: 11/05/24 08:59 Dose: 300 mg Documented By: ZO Piperacillin Sod/Tazobactam (Sod 4.5 gm/ Sodium Chloride) 100 mls @ 200 mls/hr IV Q6H [facility] Last Infusion: 11/05/24 09:45 Dose: Infused Documented By: ZO Vancomycin HCl 1,250 mg/ (Sodium Chloride) 250 mls @ 166.667 mls/hr IV Q24H [facility] Last Infusion: 11/04/24 20:09 Dose: Infused Documented By: KIP Loperamide HCl (Loperamide Hcl 2 Mg Capsule) 2 mg PO Q4H PRN PRN Reason: Loose Stool Magnesium Hydroxide (Milk Of Magnesia 30 Ml Oral.Susp) 30 ml PO DAILY PRN PRN Reason: Constipation Melatonin (Melatonin 3 Mg Tablet) 6 mg PO BEDTIME PRN PRN Reason: Insomnia Last Admin: 11/03/24 20:18 Dose: 6 mg Documented By: CLAUDIA Metoprolol Tartrate (Metoprolol Tartrate 25 Mg Tablet) 25 mg PO BID [facility]; Protocol Last Admin: 11/05/24 08:59 Dose: 25 mg Documented By: ZO Morphine Sulfate (Morphine Sulfate 2 Mg/Ml Cartridge) 2 mg IVPUSH Q4H PRN; Protocol PRN Reason: Pain, Severe (Pain Scale 7-10) Last Admin: 11/03/24 08:21 Dose: 2 mg Documented By: ZO Octreotide Acetate (Octreotide Acetate 100 Mcg/Ml Ampul) 50 mcg SUBCUT BID [facility] Last Admin: 11/05/24 08:58 Dose: 50 mcg Documented By: ZO Omeprazole (Omeprazole 20 Mg Capsule.) 20 mg PO DAILY@0630 [facility] Last Admin: 11/05/24 06:37 Dose: 20 mg Documented By: KIP Ondansetron HCl (Ondansetron Hcl 4 Mg/2 Ml Vial) 4 mg IVPUSH Q8H PRN PRN Reason: Nausea and Vomiting Oseltamivir Phosphate (Oseltamivir Phosphate 75 Mg Capsule) 75 mg PO Q12H [facility] Stop: 11/05/24 21:31 Last Admin: 11/05/24 08:59 Dose: 75 mg Documented By: ZO Pharmacy Consult (Consult Rx Vancomycin Dosing) 1 each MISCELLANE DAILY PRN PRN Reason: Consult order Simethicone (Simethicone 80 Mg Tab.Chew) 80 mg PO Q8H PRN PRN Reason: Gastric Reflux Sodium Biphosphate/Sodium Phosphate (Sodium Phosphate,[place]-Dibasic 133 Ml Enema) 118 ml [place] DAILY PRN PRN Reason: Constipation Sodium Chloride (0.9 % Sodium Chloride Flush 3 Ml Syringe) 3 ml IVFLUSH QSHIFT [facility] Last Admin: 11/05/24 09:06 Dose: 3 ml Documented By: ZO Tramadol HCl (Tramadol Hcl 50 Mg Tablet) 50 mg PO Q12H PRN PRN Reason: Pain, Severe (Pain Scale 7-10) Last Admin: 11/02/24 05:53 Dose: 50 mg Documented By: CHARITO Trazodone HCl (Trazodone Hcl 50 Mg Tablet) 50 mg PO BEDTIME [facility] Last Admin: 11/04/24 21:11 Dose: 50 mg Documented By: KIP Vancomycin HCl (Vancomycin Hcl Oral Solution 125 Mg/5 Ml Soln.Recon) 125 mg PO Q6H [facility] Last Admin: 11/05/24 06:37 Dose: 125 mg Documented By: KIP Labs 11/02/24 06:03 11/05/24 05:21 Labs: Laboratory Results - last 24 hr 11/05/24 05:21 Hold Purple Top SEE NOTE Estim Creat Clear Calc 80.9 Estimated GFR > 60 Microbiology Microbiology Results: Microbiology 10/31/24 20:37 Urine Culture - Final Urine Catheterized - Zuniga Catheter Citrobacter freundii Pseudomonas aeruginosa Assessment and Plan (1) Psoas abscess: Status: Acute (2) Obstructive uropathy: Status: Acute (3) BPH loc w urin obs/LUTS: Status: Acute (4) Influenza A: Status: Acute Plan 69yo M LTC resident of [facility] with HTN, 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, BPH with chronic Zuniga, recurrent UTIs with hx of Cdiff, pAF, and dementia brought in with AMS and unwitnessed fall; found to be septic [febrile/leukocytosis] with influenza B, LLL PNA, pyelonephritis with psoas myositis/abscess, moderate-severe left hydrouereteronephrosis; also C6 pedicle and T2 compression fractures sepsis - resolved, WBC normalized, no fevers, multiple possible sources including influenza B, pyelonephritis with possible psoas myositis/abscess, pneumonia Blood culture showed no growth, urine culture grew Citrobacter freundii on antibiotic as below L pyelonephritis due to chronic indwelling Zuniga catheter L psoas myositis/abscess? - initially felt that myositis/abscess does not appear drainable and likely secondary to kidney infection by urology and GI. Repeat CT abdomen and pelvis 11/04 showed overall size of small region of phlegmon with tiny central abscess along the anterior margin of the left psoas muscle is similar to prior, the left ureter travels through this region of inflammation Spoke with Urology they recommended IR drainage of phlegmon, spoke with IR they felt that its less likely an abscess and if there is it is too small to be drained on IV vanco x4 days and Zosyn x 3 days will transition to by mouth antibiotic in next 1-2 days. Spoke with Urologist Dr Yuriy Zavala she recommend outpatient imaging studies in 2 weeks for follow-up. L hydroureteronephrosis nephrolithiasis - stones not obstructing per Urology; hydronephrosis could have been due to misplaced Zuniga [in prostate/replaced] Repeat CT abdomen and pelvis showed Zuniga catheter balloon is inflated within the penile urethra at the base of the prostate gland, bladder is distended with persistent moderate severe bilateral hydroureteronephrosis likely related to bladder outlet obstruction secondary to enlarged prostate gland Zuniga catheter repositioned. Renal function normal outpatient imaging studies in 2 weeks as above LLL pneumonia, ?aspiration vs post-influenza - was on ceftriaxone + metronidazole 11/01-11/02; change to piperacillin-tazobactam 11/02-; also on vancomycin 11/01-, PCT 0.05, MRSA swab POSITIVE, urinary antigens for Legionella and pneumococcus pending - given hx Cdiff on PO vancomycin as well for prevention infuenza B - finished course of oseltamivir acute toxic encephalopathy due to infection/fever - appears to have resolved C6 pedicle fracture T2 compression fracture - ED Dr Tavares contacted neurosurgeon on-call at [facility] [place] [place] and recommended soft [place] collar, for 6 wk then follow up in clinic neuroendocrine tumor - continue octreotide BPH - finasteride, Zuniga ?AF - continue apixaban, metoprolol tartrate neuropathy - duloxetine, gabapentin mood disorder - trazodone HTN - amlodipine, metoprolol tartrate Dysphagia tolerating pureed diet , seen by speech therapy diet upgraded to ground mechanical and clear liquids. Add Mucinex syrup difficulty clearing throat. Insomnia will schedule melatonin VTE ppx - apixaban dispo - eventual return to LTC In my clinical judgment, the patient requires continued inpatient hospitalization for the following reasons: IV ABX Quality Stroke Does the patient have a stroke diagnosis?: No VTE Prior VTE?: No VTE Risk Level:: Medical - moderate - high VTE Device Contraindication: N/A - Device Ordered VTE Drug Contraindication: N/A - Med Ordered
[2024-11-05 12:00] VITALS: BP 139/77; PULSE 58; RESP 18; TEMP 36.4; O2SAT 94
[2024-11-05] MEDS: guaiFENesin 200 MG/10 ML 10 ML LIQUID PO ×3 (12:00→21:06)
--- NOTE | 2024-11-05 12:00 | P.CDIM_ITS ---
PROVIDER RESPONSE TEXT: To clarify, the appropriate diagnosis supported by the clinical indicators: Toxic QUERY TEXT: PHYSICIAN'S DOCUMENTATION REQUEST Date of Query: 11/05/2024 09:35 AM EST Patient Name: Alhaji Varner Admit Date: 11/01/2024 Dear Blossom Whitehead MD, A review of the medical record indicates additional documentation may be needed. Please review below and update the documentation accordingly. Clinical Indicators: altered mental status, lethargic acute Encephalopathy due to infection/fever Based on the above, please further specify the known or suspected type of the documented encephalopat hy: Metabolic Septic Toxic Toxic metabolic Hepatic (reported as hepatic failure and needs further specificity as to acute, subacute, or chronic) Due to a specified condition (such as UTI, hyponatremia, CVA, etc.) Other (explain) Clinically unable to determine (explain) Thank you, Phuong Willis RN Use of terms such as suspected, likely, concern for, or probable (associated with a specific diagnosi s that is being evaluated, monitored, or treated as if it exists) are acceptable and can be coded in the inpatient se tting, when documented at the time of discharge. Please use your independent medical judgment in providing your response. THIS QUERY IS PART OF THE PERMANENT MEDICAL RECORD
[2024-11-05 13:33] LABS: Strep Pneumo Ag urine Not Detected (Not Detected)
--- NOTE | 2024-11-05 15:38 | MHC.SL.SWA ---
Speech Pathologist Impression: Mild to moderate risk for aspiration d/t physical limitations, cognitive decline and age. Pt c/o discomfort with [place] collar; pt remains on modified diet which is unpreferred. Chronic cough ongoing. Risk of Aspiration Due to: Reduced Cognition Physical condition (neck/head ROM limited) Chronic cough Dysphasia Diet Status: Liquid Consistency and Strategies for Safe Swallow: Liquid Intake Recommendation: Thin Liquid Intake Strategies: Small Sips Solid Food Consistency: Dietary Recommendations: Grnd/Mech Altered (NDD2) Additional Modifications to Solid Foods: Moisten w/ sauces and gravies Oral Medication Intake: Crushed with Puree Please contact the pharmacy regarding appropriate crushable or liquid drug formulations that are available whenever modified delivery is recommended. Compensatory Strategies and Precautions to be Taken for Safe Swallow: Sitting Upright (90 deg) Small Bites and Sips Alternate Liquids/Solids Rate of Ingestion Change Avoid Specific Foods Supervision While Eating and Drinking for Safe Swallow: Total Supervision (1:1) Foods to Avoid: [place] hard or tough to chew solids Swallowing Recommended Treatments: Compens. Strategy Educat. Recommendation for Speech: Inpatient Speech Therapy Comment: 1:1 supervision at mealtime Frequency/Duration: Daily M-F Date Range for Service Req: Timeline to reassess: Legal Job Titles Clinican/Clinical Fellow: No Supervisory Statement: I have reviewed and agree with the student/clinical fellow's documentation: N/A Speech Language Pathologist: Suad Fall M.S., CCC-[employer]
[2024-11-05 16:32] VITALS: BP 166/89; PULSE 60; RESP 18; TEMP 36.4; O2SAT 96
[2024-11-05 17:45] LABS: Vancomycin Trough 12.2 mcg/mL (10.0-20.0)
[2024-11-05] MEDS: vancomycin HCL 1,500 MG in 0.9 % Sodium Chloride 500 ML 333.33 MG IV (18:25)
[2024-11-05 19:49] VITALS: BP 148/80; PULSE 66; RESP 18; TEMP 36; O2SAT 95
[2024-11-05] MEDS: DULoxetine HCl 30 MG CAPSULE.DR PO (21:03)
[2024-11-05] MEDS: traZODone HCL 50 MG TABLET PO (21:03)
[2024-11-05] MEDS: Melatonin 3 MG TABLET 6 MG PO (21:03)
[2024-11-05 23:09] VITALS: BP 142/76; PULSE 57; RESP 18; TEMP 36.1; O2SAT 93
[2024-11-06] MEDS: Piperacillin Sodium/Tazobactam 4.5 GM in 0.9 % Sodium Chloride 100 ML IV (03:37)
[2024-11-06] MEDS: vancomycin HCL Oral Solution 125 MG/5 ML SOLN.RECON PO ×4 (03:37→18:41)
[2024-11-06 03:39] VITALS: BP 151/87; PULSE 57; RESP 20; TEMP 36.6; O2SAT 93
[2024-11-06] MEDS: Omeprazole 20 MG CAPSULE.DR PO (06:15)
[2024-11-06 06:53] LABS: Legionella Ag Urine Not Detected (Not Detected)
[2024-11-06 07:07] LABS: Hematocrit 30.2 % (42.0-52.0); Hemoglobin 9.8 g/dl (14.0-18.0); Mean Corpuscular HGB Conc 32.5 g/dl (31.0-36.0); Mean Corpuscular Hemoglobin 28.8 pg (27.0-33.0); Mean Corpuscular Volume 88.8 fL (80.0-98.0); Platelet Count 452 X10*3/uL (160-400); Red Cell Distribution Width 15.3 % (11.0-16.0); White Blood Count 9.6 X10*3/uL (4.8-10.8)
[2024-11-06 07:31] LABS: Anion Gap 12 (12-20); Blood Urea Nitrogen 8 mg/dL (9-16); Calcium 8.2 mg/dL (8.4-10.2); Carbon Dioxide 26 mmol/L (22-29); Chloride 104 mmol/L (96-108); Creatinine Clr Calc Pharmacy 98.1; Estimated Glomerular Filt Rate > 60; Glucose Random 121 mg/dL (60-115); Potassium 2.9 mmol/L (3.3-5.1); Sodium 139 mmol/L (135-145)
[2024-11-06 07:41] VITALS: BP 162/83; PULSE 59; RESP 18; TEMP 36.1; O2SAT 95
[2024-11-06] MEDS: Potassium Chloride/H20 10 MEQ/100 ML PIGGYBACK 100 MEQ IV ×4 (07:56→11:34)
[2024-11-06] MEDS: 0.9 % Sodium Chloride Flush 3 ML SYRINGE IVFLUSH ×3 (07:59→19:55)
[2024-11-06 08:08] LABS: Immature Retic Fraction 33.6 % (2.3-13.4); Retic HGB Equivalent 32.8 pg (30.0-35.0); Reticulocyte Percent 3.4 % (0.5-1.8); Reticulocytes Absolute 0.114 X10*6/uL (0.026-0.095)
[2024-11-06 08:23] LABS: C Reactive Protein 1.22 mg/dL (< or = 0.50); Iron 55 mcg/dL (45-160); Lactate Dehydrogenase 247 U/L (118-273); Magnesium 1.6 mg/dL (1.6-2.6); Percent Iron Saturation 34 % (15-50); Total Iron Binding Capacity 160 mcg/dL (228-428); Unsaturated Iron Binding 105 ug/dL
[2024-11-06 08:37] LABS: Ferritin 333 ng/mL (20-250)
[2024-11-06] MEDS: levoFLOXacin 750 MG TABLET PO (09:12)
[2024-11-06] MEDS: Metoprolol Tartrate 25 MG TABLET PO ×2 (09:12→19:52)
[2024-11-06] MEDS: Gabapentin 300 MG CAPSULE PO ×3 (09:12→19:52)
[2024-11-06] MEDS: Apixaban 5 MG TABLET PO ×2 (09:12→19:52)
[2024-11-06] MEDS: Finasteride 5 MG TABLET PO (09:12)
[2024-11-06] MEDS: amLODIPine Besylate 5 MG TABLET PO (09:12)
[2024-11-06] MEDS: Octreotide Acetate 100 MCG/ML AMPUL 50 MCG SUBCUT ×2 (09:13→19:52)
[2024-11-06] MEDS: Potassium Chloride Packet 20 MEQ PACKET 40 MEQ PO (09:13)
[2024-11-06] MEDS: Sulfamethox/Trimeth 800/160 TABLET 1 TAB PO ×2 (09:13→19:51)
[2024-11-06] MEDS: guaiFENesin 200 MG/10 ML 10 ML LIQUID PO ×3 (10:27→19:55)
[2024-11-06] MEDS: traMADoL HCL 50 MG TABLET PO (11:00)
[2024-11-06 11:25] VITALS: BP 162/82; PULSE 70; RESP 18; TEMP 36.1; O2SAT 95
--- NOTE | 2024-11-06 11:38 | HO.WOUND ---
Wound Consult: Follow up 69yr old?male admitted to [facility] on 11/01/24 - See progress notes and H&P for detailed history.? Wound consult follow up for C-collar.? Patient agreeable to assessment and photo documentation.? C Collar in place - continuous nature of device leads to increased risk of pressure injury development. Device lifted and skin assessed for pink intact dry blanchable tissue. Allevyn foam dressing applied under device to protect from friction and pressure to chest, back and bilateral collar bones. Upperback, Mid chest and bilateral collar bones - apply skin prep allow to dry. Apply foam dressings to areas of contact with the collar. Remove and assess skin Q shift and change every 5 days. Sacrum not assessed at todays visit - no topical interventions needed. Left Sacrum Etiology: ?Stage 1 Pressure Injury ?Present on Admission Wound Bed: left sacrum / buttock with scattered areas of red maroon intact nonblanchable tissue Drainage / Odor: None Edges: irregular and attached ? Andria wound: MASD - red pink blanchable tissue - ? No Induration, Fluctuance or Warmth noted Pain: denies Goals of Treatment: ? barrier cream to protect from moisture and friciton Recommendations: 1. Turn and Reposition every 2 hours and as needed for patient comfort.? Use pillows or wedges to support off loading positions. 2. Off Load all bony prominences with use of pillows and heel boots if needed.? Apply Preventative foams where needed. ? 3. Monitor for incontinence and moisture control, use barrier creams when needed for prevention and treatment. 4. Provide adequate and supplemental nutrition.? 5. Order or Continue low air loss mattress. 6. When applicable maintain blood glucose levels per Providers order. 7. Sacrum and buttock - Off Load Pressure with Q2 hr turns and use of pillows Cleanse with Ph balanced wipes, pat dry. Apply barrier cream twice daily - and PRN after episodes of incontinence. Re-consult wound care Nurse for wound deterioration or wound changes.
--- NOTE | 2024-11-06 12:12 | HO.PM.IMPN ---
Subjective Subjective Date of Service: 11/06/24 Interval History: cough improving no dysuria or flank pain Review of Systems Review of Systems: Yes all other systems are reviewed and are negative Physical Exam Vital Signs: Vital Signs: Last Vital Signs Temp 97.0 F 11/06/24 11:25 Pulse 70 11/06/24 11:25 Resp 18 11/06/24 11:25 BP 162/82 H 11/06/24 11:25 Pulse Ox 95 11/06/24 11:25 O2 Del Method Room Air 11/06/24 11:25 BMI result Body Mass Index 22.0 Gen: in no acute distress, intermittent coughing to clear throat HEENT: sclera anicteric, moist mucus membranes Neck: [place] collar in place Lungs: clear to auscultation bilaterally Heart: regular rate and rhythm, no murmurs Abd: soft, non-tender, non-distended, no guarding, no rigidity Ext: no edema Skin: warm/well-perfused Neuro: alert and oriented x3, no focal findings Psych: appropriate affect Zuniga catheter clear urine Objective Data Active Medications Acetaminophen (Acetaminophen Supp 650 Mg Supp.Rect) 650 mg TN Q6H PRN PRN Reason: Pain, Mild 1-3,fever,headache Last Admin: 11/01/24 17:52 Dose: 650 mg Documented By: MEMO Amlodipine Besylate (Amlodipine Besylate 5 Mg Tablet) 5 mg PO DAILY [facility]; Protocol Last Admin: 11/06/24 09:12 Dose: 5 mg Documented By: GIGI Apixaban (Apixaban 5 Mg Tablet) 5 mg PO BID [facility] Last Admin: 11/06/24 09:12 Dose: 5 mg Documented By: GIGI Bisacodyl (Bisacodyl 10 Mg Supp.Rect) 10 mg TN DAILY PRN PRN Reason: Constipation Calcium Carbonate (Calcium Carbonate 750 Mg Tab.Chew) 750 mg PO Q4H PRN PRN Reason: Heartburn Duloxetine HCl (Duloxetine Hcl 30 Mg Capsule.) 30 mg PO BEDTIME [facility] Last Admin: 11/05/24 21:03 Dose: 30 mg Documented By: EDUARDO Finasteride (Finasteride 5 Mg Tablet) 5 mg PO DAILY [facility] Last Admin: 11/06/24 09:12 Dose: 5 mg Documented By: GIGI Gabapentin (Gabapentin 300 Mg Capsule) 300 mg PO TID [facility] Last Admin: 11/06/24 09:12 Dose: 300 mg Documented By: GIGI Guaifenesin (Guaifenesin 200 Mg/10 Ml 10 Ml Liquid) 10 ml PO TID [facility] Last Admin: 11/06/24 10:27 Dose: 10 ml Documented By: GIGI Levofloxacin (Levofloxacin 750 Mg Tablet) 750 mg PO Q24H [facility] Last Admin: 11/06/24 09:12 Dose: 750 mg Documented By: GIGI Loperamide HCl (Loperamide Hcl 2 Mg Capsule) 2 mg PO Q4H PRN PRN Reason: Loose Stool Magnesium Hydroxide (Milk Of Magnesia 30 Ml Oral.Susp) 30 ml PO DAILY PRN PRN Reason: Constipation Melatonin (Melatonin 3 Mg Tablet) 6 mg PO BEDTIME [facility] Last Admin: 11/05/24 21:03 Dose: 6 mg Documented By: EDUARDO Metoprolol Tartrate (Metoprolol Tartrate 25 Mg Tablet) 25 mg PO BID [facility]; Protocol Last Admin: 11/06/24 09:12 Dose: 25 mg Documented By: GIGI Morphine Sulfate (Morphine Sulfate 2 Mg/Ml Cartridge) 2 mg IVPUSH Q4H PRN; Protocol PRN Reason: Pain, Severe (Pain Scale 7-10) Last Admin: 11/03/24 08:21 Dose: 2 mg Documented By: ZO Octreotide Acetate (Octreotide Acetate 100 Mcg/Ml Ampul) 50 mcg SUBCUT BID [facility] Last Admin: 11/06/24 09:13 Dose: 50 mcg Documented By: GIGI Omeprazole (Omeprazole 20 Mg Capsule.Dr) 20 mg PO DAILY@0630 [facility] Last Admin: 11/06/24 06:15 Dose: 20 mg Documented By: EDUARDO Ondansetron HCl (Ondansetron Hcl 4 Mg/2 Ml Vial) 4 mg IVPUSH Q8H PRN PRN Reason: Nausea and Vomiting Pharmacy Consult (Consult Rx Vancomycin Dosing) 1 each MISCELLANE DAILY PRN PRN Reason: Consult order Simethicone (Simethicone 80 Mg Tab.Chew) 80 mg PO Q8H PRN PRN Reason: Gastric Reflux Sodium Biphosphate/Sodium Phosphate (Sodium Phosphate,Chaves-Dibasic 133 Ml Enema) 118 ml TN DAILY PRN PRN Reason: Constipation Sodium Chloride (0.9 % Sodium Chloride Flush 3 Ml Syringe) 3 ml IVFLUSH QSHIFT [facility] Last Admin: 11/06/24 07:59 Dose: 3 ml Documented By: GIGI Tramadol HCl (Tramadol Hcl 50 Mg Tablet) 50 mg PO Q12H PRN PRN Reason: Pain, Severe (Pain Scale 7-10) Last Admin: 11/06/24 11:00 Dose: 50 mg Documented By: GIGI Trazodone HCl (Trazodone Hcl 50 Mg Tablet) 50 mg PO BEDTIME [facility] Last Admin: 11/05/24 21:03 Dose: 50 mg Documented By: DEUARDO Trimethoprim/Sulfamethoxazole (Sulfamethox/Trimeth 800/160 Tablet) 1 tab PO Q12H [facility] Last Admin: 11/06/24 09:13 Dose: 1 tab Documented By: GIGI Vancomycin HCl (Vancomycin Hcl Oral Solution 125 Mg/5 Ml Soln.Recon) 125 mg PO Q6H [facility] Last Admin: 11/06/24 06:15 Dose: 125 mg Documented By: EDUARDO Labs 11/06/24 06:55 11/06/24 06:55 Labs: Laboratory Results - last 24 hr 11/01/24 11/05/24 11/06/24 18:01 17:21 06:55 MCV 88.8 MCH 28.8 MCHC 32.5 RDW 15.3 Plt Count 452 H D MPV 9.0 L Absolute Nucleated RBC 0.000 Nucleated RBC % (auto) 0.0 Absolute Retic 0.114 H Percent Retic 3.4 H Immature Retic Fraction 33.6 H Retic Hgb Equivalent 32.8 Anion Gap 12 Estim Creat Clear Calc 98.1 Estimated GFR > 60 Random Glucose 121 H Calcium 8.2 L Magnesium 1.6 Iron 55 TIBC 160 L % Saturation 34 Unsat Iron Binding 105 Ferritin 333 H Lactate Dehydrogenase 247 C-Reactive Protein 1.22 H Vancomycin Trough 12.2 Ur L.pneumophila Ag Not Detected Ur Strep pneumoniae Ag Not Detected Microbiology Microbiology Results: Microbiology 10/31/24 20:29 Blood Culture - Final Blood - Venous No growth after 5 days. 10/31/24 20:21 Blood Culture - Final Blood - Venous No growth after 5 days. 10/31/24 20:37 Urine Culture - Final Urine Catheterized - Zuniga Catheter Citrobacter freundii Pseudomonas aeruginosa Assessment and Plan (1) Psoas abscess: Status: Acute (2) Obstructive uropathy: Status: Acute (3) BPH loc w urin obs/LUTS: Status: Acute (4) Influenza A: Status: Acute Plan d6 for 69yo M LTC resident of [facility] with HTN, 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, BPH with chronic Zuniga, recurrent UTIs with hx of Cdiff, pAF, and dementia brought in with AMS and unwitnessed fall; found to be septic [febrile/leukocytosis] with influenza B, LLL PNA, pyelonephritis with psoas myositis/abscess, moderate-severe left hydrouereteronephrosis; also C6 pedicle and T2 compression fractures sepsis - resolved, WBC normalized, no fevers - multiple possible sources including influenza B, pyelonephritis with possible psoas myositis/abscess, pneumonia - blood culture showed no growth, urine culture as below L pyelonephritis due to chronic indwelling Zuniga catheter, growing Citrobacter freundii and Pseudomonas aeuroginosa L psoas myositis/abscess? - initially felt that myositis/abscess does not appear drainable and likely secondary to kidney infection by urology and GI - repeat CT abdomen and pelvis 11/04 showed overall size of small region of phlegmon with tiny central abscess along the anterior margin of the left psoas muscle is similar to prior; the left ureter travels through this region of inflammation - Urology recommended IR drainage of phlegmon but IR thought it was too small to be drained; to discuss again today; also recommends outpatient imaging in 2 wk and office follow-up - was on vancomycin 11/01-, piperacillin-tazobactam 11/02-; change to levofloxacin to cover Pseudomonas and TMP-SMX to cover Citrobacter - given hx Cdiff on PO vancomycin while on ABX as well for prevention L hydroureteronephrosis nephrolithiasis - stones not obstructing per Urology; hydronephrosis could have been due to misplaced Zuniga [in prostate/replaced] - repeat CT abdomen and pelvis showed Zuniga catheter balloon was inflated within the penile urethra at the base of the prostate gland; bladder distended with persistent moderate severe bilateral hydroureteronephrosis likely related to bladder outlet obstruction secondary to enlarged prostate gland - Zuniga catheter repositioned by urologist - renal function normal; outpatient imaging studies in 2 weeks as above LLL pneumonia, ?aspiration vs post-influenza - was on ceftriaxone + metronidazole 11/01-11/02; changed to piperacillin-tazobactam 11/02-11/06; also on vancomycin 11/01-11/06, PCT 0.05, MRSA swab POSITIVE, urinary antigens for Legionella and pneumococcus negative. Changed to levofloxacin and TMP-SMX as above infuenza B - finished course of oseltamivir acute toxic encephalopathy due to infection/fever - appears to have resolved C6 pedicle fracture T2 compression fracture - ED Dr Tavares contacted neurosurgeon on-call at [facility] and recommended soft [place] collar, for 6 wk then follow up in clinic at [facility] neuroendocrine tumor - continue octreotide BPH - finasteride, Zuniga ?AF - continue apixaban, metoprolol tartrate neuropathy - duloxetine, gabapentin mood disorder - trazodone HTN - amlodipine, metoprolol tartrate dysphagia - tolerating pureed diet; seen by speech therapy diet upgraded to ground mechanical and clear liquids insomnia - melatonin VTE ppx - apixaban dispo - eventual return to LTC In my clinical judgment, the patient requires continued inpatient hospitalization for the following reasons: IV ABX Quality Stroke Does the patient have a stroke diagnosis?: No VTE Prior VTE?: No VTE Risk Level:: Medical - moderate - high VTE Device Contraindication: N/A - Device Ordered VTE Drug Contraindication: N/A - Med Ordered
--- NOTE | 2024-11-06 14:48 | MHC.SL.SWA ---
Speech Pathologist Impression: Risk of Aspiration Due to: Reduced Cognition Dysphasia Diet Status: Recommend continue on Ground/mechanical (NDD2) with thin liquids, pills crushed in puree. Liquid Consistency and Strategies for Safe Swallow: Liquid Intake Recommendation: Thin Liquid Intake Strategies: Small Sips Solid Food Consistency: Dietary Recommendations: Grnd/Mech Altered (NDD2) Additional Modifications to Solid Foods: Moisten w/ sauces and gravies Oral Medication Intake: Crushed with Puree Please contact the pharmacy regarding appropriate crushable or liquid drug formulations that are available whenever modified delivery is recommended. Compensatory Strategies and Precautions to be Taken for Safe Swallow: Sitting Upright (90 deg) Liquids from Straw Small Bites and Sips Alternate Liquids/Solids Supervision While Eating and Drinking for Safe Swallow: Total Assistance (1:1) Foods to Avoid: [place] hard or tough to chew solids Swallowing Recommended Treatments: Compens. Strategy Educat. Recommendation for Speech: Inpatient Speech Therapy Comment: Pt seen at lunch time, however upon entering room, patient reported he had finished his lunch but was very thirsty. STOCK ASSOCIATE assisted patient with drinking water with straw from available water bottle, which with encouragement patient was able to do with some independence. Patient took serial sips of water, produced a timely swallow. Incidental coughing noted, however it did not appear to be associated with swallow. Patient appeared relieved to have water, though continued to present as quite anxious. Patient will continue to need full supervision and assistance as needed at meals, given level of confusion, and cervical collar. Recommend continue on Ground/mechanical (NDD2) with thin liquids, pills crushed in puree. Frequency/Duration: Daily M-F Date Range for Service Req: Timeline to reassess: Assayer Helper Clinican/Clinical Fellow: No Supervisory Statement: I have reviewed and agree with the student/clinical fellow's documentation: N/A Speech Language Pathologist: Cee Upton M.A., CCC-STOCK ASSOCIATE
[2024-11-06 15:31] VITALS: BP 134/78; PULSE 63; RESP 16; TEMP 36.1; O2SAT 96
[2024-11-06 16:59] LABS: Glucose, Whole Blood 102 mg/dL (60-115)
[2024-11-06 17:51] LABS: Anion Gap 13 (12-20); Blood Urea Nitrogen 8 mg/dL (9-16); Calcium 8.7 mg/dL (8.4-10.2); Carbon Dioxide 25 mmol/L (22-29); Chloride 102 mmol/L (96-108); Creatinine Clr Calc Pharmacy 98.1; Estimated Glomerular Filt Rate > 60; Glucose Random 85 mg/dL (60-115); Potassium 3.7 mmol/L (3.3-5.1); Sodium 136 mmol/L (135-145)
[2024-11-06 19:09] VITALS: BP 137/75; PULSE 69; RESP 16; TEMP 36.3; O2SAT 94
--- NOTE | 2024-11-06 19:32 | PC.NURSE ---
Patient has been yelling out for water c/o being thirsty, staff going in to the room often providing water. Patient would take few sips of water and then as soon as staff left room patient would start yelling out for water. Complaint with medications and meals. Pills crushed in applesauce (except Finasteride which could not be crushed and patient was able to take whole in applesauce) Needed help with meals. Patient confused, repetitive. Chronic [place] draining pale yellow urine. Patient c/o mild cough. C/o pain everywhere once and medicated with PRN pain medicine with good effect. Patient has c-collar on, Ruth (wound nurse) assessed skin under the collar, skin intact, foam dressing placed on bony prominences to protect from pressure injury. Stool sample ordered, pending collection. No BM day shift.
[2024-11-06] MEDS: Morphine Sulfate 2 MG/ML CARTRIDGE IVPUSH (19:50)
[2024-11-06] MEDS: Melatonin 3 MG TABLET 6 MG PO (19:51)
[2024-11-06] MEDS: DULoxetine HCl 30 MG CAPSULE.DR PO (19:52)
[2024-11-06] MEDS: traZODone HCL 50 MG TABLET PO (19:52)
[2024-11-07] VITALS: BP 134/74; PULSE 54; RESP 18; TEMP 36.1; O2SAT 94
[2024-11-07] MEDS: vancomycin HCL Oral Solution 125 MG/5 ML SOLN.RECON PO ×2 (03:15→05:17)
[2024-11-07 04:00] VITALS: BP 134/85; PULSE 60; RESP 16; TEMP 36.4; O2SAT 95
[2024-11-07] MEDS: Omeprazole 20 MG CAPSULE.DR PO (05:17)
[2024-11-07 05:53] LABS: Hematocrit 30.7 % (42.0-52.0); Hemoglobin 10.4 g/dl (14.0-18.0); Mean Corpuscular HGB Conc 33.9 g/dl (31.0-36.0); Mean Corpuscular Hemoglobin 29.7 pg (27.0-33.0); Mean Corpuscular Volume 87.7 fL (80.0-98.0); Mean Platelet Volume 8.8 fL (9.4-12.4); Platelet Count 455 X10*3/uL (160-400); Red Cell Distribution Width 15.6 % (11.0-16.0); White Blood Count 10.1 X10*3/uL (4.8-10.8)
[2024-11-07 06:14] LABS: Anion Gap 12 (12-20); Blood Urea Nitrogen 9 mg/dL (9-16); Calcium 8.7 mg/dL (8.4-10.2); Carbon Dioxide 26 mmol/L (22-29); Chloride 101 mmol/L (96-108); Creatinine Clr Calc Pharmacy 89.9; Estimated Glomerular Filt Rate > 60; Glucose Random 129 mg/dL (60-115); Potassium 3.7 mmol/L (3.3-5.1); Sodium 135 mmol/L (135-145)
[2024-11-07 06:50] LABS: Folate 5.8 ng/mL (> or = 4.0); Vitamin B12 404 pg/mL (200-900)
[2024-11-07 07:45] VITALS: BP 132/85; PULSE 68; RESP 16; TEMP 36.3; O2SAT 96
[2024-11-07] MEDS: Sulfamethox/Trimeth 800/160 TABLET 1 TAB PO (08:14)
[2024-11-07] MEDS: levoFLOXacin 750 MG TABLET PO (08:14)
[2024-11-07] MEDS: Finasteride 5 MG TABLET PO (08:14)
[2024-11-07] MEDS: Apixaban 5 MG TABLET PO (08:14)
[2024-11-07] MEDS: Gabapentin 300 MG CAPSULE PO (08:14)
[2024-11-07] MEDS: Metoprolol Tartrate 25 MG TABLET PO (08:14)
[2024-11-07] MEDS: amLODIPine Besylate 5 MG TABLET PO (08:14)
[2024-11-07] MEDS: guaiFENesin 200 MG/10 ML 10 ML LIQUID PO (08:15)
[2024-11-07] MEDS: Octreotide Acetate 100 MCG/ML AMPUL 50 MCG SUBCUT (08:15)
[2024-11-07] MEDS: 0.9 % Sodium Chloride Flush 3 ML SYRINGE IVFLUSH (08:25)
--- NOTE | 2024-11-07 09:55 | P.DS_ITS ---
DS: Providers Provider Date of Service: 11/07/24 Date of admission: 11/01/24 04:49 Date of discharge: 11/07/24 Primary care physician: Mario Zendejas MD Consults: 11/01/24 08:21 Consult to General Surgery Routine Consulting Provider: [facility] General Surgeons Reason for consultation: psoas abscess Consult to Urology Routine Consulting Provider: [facility] Urology Services Reason for consultation: obstrutive stone 11/01/24 18:36 Consult to Wound Care Routine Reason for consultation: redness to buttocks DS: Diagnosis Discharge Diagnosis (1) Psoas abscess: Status: Acute (2) Obstructive uropathy: Status: Acute (3) BPH loc w urin obs/LUTS: Status: Acute (4) Influenza A: Status: Acute DS: Summary Hospital Course Hospital Course: From the history and physical by the admitting hospitalist, Gokul Caballero, 11/01/24: Patient is a 69 year old white male who is currently a resident at [facility] and who has past medical history of hypertension, chronic low back pain, 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, BPH with chronic indwelling Zuniga catheter, recurrent UTI's, history of c.diff, paroxysmal atrial fibrillation, physical deconditioning following COVID-19 infection, unspecified dementia (at baseline, he is minimally ambulatory, assistance in most ADLs, but oriented with decent insight and able to converse well with family), who is brought to the ED from his SNF for evaluation of altered mental status and unwitnessed fall. He wa s found on the floor by his bedside this evening and was unresponsive to stimuli. No obvious injuries were noted at the time. On arrival to the ED, he was found to be febrile with a temperature of 102.4 F. Initial blood work done revealed a leukocytosis of 12.6 K while urinalysis had 3+ leukocyte esterase, > 50 WBC/HPF, and 4+ bacteria. Imaging studies done included a CT scan of the cervical spine that revealed fracture of the C6 pedicle and T2 compression fracture. A CT scan of the abdomen and pelvis revealed left lower lobe consolidation concerning for aspiration pneumonia, moderate to severe left hydroureteronephrosis with concern for left-sided pyelonephritis with possible myositis/abscess in the distal left psoas muscle. He also has a mild right hydronephrosis with a 4 mm calculi in the right upper renal pole. An assessment of sepsis due to left-sided pyelonephritis with possible myositis / left psoas abscess was made and he was started on IV Ceftriaxone and admission requested. Of note, he has had a normal lactic acid and blood pressures so did not receive IV fluids for resuscitation. When I saw him, he was still lethargic and difficult to awaken and so I did not obtain any additional information from him. 69yo M LTC resident of [facility] with HTN, 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, BPH with chronic Zuniga, recurrent UTIs with hx of Cdiff, pAF, and dementia brought in with AMS and unwitnessed fall; found to be septic [febrile/leukocytosis] with influenza B, LLL PNA, pyelonephritis with psoas myositis/abscess, moderate-severe left hydrouereteronephrosis; also C6 pedicle and T2 compression fractures. Hospital course by problem: sepsis - Resolved, WBC normalized, no further fevers. - Multiple possible sources including influenza B, pyelonephritis with possible psoas myositis/abscess, pneumonia; see below for details. - Blood culture showed no growth, urine culture as below. L pyelonephritis due to chronic indwelling Zuniga catheter, growing Citrobacter freundii and Pseudomonas aeuroginosa L psoas myositis/abscess/phlegmon - Initially felt that myositis/abscess did not appear drainable and likely secondary to kidney infection by urology and General Surgery. - Repeat CT abdomen and pelvis 11/04 showed overall size of small region of phlegmon with tiny central abscess along the anterior margin of the left psoas muscle is similar to prior; the left ureter travels through this region of inflammation. - Urology recommended IR drainage of phlegmon but IR thought it was too small to be drained. Recommended repeat outpatient imaging in 2 week and office follow- up - Was on IV vancomycin 11/01- and piperacillin-tazobactam 11/02-; changed to levofloxacin to cover Pseudomonas and TMP-SMX to cover Citrobacter. - Given hx C. difficile infection, he is on PO vancomycin while on antibiotics. L hydroureteronephrosis nephrolithiasis - Stones not obstructing per Urology; hydronephrosis could have been due to misplaced Zuniga [in prostate/replaced]. - Repeat CT abdomen and pelvis showed Zuniga catheter balloon was inflated within the penile urethra at the base of the prostate gland; bladder distended with persistent moderate severe bilateral hydroureteronephrosis likely related to bladder outlet obstruction secondary to enlarged prostate gland. - Zuniga catheter repositioned by urologist - Renal function normal; outpatient imaging studies in 2 weeks as above. LLL pneumonia, ?aspiration vs post-influenza - Was on ceftriaxone + metronidazole 11/01-11/02; changed to piperacillin-tazobactam 11/02-11/06; also on vancomycin 11/01-11/06. PCT 0.05. MRSA swab POSITIVE, urinary antigens for Legionella and pneumococcus negative. Changed to levofloxacin and TMP-SMX as above. Not hypoxic during hospitalization. infuenza B - Finished a 5-day course of oseltamivir. acute toxic encephalopathy due to infection/fever - Appears to have resolved. C6 pedicle fracture T2 compression fracture - ED Dr Tavares contacted neurosurgeon on-call at [facility]; they recommended soft [place] colla, for 6 wk, then follow up in clinic at [facility]. He was discharged back to long-term SNF care at [facility]. Time Attestation Discharge Coordination Time (in mins): 55 Quality: Safe Use of Opioids Does Pt have an Active Cancer Diagnosis on the Problem List?: No Quality: Stroke Does the patient have a stroke diagnosis?: No Physical Exam Vital Signs: Vital Signs: Last Vital Signs Temp 97.4 F 11/07/24 07:45 Pulse 68 11/07/24 07:45 Resp 16 11/07/24 07:45 BP 132/85 11/07/24 07:45 Pulse Ox 96 11/07/24 07:45 O2 Del Method Room Air 11/07/24 07:45 BMI result Body Mass Index 22.0 Gen: in no acute distress, intermittent coughing to clear throat HEENT: sclera anicteric, moist mucus membranes Neck: [place] collar in place Lungs: clear to auscultation bilaterally Heart: regular rate and rhythm, no murmurs Abd: soft, non-tender, non-distended, no guarding, no rigidity Ext: no edema Skin: warm/well-perfused Neuro: alert and oriented x3, no focal findings Psych: appropriate affect Zuniga catheter clear urine DS: Data Data Completed and Pending Completed studies during hospitalization [Text1]: Laboratory Results WBC 10.1 X10*3/uL (4.8-10.8) 11/07/24 05:23 RBC 3.50 X10*6/uL (4.60-5.80) L 11/07/24 05:23 Hgb 10.4 g/dl (14.0-18.0) L 11/07/24 05:23 Hct 30.7 % (42.0-52.0) L 11/07/24 05:23 MCV 87.7 fL (80.0-98.0) 11/07/24 05:23 MCH 29.7 pg (27.0-33.0) 11/07/24 05:23 MCHC 33.9 g/dl (31.0-36.0) 11/07/24 05: RDW 15.6 % (11.0-16.0) 11/07/24 05:23 Plt Count 455 X10*3/uL (160-400) H 11/07/24 05:23 MPV 8.8 fL (9.4-12.4) L 11/07/24 05:23 Immature Gran % (Auto) 0.4 % (0.0-0.4) 11/01/24 06:45 Neut % (Auto) 62.8 % (45-73) 11/01/24 06:45 Lymph % (Auto) 23.8 % (20-40) 11/01/24 06:45 [place] % (Auto) 12.7 % (2-11) H 11/01/24 06:45 Eos % (Auto) 0.1 % (0-4) 11/01/24 06:45 Baso % (Auto) 0.2 % (0-2) 11/01/24 06:45 Lymph # (Auto) 2.7 X10*3/uL (1.2-4.9) 11/01/24 06:45 [place] # (Auto) 1.4 X10*3/uL (0.1-1.2) H 11/01/24 06:45 Eos # (Auto) 0.0 X10*3/uL (0.0-0.4) 11/01/24 06:45 Baso # (Auto) 0.0 X10*3/uL (0.0-0.2) 11/01/24 06:45 Abs Immat Gran (auto) 0.04 X10*3/uL (0.00-0.03) H 11/01/24 06:45 Absolute Neuts (auto) 7.1 x10*3/uL (2.0-8.3) 11/01/24 06:45 Absolute Nucleated RBC 0.000 X10*3/uL (0.0-0.012) 11/07/24 05:23 Nucleated RBC % (auto) 0.0 /100WBC (0.0-0.2) 11/07/24 05:23 Absolute Retic 0.114 X10*6/uL (0.026-0.095) H 11/06/24 06:55 Percent Retic 3.4 % (0.5-1.8) H 11/06/24 06:55 Immature Retic Fraction 33.6 % (2.3-13.4) H 11/06/24 06:55 Retic Hgb Equivalent 32.8 pg (30.0-35.0) 11/06/24 06:55 Hold Purple Top SEE NOTE 11/05/24 05:21 Sodium 135 mmol/L (135-145) 11/07/24 05:22 Potassium 3.7 mmol/L (3.3-5.1) 11/07/24 05:22 Chloride 101 mmol/L (96-108) 11/07/24 05:22 Carbon Dioxide 26 mmol/L (22-29) 11/07/24 05:22 Anion Gap 12 (12-20) 11/07/24 05:22 BUN 9 mg/dL (9-16) 11/07/24 05:22 Creatinine 0.72 mg/dL (0.5-1.4) 11/07/24 05:22 Estim Creat Clear Calc 89.9 11/07/24 05:22 Estimated GFR > 60 11/07/24 05:22 POC Glucose 102 mg/dL (60-115) 11/06/24 16:54 Random Glucose 129 mg/dL (60-115) H 11/07/24 05:22 Lactic Acid 1.9 mmol/L (0.5-2.0) 10/31/24 20:21 Calcium 8.7 mg/dL (8.4-10.2) 11/07/24 05:22 Magnesium 1.6 mg/dL (1.6-2.6) 11/06/24 06:55 Iron 55 mcg/dL (45-160) 11/06/24 06:55 TIBC 160 mcg/dL (228-428) L 11/06/24 06:55 % Saturation 34 % (15-50) 11/06/24 06:55 Unsat Iron Binding 105 ug/dL 11/06/24 06:55 Ferritin 333 ng/mL (20-250) H 11/06/24 06:55 Total Bilirubin 0.3 mg/dL (0.0-1.0) 10/31/24 20:21 AST 36 U/L (5-37) 10/31/24 20:21 ALT 35 U/L (0-40) 10/31/24 20:21 Alkaline Phosphatase 88 U/L (39-117) 10/31/24 20:21 Lactate Dehydrogenase 247 U/L (118-273) 11/06/24 06:55 C-Reactive Protein 1.22 mg/dL (< or = 0.50) H 11/06/24 06:55 Total Protein 8.3 g/dL (6.5-8.0) H 10/31/24 20:21 Albumin 3.6 g/dL (3.5-5.0) 10/31/24 20:21 Vitamin B12 404 pg/mL (200-900) 11/07/24 05:23 Folate 5.8 ng/mL (> or = 4.0) 11/07/24 05:23 Procalcitonin 0.05 ng/mL 11/03/24 05:31 Urine Color Yellow 10/31/24 20:18 Urine Appearance Cloudy 10/31/24 20:18 Urine pH 6.0 (5.0-9.0) 10/31/24 20:18 Ur Specific [place] 1.020 (1.005-1.025) 10/31/24 20:18 Urine Protein 30 (1+) mg/dL (Neg-Trace) H 10/31/24 20:18 Urine Glucose (UA) Negative mg/dL (Negative) 10/31/24 20:18 Urine Ketones Negative mg/dL (Negative) 10/31/24 20:18 Urine Blood Large (3+) (Negative) H 10/31/24 20:18 Urine Nitrite Negative (Negative) 10/31/24 20:18 Ur Leukocyte Esterase Large (3+) (Negative) H 10/31/24 20:18 Urine RBC >20 /HPF (0-2) H 10/31/24 20:18 Urine WBC >50 /HPF (0-5) H 10/31/24 20:18 Ur Squamous Epith Cells 3-5 /HPF (0-2) 10/31/24 20:18 Urine Bacteria 4+ (None Seen) 10/31/24 20:18 Hyaline Casts 3-5 /LPF (0-2) 10/31/24 20:18 Nasal Screen MRSA (PCR) POSITIVE (Negative) A 11/01/24 13:27 Nasal S. aureus Screen POSITIVE (Negative) A 11/01/24 13:27 Nasal MRSA/S.aureus Interp SEE NOTE 11/01/24 13:27 Vancomycin Trough 12.2 mcg/mL (10.0-20.0) 11/05/24 17:21 Random Vancomycin 18.3 mcg/mL (15-20) 11/03/24 16:11 Influenza Type A (PCR) NEGATIVE (Negative) 10/31/24 20:18 Influenza Type B (PCR) POSITIVE (Negative) A 10/31/24 20:18 Ur L.pneumophila Ag Not Detected (Not Detected) 11/01/24 18:01 RSV RNA Qual (PCR) NEGATIVE (Negative) 10/31/24 20:18 SARS-CoV-2 RNA (RT-PCR) NEGATIVE (Negative) 10/31/24 20:18 Ur Strep pneumoniae Ag Not Detected (Not Detected) 11/01/24 18:01 CXR 10/31/24 Mild left lower lobe atelectasis. CT head 11/01/24 1. No acute intracranial hemorrhage or territorial infarction. 2. Additional findings as described. CT C-spine 11/01/24 1. C6 fracture. 2. T2 compression fracture. 3. Additional findings as described. CT A/P 11/01/24 1. Zuniga catheter in the prostate, recommend repositioning. 2. 2 mm bladder calculus with possible cystitis. 3. Atelectasis with ill-defined consolidations in the posterior left lower lobe. Aspiration or pneumonia not excluded. 4. Moderate to severe left hydroureteronephrosis with a 2 mm calculus in the lower pole kidney. 5. Can not exclude left-sided pyelonephritis/ureteritis. Possible myositis/abscess in the distal left psoas, please see above. 6. Very mild right hydronephrosis with 4 mm calculus in the upper pole. CT A/P 11/04/24 Note should be made that the Zuniga catheter balloon is inflated within the penile urethra at the base of the prostate gland. This is typically inflated within the bladder and may require repositioning. The bladder is distended and there is moderately severe bilateral hydroureteronephrosis likely related to bladder outlet obstruction secondary to extremely enlarged prostate gland. Overall size of the small region of phlegmon with tiny central abscess along the anterior margin of the left psoas muscle is similar to prior. Note should be made that the left ureter travels through this region of inflammation. Discharge Plan Discharge Patient Disposition: er [facility] Discharge Diagnosis: sepsis complicated pyelonephritis psoas myositis/phlegmon/small abscess hydroureteronephrosis influenza B pneumonia C6 pedicle fracture T2 compression fracture Referrals: [facility] [Provider Group] - 4 Weeks Yuriy Mei MD [Physician] - 2 Weeks Mario Zendejas MD [Primary Care Provider] - 1 Week Discharge Medications: New sulfamethoxazole-trimethoprim 800-160 mg Tablet 1 tab PO Q12H Qty: 14 0RF levofloxacin 750 mg Tablet 750 mg PO Q24H Qty: 7 0RF vancomycin 125 mg capsule 125 mg PO QID Qty: 28 0RF Continued [facility]DME[facility] See Rx Instructions .Route Qty: 1 0RF Rx Instructions: Daily As directed, 999 days amlodipine 5 mg tablet 5 mg PO DAILY 90 Days Qty: 90 3RF loperamide 2 mg Tablet 2 mg PO Q4H PRN (Reason: Loose Stool) Rx Instructions: administer after each loose stool until symptoms controlled; do not exceed 8 mg per 24 hrs melatonin 3 mg Tablet 3 mg PO BEDTIME lidocaine-prilocaine 2.5-2.5 % cream 1 appl topical Q8H PRN (Reason: mild pain) Rx Instructions: APPLY TOPICALLY TO AFFECTED AREA OF PENIS THREE TIMES A DAY NEEDED FOR MILD PAIN PRIOR TO APPLYING BACITRACIN magnesium hydroxide [Milk of Magnesia] 400 mg/5 mL Suspension 30 ml PO DAILY PRN (Reason: Constipation) Rx Instructions: For no BM in 3 days bisacodyl 10 mg Suppository [address] DAILY PRN (Reason: Constipation) Rx Instructions: If M.O.M ineffective. Fleet Enema 19-7 gram/118 mL Enema [address] DAILY PRN (Reason: Constipation) Rx Instructions: For no BM if Bisacodyl supp. ineffective (DO NOT GIVE WITH DIALYSIS/RENAL FAILURE) gabapentin 300 mg capsule 300 mg PO TID omeprazole 20 mg capsule,delayed release(DR/EC) 20 mg PO DAILY@0630 calcium carbonate 500 mg calcium (1,250 mg) Tablet,Chewable 500 mg PO Q4H PRN (Reason: Dyspepsia) finasteride 5 mg tablet 5 mg PO DAILY simethicone 80 mg Tablet,Chewable 80 mg PO Q8H PRN (Reason: Gastric Reflux) octreotide acetate 50 mcg/mL (1 mL) Syringe 50 mcg SUBCUT BID Rx Instructions: administer 30 minutes before morning and evening meals Eliquis 5 mg tablet 5 mg PO BID naloxone [Narcan] 4 mg/actuation [place],Non-Aerosol 4 mg INTRANASAL Q3M PRN (Reason: Opioid Overdose) Rx Instructions: spray 1 dose into ONE nostril; alternate nostrils w each dose until help arrives metoprolol tartrate 25 mg Tablet 25 mg PO BID Qty: 60 0RF Protocol: Hold for SBP/HR < HOLD for SBP < : 90 HOLD for HR < : 60 acetaminophen [Tylenol] 325 mg Tablet 650 mg PO Q4H PRN (Reason: Fever Or Pain) Rx Instructions: DNE 3 G / 24 HR trazodone 50 mg tablet 50 mg PO BEDTIME tramadol 50 mg tablet 50 mg PO Q12H PRN (Reason: Pain) duloxetine 30 mg Capsule,Delayed Release(Dr/Ec) 30 mg PO BEDTIME (DME) miscellaneous medical supply Misc See Rx Instructions .ROUTE .MEDSUPPLY Qty: 1 0RF Rx Instructions: Wheelchair. Daily?As directed, 999 days Discharge Orders: Discharge Order (Routine); Ordered 11/07/24 Ordered By: Rubio Conroy Diet: Advance to usual diet Activity on Discharge: As tolerated Stand Alone Forms: Patient Portal Discharge page Print Language: Uzbek Care Plan Goals: recovery from infection and fracture Health Concerns: sepsis complicated pyelonephritis psoas myositis/phlegmon/small abscess hydroureteronephrosis influenza B pneumonia C6 pedicle fracture T2 compression fracture Plan of Treatment: take levofloxacin 750 mg once daily and trimethoprim-sulfamethoxazole 160-800 mg twice daily for 7 days; while on antibiotics, take vancomycin 125 mg 4x a day to prevent C. difficile infection follow up with [facility] Urology in 2 weeks; will need repeat CT A/P then follow up with [facility] Neurosurgery in 4-6 weeks; keep [place] collar on until then Please follow up with your primary care doctor within 1 week. Return to the hospital if you experience recurrent or worsening symptoms. Assessment: See Discharge Summary.
--- NOTE | 2024-11-07 10:24 | MHC.CM.PN ---
Per MD patient medically cleared for dc back to LTC @ [facility]. BLS transport scheduled for 2pm. RN, patient and daughter/HCP aware. IMM delivered.
[2024-11-07 11:31] VITALS: BP 144/84; PULSE 68; RESP 16; TEMP 36.3; O2SAT 95
--- NOTE | 2024-11-07 13:49 | MHC.SL.SWA ---
Speech Pathologist Impression: Risk of Aspiration Due to: Reduced Cognition Dysphasia Diet Status: Patient is pending DC, recommend he continue on current diet of Ground/Mechanical (NDD2) with thin liquids, pills whole or crushed in puree at next level of care. Liquid Consistency and Strategies for Safe Swallow: Liquid Intake Recommendation: Thin Liquid Intake Strategies: Small Sips Solid Food Consistency: Dietary Recommendations: Grnd/Mech Altered (NDD2) Additional Modifications to Solid Foods: Moisten w/ sauces and gravies Oral Medication Intake: Crushed with Puree Please contact the pharmacy regarding appropriate crushable or liquid drug formulations that are available whenever modified delivery is recommended. Compensatory Strategies and Precautions to be Taken for Safe Swallow: Sitting Upright (90 deg) Liquids from Straw Small Bites and Sips Alternate Liquids/Solids Supervision While Eating and Drinking for Safe Swallow: Total Assistance (1:1) Foods to Avoid: [place] hard or tough to chew solids Swallowing Recommended Treatments: Compens. Strategy Educat. Recommendation for Speech: Inpatient Speech Therapy Comment: Patient seen and assisted during lunch. Patient was awake and alert, said that he had not had lunch yet, lunch being held by staff until DAIRY QUALITY ASSURANCE OFFICER available to supervise. ASSISTANT OCEANOGRAPHER offered to provide patient support. Tray and food positioned so that patient could access/scoop food independently, which he did so with mostly success, occasional spill on to his C collar. Patient again today noted to periodically produce a congested cough, not associated with swallow. Patient was provided with support to sip milk and later juice from straw, doing so with no difficulty. Patient at one point stated I have difficulty swallowing but when asked about what he meant, stated it was difficulty with the C collar. Patient is pending DC, recommend he continue on current diet of Ground/Mechanical (NDD2) with thin liquids, pills whole or crushed in puree at next level of care. Frequency/Duration: Daily M-F Date Range for Service Req: Timeline to reassess: Battery Charger Conveyor Line Clinican/Clinical Fellow: No Supervisory Statement: I have reviewed and agree with the student/clinical fellow's documentation: N/A Speech Language Pathologist: Cee Upton M.A., CCC-ASSISTANT OCEANOGRAPHER
[2024-11-07 14:04] VITALS: BP 129/77; PULSE 72; RESP 18; TEMP 36.5; O2SAT 95
== END 2024-11-07 14:10 | DRG 871 ==
LOC: HO.ED 11-01 03:19 → HO.EDOVER 11-01 05:00 → HO.S3 11-01 16:19
PROVIDERS: Hospitalist; Internal Medicine; Admitting Provider Internal Medicine; Emergency Provider Emergency Medicine; PCP Family Medicine; Visit Provider Family Medicine
DX: A41.9 Sepsis, unspecified organism (principal); J69.0 Pneumonitis due to inhalation of food and vomit; K68.12 Psoas muscle abscess; T83.511A Infection and inflammatory reaction due to indwelling urethral catheter, initial encounter; S22.019A Unspecified fracture of first thoracic vertebra, initial encounter for closed fracture; S12.100A Unspecified displaced fracture of second cervical vertebra, initial encounter for closed fracture; N13.6 Pyonephrosis; N13.8 Other obstructive and reflux uropathy; M54.59 Other low back pain; W19.XXXA Unspecified fall, initial encounter; Z22.322 Carrier or suspected carrier of Methicillin resistant Staphylococcus aureus; J10.1 Influenza due to other identified influenza virus with other respiratory manifestations; R33.8 Other retention of urine; G62.9 Polyneuropathy, unspecified; D64.9 Anemia, unspecified; D3A.8 Other benign neuroendocrine tumors; B96.5 Pseudomonas (aeruginosa) (mallei) (pseudomallei) as the cause of diseases classified elsewhere; I48.0 Paroxysmal atrial fibrillation; N40.1 Benign prostatic hyperplasia with lower urinary tract symptoms; G89.29 Other chronic pain; Z20.822 Contact with and (suspected) exposure to COVID-19; Z87.440 Personal history of urinary (tract) infections; Z87.891 Personal history of nicotine dependence; Z79.01 Long term (current) use of anticoagulants; Z79.899 Other long term (current) drug therapy
CPT/HCPCS: 0241U; 36415; 70450; 71045; 72125; 74176; 74177; 80048; 80053; 80202; 81001; 82565; 82607; 82728; 82746; 82947; 83540; 83605; 83615; 83735; 84145; 85025; 85027; 85045; 86140; 87040; 87086; 87088; 87186; 87449; 87640; 87641; 87899; 92526; 92610; 93005; 97162; 99285; C1758; J0696; J1836; J2270; J2354; J2543; J3370; J3371; J3480; Q9967

== ENCOUNTER → 2024-10-31 20:13 | Outpatient (BNV) | payer MEDICARE, MEDICAID, SELFPAY | PROVIDERS: Admitting Provider Internal Medicine; Emergency Provider Emergency Medicine; Visit Provider Internal Medicine Cardiovascular Disease | DX: R94.31 Abnormal electrocardiogram [ECG] [EKG] (principal) | CPT/HCPCS: 93010 ==

== ENCOUNTER → 2024-10-31 20:30 | Outpatient (BNV) | payer MEDICARE, MEDICAID, SELFPAY | PROVIDERS: Visit Provider Radiology Diagnostic Radiology | DX: R05.9 Cough, unspecified (principal) | CPT/HCPCS: 70450; 71045; 72125; 74176 ==

== ENCOUNTER 2024-11-01 04:49 | Outpatient (BNV) | payer MEDICARE, MEDICAID, SELFPAY | END 2024-11-03 09:00 | PROVIDERS: Admitting Provider Internal Medicine; Emergency Provider Emergency Medicine; PCP Family Medicine; Visit Provider Radiology Vascular & Interventional Radiology | DX: R10.9 Unspecified abdominal pain (principal) | CPT/HCPCS: 74177 ==

== ENCOUNTER → 2024-11-01 04:49 | Outpatient (BNV) | payer MEDICARE, MEDICAID, SELFPAY | PROVIDERS: Admitting Provider Internal Medicine; Emergency Provider Emergency Medicine; Visit Provider Surgery | DX: K68.12 Psoas muscle abscess (principal) | CPT/HCPCS: 99222; 99232 ==

== ENCOUNTER → 2024-11-01 04:49 | Outpatient (BNV) | payer MEDICARE, MEDICAID, SELFPAY | PROVIDERS: Admitting Provider Internal Medicine; Emergency Provider Internal Medicine; Visit Provider Internal Medicine | DX: A41.9 Sepsis, unspecified organism (principal); N12 Tubulo-interstitial nephritis, not specified as acute or chronic; N13.30 Unspecified hydronephrosis; S12.591A Other nondisplaced fracture of sixth cervical vertebra, initial encounter for closed fracture; J69.0 Pneumonitis due to inhalation of food and vomit; J10.1 Influenza due to other identified influenza virus with other respiratory manifestations | CPT/HCPCS: 99223; 99232; 99233; 99239; 99499 ==

== ENCOUNTER 2024-11-08 11:14 | Emergency (ER) | payer MEDICARE, MEDICAID, SELFPAY ==
[2024-11-08 11:18] VITALS: BP 128/76; BP 135/90; PULSE 87; PULSE 91; RESP 16; TEMP 37.3; O2SAT 95; O2SAT 96; BMI 22.7
--- NOTE | 2024-11-08 11:35 | ED.GENADULT ---
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 His [place] collar became repositioned and the staff at [facility] state they are not allowed to fix it. He has no new neuro complaints or weakness - can be DC back to facility. MD complaint: adjustment of [place] collar Onset (ago): day(s) (today) Location: neck Radiation: non-radiation Severity: mild Relieving factors: none Exacerbating factors: none Associated symptoms: denies other symptoms Treatments prior to arrival: none Related Data Home Medications ?Medication ?Instructions ?Recorded ?Confirmed apixaban 5 mg tablet (Eliquis) 5 mg PO BID 05/01/24 11/01/24 bisacodyl 10 mg rectal suppository 10 mg [place] DAILY PRN Constipation 05/01/24 11/01/24 calcium carbonate 500 mg PO Q4H PRN Dyspepsia 05/01/24 11/01/24 finasteride 5 mg tablet 5 mg PO DAILY 05/01/24 11/01/24 gabapentin 300 mg capsule 300 mg PO TID 05/01/24 11/01/24 lidocaine-prilocaine 2.5 %-2.5 % 1 appl topical Q8H PRN mild pain 05/01/24 11/01/24 topical cream loperamide 2 mg tablet 2 mg PO Q4H PRN Loose Stool 05/01/24 11/01/24 magnesium hydroxide 400 mg/5 mL 30 ml PO DAILY PRN Constipation 05/01/24 11/01/24 oral suspension (Milk of Magnesia) melatonin 3 mg tablet 3 mg PO BEDTIME 05/01/24 11/01/24 naloxone 4 mg/actuation nasal 4 mg intranasal Q3M PRN Opioid 05/01/24 11/01/24 spray (Narcan) Overdose octreotide acetate 50 mcg/mL (1 50 mcg subcut BID 05/01/24 11/01/24 mL) injection syringe omeprazole 20 mg capsule,delayed 20 mg PO DAILY@0630 05/01/24 11/01/24 release simethicone 80 mg chewable tablet 80 mg PO Q8H PRN Gastric Reflux 05/01/24 11/01/24 sodium phosphates 19 gram-7 118 ml [place] DAILY PRN Constipation 05/01/24 11/01/24 gram/118 mL enema (Fleet Enema) acetaminophen 325 mg tablet 650 mg PO Q4H PRN Fever Or Pain 11/01/24 11/01/24 (Tylenol) duloxetine 30 mg capsule,delayed 30 mg PO BEDTIME 11/01/24 11/01/24 release tramadol 50 mg tablet 50 mg PO Q12H PRN Pain 11/01/24 11/01/24 trazodone 50 mg tablet 50 mg PO BEDTIME 11/01/24 11/01/24 Previous Rx's ?Medication ?Instructions ?Recorded walker (Ultra-Light Rollator [facility] [place] #1 ea 05/02/23 amlodipine 5 mg tablet 5 mg PO DAILY 90 days #90 tabs 05/22/23 miscellaneous medical supply #1 ea 06/26/23 metoprolol tartrate 25 mg tablet 25 mg PO BID #60 tabs 05/07/24 levofloxacin 750 mg tablet 750 mg PO Q24H #7 tabs 11/07/24 sulfamethoxazole 800 1 tab PO Q12H #14 tabs 11/07/24 mg-trimethoprim 160 mg tablet vancomycin 125 mg capsule 125 mg PO QID #28 caps 11/07/24 Allergies Allergy/AdvReac Type Severity Reaction Status Date / Time No Known Allergies Allergy Verified 11/08/24 11:21 Review of Systems Review of Systems: Constitutional : No Fever, No Chills, No Fatigue ENT/Mouth : No sore throat, No Rhinorrhea Eyes: No Eye Pain, No Swelling, No Redness Cardiovascular : No Chest Pain, No SOB, No Dyspnea on Exertion Respiratory : No Cough, No Sputum Gastrointestinal : No Nausea, No Vomiting Genitourinary : No Hematuria, Musculoskeletal : No joint pain, No Myalgias, No Joint Swelling Skin : No Skin Lesions, No rash Neuro : No Weakness, No Numbness All other systems reviewed and are negative [facility] Past Medical History Attestation statement: The following information was validated with the patient. Source: old records reviewed Medical History BPH (benign prostatic hyperplasia) Surgical History No pertinent past surgical history Social History Social History Household Members: None Housing: Assisted Do you presently have visiting nurse or other home services: No Unable to assess alcohol history related to: Unable to respond Comment: wheelchair and bedbound Patient Tobacco Use Status: Former Tobacco user Tobacco use type: Cigarette and Cigar e-Cigarette/Vaping Use: Never Used Second Hand Smoke Exposure: No Advance Directives Date on File: 11/29/23 service: No Current occupational status: retired Current occupational exposures/hazards: No Cognitive needs: No Hearing needs: No Vision needs: No Physical Exam ED Vital Signs: Vital Signs - 24 hr 11/08/24 11:18 Temperature 99.1 F Pulse Rate 87 Respiratory Rate 16 Blood Pressure 135/90 H Pulse Oximetry 95 Oxygen Delivery Method Room Air BMI result Body Mass Index 22.7 Appearance: Alert. Oriented X2 place and person. No acute distress. Eyes: Pupils equal, round and reactive to light. ENT: Pharynx normal. Neck: Normal inspection. Neck supple. adjusted collar it was in place by EMS , refitted by me in ED no issues, padding placed CVS: Normal heart rate and rhythm. Pulses normal. Respiratory: No respiratory distress. Breath sounds normal. Abdomen: Soft and non-tender. Skin: Skin warm and dry. Normal skin color. Normal skin turgor. Extremities: No lower extremity edema. No calf ttp Neuro: Oriented X 3 No motor deficit. No sensory deficit. 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 At this time readjusted his collar and he has no UE or LE deficits. DC same plan to follow up. Differential Diagnosis Differential Diagnoses: The differential diagnosis associated with the presentation includes readjusted collar Independent Historian Clinical information obtained from an independent historian. History obtained from or confirmed by: EMS External Record Review External record reviewed: Inpatient record and Outpatient record Discharge Plan Discharge Clinical Impression: Cervical spine fracture Qualifiers: Encounter type: subsequent encounter Cervical vertebra fracture level: C6 Fracture type: closed Fracture morphology: unspecified fracture morphology Fracture alignment: nondisplaced Fracture healing: with routine healing Qualified Code(s): S12.501D - Unspecified nondisplaced fracture of sixth cervical vertebra, subsequent encounter for fracture with routine healing Patient Disposition: Home, Self-Care Additional Instructions: [place] collar needs to stay on for 6 weeks return for weakness or numbness of upper extremities follow up with [facility] neuro[facility] clinic in 6 weeks Prescriptions: No Action (DME) Ultra-Light Rollator Misc See Rx Instructions .Route Qty: 1 0RF Rx Instructions: Daily As directed, 999 days amlodipine 5 mg tablet 5 mg PO DAILY 90 Days Qty: 90 3RF loperamide 2 mg Tablet 2 mg PO Q4H PRN (Reason: Loose Stool) Rx Instructions: administer after each loose stool until symptoms controlled; do not exceed 8 mg per 24 hrs melatonin 3 mg Tablet 3 mg PO BEDTIME lidocaine-prilocaine 2.5-2.5 % cream 1 appl topical Q8H PRN (Reason: mild pain) Rx Instructions: APPLY TOPICALLY TO AFFECTED AREA OF PENIS THREE TIMES A DAY NEEDED FOR MILD PAIN PRIOR TO APPLYING BACITRACIN magnesium hydroxide [Milk of Magnesia] 400 mg/5 mL Suspension 30 ml PO DAILY PRN (Reason: Constipation) Rx Instructions: For no BM in 3 days bisacodyl 10 mg Suppository 10 mg AZ DAILY PRN (Reason: Constipation) Rx Instructions: If M.O.M ineffective. Fleet Enema 19-7 gram/118 mL Enema 118 ml AZ DAILY PRN (Reason: Constipation) Rx Instructions: For no BM if Bisacodyl supp. ineffective (DO NOT GIVE WITH DIALYSIS/RENAL FAILURE) gabapentin 300 mg capsule 300 mg PO TID omeprazole 20 mg capsule,delayed release(DR/EC) 20 mg PO DAILY@0630 calcium carbonate 500 mg calcium (1,250 mg) Tablet,Chewable 500 mg PO Q4H PRN (Reason: Dyspepsia) finasteride 5 mg tablet 5 mg PO DAILY simethicone 80 mg Tablet,Chewable 80 mg PO Q8H PRN (Reason: Gastric Reflux) octreotide acetate 50 mcg/mL (1 mL) Syringe 50 mcg SUBCUT BID Rx Instructions: administer 30 minutes before morning and evening meals Eliquis 5 mg tablet 5 mg PO BID naloxone [Narcan] 4 mg/actuation [place],Non-Aerosol 4 mg INTRANASAL Q3M PRN (Reason: Opioid Overdose) Rx Instructions: spray 1 dose into ONE nostril; alternate nostrils w each dose until help arrives metoprolol tartrate 25 mg Tablet 25 mg PO BID Qty: 60 0RF Protocol: Hold for SBP/HR < HOLD for SBP < : 90 HOLD for HR < : 60 acetaminophen [Tylenol] 325 mg Tablet 650 mg PO Q4H PRN (Reason: Fever Or Pain) Rx Instructions: DNE 3 G / 24 HR trazodone 50 mg tablet 50 mg PO BEDTIME tramadol 50 mg tablet 50 mg PO Q12H PRN (Reason: Pain) duloxetine 30 mg Capsule,Delayed Release(Dr/Ec) 30 mg PO BEDTIME sulfamethoxazole-trimethoprim 800-160 mg Tablet 1 tab PO Q12H Qty: 14 0RF levofloxacin 750 mg Tablet 750 mg PO Q24H Qty: 7 0RF vancomycin 125 mg capsule 125 mg PO QID Qty: 28 0RF (DME) miscellaneous medical supply Misc See Rx Instructions .ROUTE .MEDSUPPLY Qty: 1 0RF Rx Instructions: Wheelchair. Daily?As directed, 999 days Print Language: Korean
--- OUTSIDE RECORDS SUMMARY | 2024-11-08 11:40 | XMS_ITS | Continuity of Care Document ---
Author Organization [facility], [facility] Address [address] [place] [address] Care Team Providers Care Line Builder Name Role Phone MICKI ANGULO Primary Care Provider [facility] OTHER Assessment No [...] Time Benign prostatic hyperplasia with outflow obstruction [id number] Active 2022 Myriam eDlgado NP [address] , [address], [place], [address], [facility] 3 08:53:31 Hypertensive disorder 46667783 Active 2022 Myriam Delgado NP [address], [address], [place], [address], [facility] 3 08:53:50 Acute cystitis 80571627 Active 2022 Myriam Delgado NP [address], [address], [place], [address], [facility] 3 08:54:01 Fall Active 2022 Myriam Delgado NP [address], [address], [place], [address], [facility] 3 08:54:09 Asthenia 61643995 Active 2022 Myriam Delgado NP [address], [address], [place], [address], [facility] 3 08:54:19 Fracture of multiple ribs 9668166 Active 2022 Myriam Delgado NP [address], [address], [place], [address], [facility] 3 08:55:37 Mass of pancreas 544632470 Active 2022 Myriam Delgado NP [address], [address], [place], [address], [facility] 3 08:56:17 Compression fracture Active 2022 Myriam Delgado NP [address], [address], [place], [address], [facility] 3 08:56:39 Hypoglycemia 266237888 Active 2022 Myriam Delgado NP [address], [place], [address], [facility] 3 09:22:18 Pleural effusion 85897014 Active 2022 Myriam Delgado NP [address], [address], [place], [address], [facility] 3 09:24:01 Insomnia 314112366 Active 2023 Myriam Delgado NP [address], [place], [address], [facility] 4 16:02:02 Colitis 87135473 Active 2023 Myriam Delgado NP [address], [address], [place], [address], [facility] 4 16:07:18 Supraventricul ar tachycardia 4039820 Active 2023 LANDEN PEREZ NP [address], [address], [place], [address], [facility] 4 15:56:36 Chronic pain 28242097 Active 2023 Myriam Delgado NP [address], [address], [place], [address], [facility] 4 09:45:55 Neuropathy 289333621 Active 2023 Myriam Delgado, B[address] NA[address], [address], [place], [address], [facility] 4 09:46:12 Ureteric stone 43539155 Active 2023 JEFF BARLOW, [address] NA[address], [address], [place], [address], [facility] 4 12:47:06 Problem Notes None recorded. [...] Address Organization Details Last Updated DateTime 5 01169.4 5 g 76 /min 18 /min 97.8 [degF] 93 % 93 % 117 mm[Hg] 67 mm[Hg] Myriam Delgado NP [address] [facility], [address], [place], [address], [facility] 5 13:50:59 Social History Question Answer Notes LastModified by Organizat ion Details LastModified Time Tobacco Smoking Status Never Smoker Myriam Delgado NP [address], [address], [place], [address], [facility] 09/07/2023 09:42:53 Do You Have An [...] SNOMED-CT Code Diagnosis ICD10 Code Diagnosis Note [id number] Myriam Delgado NP [address] [address] 10/02/2024 14:27:29 10/03/2024 10:55:10 Ureteric stone 07921357 N20.1 resolved with lithotrips y and stent removal on 10/01/23 with urology outptremai ns with chronic foleymonit or Mass of pancreas 4168902 00 K86.89 Currently maintained on Octreotide 50 [...] Benign pro static hyperplasia with outflow obstruction 836227527 N40.1 baseline bph with chronic livingston > [...] 5 mg dailymonit or closely Chronic pain 78019001 G8 9.29 pain controlled Continue:t ramadol to 50 mg bid and q 12 hours prnAPAP 650 mg q4h prngabapen tin 300 mg tidcymbalt a 30 mg po dailyPT/OT prnmonitor Abnormalit y of nail of toe 308714434 L60.8 right 4th toenail fell off without any bleeding, infection or discolorat ionns wash, pat dry, apply bacitracin and bandaid daily until healedmoni tor for s/s of infection Anxiety 02930944 F41.9 anxiety improved and feels better lately with trazodonec onttrazodo ne 100 mg po qhscymbalt a from 30 mg po qhs for anxietyhyp droxyzine 25 mg po q 8 hours prn anxietymon itor Neuropathy 308309681 G62 .9 see above for management Hypertensive disorder 38 678189 I10 bp stablecont amlodipine 5 mg dailymetop rolol 25 mg bidmonitor bp Asthenia 52394724 R53.1 PT OT eval and treat prnfall precaution sFrequent safety checks Supraventr icular tachycardia 6797995 I47.10 stablecont metoprolol 25 mg bideliquis 5 mg bidmonitor heart rate [id number] [facility] [address] 10/08/2024 14:10:48 10/10/2024 15:04:17 Ureteric stone 67329768 N20.1 resolved with lithotrips y and stent removal on 10/01/23 with urology outptremai ns with chronic [place] replaced on 10/01/24need s fu with urology, nsg to [facility] u/s with left ureteral hydronephr osismonito r for bleeding/r eoccurence /infection Benign pro static hyperplasia with outflow obstruction 004806298 N40.1 baseline bph with chronic [place] > [...] 5 mg dailymonit or closely Chronic pain 11132600 G8 9.29 denies any pain todayConti nue:change tramadol from 50 mg tid and q 12 hours prn to 25 mg po tid and 50 prn q 12hrs prnAPAP 650 mg q4h prngabapen tin 300 mg tidcymbalt a 30 mg po dailyPT/OT prnmonitor Anxiety 72081719 F41.9 anxiety improved and feels better lately with trazodone, however ? more confusedco nt10/08 decrease trazodone from 100 mg to 50 mg po qhscontcym glendy from 30 mg po qhs for anxietyhyp droxyzine 25 mg po q 8 hours prn anxietymon itor Impaired cognition 35863 6002 R41.89 with increased confusion lately over time 5 adjust trazodone and tramadol today as reviewed with omar ramon cbc bmp and urinalysis to rule out infection/ electrolyt e derangemen t [id number] Myriam Delgado NP [facility] [place] [address] 10/13/2024 15:56:35 10/15/2024 10:55:49 Ureteric stone 09232570 N20.1 resolved with lithotrips y and stent removal on 10/01/23 with urology outptremai ns with chronic [place] replaced on 10/01/24rena l u/s with left ureteral hydronephr osis done [facility]cu[facility] /infection fu with urology Benign pro static hyperplasia with outflow obstruction 777459016 N40.1 baseline bph with chronic livingston > [...] steride 5 mg dailymonit or closely Anxiety 77960178 F41.9 due to confusion recently decreased trazadonec onttrazodo ne 50 mg po qhscymbalt a from 30 mg po qhs for anxietyhyp droxyzine 25 mg po q 8 hours prn anxietymon itor Impaired cognition 42434 6002 R41.89 with increased confusion lately over [...] probioticm onitor for changes in mental status [id number] Myriam Delgado NP [address] [address] 10/17/2024 13:50:27 10/21/2024 15:02:52 Anxiety 77081656 F41.9 10/17 hold trazodone and cymbalta, resume 24 hours after linezolid is finished start ativan 0.5 mg po q 8 hours prn for anxiety for 14 dayscont hydroxyzin e 25 mg po q 8 hours prn anxietymon itor Recurrent urinary tract infection 209628931 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 for bleeding/r eoccurence /infection fu with urology Health Concerns Section Related Observation LastModified by Organization Detai ls LastModified Time None Recorded Concern Status LastModified by Organization Details LastModified Time None Recorded Payers Encounter Date Sequence Insurance Name Policy Number Policy Morton Covered Member ID Morton Member ID Guarantor Name 10/17/2024 1 [place] [employer] [place] [facility] [id number] [facility] 10/17/2024 2 [place] [facility] [id number] [facility] Notes Date Note Type Note Provider Name and Address Organization Details Recorded Time 10/17/2024 text/html Pt is seen for a n acute visit today. 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 He is colonized with chronic livingston for many years. Due to the increased confusion he was treated with linezolid which is sensitive on culture. Upon speaking with aviation neuropsychologist linezolid can increase levels and put him [...] pending insurance approval Myriam Delgado, PATRICK [address], [address], [place], [address], [facility] 10/17/2024 13:58:37
--- OUTSIDE RECORDS SUMMARY | 2024-11-08 11:40 | XMS_ITS | Data Portability ---
Author Organization [facility], Main Office Address [address], [address] [place] [address] Care Team Providers Care Assembly Detailer Name Role Phone MICKI ANGULO Primary Care Provider [facility] - 4TH FLOOR OTHER [...] Time Benign prostatic hyperplasia with outflow obstruction 988333978 Active 2022 Myriam Delgado NP [address] , [address], [place], [address], [facility] 3 08:53:31 Hypertensive disorder 09139230 Active 2022 Myriam Delgado NP [address], [address], [place], [address], [facility] 3 08:53:50 Acute cystitis 65003255 Active 2022 Myriam Delgado NP [address] , [address], [place], [address], [facility] 3 08:54:01 Fall Active 2022 Myriam Delgado NP [address] , [address], [place], [address], [facility] 3 08:54:09 Asthenia 60164039 Active 2022 Myriam Delgado NP [address], [address], [place], [address], [facility] 3 08:54:19 Fracture of multiple ribs 1707775 Active 2022 Myriam Delgado NP [address], [address], [place], [address], [facility] 3 08:55:37 Mass of pancreas 947181905 Active 2022 Myriam Delgado NP [address], [place], [address], [facility] 3 08:56:17 Compression fracture Active 2022 Myriam Delgado NP [address], [address], [place], [address], [facility] 3 08:56:39 Hypoglycemia 766340633 Active 2022 Myriam Delgado NP [address], [address], [place], [address], [facility] 3 09:22:18 Pleural effusion 65975564 Active 2022 Myriam Delgado NP [address], [address], [place], [address], [facility] 3 09:24:01 Insomnia 348951551 Active 2023 Myriam Delgado NP [address], [place], [address], [facility] 4 16:02:02 Colitis 72803710 Active 2023 Myriam Delgado NP [address], [address], [place], [address], [facility] 4 16:07:18 Supraventricul ar tachycardia 1930985 Active 2023 LANDEN PEREZ NP [address], [address], [place], [address], [facility] 4 15:56:36 Chronic pain 03271735 Active 2023 Myriam Delgado NP [address], [address], [place], [address], [facility] 4 09:45:55 Neuropathy 057611548 Active 2023 Myriam Delgado, JIVE DEVELOPER [address], [address], [place], [address], [facility] 4 09:46:12 Ureteric stone 49308974 Active 2023 JEFF BARLOW, PATRICK [address], [address], [place], [address], [facility] 4 12:47:06 Problem Notes None recorded. [...] Address Organization Details Last Updated DateTime 5 99631.4 5 g 88 /min 18 /min 98 [degF] 94 % 94 % 137 mm[Hg] 82 mm[Hg] Myriam Delgado, PATRICK [address], [address], [place], [address] , [place] - [facility] 5 23:20:06 Date Recorded Body weight Heart rate Respiratory rate Body temperature Oxygen saturation Oxygen saturation in Arterial blood by Pulse oximetry Systolic blood pressure Diastolic blood pressure Provider Name and Address Organization Details Last Updated DateTime 5 64358.4 5 g 88 /min 18 /min 98 [degF] 94 % 94 % 137 mm[Hg] 82 mm[Hg] Myriam Delgado NP [address], [address], [place], [address], [facility] 5 14:16:30 Date Recorded Heart rate Respiratory rate Body temperature Oxygen saturation Oxygen saturation in Arterial blood by Pulse oximetry Systolic blood pressure Diastolic blood pressure Provider Name and Address Organization Details Last Updated DateTime 5 88 /min 18 /min 98 [degF] 94 % 94 % 137 mm[Hg] 82 mm[Hg] Myriam Delgado NP [address], [address], [place], [address], [facility] 5 17:22:35 Date Recorded Body weight Heart rate Respiratory rate Body temperature Oxygen saturation Oxygen saturation in Arterial blood by Pulse oximetry Systolic blood pressure Diastolic blood pressure Provider Name and Address Organization Details Last Updated DateTime 5 60188.4 5 g 76 /min 18 /min 97.8 [degF] 93 % 93 % 117 mm[Hg] 67 mm[Hg] Myriam Delgado NP [address], [address], [place], [address], [facility] 5 13:50:59 Date Recorded Body weight Heart rate Respiratory rate Body temperature Oxygen saturation Oxygen saturation in Arterial blood by Pulse oximetry Systolic blood pressure Diastolic blood pressure Provider Name and Address Organization Details Last Updated DateTime 5 04031.4 5 g 71 /min 18 /min 97.8 [degF] 95 % 95 % 127 mm[Hg] 76 mm[Hg] Myriam Delgado NP [address], [facility] [address], [place], [address], [facility] 5 13:50:42 Social History Question Answer Notes LastModified by Organizat ion Details LastModified Time Tobacco Smoking Status Never Smoker Myriam Delgado NP [address], [facility] [address], [place], [address], [facility] 09/07/2023 09:42:53 Do You Have An [...] SNOMED-CT Code Diagnosis ICD10 Code Diagnosis Note [id number] Myriam Delgado NP [address] [address] 09/07/2023 08:11:35 09/11/2023 14:52:54 Fracture of multiple ribs 6875079 S22.42XA CT noted acute left nondisplac ed [...] [address] Ashlee jimenez [address] [facility], needs chest xray prior in the [facility] building at 1200. Acute cystitis 46959928 N30.00 MRSA UTI seen by ID in hosp with chronic livingston*line zolid 600 mg po bid 09/10 completion monitor cbc and resolution of infection Asthenia 63943681 R53.1 weakness noted in hospital and global sp fallPT OT treat and evalmonito r Fall W19.XXXA with hx of many falls and rehab stays per ptweakness noted in hospital and global sp fallPT OT treat and evalorthos tatics x 1 doc in pccsupport duong care and redirectio nmonitor Benign pro static hyperplasia with outflow obstruction 614020874 N40.1 hx of chronic indwelling livingston catheterdu tasteride 0.5 mg po dailytamul osin 0.4 mg po dailychang e catheter q month and prn Hypertensive disorder 38 999550 I10 bp high, however upset about loos stool todayamlod ipine 5 mg po dailymonit or bp daily x 7 days Mass of pancreas 9207087 00 K86.89 incidental pancreatic mass found on CT scan felt could be worked up outpt with pcp. Compression fracture 219 40613 T14.8XXA acute T4 mild compressio n fracture, pre existing L3 and mod T12 severe pre existing compressio n fractures. see above rib fractures Hypoglycemia 347614087 E 16.2 per hosp dochx of hypoglycem ic episodes in prior admitsmoni tor BS bid x 5 days while in rehab and prnnot on insulin and has pancreatic mass notedfu with endocrinol ogy outpt Pleural effusion 5973161 8 J90 pleural effusion noted on ct, likely chronicmon itor vs, resp status Loose stool 686886067 R1 9.5 loose stool likely related to increased softnersdc sennadc docusateco nt bisacodyl prnmonitor [id number] Mario Zendejas MD [address] [address] 09/10/2023 11:14:10 09/12/2023 08:06:16 Recurrent falls 040334352 R29.6 PT OT eval and treatmonit or fall risk and need for increased support in community Sepsis 83133169 A41.89 see HPInow to complete course of linezolid bid x 1 weekadd probioticm onitor to resolution update ID with concerns Fracture o f multiple ribs 9101364 S22.42XA see HPImonitor for pain controlenc ourage incentive spirometer monitor respirator y status Asthenia 80580020 R53.1 see abovethera py to follow Benign pro static hyperplasia with outflow obstruction 032266572 N40.1 baseline bph with chronic foleyconti nued onflomax 0.4 mg qddutaster brody 0.5 mg qdmonitor for effectupda te urology with concerns Hypertensive disorder 38 433584 I10 norvasc 5 mg qdmonitor bp and need to titrate Mass of pancreas 7004400 00 K86.89 incidental pancreatic mass found on CT scanheads up to PCP for out patient work up Compression fracture 219 52497 T14.8XXA Imaging positive for spinal T4 new and prior L3 and T12 and rib fx 6-8monitor pain control and need for IR eval Hypoglycemia 128951661 E 16.1 noted pancreatic mass see aboveCompl icated by hypoglycem ia to follow up with endocrine out patient with concern for insulinoma refer to endocrinem onitor blood glucose Pleural effusion 6568516 8 J90 noted on imagingmon itor respirator y status and need for repeat Loose stool 675883310 R1 9.5 has been issue with bowel meds reducedmon itor for sx Normal grief reaction 27 6912947 F43.20 Patient states that his told he that she was leaving in on 09/08 two days prior. Currently suffering from grief reactionwi ll have psych evalnursin g states by report this is not the case [id number] Myriam Delgado NP [facility] [address] 10/06/2023 15:33:22 10/09/2023 16:18:56 Recurrent falls 676991001 R29.6 PT OT eval and treatmonit or fall risk and need for increased support in community Sepsis 09546953 A41.89 septic shock felt from UTIalbuter ol neb q 4 hours prn sob (unclear if hypoxic in hosp)compl eted 7 days of cefipime, no po transition neededmoni tor to resolution update ID with concernscb c and bmp weekly x 3 Asthenia 98320289 R53.1 PT OT treat and evaltherap y to follow Benign pro static hyperplasia with outflow obstruction 433236129 N40.1 baseline bph with chronic livingston since 2019contin ued onflomax 0.4 mg qddutaster brody 0.5 mg qdmonitor for effectupda te urology with concerns Hypertensive disorder 38 881425 I10 norvasc dc'd in hospital and metoprolol tartate 50 mg bidmonitor bp and need to titrate Mass of pancreas 4694014 00 K86.89 incidental pancreatic mass found on [...] dypepsiafo llow-up with endocrinol ogy outpatient Hypoglycemia 704599807 E 16.1 noted pancreatic mass see above, see aboveCompl icated by hypoglycem ia to follow up with endocrine out patient with concern for insulinoma refer to endocrinem onitor blood glucose Pleural effusion 5329147 8 J90 noted on imagingmon itor respirator y status and need for repeat Insomnia 216746281 G47.0 0 melatonin 3 mg qhstrazodo ne 50 mg po qhsmonitor Colitis 83181314 K52.9 c diff colitis positive on 09/29 with formed stools nowvancomy martin 125 mg q 6 hours until 10/09isolat ion precaution s per faciltity x 14 days per protocolmo nitor for sequelaeco lace and senna prn bid for hard stools Fracture o f multiple ribs 9308642 S22.42XA rib fx from 09/06 admitCT noted acute left nondisplac ed 6-8 rib fractures, Plan:tylen ol 975 mg po q 6 hoursgabap entin increased to 300 mg po tidmonitor for pain and sequelae Acute cystitis 33560196 N30.00 pseudomona s UTI seen by ID [...] past and on precaution s for this [id number] LANDEN PEREZ NP [facility] [address] 10/11/2023 15:13:15 10/15/2023 16:15:51 Sepsis 31784141 A41.89 Improvedse ptic shock felt from UTIcomplet ed 7 days of cefipime, no po transition neededBC neg. x 2UA C&S checked here 10/07 to check for MRSA clearance - no MRSA, but >100K Pseudomona s, not treating at this time as clinically stable, wbc WNR, and c-diffMoni tor closelyupd ate ID with concernscb c and bmp weekly x 3 Asthenia 64647245 R53.1 PT OT treat and evaltherap y to follow Colitis 46995946 K52.9 c diff colitis positive on 09/29vancomy [...] Benign pro static hyperplasia with outflow obstruction 487463018 N40.1 baseline bph with chronic livingston since 2019contin ued onflomax 0.4 mg qddutaster brody 0.5 mg qdmonitor for effectupda te urology with concerns Acute cystitis 82810639 N30.00 pseudomona s UTI seen by ID [...] to chronic indwelling cath. Hypertensive disorder 38 533283 I10 norvasc dc'd in hospital as metoprolol tartate 50 mg bid added due to SVTmonitor bp and need to titrate Mass of pancreas 0553758 00 K86.89 incidental pancreatic mass found on [...] dypepsiafo llow-up with endocrinol ogy outpatient Hypoglycemia 559847033 E 16.1 [place] related to pancreatic mass see above, see aboveFollo w up with endocrine out patientmon itor blood glucose Pleural effusion 1471897 8 J90 noted on imagingmon itor respirator y status and need for repeat Recurrent falls 42994287 2 R29.6 PT OT eval and treatmonit or fall risk and need for increased support in community Insomnia 612018473 G47.0 0 melatonin 3 mg qhstrazodo ne 50 mg po qhsmonitor Fracture o f multiple ribs 4757146 S22.42XA rib fx from 09/06 admitCT noted acute left nondisplac ed 6-8 rib fractures, Plan:tylen ol 975 mg po q 6 hoursgabap entin 300 mg po tidmonitor for pain and sequelae Supraventr icular tachycardia 5424154 I47.10 Problemati c in hosp.Seen by Cards, now on metoprolol 50 mg bidMonitor VS/HR [id number] LANDEN PEREZ NP [address] [address] 10/16/2023 11:50:07 10/19/2023 11:15:50 Sepsis 74775317 A41.89 Improvedse ptic shock felt from UTI [...] c and bmp weekly x 3 Colitis 85815719 K52.9 c diff colitis positive on 09/29vancomy martin 125 mg q 6 hours completed 10/09 (d/c papers mentioned 10/12 as end date)No further diarrhea, now constipate dCurrently on octreotide 50 mcg bid - will stopMonito r bowels closely at this time.Fleet s x 1 now to help clear remainder of stoolMaint ain fluidsMoni tor Mass of pancreas 3842225 00 K86.89 incidental pancreatic mass found on [...] with endocrinol ogy outpatient Supraventr icular tachycardia 0088574 I47.10 Problemati c in hosp.Seen by Cards, now on metoprolol 50 mg bid, but due to elevated BP will increase to 75 mg bidMonitor VS/HR Hypoglycemia 629118413 E 16.1 [place] related to pancreatic mass see above, see aboveFollo w up with endocrine out patientmon itor blood glucose BID and prn Hypertensive disorder 38 169229 I10 BP still on the higher sidenorvas c dc'd in hospital as metoprolol tartate 50 mg bid added due to SVTPlan -Increase metoprolol to 75 mg bid monitor bp and need to titrate Acute cystitis 40150948 N30.00 pseudomona s UTI in hosp.Seen by ID, treated with cefepime x 7 daysNo MRSA noted in urine culture from [facility] [place] urine done here 10/07 to recheck for MRSA clearance, no MRSA present, but UA positive, >100K Pseudomona s.As clinically asymptomat ic, wbcs WNR, and currently with c-diff, holding off on tx. at this time.Maint ain fluidsTren d VSContinue to monitor closely, higher risk for infection due to chronic indwelling cath. Asthenia 09677657 R53.1 PT OT treat and evaltherap y to follow Fracture o f multiple ribs 3240044 S22.42XA Healinglef t nondisplac ed 6-8 rib fractures, Plan:tylen ol 975 mg po q 6 hr -> change to q 8 hrscontinu e gabapentin 300 mg po tidstop oxycodone due to non usemonitor for pain and sequelae Insomnia 028733311 G47.0 0 continue melatonin 3 mg qhstrazodo ne 50 mg po qhs entered as prn upon admit 10/05; has not usedWill continue to monitor, if not needed will stop.Add 14 day re-eval as med now prn - due for re-eval around 2/6monitor Benign pro static hyperplasia with outflow obstruction 617413676 N40.1 baseline bph with chronic livingston since 2018contin ued onflomax 0.4 mg qddutaster brody 0.5 mg qd? if these meds still needed due to livingston use, will defer to Urologymon itor for effectupda te urology with concerns Pleural effusion 6699212 8 J90 noted on imagingmon itor respirator [...] in bed for better air circulatio n [id number] Myriam Delgado NP [facility] [address] [address] 10/25/2023 13:53:00 11/01/2023 13:24:59 Sepsis 01341864 A41.89 Improved, and no s/s of sepsissept [...] with concernscb c and bmp weekly Colitis 45237911 K52.9 c diff colitis positive on omplet ed vancomycin 125 mg q 6 hours on 10/09No further diarrhea, now constipate dCurrently on octreotide 50 mcg bid - will stop as he refuses and was constipate dMonitor bowels closely at this time.Maint ain fluidsMoni tor Mass of pancreas 9637051 00 K86.89 incidental pancreatic mass found on [...] with endocrinol ogy outpatient Supraventr icular tachycardia 1927898 I47.10 Problemati c in hosp.Seen by Cards, now on metoprolol 50 mg bid, but due to elevated BP will increase to 75 mg bidMonitor VS/HR Hypoglycemia 589031858 E 16.1 [place] related to pancreatic mass see above, see aboveFollo w up with endocrine out patientmon itor blood glucose BID and prn Hypertensive disorder 38 671339 I10 BP still on the higher sidenorvas c dc'd in hospital as metoprolol tartate 50 mg bid added due to SVTPlan -Increase metoprolol to 75 mg bid monitor bp and need to titrate Acute cystitis 02903549 N30.00 pseudomona s UTI in hosp.Seen by ID, treated with cefepime x 7 daysNo MRSA noted in urine culture [place] [facility] [place] urine done here 10/07 to recheck for MRSA clearance, no MRSA present, but UA positive, >100K Pseudomona s.As clinically asymptomat ic, wbcs WNR, cdiff recently resolved, holding off on tx. at this time.Maint ain fluidsTren d VSContinue to monitor closely, higher risk for infection due to chronic indwelling cath. Asthenia 43240798 R53.1 PT OT treat and evaltherap y to follow Fracture o f multiple ribs 6853546 S22.42XA Healing, resolvingl eft nondisplac ed 6-8 rib fractures, Plan:tylen ol 975 mg po q 8 hrsgabapen tin 300 mg po tidmonitor for pain and sequelae Insomnia 358903693 G47.0 0 continueme latonin 3 mg qhstrazodo ne 50 mg po qhs entered as prn due for re-eval around 2/6monitor Benign pro static hyperplasia with outflow obstruction 384298008 N40.1 baseline bph with chronic livingston since 2018contin ued onflomax 0.4 mg qddutaster brody 0.5 mg qd? if these meds still needed due to livingston use, will defer to Urologymon itor for effectupda te urology with concerns Pleural effusion 3956536 8 J90 noted on imagingnot symptomati c on clinical evaluation monitor respirator y status and need for repeat [id number] Myriam Delgado NP [facility] [address] [address] 10/29/2023 15:00:47 11/01/2023 14:10:20 Colitis 99225390 K52.9 c diff colitis positive on omplet ed vancomycin 125 mg q 6 hours on 10/09now with occ loose stoolsCurr ently on octreotide 50 mcg bid, now restartedM onitor bowels closely at this time.Maint ain fluidsMoni tor Mass of pancreas 3583085 00 K86.89 incidental pancreatic mass found on [...] with endocrinol ogy outpatient Supraventr icular tachycardia 9089267 I47.10 Problemati c in hosp.Seen by Cards, now on metoprolol 50 mg bid, but due to elevated BP will increase to 75 mg bidMonitor VS/HR Hypoglycemia 156398061 E 16.1 [place] related to pancreatic mass see above, see aboveFollo w up with endocrine out patientsta ble BS this weekmonito r blood glucose BID and prn Acute cystitis 76317661 N30.00 resolvedrp seudomonas UTI in hosp.Seen by ID, treated with cefepime x 7 daysNo MRSA noted in urine culture [place] [facility] repeat urine done here 10/07 to recheck for MRSA clearance, no MRSA present, but UA positive, >100K Pseudomona s.As clinically asymptomat ic, wbcs WNR, cdiff recently resolved, holding off on tx. at this time.Maint ain fluidsTren d VSContinue to monitor closely, higher risk for infection due to chronic indwelling cath. Sepsis 95389550 A41.89 resolvedIm proved, and no s/s of [...] c and bmp weekly Hypertensive disorder 38 515393 I10 BP still on the higher sidenorvas c dc'd in hospital as metoprolol tartate 50 mg bid added due to SVTPlan -metoprolo l increased recently to 75 mg bid with good effectmoni tor bp and need to titrate Asthenia 59704751 R53.1 PT OT treat and evaltherap y to follow Benign pro static hyperplasia with outflow obstruction 193917707 N40.1 baseline bph with chronic livingston since 2018contin ued onflomax 0.4 mg qddutaster brody 0.5 mg qd? if these meds still needed due to livingston use, will defer to Urologymon itor for effectupda te urology with concerns [id number] L[facility] [address] [place] [address] 10/30/2023 13:22:51 11/01/2023 14:23:18 Mass of pancreas 549263761 K86.89 incidental pancreatic mass found on CT [...] with endocrinol oggino outpatient Hypertensive disorder 38 072327 I10 Last 3 BPs better.nor vasc dc'd in hospital as metoprolol tartate 50 mg bid added due to SVTPlan -metoprolo l increased recently to 75 mg bid - continuemo nitor bp and need to titrate Colitis 87006913 K52.9 c diff colitis positive on omplet ed vancomycin 125 mg q 6 hours on 10/09Octreo tide stopped due to constipati on, now with loose stool again so back on Octreotide 50 mcg bid with improvemen t in bowels.Con tinue to monitor bowels closely at this time.Maint ain fluids Supraventr icular tachycardia 9134380 I47.10 Problemati c in hosp.Seen by Cards, now on metoprolol 50 mg bid, but due to elevated BP will increase to 75 mg bidMonitor VS/HR Hypoglycemia 532823372 E 16.1 [place] related to pancreatic mass see above, see aboveFollo w up with endocrine out patientsta ble BS this weekmonito r blood glucose BID and prn Asthenia 90713443 R53.1 PT OT treat and evaltherap y to follow Peripheral edema 8470341 00 R60.9 newer issueuncle ar etiology, can be a side effect of octreotide Spending a lot of time in bed, not very activePlan -Check Venous US BLEs - rule out DVTConside r AC due to inactivity Continue elevationC onsider diuretic to try to offload fluidMonit or closely Hypokalemia 71832126 E87 .6 K 3.2? r/t diarrheaAd d KCl 20 meq daily x 3 daysRepeat BMP sundayMoni tor Leukocytosis 045484969 D 72.829 mild - 11.7monito r for s/s infectiont rend CBC [id number] Myriam Delgado NP [address] [address] 11/05/2023 10:29:02 11/06/2023 19:59:23 Leukocytosis 799465439 D72.829 mild - 11.7, ? related to dvt, labs pendingmon itor for s/s infectiont rend CBC Mass of pancreas 4545795 00 K86.89 incidental pancreatic mass found on [...] with endocrinol [place] outpatient Hypertensive disorder 38 134923 I10 Last 3 BPs better.nor vasc dc'd in hospital as metoprolol tartate 50 mg bid added due to SVTPlan -metoprolo l 75 mg bid, hr and bp stablemoni tor bp and need to titrate Colitis 03922412 K52.9 resolvedc diff colitis positive on omplet ed vancomycin 125 mg q 6 hours on 10/09Octreo tide stopped due to constipati on, now with loose stool again so back on Octreotide 50 mcg bid with improvemen t in bowels.Con tinue to monitor bowels closely at this time.Maint ain fluids Hypoglycemia 905917504 E 16.1 [place] related to pancreatic mass see above, see aboveFollo w up with endocrine out patientsta ble BS this weekmonito r blood glucose BID and prn Asthenia 11870088 R53.1 PT OT treat and evaltherap y to follow Bilateral acute deep vein thrombosis of femoral veins 0975703238 59670 I82.413 11/03/23: Focal partially occlusive thrombus in both the right and left common femoral veins. The remainder of the lower extremitie s demonstrat e normal flow. Spending a lot of time in bed, not very active and noted edema to bilateral legs which appears to have mostly resolved today manager call center provider started pt on 11/04/23 eliquis 10 [...] upvitals daily with o2 satsMonito r closely [id number] Myriam Delgado NP [address] [place] [address] 11/07/2023 11:22:13 11/08/2023 20:03:30 Bilateral acute deep vein thrombosis of femoral veins 1685955335 03475 I82.413 11/03/23: Focal partially occlusive thrombus in [...] daily with o2 satsMonito r closely Leukocytosis 491624175 D 72.829 mild - 11.7, ? related to dvt, now resolved at 8.6monitor for s/s infectiont rend CBC Mass of pancreas 4787061 00 K86.89 incidental pancreatic mass found on [...] with endocrinol ogy outpatient Hypertensive disorder 38 457965 I10 Last 3 BPs better.nor vasc dc'd in hospital as metoprolol tartate 50 mg bid added due to SVTPlan -metoprolo l 75 mg bid, hr and bp stablemoni tor bp and need to titrate Hypoglycemia 234149893 E 16.1 [place] related to pancreatic mass see above, see aboveFollo w up with endocrine out patientsta ble BS this weekmonito r blood glucose BID and prn Asthenia [id number] R53.1 PT OT treat and evaltherap y to follow [id number] Annie Aviles MD [facility] [address] 11/14/2023 05:42:24 11/15/2023 19:47:38 Asthenia 96157768 R53.1 PT/OTwill monitor and support as needed Benign pro static hyperplasia with outflow obstruction 944968701 N40.1 [place] catheterfi nasteride 5 mg dailywill monitorfu urology Mass of pancreas 6323167 00 K86.89 fu surgeryOct reotide 50 mcg SC bidwill monitor Essential hypertension 23162726 I10 metoprolol 75 mg bidwill monitor Chronic pain 37853071 G8 9.29 APAP 650 mg q4h prngabapen tin 300 mg tid PT/OT prnwill monitor Deep venou s thrombosis of lower extremity 316545869 I82.413 apixaban 5 mg bidwill monitor Gastroesop hageal reflux disease without esophagitis 142824191 K21.9 omeprazole 20 mg dailywill monitor [id number] LANDEN PEREZ NP [facility] [address] [address] 11/22/2023 11:37:03 11/27/2023 13:24:56 Asthenia 41243565 R53.1 Continue PT/OTEnc. activity/O OBMonitor and support as needed Benign pro static hyperplasia with outflow obstruction 322198196 N40.1 Livingston catheter in placeConti nue finasterid e 5 mg dailyMonit orfu urology - update with concerns Mass of pancreas 1368736 00 K86.89 Currently maintained on Octreotide 50 mcg SC bidHas Oncology appt. 3/7Has Endocrine appt. 12/30.Contin ue to monitorRed uce labs to CBC, BMP monthly - start next wk. Essential hypertension 70400311 I10 Running on the high side.Curre ntly on metoprolol 75 mg bid - dose increased in hosp. due to SVTNorvasc stopped due to med change above.Plan - restart norvasc 2.5 mg qdMonitor VS, continue to adjust meds prn Chronic pain 09209593 G8 9.29 Stable at presentCon tinue:APAP 650 mg q4h prngabapen tin 300 mg tid PT/OT prnmonitor Deep venou s thrombosis of lower extremity 297470181 I82.413 New dxNow on apixaban 5 mg bidVS, CBC stable.Arie moralesing improvedNo s/s active bleed.Raymond tor Gastroesop hageal reflux disease without esophagitis 778418230 K21.9 Stable on omeprazole 20 mg dailywill monitor GI sx. [id number] Myriam Delgado NP [address] [address] 11/28/2023 11:04:26 11/29/2023 16:30:06 Mass of pancreas 523935559 K86.89 Currently maintained on Octreotide 50 mcg SC bidappt:On cology appt. 3/7Endocri ne appt. 12/30.Contin ue to monitorlab s to CBC, BMP monthly Deep venou s thrombosis of lower extremity 940167658 I82.413 contapixab an 5 mg bid(starte d on 11/03/23)Blaine ying improvedNo s/s active bleed.Raymond tor Essential hypertension 64029543 I10 Running on the high side.contm etoprolol 75 mg bid - dose increased in hosp. due to SVTNorvasc stopped due to med change above.norv asc 2.5 mg qd restarted recentlyco ntinue to adjust meds prn and monitor vitals Asthenia 05430064 R53.1 Continue PT/OTEnc. activity/O OBMonitor and support as needed Benign pro static hyperplasia with outflow obstruction 906271953 N40.[address] with mild hematuria- mostly kezllyz08 cc flushes to livingston prnContinu efinasteri de 5 mg dailyMonit orfu urology - update with concerns Chronic pain 53003438 G8 9.29 Stable at presentCon tinue:APAP 650 mg q4h prngabapen tin 300 mg tidPT/OT prnmonitor Gastroesop hageal reflux disease without esophagitis 221801484 K21.9 Stable onomeprazo le 20 mg dailywill monitor GI sx. Blood in urine 87985148 R31.9 hematuria noted in urinewas flushed mutliple times and ultimately sent to ER for discomfort and clotsnow appears clear with slight pink tinge to foleymonit or and cont flushes prn [id number] LANDEN PEREZ NP [address] [address] 12/06/2023 13:48:06 12/10/2023 10:56:50 Blood in urine 50391377 R31.9 hematuria noted in urinewas flushed mutliple times and ultimately sent to ER for discomfort and clotsnow appears clearsuspe ct AC contributi ng to this concernmon itor and cont flushes prn Benign pro static hyperplasia with outflow obstruction 549161205 N40.[address], qs yellow urine60 cc flushes to livingston prnContinu efinasteri de 5 mg dailyMonit orfu urology - update with concerns Mass of pancreas 9848571 00 K86.89 Currently maintained on Octreotide 50 mcg SC bidappt:On cology appt. 11/28 - no paperwork seen from appt., will request offic noteEndocr ine appt. 12/30.Contin ue to monitorlab s to CBC, BMP monthly Deep venou s thrombosis of lower extremity 644509584 I82.413 contapixab an 5 mg bid(starte d on 11/03/23)Blaine ying improvedMo nitor bleeding - recent issues with hematuriaM onitor Essential hypertension 86483891 I10 Still running on the higher side of nl.current ly on metoprolol 75 mg bid - dose increased in hosp. due to SVT - continueNo rvasc stopped due to med change above, but 2.5 mg restarted about 2 wks ago Plan - increase Norvasc to 5 mg qdcontinue to adjust meds prn and monitor vitals Asthenia 89342380 R53.1 Continue PT/OTEnc. activity/O OB - doing better, more activeMoni tor and support as needed Chronic pain 68619653 G8 9.29 Stable at presentCon tinue:APAP 650 mg q4h prngabapen tin 300 mg tidPT/OT prnmonitor Gastroesop hageal reflux disease without esophagitis 751230743 K21.9 Stable onomeprazo le 20 mg dailywill monitor GI sx. [id number] Myriam Delgado NP [address] [address] 12/18/2023 13:30:21 12/20/2023 16:09:46 Blood in urine 24001559 R31.9 no hematuria noted in urine, livingston cleardenie s pain todaysuspe ct AC contributi ng to this concern (hematuria at times)raymond tor and cont flushes prn Benign pro static hyperplasia with outflow obstruction 160736722 N40.[address], qs yellow urine60 cc flushes to livingston prnContinu efinasteri de 5 mg dailyMonit orfu urology - update with concerns Mass of pancreas 0205994 00 K86.89 Currently maintained on Octreotide 50 mcg SC bidappt:On cology appt. 11/28 - no paperwork seen from appt., will request offic noteEndocr ine appt. 12/30.Contin ue to monitorlab s to CBC, BMP monthly Deep venou s thrombosis of lower extremity 827012470 I82.413 contapixab an 5 mg bid(starte d on 11/03/23)Blaine ying improvedMo nitor bleeding - recent issues with hematuriaM onitor Essential hypertension 97757174 I10 bp stable 136/58curr ently on metoprolol 75 mg bid - dose increased in hosp. due to SVT - continueNo rvasc to 5 mg qdcontinue to adjust meds prn and monitor vitals Asthenia 17233310 R53.1 Continue PT/OTEnc. activity/O OB - doing better, more activeMoni tor and support as needed Chronic pain 10620296 G8 9.29 Stable at presentCon tinue:APAP 650 mg q4h prngabapen tin 300 mg tidPT/OT prnmonitor Gastroesop hageal reflux disease without esophagitis 730690837 K21.9 Stable onomeprazo le 20 mg dailywill monitor GI sx. Fall W19.XXXA with hx of many falls and rehab stays per ptunwitnes sed fall on 12/14weakne ss noted in hospital and global sp fallPT OT treat and evalsuppor tive care and redirectio nmonitor will get labs cbc and bmp and urinalysis due to fall and ? increased confusion [id number] Myriam Delgado NP [facility] [address] [address] 12/19/2023 13:20:51 12/24/2023 10:13:28 Asthenia 70803245 R53.1 Continue PT/OTEnc. activity/O OB - doing better, more activeMoni tor and support as needed Benign pro static hyperplasia with outflow obstruction 374445584 N40.[address], qs yellow urine60 cc flushes to livingston prnContinu efinasteri de 5 mg dailyMonit orfu urology - update with concernsaw aiting urinalysis with c & s Mass of pancreas 1591564 00 K86.89 Currently maintained on Octreotide 50 mcg SC bidappt:On cology appt. 11/28 - no paperwork seen from appt., will request offic noteEndocr ine appt. 12/30.Contin ue to monitorlab s to CBC, BMP monthly Leukocytosis 017896076 D 72.829 leukocytos is of 14.2 with unknown cause and increased confusion and recent fall without injuryothe rwise labs stable and denies viral symptomsmo nitor for s/s infectiont rend CBC, will repeat tomorrow [id number] Myriam Delgado, PATRICK [facility] [address] [place] [address] 12/20/2023 08:33:54 12/24/2023 11:49:06 Leukocytosis 230937476 D72.829 leukocytos is of 14.2 with unknown cause and increased confusion and recent fall without injuryothe rwise labs stable and denies viral symptomsmo nitor for s/s infectiont rend CBC, will repeat tomorrow Asthenia 42071203 R53.1 Continue PT/OTEnc. activity/O OB - doing better, more activeMoni tor and support as needed Benign pro static hyperplasia with outflow obstruction 875563046 N40.[address], qs yellow urine60 cc flushes to livingston prnContinu efinasteri de 5 mg dailyMonit orfu urology - update with concerns needed appt with Dr. Pierre ? if this was done noted on dc packet waitin g urinalysis with c & s Mass of pancreas 1570613 00 K86.89 Currently maintained on Octreotide 50 mcg SC bidappt:On cology appt. 11/28 - no paperwork seen from appt., will request offic noteEndocr ine appt. 12/30.Contin ue to monitorlab s to CBC, BMP monthly Phimosis 524197309 N47.1 has notable anterior phimosis foreskin retracted and phimosis slightly reduced todaynsg educated on care and reductionf u with urology Dr. Pierre for this and recent UTImonitor Acute cystitis 29309954 N30.00 acute UTI recently resolved with abx, now with confusionp seudomonas UTI in hosp.Seen by ID, treated with cefepime x 7 days in hospNo MRSA noted in urine culture [place] [facility] [place] that timeHas longstandi ng hx of recurrent UTI with resistance Maintain fluidsTren d VSContinue to monitor closely, higher risk for infection due to chronic indwelling cath.fu with urology for this and phimosis Intertrigo 19255396 L30. 4 pt with intertrigo to left groin foldlikely fungal and likely related to depend plastic on skin or skin on skin 4 start nystatin cream topically to left groin and anterior penis bid and prnmonitor closelycon dock boss antifungal oral diflucan if persistswi ll add lfts to labs on sunday cbc and cmp [id number] Myriam Delgado NP [facility] [address] 12/21/2023 09:29:11 12/25/2023 09:37:37 Phimosis 631750680 N47.1 has notable anterior phimosis foreskin retracted and phimosis slightly reducednsg educated on care and reduction 12/20 phimosis unable to be retracted after 10 minutes of attempting , cannot pull foreskin over area and pt in extreme pain and vomited x 2. send to ER for reduction with extreme pain fu with urology Dr. Pierre for this and recent UTImonitor Leukocytosis 872553591 D 72.829 leukocytos is of 14.2 with unknown cause and increased confusion and recent fall without injurylabs not back yethas positive urinalysis without culture resultssen d to ER Acute cystitis 89897502 N30.00 acute UTI recently resolved with abx, now with confusionp seudomonas UTI in hosp.Seen by ID, treated with cefepime x 7 days in hosp on prior hospitaliz ation No MRSA noted in urine culture [place] [facility] [place] that timeHas longstandi ng hx of recurrent UTI with resistance send to ER with UTI and Phimosis and extreme pain Continue to monitor closely, higher risk for infection due to chronic indwelling cath. [id number] Myriam Delgado NP [address] [address] 12/24/2023 08:44:46 12/27/2023 11:18:57 Phimosis 917518277 N47.1 resolved 12/19 foreskin retracted and phimosis [...] cath secure device at all times Leukocytosis 561445818 D 72.829 leukocytos is of 14.2, likely due to UTI and increased confusion and recent fall without injurylabs not back yet from orders, cbc and bmp on mondays x 3see cystitismo nitor Acute cystitis 51440058 N30.00 acute UTI recently resolved with abx, now with confusionp seudomonas UTI in hosp. and now showing klebsiella pneumo on culture sensitive to cefpodoxim e No MRSA noted in urine culture [place] [facility] [place] that timeHas longstandi ng hx of recurrent UTI with resistance 12/23 started on cefpodoxim e 200 mg po bid 12/21 to 12/28with probiotic Continue to monitor closely, higher risk for infection due to chronic indwelling cath. fu Dr. Pierre in one week [id number] LANDEN PEREZ NP [facility] [address] [address] 01/03/2024 13:56:51 01/10/2024 12:29:40 Choking 890961226 R09.89 Choking episode 01/01 dinner time.Took a large bite of a sandwich, got stuck in throat, required Heimlich to clear airway.No residual concerns related to the event.Back to baseline, will take smaller bites from now onReferred to ST for eval and tx. just to be safeMonito r [id number] Myriam Delgado NP [facility] [address] 01/11/2024 13:47:53 01/16/2024 10:11:02 Choking 635629952 R09.89 Choking episode 01/09 dinner time.with eating too much food at onceNo residual concerns related to the event.Back to baseline, will take smaller bites from now onReferred to ST for eval and tx. just to be safe and fees test may be done if speech felt helpfullun gs clear and no xray todayMonit or Leukocytosis 390494649 D 72.829 leukocytos is of 14.2, likely due to UTI and increased confusionl abs not back yet from orders01/10 will reoreder cbc and bmp on mondays x 2see cystitismo nitor [id number] Myriam Delgado NP [facility] [address] [address] 01/16/2024 13:13:57 01/23/2024 12:17:27 Hordeolum externum of upper eyelid of left eye 1701141184 48614 H00.014 01/15warm compress tid for 15 minutes x 2 weekseryth romycin 0.5 % opthl oint 1/2 inch ribbon to left eye tid x 2 weeksmonit or for visual changes or spreadingg ood hand washing [id number] LANDEN PEREZ NP [facility] [address] [address] 01/17/2024 09:38:13 01/23/2024 12:28:59 Hypoglycemia 597136331 E16.1 [place] related to pancreatic massFollow up with endocrine out patientBS BID currently stable, +/- 100.Will reduce BS to BID once a week and PRN s/s low BSAppetite goodMonito r [id number] Myriam Delgado NP [facility] [address] [address] 01/21/2024 15:24:25 01/23/2024 12:56:01 Loss of teeth due to extraction 58805536 K08.409 left front tooth extracted on 01/20 by dentistno s/s of infectiona moxicillin 500 mg po tid x 7 days with probiotic bid x 9 days (pt has hx of cdiff and will need to monitor)sa lt water rinse as needed and gauze for bleedingmo nitor Hordeolum externum of upper eyelid of left eye 3839643515 84433 H00.014 01/15warm compress tid for 15 minutes x 2 weekseryth romycin 0.5 % opthl oint 1/2 inch ribbon to left eye tid x 2 weeksmonit or for visual changes or spreading resolving with some slight swelling, will cont as planned till 01/30good hand washing [id number] Myriam Delgado NP [facility] [address] [address] 01/30/2024 14:57:35 02/01/2024 10:28:09 Phimosis 008561123 N47.1 01/29 foreskin retracted and phimosis reduced todaynsg educated on care and reductionw ill add foreskin care q shift as this is reoccurrin g fu with urology Dr. Pierre outpt prn monitor and cath secure device at all times [id number] Myriam Delgado NP [facility] [address] [address] 02/13/2024 08:37:31 02/26/2024 13:09:48 Pain in penis 012847023 N48.89 Pt with pain to his penis [...] and states he wants to go to [facility] send to ER for penial pain and possible UTI [id number] Myriam Delgado NP [facility] [address] [address] 02/14/2024 11:18:54 02/26/2024 13:31:39 Pain in penis 205103746 N48.89 livingston replaced in er and pain resolving- see hpicath secure device in placestaff to assess q shift for phimosis with hx ofmonitor for changes Acute cystitis 86190630 N30.00 Has longstandi ng hx of recurrent UTI with resistance and started on abx for UTI in hospital levofloxac in 250 mg po daily x 4 daysnitrof urantoin 100 mg po bid for 7 daysadd probiotic bid Continue to monitor closely, higher risk for infection due to chronic indwelling cath. fu Dr. Pierre as needed if symptoms not improved Recent weight loss 48168 7000 R63.4 pt with recent weight loss approx 20 lbs over last few monthsposs ibily related to recent dental extraction s and change of dietdietic leda to followsupp lements added todaymonit or weights weeklyif no improvemen t may consider remeron in near future [id number] Myriam Delgado NP [facility] [address] [address] 02/22/2024 13:50:50 02/26/2024 15:42:01 Acute cystitis 02722268 N30.00 resolvingH as longstandi ng hx of recurrent UTI with resistance and started on abx for UTI in hospital levofloxac in 250 mg po daily x 4 daysnitrof urantoin 100 mg po bid for 7 daysprobio tic bid Continue to monitor closely, higher risk for infection due to chronic indwelling cath. fu Dr. Pierre as needed if symptoms not improved Loose stool 353209763 R1 9.5 loose stool likely related to abx course now finishingo n probioticc ont bisacodyl prn start 02/21lopera mide 2 tabs with first loose stool, 1 tab each stool, up to 5 tabs per 24 hoursmonit or [id number] Mario Zendejas MD [facility] [address] 03/05/2024 12:01:25 03/07/2024 12:13:54 Impetigo 97267097 L01.09 appears secondary to razorneosp david bid x 1 week then reassess Benign pro static hyperplasia with outflow obstruction 480464941 N40.1 baseline bph with chronic foleypatie nt wishes to have livingston removedexp lained possibilit y of suprapubic cath or alt surgery however [facility] current medsmonito r for effectupda te urology with concerns Hypertensive disorder 38 616579 I10 norvasc 5 mg qdmonitor bp and need to titrate Deep venou s thrombosis of lower extremity 654681447 I82.413 eliquis 5 mg bidcontinu emonitor for bleedingco nsider repeat imaging if provoked [id number] Myriam Delgado NP [facility] [address] [address] 03/31/2024 13:32:36 04/03/2024 14:45:09 Benign prostatic hyperplasia with outflow obstruction 872852735 N40.1 baseline bph with chronic foleyconti nue current medsmonito r for effectupda te urology with concerns Pain in penis 009765613 N48.[address] and draining clear yellow urinept requests to go to the ER and refuses assessment or livingston replacemen tsend to ER [id number] Myriam Delgado NP [facility] [address] [address] 04/21/2024 15:24:32 04/23/2024 12:57:05 Benign prostatic hyperplasia with outflow obstruction 216991646 N40.1 baseline bph with chronic foleyfoley with sediment today in [facility] fluidscont inue current medsmonito r for effectupda te urology with concerns irrigate catheter with 60 cc saline/tati er prn increased sedimenton e time order to irrigate with 120cc of water to help with sediment with results and free flowingmon itor for s/s of pain, burning, or not draining. [id number] Myriam Delgado NP [facility] [address] [address] 04/28/2024 08:47:14 04/29/2024 14:47:21 Benign prostatic hyperplasia with outflow obstruction 227689723 N40.1 baseline bph with chronic [facility]oleyfoley [facility]cont inue current medsmonito r for effectupda te urology with concerns8/ 5 nsg to irrigate catheter with 60 cc saline/tati er prn increased sediment8/ 5 fu with urology for catheter changes monthly as he has had traumatic livingston exchanges and mulitple er visits in past and seems to have an obstructio n at times.raymond tor for s/s of pain, burning, or not draining. Hypertensive disorder 38 343180 I10 norvasc 5 mg qdmonitor bp and need to titrate Deep venou s thrombosis of lower extremity 997360442 I82.413 eliquis 5 mg bidcontinu emonitor for bleedingco nsider repeat imaging if provoked, seems resolved [id number] Myriam Delgado NP [facility] [address] [address] 05/01/2024 13:23:06 05/06/2024 15:44:18 Altered mental status 427844314 R41.82 ams today with unresponsi ve episodesee hpi for detailsDDX ? TIA/STROKE /Sepsiscal l 911 transfer to ER [facility] for emergent change of condition [id number] Myriam Delgado NP [facility] [address] [address] 05/08/2024 10:05:58 05/12/2024 16:09:35 Altered mental status 076845893 R41.82 resolved with sepsis treatmentb ack to baselinemo nitor closely Benign pro static hyperplasia with outflow obstruction 677691959 N40.1 baseline bph with chronic foleyconti nue [...] burning, or not draining. Hypertensive disorder 38 857640 I10 norvasc 5 mg qdmetoprol ol 25 mg po bidmonitor bp and need to titrate Acute cystitis 52202113 N30.00 with sepsis UTInote: Has longstandi ng [...] Pierre as needed if symptoms not improved ([facility] urology or Dr Pierre)raymond tor cbc and bmp weekly x 2 weeks on mondays Supraventr icular tachycardia 4488525 I47.10 Problemati c in hosp. resolved with adenosine in hosp and sepsis txSeen by Cards, now on metoprolol 25 mg bid (decreased from 75 mg po bid in hosp)Monit or VS/HR [id number] Myriam Delgado NP [facility] [address] [address] 05/15/2024 10:36:06 05/19/2024 10:24:41 Altered mental status 631362061 R41.82 resolved with sepsis treatmentb ack to baselinemo nitor closely for changes Benign pro static hyperplasia with outflow obstruction 851447660 N40.1 baseline bph with chronic foleyconti nue current meds monitor for effectnsg to irrigate catheter with 60 cc saline/tati er prn increased sedimentfu with urology for catheter changes monthly as he has had traumatic livingston exchanges and mulitple er visits in past and seems to have an obstructio n at times.raymond tor for s/s of pain, burning, or not draining. Hypertensive disorder 38 385861 I10 contnorvas c 5 mg qdmetoprol ol 25 mg po bidmonitor bp and need to titrate Acute cystitis 55518269 N30.00 with sepsis UTInote: Has longstandi ng [...] Pierre as needed if symptoms not improved ([facility] urology or Dr Pierre)raymond tor cbc and bmp weekly x 2 weeks on mondays Supraventr icular tachycardia 3051971 I47.10 hr stableProb lematic in hosp. resolved with adenosine in hosp and sepsis txSeen by Cards, now on metoprolol 25 mg bid (decreased from 75 mg po bid in hosp)Monit or cardiac status Deep venou s thrombosis of lower extremity 382780916 I82.413 eliquis 5 mg bidcontinu emonitor for bleedingco nsider repeat imaging if provoked, seems resolved [id number] LANDEN PEREZ NP [facility] [address] [address] 05/20/2024 08:45:56 05/21/2024 16:01:59 Altered mental status 969742290 R41.82 resolved with sepsis treatmentb ack to baselinemo nitor closely for changes Acute cystitis 08804322 N30.00 with sepsis UTInote: Has longstandi ng [...] Benign pro static hyperplasia with outflow obstruction 045354316 N40.1 baseline bph with chronic foleyconti nue [...] monitor uses and effect Hypertensive disorder 38 625912 I10 BP high yesterdayc ontinue:no rvasc 5 mg qdmetoprol ol 25 mg po bidmonitor bp and need to titrate Supraventr icular tachycardia 9792588 I47.10 hr stableProb lematic in hosp. resolved with adenosine in hosp and sepsis txSeen by Cards, now on metoprolol 25 mg bid (decreased from 75 mg po bid in hosp. due to issues with bradycardi a)Monitor cardiac status Deep venou s thrombosis of lower extremity 038310133 I82.413 eliquis 5 mg bidcontinu emonitor for bleedingco nsider repeat imaging if provoked, seems resolved [id number] [facility] [address] 05/28/2024 15:51:34 05/30/2024 13:45:57 Altered mental status 441879499 R41.82 resolved with sepsis treatmentb ack to baselinemo nitor closely for changes Acute cystitis 12178310 N30.00 with sepsis UTInote: Has longstandi ng [...] Benign pro static hyperplasia with outflow obstruction 249055191 N40.1 baseline bph with chronic foleyconti nue [...] monitor uses and effect Hypertensive disorder 38 766075 I10 BP high today, mostly controlled continue:n orvasc 5 mg qdmetoprol ol 25 mg po bidmonitor bp and need to titrate Supraventr icular tachycardia 5303568 I47.10 hr stableProb lematic in hosp. resolved with adenosine in hosp and sepsis txSeen by Cards, now on metoprolol 25 mg bid (decreased from 75 mg po bid in hosp. due to issues with bradycardi a)Monitor cardiac status Deep venou s thrombosis of lower extremity 542642144 I82.413 eliquis 5 mg bidcontinu emonitor for bleedingco nsider repeat imaging if provoked, seems resolved Intertrigo 59136464 L30. 4 pt with intertrigo to abd foldlikely fungal and likely related to depend plastic on skin or skin on skin05/28 start nystatin cream topically to abd fold bid and prnmonitor closelycon dock boss antifungal oral diflucan if persists [id number] Myriam Delgado NP [facility] [address] [address] 05/30/2024 10:32:42 06/03/2024 09:55:17 Acute chest pain 194865458 R07.9 acute chest pain with tachycardi a 160sapply 2 liters o2send to ER, call 911 Tachycardia 1711951 R00. 0 acute chest pain with tachycardi a 160ssend to ER, call 911 [id number] Myriam Delgado NP [facility] [address] [address] 06/02/2024 10:07:28 06/04/2024 10:04:51 Acute cystitis 72362432 N30.00 with sepsis UTI recently now resolved [...] Benign pro static hyperplasia with outflow obstruction 889969373 N40.1 baseline bph with chronic foleyconti nue [...] monitor uses and effect Hypertensive disorder 38 522674 I10 BP high today, mostly controlled continue:n orvasc 5 mg qdmetoprol ol 25 mg po bidmonitor bp and need to titrate Supraventr icular tachycardia 1942335 I47.10 resolvedfe lt with hx of and [...] Deep venou s thrombosis of lower extremity 044458848 I82.413 eliquis 5 mg bidcontinu emonitor for bleedingco nsider repeat imaging if provoked, seems resolved Anxiety 43509164 F41.9 states his daughter mentions and he feels anxious lately06/02 eating disorder psychologist to evalmonito r Chest pain 29859753 R07. 9 resolved as above in tachycardi a during hosp admissionh ad elevated trops in hosp as abovemonit or for reoccurenc e [id number] [facility] [address] [place] [address] 06/05/2024 09:59:51 06/06/2024 13:43:38 Supraventricular tachycardia 1159342 I47.10 resolvedfe lt with hx of and [...] dc amlodipine Monitor cardiac status Chest pain 09615119 R07. 9 resolved as above in tachycardi a during hosp admissionh ad elevated trops in hosp as abovemonit or for reoccurenc e Hypertensive disorder 38 932631 I10 BP high today, mostly controlled continue:m etoprolol 25 mg po bidmonitor bp and need to titrate Anxiety 39054262 F41.9 states his daughter mentions and he feels anxious lately06/05 start cymbalta 20 mg po qhs for anxiety depression rec by psychmonit or Acute cystitis 90640198 N30.00 with sepsis UTI recently now resolved [...] Benign pro static hyperplasia with outflow obstruction 822160409 N40.1 baseline bph with chronic foleyconti nue [...] Deep venou s thrombosis of lower extremity 056341588 I82.413 eliquis 5 mg bidcontinu emonitor for bleedingco nsider repeat imaging if provoked, seems resolved [id number] Myriam Delgado NP [address] [address] 06/13/2024 09:22:02 06/16/2024 15:20:15 Anxiety 40282688 F41.9 anxiety seems decreased today06/05 started on cymbalta 20 mg po qhs for anxiety depression rec by psychmonit or for full effect of med change Supraventr icular tachycardia 6235732 I47.10 resolved and hr stable todayfelt with [...] amlodipine Monitor cardiac status Hypertensive disorder 38 713475 I10 BP high today, mostly controlled occ labile with normal pressures after medicated latleycont inue:metop rolol 25 mg po bidmonitor bp and need to titrate Acute cystitis 89673049 N30.00 with sepsis UTI recently now resolved [...] Benign pro static hyperplasia with outflow obstruction 844343765 N40.1 baseline bph with chronic foleyconti nue [...] Deep venou s thrombosis of lower extremity 419930662 I82.413 eliquis 5 mg bidcontinu emonitor for bleedingco nsider repeat imaging if provoked, seems resolved [id number] [facility] [address] [place] [address] 06/27/2024 08:32:00 06/30/2024 12:07:13 Benign prostatic hyperplasia with outflow obstruction 982674695 N40.1 baseline bph with chronic livingston > [...] meds belowmonit or uses and effect Anxiety 92740583 F41.9 anxiety seems decreased today06/05 started on cymbalta 20 mg po qhs for anxiety depression rec by psychmonit or for full effect of med change Chronic pain 30569037 G8 9.29 with increased pain recentlyCo ntinue:06/27 increase tramadol to 50 mg bid and q 12 hours prn to help with pain per pt. requestAPA P 650 mg q4h prngabapen tin 300 mg tidcymbalt a 20 mg po dailyPT/OT prnmonitor Neuropathy 194041449 G62 .9 see above for management [id number] JEFF BARLOW NP [facility] [place] [address] [place] [address] 08/02/2024 12:31:57 08/04/2024 11:36:09 Ureteric stone 74711624 N20.1 Cefpoxidim e 200 mg bid to 08/11Octre otide 1 ml SC bidmonitor for any changes in urine output Benign pro static hyperplasia with outflow obstruction 669516591 N40.1 baseline bph with chronic livingston > [...] and effectfina steride 5 mg daily Anxiety 84878826 F41.9 anxiety seems decreased today06/05 started on cymbalta 20 mg po qhs for anxiety depression rec by psychmonit or for full effect of med change Chronic pain 23033470 G8 9.29 with increased pain recentlyCo ntinue:06/27 increase tramadol to 50 mg bid and q 12 hours prn to help with pain per pt. requestAPA P 650 mg q4h prngabapen tin 300 mg tidcymbalt a 20 mg po dailyPT/OT prnmonitor Neuropathy 510568896 G62 .9 see above for management Hypertensive disorder 38 658925 I10 amlodipine 5 mg dailymetop rolol 25 mg bidmonitor bp Asthenia 03033286 R53.1 PT OT eval and treatfall precaution sFrequent safety checks Supraventr icular tachycardia 4633052 I47.10 metoprolol 25 mg bideliquis 5 mg bidmonitor heart rate [id number] Myriam Delgado NP [address] [address] 08/06/2024 15:06:50 08/11/2024 10:46:13 Ureteric stone 57249147 N20.1 contCefpox idime 200 mg bid to 08/11Octre otide 1 ml SC bidmonitor for any changes in urine output On 09/01/2024 at 8:45 am, arrival at 7:15am he will go to [facility] for lithotrips y with stent placement. Day of surgery : NPO, and will need to have eliquis held for 2-3 days prior. Will hold for 08/29-09/01. Nursing aware.- 08/18/2024 a urinalysis will need to be done and sent to [facility] urology, no other labs ordered- 09/08/24 at 10:15 am will have fu [facility] [address] [facility], [address] for stent removal Benign pro static hyperplasia with outflow obstruction 371779204 N40.1 baseline bph with chronic livingston > [...] steride 5 mg dailymonit or closely Anxiety 82931099 F41.9 anxiety seems decreased todaycontc ymbalta 20 mg po qhs for anxiety with improvemen tmonitor for full effect of med change Chronic pain 15528744 G8 9.29 Continue:t ramadol to 50 mg bid and q 12 hours prnAPAP 650 mg q4h prngabapen tin 300 mg tidcymbalt a 20 mg po dailyPT/OT prnmonitor Neuropathy 688090158 G62 .9 see above for management Hypertensive disorder 38 578600 I10 amlodipine 5 mg dailymetop rolol 25 mg bidmonitor bp Asthenia 15222370 R53.1 PT OT eval and treatfall precaution sFrequent safety checks Supraventr icular tachycardia 0938820 I47.10 stablecont metoprolol 25 mg bideliquis 5 mg bidmonitor heart rate Mass of pancreas 4063426 00 K86.89 Currently maintained on Octreotide 50 [...] abd fu of mass pending insurance approval [id number] Myriam Delgado NP [address] [place] [address] 08/08/2024 11:09:19 08/11/2024 12:25:05 Ureteric stone 96344203 N20.1 yellow urine and free flowingcon tCefpoxidi me 200 mg bid to 08/11Octre otide 1 ml SC bidmonitor for any changes in urine output planOn 09/01/2024 at 8:45 am, arrival at 7:15am he will go to [facility] for lithotrips y with stent placement. Day of surgery : NPO, and will need to haveeliqui s held for 2-3 days prior. Will hold for 08/29-09/01. Nursing aware on 08/06- 08/18/2024 a urinalysis will need to be done and sent to [facility] urology, no other labs ordered for them- 09/08/24 at 10:15 am [facility] [address] for stent removalnjayne henderson has these appt and tranportat ion booked except last one(martín gallardo) Benign pro static hyperplasia with outflow obstruction 678407062 N40.1 baseline bph with chronic livingston > [...] steride 5 mg dailymonit or closely Anxiety 99539738 F41.9 anxiety seems decreased todaycontc ymbalta 20 mg po qhs for anxiety with improvemen tmonitor for full effect of med change Chronic pain 08059347 G8 9.29 pain controlled Continue:t ramadol to 50 mg bid and q 12 hours prnAPAP 650 mg q4h prngabapen tin 300 mg tidcymbalt a 20 mg po dailyPT/OT prnmonitor Neuropathy 529304621 G62 .9 see above for management Hypertensive disorder 38 753806 I10 contamlodi pine 5 mg dailymetop rolol 25 mg bidmonitor bp Asthenia 95137894 R53.1 PT OT eval and treatfall precaution sFrequent safety checks Supraventr icular tachycardia 5988086 I47.10 stablecont metoprolol 25 mg bideliquis 5 mg bidmonitor heart rate Mass of pancreas 3051364 00 K86.89 Currently maintained on Octreotide 50 [...] of abd fu of mass [facility] and tranportat ion booked except last one(martín gallardo) [id number] Myriam Delgado NP [address] [address] 08/14/2024 13:34:38 08/15/2024 10:17:59 Ureteric stone 29160281 N20.1 yellow urine and free flowingcon tCefpoxidi me 200 mg bid till 08/11monit or for any changes in urine output plan 024 at 8:45 am, arrival at 7:15amhe will go to [facility] for lithotrips y with stent placement. Day of surgery : NPO, and will need to haveeliqui s held for 2-3 days prior. Will hold for 08/29-09/01. (Nursing aware on 08/06 and in computer to hold meds)- 08/18/2024 a urinalysis will need to be done and sent to [facility] urology, no other labs ordered for them or needed when called- 09/08/24 at 10:15 am will have fu at [address], [address] for stent removalnjayne henderson has these appt and tranportat ion booked except last one(pendjonathan g) Mass of pancreas 7227950 00 K86.89 Currently maintained on Octreotide 50 [...] Benign pro static hyperplasia with outflow obstruction 772494078 N40.1 baseline bph with chronic livingston > [...] steride 5 mg dailymonit or closely Anxiety 88194877 F41.9 anxiety seems decreased todayconta dd trazodone 50 mg po qhs recently per psych reccymbalt a 20 mg po qhs for anxiety with improvemen tmonitor for full effect of med change Chronic pain 25380002 G8 9.29 pain controlled Continue:t ramadol to 50 mg bid and q 12 hours prnAPAP 650 mg q4h prngabapen tin 300 mg tidcymbalt a 20 mg po dailyPT/OT prnmonitor Neuropathy 638041801 G62 .9 see above for management Hypertensive disorder 38 114092 I10 contamlodi pine 5 mg dailymetop rolol 25 mg bidmonitor bp Asthenia 33496831 R53.1 PT OT eval and treatfall precaution sFrequent safety checks Supraventr icular tachycardia 8836844 I47.10 stablecont metoprolol 25 mg bideliquis 5 mg bidmonitor heart rate [id number] Myriam Delgado NP [facility] [address] [place] [address] 08/27/2024 15:18:13 08/28/2024 11:59:50 Ureteric stone 20467859 N20.1 yellow urine and free flowingcon tCefpoxidi me 200 mg bid till or for any changes in urine output cont 024 at 8:45 am, arrival at 7:15amhe will go to [facility] for lithotrips y with stent placement. Day of surgery : NPO, and will need to haveeliqui s held for 2-3 days prior. Will hold for 08/29-09/01. (Nursing aware on 08/06 and in computer to hold meds)08/20 urinalysis sent to [facility] urology, no other labs ordered for them or needed when qdminu08/1 03/17 at 10:15 am will have fu at [address] [facility], [address] for stent removalnjayne henderson has these appt and transporta tion booked except last one(pendjonahtan ) Mass of pancreas 1449574 00 K86.89 Currently maintained on Octreotide 50 [...] approval, nsg aware and will check on timebadnar paulina has these appt and tranportat ion booked except last one(pendin g) Fu 12/01/24 @ 1:40pm with Dr Herrera endocrine Benign pro static hyperplasia with outflow obstruction 705565406 N40.1 baseline bph with chronic livingston > [...] steride 5 mg dailymonit or closely Anxiety 34515503 F41.9 anxiety improved and feels better lately with trazodonec onttrazodo ne 50 mg po qhs recently per psych reccymbalt a 20 mg po qhs for anxiety with improvemen tmonitor for full effect of med change Chronic pain 09229397 G8 9.29 pain controlled Continue:t ramadol to 50 mg bid and q 12 hours prnAPAP 650 mg q4h prngabapen tin 300 mg tidcymbalt a 20 mg po dailyPT/OT prnmonitor [id number] [facility]riam Delgado[facility] [address] 08/29/2024 13:51:48 09/01/2024 13:27:19 Ureteric stone 83738353 N20.1 yellow urine and free flowingcon tCefpoxidi me 200 mg bid till 18monit or for any changes in urine output cont 024 at 8:45 am, arrival at 7:15amhe will go to [facility] for lithotrips y with stent placement. Day of surgery : NPO, and will need to haveeliqui s held for 2-3 days prior. Will hold for 08/29-09/01. (Nursing aware on 08/06 and in computer to hold meds)08/20 urinalysis sent to [facility] urology, no other labs ordered for them or needed when xtjhim26/1 03/17 at 10:15 am will have fu at [address], [address] for stent removalnjayne henderson has these appt and transporta tion booked except last one(martín gallardo) Mass of pancreas 4995363 00 K86.89 Currently maintained on Octreotide 50 [...] Benign pro static hyperplasia with outflow obstruction 229949239 N40.1 baseline bph with chronic livingston > [...] steride 5 mg dailymonit or closely Anxiety 32905449 F41.9 anxiety improved and feels better lately with trazodonec onttrazodo ne 50 mg po qhs recently per psych rec08/29 increase cymbalta from 20 mg to 30 mg po qhs for anxiety with improvemen tmonitor for full effect of med change Chronic pain 11503763 G8 9.29 pain controlled Continue:t ramadol to 50 mg bid and q 12 hours prnAPAP 650 mg q4h prngabapen tin 300 mg tid16 increase cymbalta 30 mg po dailyPT/OT prnmonitor [id number] Myriam Delgado NP [address] [address] 09/03/2024 10:54:48 09/05/2024 14:17:28 Ureteric stone 81551773 N20.1 yellow urine and free flowingcon tCefpoxidi [...] to hold meds)monit or Mass of pancreas 7589029 00 K86.89 Currently maintained on Octreotide 50 [...] Benign pro static hyperplasia with outflow obstruction 696685172 N40.1 baseline bph with chronic livingston > [...] 5 mg dailymonit or closely Chronic pain 38660570 G8 9.29 pain controlled Continue:t ramadol to 50 mg bid and q 12 hours prnAPAP 650 mg q4h prngabapen tin 300 mg tidcymbalt a 30 mg po daily (saran increase well)PT/OT prnmonitor Abnormalit y of nail of toe 656813088 L60.8 right 4th toenail fell off without any bleeding, infection or discolorat ionns wash, pat dry, apply bacitracin and bandaid daily until healedmoni tor for s/s of infection [id number] Myriam Delgado NP [address] [place] [address] 10/02/2024 14:27:29 10/03/2024 10:55:10 Ureteric stone 35642905 N20.1 resolved with lithotrips y and stent removal on 10/01/23 with urology outptremai ns with chronic foleymonit or Mass of pancreas 8592234 00 K86.89 Currently maintained on Octreotide 50 [...] Benign pro static hyperplasia with outflow obstruction 368974929 N40.1 baseline bph with chronic livingston > [...] 5 mg dailymonit or closely Chronic pain 42383801 G8 9.29 pain controlled Continue:t ramadol to 50 mg bid and q 12 hours prnAPAP 650 mg q4h prngabapen tin 300 mg tidcymbalt a 30 mg po dailyPT/OT prnmonitor Abnormalit y of nail of toe 863985391 L60.8 right 4th toenail fell off without any bleeding, infection or discolorat ionns wash, pat dry, apply bacitracin and bandaid daily until healedmoni tor for s/s of infection Anxiety 30236600 F41.9 anxiety improved and feels better lately with trazodonec onttrazodo ne 100 mg po qhscymbalt a from 30 mg po qhs for anxietyhyp droxyzine 25 mg po q 8 hours prn anxietymon itor Neuropathy 091887448 G62 .9 see above for management Hypertensive disorder 38 411269 I10 bp stablecont amlodipine 5 mg dailymetop rolol 25 mg bidmonitor bp Asthenia 17997033 R53.1 PT OT eval and treat prnfall precaution sFrequent safety checks Supraventr icular tachycardia 4609593 I47.10 stablecont metoprolol 25 mg bideliquis 5 mg bidmonitor heart rate [id number] Myriam Delgado NP [facility] [address] [address] 10/08/2024 14:10:48 10/10/2024 15:04:17 Ureteric stone 59845537 N20.1 resolved with lithotrips y and stent removal on 10/01/23 with urology outptremai ns with chronic livingston replaced on 10/01/24need s fu with urology, nsg to [facility] u/s with left ureteral hydronephr osismonito r for bleeding/r eoccurence /infection Benign pro static hyperplasia with outflow obstruction 958061178 N40.1 baseline bph with chronic livingston > [...] 5 mg dailymonit or closely Chronic pain 75438202 G8 9.29 denies any pain todayConti nue:change tramadol from 50 mg tid and q 12 hours prn to 25 mg po tid and 50 prn q 12hrs prnAPAP 650 mg q4h prngabapen tin 300 mg tidcymbalt a 30 mg po dailyPT/OT prnmonitor Anxiety 41737373 F41.9 anxiety improved and feels better lately with trazodone, however ? more confusedco nt10/08 decrease trazodone from 100 mg to 50 mg po qhscontcym glendy from 30 mg po qhs for anxietyhyp droxyzine 25 mg po q 8 hours prn anxietymon itor Impaired cognition 65909 6002 R41.89 with increased confusion lately over time 5 adjust trazodone and tramadol today as reviewed with omar ramon cbc bmp and urinalysis to rule out infection/ electrolyt e derjason t [id number] Myriam Delgado NP [facility] [address] [address] 10/13/2024 15:56:35 10/15/2024 10:55:49 Ureteric stone 17970528 N20.1 resolved with lithotrips y and stent removal on 10/01/23 with urology outptremai ns with chronic livingston replaced on 10/01/24rena l u/s with left ureteral hydronephr osis done [facility] /infection fu with urology Benign pro static hyperplasia with outflow obstruction 606281853 N40.1 baseline bph with chronic livingston > [...] steride 5 mg dailymonit or closely Anxiety 31992768 F41.9 due to confusion recently decreased trazadonec onttrazodo ne 50 mg po qhscymbalt a from 30 mg po qhs for anxietyhyp droxyzine 25 mg po q 8 hours prn anxietymon itor Impaired cognition 01002 6002 R41.89 with increased confusion lately over last few monthstraz odone and tramadol recently decreasedc bc bmp and urinalysis to rule out infection/ electrolyt e derangemen t pendinghas treatable UTI and will treat Recurrent urinary tract infection 563150522 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, also pseudomona s infection will treat with linezolid 600 mg po bid x 14 days for chronic UTIand probioticm onitor for changes in mental status [id number] Myriam Delgado NP [address] [address] 10/17/2024 13:50:27 10/21/2024 15:02:52 Anxiety 46667238 F41.9 10/17 hold trazodone and cymbalta, resume 24 hours after linezolid is finished start ativan 0.5 mg po q 8 hours prn for anxiety for 14 dayscont hydroxyzin e 25 mg po q 8 hours prn anxietymon itor Recurrent urinary tract infection 044288236 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, also pseudomona s infection will treat with linezolid 600 mg po bid x 14 days for chronic UTIand probiotic cont with above planmonito r for changes in mental status Ureteric stone 41362604 N20.1 resolved with lithotrips y and stent removal on 10/01/23 with urology outptremai ns with chronic livingston replaced on 10/01/24rena l u/s with left ureteral hydronephr osis done and sent [facility] for bleeding/r eoccurence /infection fu with urology [id number] Myriam Delgado NP [address] [address] 10/30/2024 13:45:38 10/31/2024 14:12:46 Anxiety 23941133 F41.9 10/17 hold trazodone and cymbalta, resume 24 hours after linezolid is finished start ativan 0.5 mg po q 8 hours prn for anxiety for 14 days/ dc ativan, other meds resumed trazodone and cymbaltaco nt hydroxyzin e 25 mg po q 8 hours prn anxietymon itor Recurrent urinary tract infection 795006295 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, also pseudomona s infectiont reated with linezolid 600 mg po bid x 14 days for chronic UTI started on 10/13/24and probioticm onitor for changes in mental statushe refused labs this am, will repeat yecenia cbc and bmp Ureteric stone 66305638 N20.1 resolved with lithotrips y and stent removal on 10/01/23 with urology outptremai ns with chronic livingston replaced on 10/01/24rena l u/s with left ureteral hydronephr osis done and sent to [facility] for bleeding/r eoccurence /infection fu with urology 11/13 for fu of stones Recurrent falls 36528984 2 R29.6 10/30 pt rolled out of [...] Morton Member ID Guarantor Name 10/02/2024 1 [facility] - DOS ON OR AFTER 2022 - MEDICARE [place]VANTAGE [place] (MEDICARE REPLACEMENT/AD VANTAGE - PPO) Alhaji Varner [id number] Alhaji Varner 10/02/2024 2 [place] [facility] Alhaji Varner [id number] Alhaji Varner 10/08/2024 1 [place] [employer] Alhaji Varner [id number] Alhaji Varner 10/08/2024 2 [place] [facility]haji Tritscher [id number] [facility] 10/13/2024 1 [place] [employer] Alhaji Tritscher [id number] [facility] 10/13/2024 2 [place] [facility] Alhaji Tritscher [id number] [facility] 10/17/2024 1 [place] [employer] Alhaji Tritscher [id number] [facility] 10/17/2024 2 [place] [facility] Alhaji Tritscher [id number] [facility] 10/30/2024 1 [place] [employer] Alhaji Tritscher [id number] [facility] 10/30/2024 2 [place] [facility] Alhaji Trigarimacher [id number] [facility] Notes Date Note Type Note Provider Name and Address Organization Details Recorded Time 5 text/html Pt is seen for an annual visit today. He is a 68 year old male, initially admitted to [facility] on 09/07/23 after a hospital stay for [...] mcg SC bid until surgery.Sent back to [facility] a few weeks after admission due to [...] started on abx. Pt was sent to [facility] on 05/01-05/07/24 for alerted mental status with confusion, lethargy, and not responsive to voice, and low grade temp, found to have sepsis UTI. On 06/02/24 he was seen for readmission from [facility] after presenting with chest pain, heart pounding, [...] was dc'd. On 08/02 is readmitted to [facility]. Alhaji is a 69 yom resident that [...] pending insurance approval Myriam Delgado, PATRICK [address], [address], [place], [address], [facility] [employer] 10/02/2024 23:38:45 5 text/html Pt is seen [...] pending insurance approval Myriam Delgado NP [address], [address], [place], [address], [facility] [employer] 10/08/2024 18:44:54 5 text/html Pt is [...] pending insurance approval Myriam Delgado NP [address], [address], [place], [address], [facility] [employer] 10/13/2024 17:35:16 5 text/html Pt is seen for an acute visit today. 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 He is colonized with chronic livingston for many years. Due to the increased confusion he was treated with linezolid which is sensitive on culture. Upon speaking with psychological stress evaluator linezolid can increase levels and put him [...] pending insurance approval Myriam Delgado NP [address], [address], [place], [address], [employer] [facility] [employer] [facility] 10/17/2024 13:58:37 5 text/html Pt is seen for an acute visit today. He is seen for rolling out of bed and suffered a small abrasion to the top of his scalp approx 0.5 cm round. No interventions needed. No bleeding or hematoma or other injuries noted. Alhaji is lying in bed in [facility]. He is confused today and he is [...] endocrine for mass Myriam Delgado NP [address] [facility], [address], [place], [address], [employer] 10/30/2024 14:13:02
--- OUTSIDE RECORDS SUMMARY | 2024-11-08 11:40 | XMS_ITS | Continuity of Care Document ---
Author Organization [facility], [facility] Address [address] [place] [address] Care Team Providers Care Actuarial Consultant Name Role Phone MICKI ANGULO Primary Care Provider [phone] [facility] OTHER Assessment No [...] Time Benign prostatic hyperplasia with outflow obstruction 618747370 Active 2022 Myriam Delgado NP [address] , [address], [place], [address], [facility] [email or web address] [facility] 3 08:53:31 Hypertensive disorder 03946544 Active 2022 Myriam Delgado NP [address], [address], [place], [address], [facility] [email or web address] [facility] 3 08:53:50 Acute cystitis 11072454 Active 2022 Myriam Delgado NP [address], [address], [place], [address], [facility] [email or web address] [facility] 3 08:54:01 Fall Active 2022 Myriam Delgado NP [address], [address], [place], [address], [facility] [email or web address] [facility] 3 08:54:09 Asthenia 02148094 Active 2022 Myriam Delgado NP [address], [address], [place], [address], [facility] 3 08:54:19 Fracture of multiple ribs 3834888 Active 2022 Myriam Delgado NP [address], [address], [place], [address], [facility] 3 08:55:37 Mass of pancreas 293679690 Active 2022 Myriam Delgado NP [address], [address], [place], [address], [facility] 3 08:56:17 Compression fracture Active 2022 Myriam Delgado NP [address], [address], [place], [address], [facility] 3 08:56:39 Hypoglycemia 657031297 Active 2022 Myriam Deglado NP [address] , [address], [place], [address], [facility] 3 09:22:18 Pleural effusion 35437579 Active 2022 Myriam Delgado NP [address], [address], [place], [address], [facility] 3 09:24:01 Insomnia 175222321 Active 2023 Myriam Delgado NP [address], [place], [address], [facility] 4 16:02:02 Colitis 82112094 Active 2023 Myriam Delgado NP [address], [address], [place], [address], [facility] 4 16:07:18 Supraventricul ar tachycardia 8132718 Active 2023 LANDEN PEREZ NP [address], [address], [place], [address], [facility] 4 15:56:36 Chronic pain 59970713 Active 2023 Myriam Delgado NP [address], [address], [place], [address], [facility] [facility] 4 09:45:55 Neuropathy 029357163 Active 2023 Myriam Delgado, MARKETING ANALYTICS ANALYST [address] [facility], [address], [place], [address], [facility] 4 09:46:12 Ureteric stone 26932436 Active 2023 JEFF BARLOW, MARKETING ANALYTICS ANALYST [address] [facility], [address], [place], [address], [facility] 4 12:47:06 Problem Notes None recorded. [...] Address Organization Details Last Updated DateTime 5 78201.4 5 g 71 /min 18 /min 97.8 [degF] 95 % 95 % 127 mm[Hg] 76 mm[Hg] Myriam Delgado NP [address] [facility], [address], [place], [address], [facility] 5 13:50:42 Social History Question Answer Notes LastModified by Organizat ion Details LastModified Time Tobacco Smoking Status Never Smoker Myriam Delgado NP [address] [facility], [address], [place], [address], [facility] 09/07/2023 09:42:53 Do You Have An [...] SNOMED-CT Code Diagnosis ICD10 Code Diagnosis Note [id number] Myriam Delgado NP [address] [address] 10/02/2024 14:27:29 10/03/2024 10:55:10 Ureteric stone 65311511 N20.1 resolved with lithotrips y and stent removal on 10/01/23 with urology outptremai ns with chronic foleymonit or Mass of pancreas 3368178 00 K86.89 Currently maintained on Octreotide 50 [...] Benign pro static hyperplasia with outflow obstruction 731108512 N40.1 baseline bph with chronic livingston > [...] 5 mg dailymonit or closely Chronic pain 45608109 G8 9.29 pain controlled Continue:t ramadol to 50 mg bid and q 12 hours prnAPAP 650 mg q4h prngabapen tin 300 mg tidcymbalt a 30 mg po dailyPT/OT prnmonitor Abnormalit y of nail of toe 303615368 L60.8 right 4th toenail fell off without any bleeding, infection or discolorat ionns wash, pat dry, apply bacitracin and bandaid daily until healedmoni tor for s/s of infection Anxiety 23602848 F41.9 anxiety improved and feels better lately with trazodonec onttrazodo ne 100 mg po qhscymbalt a from 30 mg po qhs for anxietyhyp droxyzine 25 mg po q 8 hours prn anxietymon itor Neuropathy 827588817 G62 .9 see above for management Hypertensive disorder 38 538608 I10 bp stablecont amlodipine 5 mg dailymetop rolol 25 mg bidmonitor bp Asthenia 89588238 R53.1 PT OT eval and treat prnfall precaution sFrequent safety checks Supraventr icular tachycardia 8844072 I47.10 stablecont metoprolol 25 mg bideliquis 5 mg bidmonitor heart rate [id number] Myriam Delgado NP [facility] [address] 10/08/2024 14:10:48 10/10/2024 15:04:17 Ureteric stone 74576752 N20.1 resolved with lithotrips y and stent removal on 10/01/23 with urology outptremai ns with chronic livingston replaced on 10/01/24need s fu with urology, nsg to [facility] u/s with left ureteral hydronephr osismonito r for bleeding/r eoccurence /infection Benign pro static hyperplasia with outflow obstruction 102013741 N40.1 baseline bph with chronic livingston > [...] 5 mg dailymonit or closely Chronic pain 25510801 G8 9.29 denies any pain todayConti nue:change tramadol from 50 mg tid and q 12 hours prn to 25 mg po tid and 50 prn q 12hrs prnAPAP 650 mg q4h prngabapen tin 300 mg tidcymbalt a 30 mg po dailyPT/OT prnmonitor Anxiety 63166737 F41.9 anxiety improved and feels better lately with trazodone, however ? more confusedco nt10/08 decrease trazodone from 100 mg to 50 mg po qhscontcym glendy from 30 mg po qhs for anxietyhyp droxyzine 25 mg po q 8 hours prn anxietymon itor Impaired cognition 62537 6002 R41.89 with increased confusion lately over time 5 adjust trazodone and tramadol today as reviewed with omar ramon cbc bmp and urinalysis to rule out infection/ electrolyt e derangemen t [id number] Myriam Delgado NP [facility] [place] [address] 10/13/2024 15:56:35 10/15/2024 10:55:49 Ureteric stone 85386912 N20.1 resolved with lithotrips y and stent removal on 10/01/23 with urology outptremai ns with chronic livingston replaced on 10/01/24rena l u/s with left ureteral hydronephr osis done and [facility]/r eoccurence /infection fu with urology Benign pro static hyperplasia with outflow obstruction 971904469 N40.1 baseline bph with chronic livingston > [...] steride 5 mg dailymonit or closely Anxiety 87286852 F41.9 due to confusion recently decreased trazadonec onttrazodo ne 50 mg po qhscymbalt a from 30 mg po qhs for anxietyhyp droxyzine 25 mg po q 8 hours prn anxietymon itor Impaired cognition 00690 6002 R41.89 with increased confusion lately over [...] probioticm onitor for changes in mental status [id number] Myriam Delgado NP [address] [address] 10/17/2024 13:50:27 10/21/2024 15:02:52 Anxiety 07985829 F41.9 10/17 hold trazodone and cymbalta, resume 24 hours after linezolid is finished start ativan 0.5 mg po q 8 hours prn for anxiety for 14 dayscont hydroxyzin e 25 mg po q 8 hours prn anxietymon itor Recurrent urinary tract infection 600944032 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 for bleeding/r eoccurence /infection fu with urology 11/13 for fu of stones Recurrent falls 68428755 2 R29.6 2 pt rolled out of [...] [place] [employer] Alhaji Varner [id number] Alhaji Varner 10/30/2024 2 [place] [facility] Alhaji Varner [id number] Alhaji Varner Notes Date Note Type Note [...] noted. Alhaji is lying in bed in [facility]. He is confused today and he is [...] endocrine for mass Myriam Delgado, PATRICK [address] [facility], [address], [place], [address], [facility] 10/30/2024 14:13:02
--- NOTE | 2024-11-08 12:36 | PC.NURSE ---
attempted to call and give report to RN at [facility] - no response at this time. will reattempt.
[2024-11-08 12:42] VITALS: BP 135/90; PULSE 87; RESP 16; TEMP 37.3; O2SAT 95
--- NOTE | 2024-11-08 12:42 | PC.NURSE ---
report given to SHANTI Quick at [facility] at this time.
== END 2024-11-08 12:44 | disposition home or self-care (01) ==
PROVIDERS: Emergency Provider Emergency Medicine; PCP Family Medicine
DX: S12.501D Unspecified nondisplaced fracture of sixth cervical vertebra, subsequent encounter for fracture with routine healing (principal); X58.XXXD Exposure to other specified factors, subsequent encounter
CPT/HCPCS: 99282; 99284

== ENCOUNTER 2024-11-24 07:24 | Emergency (ER) | payer MEDICARE, MEDICAID, SELFPAY ==
--- NOTE | ~2024-11-24 | XR_ITS ---
EXAMINATION: XR CHEST 1 VIEW HISTORY: COUGH COMPARISON: Comparison is made with the prior examination dated 10/31/2024. FINDINGS: A single AP portable view of the chest performed at 8:40 AM is submitted. There is artifact at the lung apices. There is subsegmental atelectasis at the left lung base. The lungs are otherwise clear. There is no pleural effusion, pneumothorax, or pulmonary vascular congestion. The heart is normal in size. The aorta is calcified. There is degenerative disc disease of the spine. XR/XR chest 1V IMPRESSION: Left basilar subsegmental atelectasis. Electronically signed by: Conrad Hunt MD 11/24/2024 08:53 AM [facility]
[2024-11-24 07:31] VITALS: BP 124/72; PULSE 65; O2SAT 95
[2024-11-24 07:32] VITALS: BP 128/73; PULSE 67; RESP 16; TEMP 36; O2SAT 95; BMI 19.8
--- NOTE | 2024-11-24 07:44 | ED.GENADULT ---
HPI - General Adult General Chief complaint: General Medical Stated complaint: C6 FX NEEDS ASPEN COLLAR PUT BACK ON FROM SNF Time Seen by Provider: 11/24/24 07:34 Source: patient History of Present Illness HPI narrative: This is a 69 years old male presented to the emergency department from the nursing facility because he removed with C-collar. Patient has history of nondisplaced subtle fracture of the pedicle of C6. Patient is neurologically intact. The fracture was diagnosed on 11/01/2024. He is complaining of cough and congestion as well Onset (ago): hour(s) (3) Location: neck Radiation: non-radiation Severity: mild Quality: burning Pain Consistency: constant Relieving factors: none Related Data Home Medications ?Medication ?Instructions ?Recorded ?Confirmed apixaban 5 mg tablet (Eliquis) 5 mg PO BID 05/01/24 11/01/24 bisacodyl 10 mg rectal suppository 10 mg NC DAILY PRN Constipation 05/01/24 11/01/24 calcium carbonate 500 mg PO Q4H PRN Dyspepsia 05/01/24 11/01/24 finasteride 5 mg tablet 5 mg PO DAILY 05/01/24 11/01/24 gabapentin 300 mg capsule 300 mg PO TID 05/01/24 11/01/24 lidocaine-prilocaine 2.5 %-2.5 % 1 appl topical Q8H PRN mild pain 05/01/24 11/01/24 topical cream loperamide 2 mg tablet 2 mg PO Q4H PRN Loose Stool 05/01/24 11/01/24 magnesium hydroxide 400 mg/5 mL 30 ml PO DAILY PRN Constipation 05/01/24 11/01/24 oral suspension (Milk of Magnesia) melatonin 3 mg tablet 3 mg PO BEDTIME 05/01/24 11/01/24 naloxone 4 mg/actuation nasal 4 mg intranasal Q3M PRN Opioid 05/01/24 11/01/24 spray (Narcan) Overdose octreotide acetate 50 mcg/mL (1 50 mcg subcut BID 05/01/24 11/01/24 mL) injection syringe omeprazole 20 mg capsule,delayed 20 mg PO DAILY@0630 05/01/24 11/01/24 release simethicone 80 mg chewable tablet 80 mg PO Q8H PRN Gastric Reflux 05/01/24 11/01/24 sodium phosphates 19 gram-7 118 ml NC DAILY PRN Constipation 05/01/24 11/01/24 gram/118 mL enema (Fleet Enema) acetaminophen 325 mg tablet 650 mg PO Q4H PRN Fever Or Pain 11/01/24 11/01/24 (Tylenol) duloxetine 30 mg capsule,delayed 30 mg PO BEDTIME 11/01/24 11/01/24 release tramadol 50 mg tablet 50 mg PO Q12H PRN Pain 11/01/24 11/01/24 trazodone 50 mg tablet 50 mg PO BEDTIME 11/01/24 11/01/24 Previous Rx's ?Medication ?Instructions ?Recorded walker (Ultra-Light Rollator misc) #1 ea 05/02/23 amlodipine 5 mg tablet 5 mg PO DAILY 90 days #90 tabs 05/22/23 miscellaneous medical supply #1 ea 06/26/23 metoprolol tartrate 25 mg tablet 25 mg PO BID #60 tabs 05/07/24 levofloxacin 750 mg tablet 750 mg PO Q24H #7 tabs 11/07/24 sulfamethoxazole 800 1 tab PO Q12H #14 tabs 11/07/24 mg-trimethoprim 160 mg tablet vancomycin 125 mg capsule 125 mg PO QID #28 caps 11/07/24 Allergies Allergy/AdvReac Type Severity Reaction Status Date / Time No Known Allergies Allergy Verified 11/24/24 07:34 Review of Systems Constitutional: Constitutional: Reports no additional constitutional complaints Cardiovascular: Cardiovascular: Reports no additional cardiovascular complaints [facility] Past Medical History [facility] Narrative: Patient has history of hypertension, history of Gram-negative sepsis, history of depression, C6 fracture, paroxysmal atrial fibrillation Medical History BPH loc w urin obs/LUTS Influenza A BPH (benign prostatic hyperplasia) Surgical History No pertinent past surgical history Social History Social History Household Members: None Housing: Detention Do you presently have visiting nurse or other home services: No Unable to assess alcohol history related to: Unable to respond Comment: wheelchair and bedbound Patient Tobacco Use Status: Former Tobacco user Tobacco use type: Cigarette and Cigar e-Cigarette/Vaping Use: Never Used Second Hand Smoke Exposure: No Advance Directives: Yes Advance Directives on File: Yes Advance Directives Date on File: 11/29/23 service: No Current occupational status: retired Current occupational exposures/hazards: No Cognitive needs: No Hearing needs: No Vision needs: No Physical Exam ED Vital Signs: Vital Signs - 24 hr 11/24/24 07:32 11/24/24 09:00 Temperature 96.8 F 96.8 F Pulse Rate 67 67 Respiratory Rate 16 16 Blood Pressure 128/73 128/73 Pulse Oximetry 95 95 Oxygen Delivery Method Room Air Room Air BMI result Body Mass Index 19.8 No acute distress comfortable in the stretcher Const General: cooperative Nutritional Appearance: well nourished Orientation/consciousness: oriented to place HENOR Head: Yes normal to inspection General nose exam: Normal external nose present Face and sinus: Yes normal facial exam Throat: Yes posterior oropharynx normal Neck Other: Mild tenderness posterior neck Thyroid: Thyroid normal Resp Effort & Inspection: normal respiratory effort and able to speak in complete sentences Auscultation: clear to auscultation bilaterally Cardio Jugular venous distension: no JVD Rate: regular rate Rhythm: regular rhythm GI Inspection: Yes normal to inspection Palpation (GI): Soft to palpation Percussion: Yes normal to percussion Skin General skin exam: no rashes or lesions noted and elasticity normal Lesions: no lesions Neuro Other: No deficits in strength non deficit sensation in upper and lower extremity General: oriented to place Course Reevaluation(s) Reevaluation #1: NEW COLLAR ASPEN WAS REPLACED BY ME Time: 09:02 Reevaluation #2: AMBULANCE IS HERE TO TAKE THE PATIENT BACK TO THE NURSING FACILITY Time: 09:02 Procedures Procedure Narrative Procedure Narrative: REPLACEMENT OF ASPEN COLLAR: I APPLIED A NEW ASPEN COLLAR WITHOUT COMPLICATION Medical Decision Making Medical Decision Making MDM Narrative: Patient presented to the emergency department because dislodgement of the [place] collar we will replace the collar, he has also has some cough we will check viral panel chest x-ray Differential Diagnosis Differential Diagnoses: The differential diagnosis associated with the presentation includes Influenza/pneumonia/cervical spine fracture Admission/Observation Consideration of admission/observation: Escalation of care including admission/observation considered Lab Data MDM Lab Attestation statement: I reviewed the patient's lab results. Labs: Lab Results 03/03/25 Range/Units 07:54 Influenza Type A (PCR) NEGATIVE (Negative) Influenza Type B (PCR) NEGATIVE (Negative) RSV RNA Qual (PCR) NEGATIVE (Negative) SARS-CoV-2 RNA (RT-PCR) NEGATIVE (Negative) Independent Interpretation I performed an independent interpretation of an: Plain X-Ray Interpretation: nad Radiology Impression Discussion of test interpretation with radiology: I have reviewed the radiologist's reading. Discharge Plan Discharge Clinical Impression: Fx C6 vertebra-closed Qualifiers: Encounter type: subsequent encounter Fracture morphology: unspecified fracture morphology URI (upper respiratory infection) Qualifiers: URI type: unspecified viral URI Qualified Code(s): J06.9 - Acute upper respiratory infection, unspecified Patient Disposition: Xfer SNF Transfer Details: [facility] Instructions: Cervical Fracture (ED) Prescriptions: No Action (DME) Ultra-Light Rollator Misc See Rx Instructions .Route Qty: 1 0RF Rx Instructions: Daily As directed, 999 days amlodipine 5 mg tablet 5 mg PO DAILY 90 Days Qty: 90 3RF loperamide 2 mg Tablet 2 mg PO Q4H PRN (Reason: Loose Stool) Rx Instructions: administer after each loose stool until symptoms controlled; do not exceed 8 mg per 24 hrs melatonin 3 mg Tablet 3 mg PO BEDTIME lidocaine-prilocaine 2.5-2.5 % cream 1 appl topical Q8H PRN (Reason: mild pain) Rx Instructions: APPLY TOPICALLY TO AFFECTED AREA OF PENIS THREE TIMES A DAY NEEDED FOR MILD PAIN PRIOR TO APPLYING BACITRACIN magnesium hydroxide [Milk of Magnesia] 400 mg/5 mL Suspension 30 ml PO DAILY PRN (Reason: Constipation) Rx Instructions: For no BM in 3 days bisacodyl 10 mg Suppository 10 mg NC DAILY PRN (Reason: Constipation) Rx Instructions: If M.O.M ineffective. Fleet Enema 19-7 gram/118 mL Enema 118 ml NC DAILY PRN (Reason: Constipation) Rx Instructions: For no BM if Bisacodyl supp. ineffective (DO NOT GIVE WITH DIALYSIS/RENAL FAILURE) gabapentin 300 mg capsule 300 mg PO TID omeprazole 20 mg capsule,delayed release(DR/EC) 20 mg PO DAILY@0630 calcium carbonate 500 mg calcium (1,250 mg) Tablet,Chewable 500 mg PO Q4H PRN (Reason: Dyspepsia) finasteride 5 mg tablet 5 mg PO DAILY simethicone 80 mg Tablet,Chewable 80 mg PO Q8H PRN (Reason: Gastric Reflux) octreotide acetate 50 mcg/mL (1 mL) Syringe 50 mcg SUBCUT BID Rx Instructions: administer 30 minutes before morning and evening meals Eliquis 5 mg tablet 5 mg PO BID naloxone [Narcan] 4 mg/actuation [place],Non-Aerosol 4 mg INTRANASAL Q3M PRN (Reason: Opioid Overdose) Rx Instructions: spray 1 dose into ONE nostril; alternate nostrils w each dose until help arrives metoprolol tartrate 25 mg Tablet 25 mg PO BID Qty: 60 0RF Protocol: Hold for SBP/HR < HOLD for SBP < : 90 HOLD for HR < : 60 acetaminophen [Tylenol] 325 mg Tablet 650 mg PO Q4H PRN (Reason: Fever Or Pain) Rx Instructions: DNE 3 G / 24 HR trazodone 50 mg tablet 50 mg PO BEDTIME tramadol 50 mg tablet 50 mg PO Q12H PRN (Reason: Pain) duloxetine 30 mg Capsule,Delayed Release(Dr/Ec) 30 mg PO BEDTIME sulfamethoxazole-trimethoprim 800-160 mg Tablet 1 tab PO Q12H Qty: 14 0RF levofloxacin 750 mg Tablet 750 mg PO Q24H Qty: 7 0RF vancomycin 125 mg capsule 125 mg PO QID Qty: 28 0RF (DME) miscellaneous medical supply Misc See Rx Instructions .ROUTE .MEDSUPPLY Qty: 1 0RF Rx Instructions: Wheelchair. Daily?As directed, 999 days Referrals: Easton Jorge MD [Primary Care Provider] - Mario Zendejas MD [Physician] - Interventions: ED Discharge Assessment Last Done: 11/24/24 09:00 Discharge Date/Time: 11/24/24 09:00 Print Language: Maori
--- OUTSIDE RECORDS SUMMARY | 2024-11-24 07:44 | XMS_ITS | Continuity of Care Document ---
Author Organization [facility], [facility] Address [address] [place] [address] Care Team Providers Care Mold Maker Helper Name Role Phone MICKI ANGULO Primary Care Provider [facility] OTHER Assessment No [...] Time Benign prostatic hyperplasia with outflow obstruction 714046729 Active 2022 Myriam Delgado NP [address] , [address], [place], [address], [facility] 3 08:53:31 Hypertensive disorder 98456185 Active 2022 Myriam Delgado NP [address], [address], [place], [address], [facility] 3 08:53:50 Acute cystitis 91658510 Active 2022 Myriam Delgado NP [address], [address], [place], [address], [facility] 3 08:54:01 Fall Active 2022 Myriam Delgado NP [address], [address], [place], [address], [facility] 3 08:54:09 Asthenia 58217443 Active 2022 Myriam Delgado NP [address], [address], [place], [address], [facility] 3 08:54:19 Fracture of multiple ribs 5558832 Active 2022 Myriam Delgado NP [address], [address], [place], [address], [facility] 3 08:55:37 Mass of pancreas 711765293 Active 2022 Myriam Delgado NP [address], [address], [place], [address], [facility] 3 08:56:17 Compression fracture Active 2022 Myriam Delgado NP [address], [address], [place], [address], [facility] 3 08:56:39 Hypoglycemia 656652470 Active 2022 Myriam Delgado NP [address], [place], [address], [facility] 3 09:22:18 Pleural effusion 25029802 Active 2022 Myriam Delgado NP [address], [address], [place], [address], [facility] 3 09:24:01 Insomnia 103045517 Active 2023 Myriam Delgado NP [address] , [address], [place], [address], [facility] 4 16:02:02 Colitis 06121239 Active 2023 Myriam Delgado NP [address], [address], [place], [address], [facility] 4 16:07:18 Supraventricul ar tachycardia 1784605 Active 2023 LANDEN PEREZ NP [address], [address], [place], [address], [facility] 4 15:56:36 Chronic pain 93159142 Active 2023 Myriam Delgado NP [address], [address], [place], [address], [facility] [employer] [facility] 4 09:45:55 Neuropathy 742118388 Active 2023 Myriam Delgado, FUEL CELL BINDER [address] [facility], [address], [place], [address], [facility] [employer] [facility] 4 09:46:12 Ureteric stone 32150653 Active 2023 JEFF BARLOW, FUEL CELL BINDER [address] [facility], [address], [place], [address], [facility] [employer] [facility] 4 12:47:06 Problem Notes None recorded. [...] Address Organization Details Last Updated DateTime 5 45930.1 2 g 65 /min 18 /min 97.2 [degF] 96 % 96 % 125 mm[Hg] 71 mm[Hg] Myriam Delgado NP [address] [facility], [address], [place], [address], [facility] [employer] [facility] 5 08:29:37 Social History Question Answer Notes LastModified by Organizat ion Details LastModified Time Tobacco Smoking Status Never Smoker Myriam Delgado NP [address] [facility], [address], [place], [address], [facility] [employer] [facility] 09/07/2023 09:42:53 Do You Have An [...] SNOMED-CT Code Diagnosis ICD10 Code Diagnosis Note [id number] Myriam Delgado NP [address] [address] 10/13/2024 15:56:35 10/15/2024 10:55:49 Ureteric stone 69166596 N20.1 resolved with lithotrips y and stent removal on 10/01/23 with urology outptremai ns with chronic livingston replaced on 10/01/24rena l u/s with left ureteral hydronephr osis done and sent to [facility] for bleeding/r eoccurence /infection fu with urology Benign pro static hyperplasia with outflow obstruction 228301175 N40.1 baseline bph with chronic livingston > [...] steride 5 mg dailymonit or closely Anxiety 12987923 F41.9 due to confusion recently decreased trazadonec onttrazodo ne 50 mg po qhscymbalt a from 30 mg po qhs for anxietyhyp droxyzine 25 mg po q 8 hours prn anxietymon itor Impaired cognition 67132 6002 R41.89 with increased confusion lately over last few monthstraz odone and tramadol recently decreasedc bc bmp and urinalysis to rule out infection/ electrolyt e derangemen t pendinghas treatable UTI and will treat Recurrent urinary tract infection 103016528 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, also pseudomona s infection will treat with linezolid 600 mg po bid x 14 days for chronic UTIand probioticm onitor for changes in mental status [id number] Myriam Delgado NP [address] [address] 10/17/2024 13:50:27 10/21/2024 15:02:52 Anxiety 38487092 F41.9 10/17 hold trazodone and cymbalta, resume 24 hours after linezolid is finished start ativan 0.5 mg po q 8 hours prn for anxiety for 14 dayscont hydroxyzin e 25 mg po q 8 hours prn anxietymon itor Recurrent urinary tract infection 043406236 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, also pseudomona s infection will treat with linezolid 600 mg po bid x 14 days for chronic UTIand probiotic cont with above planmonito r for changes in mental status Ureteric stone 60499444 N20.1 resolved with lithotrips y and stent removal on 10/01/23 with urology outptremai ns with chronic livingston replaced on 10/01/24rena l u/s with left ureteral hydronephr osis done and sent to urologymon [facility] for bleeding/r eoccurence /infection fu with urology [id number] Myriam Delgado NP [address] [address] 10/30/2024 13:45:38 10/31/2024 14:12:46 Anxiety 49810261 F41.9 10/17 hold trazodone and cymbalta, resume 24 hours after linezolid is finished start ativan 0.5 mg po q 8 hours prn for anxiety for 14 days2/6 dc ativan, other meds resumed trazodone and cymbaltaco nt hydroxyzin e 25 mg po q 8 hours prn anxietymon itor Recurrent urinary tract infection 250978665 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, also pseudomona s infectiont reated with linezolid 600 mg po bid x 14 days for chronic UTI started on 10/13/24and probioticm onitor for changes in mental statushe refused labs this am, will repeat yecenia cbc and bmp Ureteric stone 36202977 N20.1 resolved with lithotrips y and stent removal on 10/01/23 with urology outptremai ns with chronic livingston replaced on 10/01/24rena l u/s with left ureteral hydronephr osis done and sent to [facility]rolog[facility] for bleeding/r eoccurence /infection fu with urology 11/13 for fu of stones Recurrent falls 47113013 2 R29.6 2/6 pt rolled out of bed and seems gradually more confusedre cently treated for uti with chronic utisupport duong caremonito r fall risk and need for increased support in community [id number] Myriam Delgado NP [address] [address] 11/10/2024 08:28:11 11/11/2024 15:42:41 Recurrent falls 040172297 R29.6 [facility] caremonito r fall risk and need for increased support in community Ureteric stone 80023434 N20.1 hx ofresolved with lithotrips y and stent removal on 10/01/23 with urology outptremai ns with chronic livingston replaced in hospitalre nal u/s with left ureteral hydronephr osis done and sent to [facility] for bleeding/r eoccurence /infection L pyelonephr itis found citrobacte r freundii and pseudomona s and urology consulted felt myositis/a bscess not drainable, livingston replaced by urology with BPH and outlet obstructio n noted.Fu in 2 weeks with urologyfu with urology 11/13 for fu of stones, already has appointmen t Acute pyelonephritis 366 13062 N10 remains with chronic livingston [facility] u/s with left ureteral hydronephr osis done and sent to urologymon [facility] for bleeding/r eoccurence /infection L pyelonephr itis found citrobacte r freundii and pseudomona s and urology consulted felt myositis/a bscess not drainable, livingston replaced by urology with BPH and outlet obstructio n noted. sepsis felt resolved, bld cultures negative, received vanco, ceftriaxon e,metro diazole, zosyn, levofloxac in, and bactrim, due to hx of cdiff was started on vanco po aswell see above for abx fu with urology on 11/13. already has appointmen t Sepsis 88357136 A41.89 resolvedIm proved, and no s/s of sepsissept ic shock felt from pyelonephr itis and pnaBC neg. x 2see abovecbc and bmp weekly Mass of psoas muscle [address] abd and pelvis 11/04 resulted in small region of phlegmon with tiny central abscess along the anterior margin of the left psoas muscle with inflammati on.Fu with repeat CT a/p in 2 weeks. Pneumonia 783088445 J18. 9 received multiple abx in hospitalco ntlevoflox acin 750 mg po daily for 7 more daysbactri m 800-160 mg po q 12 for 7 more daysvancom ycin po qid for cdiff hx with abx for 28 doses or 7 daysmonito r for s/s of resolution or sequelaecb c and bmp weeklymoni tor Compressio n fracture of vertebral column 63556786 M48.50XA C6 pedicle fractureT2 ccompressi on fx with neurosurge ry consult rec aspen collar for 6 weeks.rec fu with dr johnson in 6 weeks Carrier of methicillin resistant Staphylococcus aureus 446749725 Z22.322 found on MRSA nasal swab in hospitalha d received multiple abx in hospno further orders Influenza caused by Influenza B virus 59904361 J10.1 received tamiflu in hospmonito rencourage fluids and hydrationm onitorbmp and cbc weekly Health Concerns Section Related Observation LastModified by Organization Detai ls LastModified Time None Recorded Concern Status LastModified by Organization Details LastModified Time None Recorded Payers Encounter Date Sequence Insurance Name Policy Number Policy Morton Covered Member ID Morton Member ID Guarantor Name 11/10/2024 1 [place] [employer] Alhaji aVrner [id number] Alhaji Varner 11/10/2024 2 [place] Alhaji Varner [id number] Alhaji Varner Notes Date Note Type Note Provider Name and Address Organization Details Recorded Time 11/10/2024 text/html Pt is seen for a readmission visit today. pmh of BPH, chronic livingston, and HTN, chronic urine infection, depression, dementia, afib, 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, chronic low back pain Pt is seen for [facility] hospitalization from 11/01-11/07 history above sp fall and AMS dx with influenza B, sepsis, LLL PNA, pyelonepthritis with psoas myositis/abcess, moderate-severe left hydroureteronephrosis, also c6 pedicle and T2 compression fractures transferred back to for LTC here at [facility].On 11/08 he was sent back to ER with refusal to wear his aspen collar and returned with order to wear collar for 6 weeks and return only for numbness or weakness to extremties. Workup:sepsis felt resolved, bld cultures negative, received vanco, ceftriaxone,metro diazole, zosyn, levofloxacin, and bactrim, due to hx of cdiff was started on vanco po aswellflu b treated with oseltamivirL pyelonephritis found citrobacter freundii and pseudomonas and urology consulted felt myositis/abscess not drainable, livingston replaced by urology with BPH and outlet obstruction noted. Fu in [address] abd and pelvis 11/04 resulted in small region of phlegmon with tiny central abscess along the angterior margin of the left psoas muscle with inflammation. Fu with repeat CT a/p in 2 weeks.MRSA noted on swabC6 pedicle fracture, T2 ccompression fx with neurosurgery consult rec aspen collar for 6 weeks. rec fu with dr johnson in 6 weeks On exam, Alhaji is lying in bed in NAD. He states his aspen collar is uncomfortable and repositioned for comfort with abd pads. Lungs with fair aeration and notable cough this am. Livingston draining clear yellow urine this am. labd pending this am Fu with urology as planned 11/13 for fu with renal u/s and aboveCT scan done in hospital abd/pelvis for endocrine mass-nsg to call office and see if this is sufficient or further imaging neededFu 12/01/24 @ 1:40pm with Dr Herrera endocrine for mass Myriam Delgado, PATRICK [address] [place] [address], [address], [place], [address], [facility] [employer] 11/10/2024 09:55:47
--- OUTSIDE RECORDS SUMMARY | 2024-11-24 07:44 | XMS_ITS | Continuity of Care Document ---
Author Organization [facility], [facility] Address [address] [place] [address] Care Team Providers Care Health Safety Engineer Name Role Phone MICKI ANGULO Primary Care Provider [phone] [facility] [...] Time Benign prostatic hyperplasia with outflow obstruction [id number] Active 2022 Myriam Delgado NP [address] , [address], [place], [address], [facility] [employer] [facility] 3 08:53:31 Hypertensive disorder 41233605 Active 2022 Myriam Delgado NP [address], [address], [place], [address], [facility] [employer] [facility] 3 08:53:50 Acute cystitis 13389566 Active 2022 Myriam Delgado NP [address], [address], [place], [address], [facility] [employer] [facility] 3 08:54:01 Fall Active 2022 Myriam Delgado NP [address], [address], [place], [address], [facility] [employer] [facility] 3 08:54:09 Asthenia 16353504 Active 2022 Myriam Delgado NP [address], [address], [place], [address], [facility] 3 08:54:19 Fracture of multiple ribs 6816279 Active 2022 Myriam Delgado NP [address], [address], [place], [address], [facility] 3 08:55:37 Mass of pancreas 693294700 Active 2022 Myriam Delgado NP [address], [address], [place], [address], [facility] 3 08:56:17 Compression fracture Active 2022 Myriam Delgado NP [address], [address], [place], [address], [facility] 3 08:56:39 Hypoglycemia 969027570 Active 2022 Myriam Delgado NP [address], [place], [address], [facility] 3 09:22:18 Pleural effusion 25778846 Active 2022 Myriam Delgado NP [address], [address], [place], [address], [facility] 3 09:24:01 Insomnia 785797659 Active 2023 Myriam Delgado NP [address], [place], [address], [facility] 4 16:02:02 Colitis 92883957 Active 2023 Myriam Delgado NP [address], [address], [place], [address], [facility] 4 16:07:18 Supraventricul ar tachycardia 5041648 Active 2023 LANDEN PEREZ NP [address], [address], [place], [address], [facility] 4 15:56:36 Chronic pain 55791860 Active 2023 Myriam Delgado NP [address], [address], [place], [address], [facility] 4 09:45:55 Neuropathy 715282298 Active 2023 Myriam Delgado, WEATHERIZATION INSTALLER [address] [facility], [address], [place], [address], [facility] 4 09:46:12 Ureteric stone 82662308 Active 2023 JEFF BARLOW, WEATHERIZATION INSTALLER [address] [facility], [address], [place], [address], [facility] 4 12:47:06 Problem Notes None recorded. [...] Address Organization Details Last Updated DateTime 5 44172.1 5 g 65 /min 18 /min 97.2 [degF] 96 % 96 % 125 mm[Hg] 71 mm[Hg] Myriam Delgado NP [address] [facility], [address], [place], [address], [facility] 5 11:45:03 Social History Question Answer Notes LastModified by Organizat ion Details LastModified Time Tobacco Smoking Status Never Smoker Myriam Delgado NP [address] [facility], [address], [place], [address], [facility] 09/07/2023 09:42:53 Do You Have An [...] SNOMED-CT Code Diagnosis ICD10 Code Diagnosis Note [id number] Myriam Delgado NP [address] [address] 10/13/2024 15:56:35 10/15/2024 10:55:49 Ureteric stone 22614254 N20.1 resolved with lithotrips y and stent removal on 10/01/23 with urology outptremai ns with chronic livingston replaced on 10/01/24rena l u/s with left ureteral hydronephr osis done [facility] eoccurence /infection fu with urology Benign pro static hyperplasia with outflow obstruction 321123688 N40.1 baseline bph with chronic livingston > [...] steride 5 mg dailymonit or closely Anxiety 25388843 F41.9 due to confusion recently decreased trazadonec onttrazodo ne 50 mg po qhscymbalt a from 30 mg po qhs for anxietyhyp droxyzine 25 mg po q 8 hours prn anxietymon itor Impaired cognition 82771 6002 R41.89 with increased confusion lately over last few monthstraz odone and tramadol recently decreasedc bc bmp and urinalysis to rule out infection/ electrolyt e derangemen t pendinghas treatable UTI and will treat Recurrent urinary tract infection 332783425 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, also pseudomona s infection will treat with linezolid 600 mg po bid x 14 days for chronic UTIand probioticm onitor for changes in mental status [id number] Myriam Delgado NP [address] [address] 10/17/2024 13:50:27 10/21/2024 15:02:52 Anxiety 82157748 F41.9 10/17 hold trazodone and cymbalta, resume 24 hours after linezolid is finished start ativan 0.5 mg po q 8 hours prn for anxiety for 14 dayscont hydroxyzin e 25 mg po q 8 hours prn anxietymon itor Recurrent urinary tract infection 618491238 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, also pseudomona s infection will treat with linezolid 600 mg po bid x 14 days for chronic UTIand probiotic cont with above planmonito r for changes in mental status Ureteric stone 60932712 N20.1 resolved with lithotrips y and stent removal on 10/01/23 with urology outptremai ns with chronic livingston replaced on 10/01/24rena l u/s with left ureteral hydronephr osis [facility]infection fu with urology [id number] Myriam Delgado NP [address] [address] 10/30/2024 13:45:38 10/31/2024 14:12:46 Anxiety 08479951 F41.9 10/17 hold trazodone and cymbalta, resume 24 hours after linezolid is finished start ativan 0.5 mg po q 8 hours prn for anxiety for 14 days2/6 dc ativan, other meds resumed trazodone and cymbaltaco nt hydroxyzin e 25 mg po q 8 hours prn anxietymon itor Recurrent urinary tract infection 923164362 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, also pseudomona s infectiont reated with linezolid 600 mg po bid x 14 days for chronic UTI started on 10/13/24and probioticm onitor for changes in mental statushe refused labs this am, will repeat yecenia cbc and bmp Ureteric stone 36875561 N20.1 resolved with lithotrips y and stent removal on 10/01/23 with urology outptremai ns with chronic livingston replaced on 10/01/24rena l u/s with left ureteral hydronephr osis done and [facility] eoccurence /infection fu with urology 11/13 for fu of stones Recurrent falls 88735314 2 R29.6 2/6 pt rolled out of bed and seems gradually more confusedre cently treated for uti with chronic utisupport duong caremonito r fall risk and need for increased support in community [id number] Myriam Delgado NP [address] [address] 11/10/2024 08:28:11 11/11/2024 15:42:41 Recurrent falls 665427909 R29.6 [facility] fall risk and need for increased support in community Ureteric stone 81475693 N20.1 hx ofresolved with lithotrips y and stent removal on 10/01/23 with urology outptremai ns with chronic livingston replaced in hospitalre nal u/s with left ureteral [facility]phr [facility]sis [facility]infection L pyelonephr itis found citrobacte r freundii and pseudomona s and urology consulted felt myositis/a bscess not drainable, livingston replaced by urology with BPH and outlet obstructio n noted.Fu in 2 weeks with urologyfu with urology 11/13 for fu of stones, already has appointmen t Acute pyelonephritis 366 90218 N10 remains with chronic livingston replaced in [facility] u/s with left ureteral hydronephr osis done [...] on 11/13. already has appointmen t Sepsis 43913238 A41.89 resolvedIm proved, and no s/s of sepsissept ic shock felt from pyelonephr itis and pnaBC neg. x 2see abovecbc and bmp weekly Mass of psoas muscle [address] abd and pelvis 11/04 resulted in small region of phlegmon with tiny central abscess along the anterior margin of the left psoas muscle with inflammati on.Fu with repeat CT a/p in 2 weeks. Pneumonia 990933879 J18. 9 received multiple abx in hospitalco ntlevoflox acin 750 mg po daily for 7 more daysbactri m 800-160 mg po q 12 for 7 more daysvancom ycin po qid for cdiff hx with abx for 28 doses or 7 daysmonito r for s/s of resolution or sequelaecb c and bmp weeklymoni tor Compressio n fracture of vertebral column 25258782 M48.50XA C6 pedicle fractureT2 ccompressi on fx with neurosurge ry consult rec aspen collar for 6 weeks.rec fu with dr johnson in 6 weeks Carrier of methicillin resistant Staphylococcus aureus 596834586 Z22.322 found on MRSA nasal swab in hospitalha d received multiple abx in hospno further orders Influenza caused by Influenza B virus 39210296 J10.1 received tamiflu in hospmonito rencourage fluids and hydrationm onitorbmp and cbc weekly [id number] [facility] [address] [place] [address] 11/13/2024 10:34:23 11/14/2024 16:22:56 Pneumonia 955417178 J18.9 received multiple abx in hospitalco ntlevoflox acin 750 mg po daily for 7 more days end 11/15bactri m 800-160 mg po q 12 for 7 more days end 11/15vancom ycin po qid for cdiff hx with abx for 28 doses or 7 daysmonito r for s/s of resolution or sequelae end 11/15cbc and bmp weeklymoni tor Acute pyelonephritis 366 14505 N10 remains with chronic livingston replaced in hospitalre [facility] u/s with left ureteral hydronephr osis done and sent to [facility] for bleeding/r eoccurence /infection L pyelonephr itis [...] urology on 11/13. already has appointmen t Mass of psoas muscle [address] abd and pelvis 11/04 resulted in small region of phlegmon with tiny central abscess along the anterior margin of the left psoas muscle with inflammati on.*Fu with repeat CT a/p in 2 weeks to be done with CT of abd for endocrine and results will be given to both partiesfu with Dr Herrera 12/[address] at [facility] Compressio n fracture of vertebral column 31245672 M48.50XA C6 pedicle fractureT2 ccompressi on fx with neurosurge ry consult rec aspen collar for 6 weeks.rec fu with dr johnson in 6 weeks11/13 nsg to reschedule appt as he is seeing endocrine on 12/01 Ureteric stone 37066654 N20.1 hx ofresolved with lithotrips y and stent removal on 10/01/23 with urology outptremai ns with chronic livingston replaced in hospitalre nal u/s with left ureteral hydronephr osis done and sent to [facility] for bleeding/r eoccurence /infection L pyelonephr itis found citrobacte r freundii and pseudomona s and urology consulted felt myositis/a bscess not drainable, livingston replaced by urology with BPH and outlet obstructio n noted.fu with urology 11/13 for fu of stones, already has appointmen t today Carrier of methicillin resistant Staphylococcus aureus 903878807 Z22.322 found on MRSA nasal swab in hospitalha d received multiple abx in hospno further orders Pressure i njury of buttock 845664947 L89.309 pt with pressure ulcer to buttockbar rier cream to buttocks bid and prnair loss bedwound consultmon itor Bilateral heel pain 1563 512268 0770641 M79.671 11/13bilate ral heel pain and bogginessh as pain to heels, area closed and with pink appearance float heels on pillowson air loss bedskin prep to heels daily30 cc protein liquid qdmonitor Health Concerns Section Related Observation LastModified by Organization Detai ls LastModified Time None Recorded Concern Status LastModified by Organization Details LastModified Time None Recorded Payers Encounter Date Sequence Insurance Name Policy Number Policy Morton Covered Member ID Morton Member ID Guarantor Name 11/13/2024 1 [place] B-[place]: [employer] [facility] [id number] Alahjirhona Varner 11/13/2024 2 [place] [facility] [id number] Alhajirhona Varner Notes Date Note Type Note Provider Name and Address Organization Details Recorded Time 11/13/2024 text/html Pt is seen for a visit today. PMH: BPH, chronic livingston, and HTN, chronic urine infection, depression, dementia, afib, 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, chronic low back pain Pt seen for pressure ulcer to buttocks with denuded area. Also seen for fu of recent hospitalization from 11/01-11/07 history above sp fall and AMS dx with influenza B, sepsis, LLL PNA, pyelonephritis with psoas myositis/abcess, moderate-severe left hydroureteronephrosis , also c6 pedicle and T2 compression fractures transferred back to for LTC here at [facility]. : Overall, doing fair with ailments above resolving. ON exam, he is confused and denies any pain or concerns in NAD. He remains on a decline in general and will go to his urology appt today. of note;Workup:sepsis felt resolved, bld cultures negative, received vanco, [...] rec fu with dr johnson in 6 week Fu with urology as planned 11/13 for fu with renal u/s and aboveCT scan done in hospital abd/pelvis for endocrine mass-nsg to call office and see if this is sufficient or further imaging neededFu 12/01/24 @ 1:40pm with Dr Herrera endocrine for mass Myriam Delgado NP [address] [facility], [address], [place], [address], [facility] [employer] 11/13/2024 12:11:11
--- OUTSIDE RECORDS SUMMARY | 2024-11-24 07:44 | XMS_ITS | Continuity of Care Document ---
Author Organization [facility], [facility] Address [address] [place] [address] Care Team Providers Care Ballistics Teacher Name Role Phone MICKI ANGULO Primary Care Provider [facility] FLOOR [...] Time Benign prostatic hyperplasia with outflow obstruction [id number] Active 2022 Myriam Delgado NP [address] , [address], [place], [address], [facility] [employer] [facility] 3 08:53:31 Hypertensive disorder 99476636 Active 2022 Myriam Delgado NP [address], [address], [place], [address], [facility] [employer] [facility] 3 08:53:50 Acute cystitis 17691509 Active 2022 Myriam Delgado NP [address], [address], [place], [address], [facility] [employer] [facility] 3 08:54:01 Fall Active 2022 Myriam Delgado NP [address], [address], [place], [address], [facility] [employer] [facility] 3 08:54:09 Asthenia 79004888 Active 2022 Myriam Delgado NP [address], [address], [place], [address], [employer] [facility] 3 08:54:19 Fracture of multiple ribs 4189077 Active 2022 Myriam Delgado NP [address], [address], [place], [address], [facility] 3 08:55:37 Mass of pancreas 565799780 Active 2022 Myriam Delgado NP [address], [address], [place], [address], [facility] 3 08:56:17 Compression fracture Active 2022 Myriam Delgado NP [address], [address], [place], [address], [facility] 3 08:56:39 Hypoglycemia 724847848 Active 2022 Myriam Delgado NP [address], [place], [address], [facility] 3 09:22:18 Pleural effusion 20133273 Active 2022 Myriam Delgado NP [address], [address], [place], [address], [employer] 3 09:24:01 Insomnia 698953040 Active 2023 Myriam Delgado NP [address], [place], [address], [facility] 4 16:02:02 Colitis 61883294 Active 2023 Myriam Delgado NP [address], [address], [place], [address], [facility] 4 16:07:18 Supraventricul ar tachycardia 4850826 Active 2023 LANDEN PEREZ NP [address], [address], [place], [address], [facility] 4 15:56:36 Chronic pain 94896119 Active 2023 Myriam Delgado NP [address], [address], [place], [address], [facility] [email or web address] 4 09:45:55 Neuropathy 635385614 Active 2023 Myriam Delgado, TREATMENT PLANT OPERATOR [address] [facility], [address], [place], [address], [facility] [email or web address] 4 09:46:12 Ureteric stone 03724933 Active 2023 JEFF BARLOW, TREATMENT PLANT OPERATOR [address] [facility], [address], [place], [address], [facility] [email or web address] 4 12:47:06 Problem Notes None recorded. [...] Available No t Available Vitals Date Recorded Heart rate Respiratory rate Body temperature Oxygen saturation Oxygen saturation in Arterial blood by Pulse oximetry Systolic blood pressure Diastolic blood pressure Provider Name and Address Organization Details Last Updated DateTime 5 70 /min 18 /min 98.6 [degF] 98 % 98 % 122 mm[Hg] 74 mm[Hg] LANDEN PEREZ NP [address] [facility], [address], [place], [address], [facility] 5 12:25:16 Social History Question Answer Notes LastModified by Organizat ion Details LastModified Time Tobacco Smoking Status Never Smoker Myriam Delgado NP [address] [facility], [address], [place], [address], [employer] 09/07/2023 09:42:53 Do You Have An [...] SNOMED-CT Code Diagnosis ICD10 Code Diagnosis Note [id number] Myriam Delgado NP [address] [address] 10/30/2024 13:45:38 10/31/2024 14:12:46 Anxiety 95269723 F41.9 10/17 hold trazodone and cymbalta, resume 24 hours after linezolid is finished start ativan 0.5 mg po q 8 hours prn for anxiety for 14 days10/30 dc ativan, other meds resumed trazodone and cymbaltaco nt hydroxyzin e 25 mg po q 8 hours prn anxietymon itor Recurrent urinary tract infection 653371728 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, also pseudomona s infectiont reated with linezolid 600 mg po bid x 14 days for chronic UTI started on 10/13/24and probioticm onitor for changes in mental statushe refused labs this am, will repeat yecenia cbc and bmp Ureteric stone 30009352 N20.1 resolved with lithotrips y and stent removal on 10/01/23 with urology outptremai ns with chronic livingston replaced on 10/01/24rena l u/s with left ureteral hydronephr osis [facility] /infection fu with urology 11/13 for fu of stones Recurrent falls 88944515 2 R29.6 2/6 pt rolled out of bed and seems gradually more confusedre cently treated for uti with chronic utisupport duong caremonito r fall risk and need for increased support in community [id number] Myriam Delgado NP [address] [address] 11/10/2024 08:28:11 11/11/2024 15:42:41 Recurrent falls 112780457 R29.6 unwitnesse d fall at hospitalsu pportive caremonito r fall risk and need for increased support in community Ureteric stone 66890672 N20.1 hx ofresolved with lithotrips y and stent removal on 10/01/23 with urology outptremai ns with chronic livingston replaced in [facility]/s with left ureteral hydronephr osis done and sent to urologymon itor for bleeding/r eoccurence /infection L pyelonephr itis found citrobacte r freundii and pseudomona s and urology consulted felt myositis/a bscess not drainable, livingston replaced by urology with BPH and outlet obstructio n noted.Fu in 2 weeks with urologyfu with urology 11/13 for fu of stones, already has appointmen t Acute pyelonephritis 366 43118 N10 remains with chronic livingston [facility]s with left ureteral hydronephr osis done and sent to urologymon itor for bleeding/r eoccurence /infection L pyelonephr itis [...] on 11/13. already has appointmen t Sepsis 30294001 A41.89 resolvedIm proved, and no s/s of sepsissept ic shock felt from pyelonephr itis and pnaBC neg. x 2see abovecbc and bmp weekly Mass of psoas muscle [address] abd and pelvis 11/04 resulted in small region of phlegmon with tiny central abscess along the anterior margin of the left psoas muscle with inflammati on.Fu with repeat CT a/p in 2 weeks. Pneumonia 896881759 J18. 9 received multiple abx in hospitalco ntlevoflox acin 750 mg po daily for 7 more daysbactri m 800-160 mg po q 12 for 7 more daysvancom ycin po qid for cdiff hx with abx for 28 doses or 7 daysmonito r for s/s of resolution or sequelaecb c and bmp weeklymoni tor Compressio n fracture of vertebral column 49168877 M48.50XA C6 pedicle fractureT2 ccompressi on fx with neurosurge ry consult rec aspen collar for 6 weeks.rec fu with dr johnson in 6 weeks Carrier of methicillin resistant Staphylococcus aureus 698307354 Z22.322 found on MRSA nasal swab in hospitalha d received multiple abx in hospno further orders Influenza caused by Influenza B virus 73085552 J10.1 received tamiflu in hospmonito rencourage fluids and hydrationm onitorbmp and cbc weekly [id number] Myriam Delgado, [facility] [address] 11/13/2024 10:34:23 11/14/2024 16:22:56 Pneumonia 939502495 J18.9 received multiple abx in hospitalco ntlevoflox acin 750 mg po daily for 7 more days end 11/15bactri m 800-160 mg po q 12 for 7 more days end 11/15vancom ycin po qid for cdiff hx with abx for 28 doses or 7 daysmonito r for s/s of resolution or sequelae end 11/15cbc and bmp weeklymoni tor Acute pyelonephritis 366 52863 N10 [facility] with left ureteral hydronephr osis done and sent to urologymon bnita for bleeding/r eoccurence /infection L pyelonephr itis [...] appointmen t Mass of psoas muscle [address] abd and pelvis 11/04 resulted in small region of phlegmon with tiny central abscess along the anterior margin of the left psoas muscle with inflammati on.*Fu with repeat CT a/p in 2 weeks to be done with CT of abd for endocrine and results will be given to both partiesfu with Dr Herrera 12/[address] [place] [facility] Compressio n fracture of vertebral column 97439569 M48.50XA C6 pedicle fractureT2 ccompressi on fx with neurosurge ry consult rec aspen collar for 6 weeks[address]rec fu with dr johnson in 6 weeks11/13 nsg to reschedule appt as he is seeing endocrine on 12/01 Ureteric stone 51313628 N20.1 hx ofresolved with lithotrips y and stent removal on 10/01/23 with urology outptremai ns with chronic livingston [facility] u/s with left ureteral hydronephr osis done and sent to urologymon itodevendra for bleeding/r eoccurence /infection L pyelonephr itis found citrobacte r freundii and pseudomona s and urology consulted felt myositis/a bscess not drainable, livingston replaced by urology with BPH and outlet obstructio n noted.fu with urology 11/13 for fu of stones, already has appointmen t today Carrier of methicillin resistant Staphylococcus aureus 958950230 Z22.322 found on MRSA nasal swab in hospitalha d received multiple abx in hospno further orders Pressure i njury of buttock 547532336 L89.309 pt with pressure ulcer to buttockbar rier cream to buttocks bid and prnair loss bedwound consultmon itor Bilateral heel pain 1563 369051 7555040 M79.671 11/13bilate ral heel pain and bogginessh as pain to heels, area closed and with pink appearance float heels on pillowson air loss bedskin prep to heels daily30 cc protein liquid qdmonitor [id number] LANDEN PEREZ NP [address] [place] [address] 11/18/2024 12:24:30 11/20/2024 12:12:14 Compression fracture of vertebral column 26418007 M48.50XA C6 pedicle fractureT2 ccompressi on fx with neurosurge ry consult rec aspen collar for 6 weeks.Nsg. reporting pt. removing his collar at times - instructed to update surgeon if this continues. Replace collar as able.f/u with dr johnson in 6 weeks Lesion of penis 49870323 0 N48.9 Unclear etiology, could be related to livingston or brief irritation , yeastPlan -good hygeine - wash and dry wellapply nystatin cream bid to affected areas x 2 wks.monito rcan also refer to Wound PA-C to follow Health Concerns Section Related Observation LastModified by Organization Detai ls LastModified Time None Recorded Concern Status LastModified by Organization Details LastModified Time None Recorded Payers Encounter Date Sequence Insurance Name Policy Number Policy Morton Covered Member ID Morton Member ID Guarantor Name 11/18/2024 1 [place]ICARE B[place]: [employer] [facility] [id number] [facility] 11/18/2024 2 [place] [facility] [place] [facility] [id number] [facility] Notes Date Note Type Note Provider Name and Address Organization Details Recorded Time 11/18/2024 text/html Alhaji is seen t sheree for an acute visit. He recently returned to [facility] from [facility] after a hosp. related to a fall and AMS. Dx'd with influenza B, sepsis, LLL PNA, pyelonephritis with psoas myositis/abcess, moderate-severe left hydroureteronephrosis, also c6 pedicle and T2 compression fractures. Asked to check his penis today due to ulcerations noted on foreskin, more apparent when foreskin retracted. 3 small pink ulcerations noted along with some whitish discoloration to tip of penis. No itch, burn, or pain.Nsg. also reports he continues to remove his collar at times. PMH: BPH, chronic livingston, and HTN, chronic urine infection, depression, dementia, afib, 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, chronic low back pain LANDEN PEREZ, TREATMENT PLANT OPERATOR [address] [facility], [address], [place], [address], [facility] 11/18/2024 12:44:23
[2024-11-24 08:51] LABS: Influenza A PCR NEGATIVE (Negative); Influenza B PCR NEGATIVE (Negative); Resp Syncy Virus RNA Qual PCR NEGATIVE (Negative); SARS COV2 PCR INHOUSE NEGATIVE (Negative)
[2024-11-24 09:00] VITALS: BP 128/73; PULSE 67; RESP 16; TEMP 36; O2SAT 95
== END 2024-11-24 09:00 | disposition skilled nursing facility (03) ==
PROVIDERS: Emergency Provider Emergency Medicine; PCP Family Medicine
DX: J06.9 Acute upper respiratory infection, unspecified (principal); S12.500D Unspecified displaced fracture of sixth cervical vertebra, subsequent encounter for fracture with routine healing; X58.XXXD Exposure to other specified factors, subsequent encounter
CPT/HCPCS: 0241U; 71045; 99282; 99283

== ENCOUNTER → 2024-11-24 08:44 | Outpatient (BNV) | payer MEDICARE, MEDICAID, SELFPAY | PROVIDERS: Emergency Provider Emergency Medicine; PCP Family Medicine; Visit Provider Radiology Diagnostic Radiology | DX: J98.11 Atelectasis (principal) | CPT/HCPCS: 71045 ==